=== PATIENT | female | born 1990 | race Caucasian/White ===

== ENCOUNTER 2021-03-21 09:54 | Outpatient (REF) | payer BC, OTHER, SELFPAY ==
[2021-03-25 20:47] LABS: HPV mRNA E6/E7 rflx Not Detected (Not Detected)
== END 2021-03-21 09:55 | disposition home or self-care (01) ==
LOC: HO.LAB 09:54
PROVIDERS: Visit Provider Obstetrics & Gynecology
DX: Z01.419 Encounter for gynecological examination (general) (routine) without abnormal findings (principal); Z11.51 Encounter for screening for human papillomavirus (HPV)
CPT/HCPCS: 87624; 88142

== ENCOUNTER → 2021-04-07 08:51 | Outpatient (BNVA) | payer BC, OTHER, SELFPAY | PROVIDERS: Visit Provider Advanced Practice Midwife | DX: Z32.01 Encounter for pregnancy test, result positive (principal); O09.299 Supervision of pregnancy with other poor reproductive or obstetric history, unspecified trimester | CPT/HCPCS: 81025; 99212 ==

== ENCOUNTER 2021-04-09 16:07 | Outpatient (REF) | payer BC, OTHER, SELFPAY ==
[2021-04-09 16:41] LABS: Hematocrit 34.5 % (37-47); Hemoglobin 11.3 g/dl (12.0-16.0); Mean Corpuscular HGB Conc 32.8 g/dl (31.0-35.0); Mean Corpuscular Hemoglobin 25.9 pg (27.0-33.0); Mean Corpuscular Volume 79.1 fL (80-98); Mean Platelet Volume 9.4 fL (9.4-12.3); Platelet Count 384 X10*3/uL (160-400); Red Blood Count 4.36 X10*6/uL (4.20-5.50); Red Cell Distribution Width 15.6 % (11.0-16.0); White Blood Count 9.8 X10*3/uL (4.8-10.8)
[2021-04-09 17:23] LABS: HCG Quantitative 5567 mIU/mL
== END 2021-04-09 16:08 | disposition home or self-care (01) ==
LOC: HO.LAB 16:07
PROVIDERS: Obstetrics & Gynecology; Visit Provider Advanced Practice Midwife
DX: Z32.01 Encounter for pregnancy test, result positive (principal); Z86.2 Personal history of diseases of the blood and blood-forming organs and certain disorders involving the immune mechanism
CPT/HCPCS: 36415; 84702; 85027

== ENCOUNTER 2021-04-11 16:03 | Outpatient (REF) | payer BC, OTHER, SELFPAY ==
[2021-04-11 17:30] LABS: HCG Quantitative 7976 mIU/mL
== END 2021-04-11 16:04 | disposition home or self-care (01) ==
LOC: HO.LAB 16:03
PROVIDERS: Visit Provider Advanced Practice Midwife
DX: Z32.01 Encounter for pregnancy test, result positive (principal)
CPT/HCPCS: 36415; 84702

== ENCOUNTER 2021-04-14 13:42 | Outpatient (REF) | payer BC, OTHER, SELFPAY ==
--- NOTE | ~2021-04-14 | US_ITS ---
EXAMINATION: US OBSTETRICAL ULTRASOUND CLINICAL INFORMATION: Positive test. COMPARISON: None. LMP: 03/01/2021. Gestational age by maternal dates is a 6 weeks 2 days. Estimated date of delivery by maternal dates is 12/06/2021. TECHNIQUE: Transabdominal first trimester OB ultrasound FINDINGS: There is a single intrauterine gestational sac with visible yolk sac, embryo/fetus, and cardiac activity. There is no significant subchorionic hemorrhage or hematoma. HR: 117 beats per minute. CRL (crown rump length): 0.46 cm (6 weeks 2 days +/- 4 days). MYRA (estimated date of delivery): 12/06/2021 +/- 4 days. MATERNAL ADNEXA: The right maternal ovary measures 3.3 x 2.4 x 2.7 cm. simple 3.2 x 2.6 x 3.2 cm cyst. The left maternal ovary measures 3.2 x 2.4 x 3.2 cm. complex 1.3 x 0.9 x 0.9 cm cyst. There is no significant maternal adnexal mass. No maternal pelvic ascites. US/US OB <= 14 weeks fetus IMPRESSION: 1. Single intrauterine gestation with ultrasound gestational age of 6 weeks 2 days +/- 4 days. 2. Estimated date of delivery is 12/06/2021 +/- 4 days. 3. bilateral ovarian cysts, largest on the right measuring 3cm.
== END 2021-04-14 13:43 | disposition home or self-care (01) ==
LOC: HO.US 13:42
PROVIDERS: Visit Provider Advanced Practice Midwife
DX: O09.291 Supervision of pregnancy with other poor reproductive or obstetric history, first trimester (principal); Z3A.01 Less than 8 weeks gestation of pregnancy
CPT/HCPCS: 76801

== ENCOUNTER → 2021-05-05 09:52 | Outpatient (BNVA) | payer BC, OTHER, SELFPAY | PROVIDERS: Visit Provider Advanced Practice Midwife | DX: O34.219 Maternal care for unspecified type scar from previous cesarean delivery (principal); O99.511 Diseases of the respiratory system complicating pregnancy, first trimester; J45.909 Unspecified asthma, uncomplicated; O09.291 Supervision of pregnancy with other poor reproductive or obstetric history, first trimester; Z3A.09 9 weeks gestation of pregnancy | CPT/HCPCS: 99212 ==

== ENCOUNTER 2021-05-07 10:33 | Outpatient (REF) | payer BC, OTHER, SELFPAY ==
[2021-05-07 12:46] LABS: Hematocrit 35.4 % (37-47); Hemoglobin 11.6 g/dl (12.0-16.0); Mean Corpuscular HGB Conc 32.8 g/dl (31.0-35.0); Mean Corpuscular Hemoglobin 25.7 pg (27.0-33.0); Mean Corpuscular Volume 78.5 fL (80-98); Mean Platelet Volume 9.5 fL (9.4-12.3); Platelet Count 352 X10*3/uL (160-400); Red Blood Count 4.51 X10*6/uL (4.20-5.50)
[2021-05-07 13:23] LABS: Glucose 1 Hour PP 50gm Dose 101 mg/dL (60-140)
[2021-05-07 14:06] LABS: Syphilis Screen Reactive (Nonreactive)
[2021-05-07 15:04] LABS: Amphetamine Screen Urine Not Detected (Not Detect); Barbiturates, Urine Not Detected (Not Detect); Benzodiazepines Screen Urine Not Detected (Not Detect); Cannabinoid Screen Urine Not Detected (Not Detect); Cocaine Screen Urine Not Detected (Not Detect); Fentanyl, urine Not Detected (Not Detect); Opiate Screen Urine Not Detected (Not Detect); Phencyclidine Screen Urine Not Detected (Not Detect)
[2021-05-08 04:39] LABS: HIV AB/AG Nonreactive (Nonreactive); HIV Num 1 0.12 S/CO (0.00-0.99)
[2021-05-08 04:42] LABS: HBsAGNum1 0.19 S/CO (0.00-0.99); Hepatitis B Surface Antigen Negative (Negative); ~Hepatitis C Antibody Nonreactive (Nonreactive)
[2021-05-10 17:20] LABS: Rubella IgG Antibody 1.49 Index
[2021-05-17 13:15] LABS: RPR Quantitative Non-Reactive (Nonreactive); T.Pallidum Particle Agg Test Non-Reactive (Nonreactive)
== END 2021-05-07 10:34 | disposition home or self-care (01) ==
LOC: HO.LAB 10:33
PROVIDERS: Visit Provider Advanced Practice Midwife
DX: Z32.01 Encounter for pregnancy test, result positive (principal)
CPT/HCPCS: 80307; 85027; 86592; 86762; 86780; 86787; 86803; 86850; 86900; 86901; 87086; 87340; 87389

== ENCOUNTER 2021-05-16 20:05 | Emergency (ER) | payer BC, OTHER, SELFPAY ==
--- NOTE | 2021-05-16 20:17 | ECG_ITS ---
Test Reason : CHEST PAIN Blood Pressure : / mmHG Vent. Rate : 071 BPM Atrial Rate : 071 BPM P-R Int : 182 ms QRS Dur : 086 ms QT Int : 390 ms P-R-T Axes : 006 072 043 degrees QTc Int : 423 ms Normal sinus rhythm with sinus arrhythmia Normal ECG No previous ECGs available Referred By: Amelia Holcomb Electronically Signed By:CAS BRADLEY
[2021-05-16 21:19] VITALS: BP 120/76; PULSE 70; RESP 16; TEMP 36.8; O2SAT 99; BMI 36.1
[2021-05-16 21:46] LABS: MANUAL DIFF FLAG NO
[2021-05-16 21:48] LABS: Basophils Percent Auto 0.2 % (0-2); Eosinophils Absolute Auto 0.2 X10*3/uL (0.0-0.4); Eosinophils Percent Auto 1.8 % (0-4); Hematocrit 36.6 % (37-47); Hemoglobin 12.3 g/dl (12.0-16.0); Imm Gran Abs Auto 0.07 X10*3/uL (0.00-0.03); Imm Gran Pct Auto 0.5 % (0.0-0.4); Lymphocytes Absolute Auto 2.3 X10*3/uL (1.2-4.9); Lymphocytes Percent Auto 17.6 % (20-40); Mean Corpuscular HGB Conc 33.6 g/dl (31.0-35.0); Mean Corpuscular Hemoglobin 26.6 pg (27.0-33.0); Mean Platelet Volume 9.1 fL (9.4-12.3); Monocytes Absolute Auto 0.8 X10*3/uL (0.1-1.2); Neutrophils Absolute Auto 9.6 X10*3/uL (2.0-8.3); Neutrophils Percent Auto 73.9 % (45-73); Platelet Count 367 X10*3/uL (160-400); Red Blood Count 4.63 X10*6/uL (4.20-5.50); Red Cell Distribution Width 16.1 % (11.0-16.0)
[2021-05-16 22:15] LABS: Alanine Aminotransferase 11 U/L (0-31); Albumin Level 4.2 g/dL (3.5-5.0); Alkaline Phosphatase 55 U/L (39-117); Anion Gap 11 (12-20); Aspartate Amino Transferase 12 U/L (5-31); Bilirubin Total < 0.2 mg/dL (0.0-1.0); Blood Urea Nitrogen 7 mg/dL (9-16); Calcium 10.1 mg/dL (8.4-10.2); Carbon Dioxide 24 mmol/L (22-29); Chloride 105 mmol/L (96-108); Creatinine Clr Calc Pharmacy 189.7; Estimated Glomerular Filt Rate > 60; Glucose Random 92 mg/dL (60-115); Sodium 136 mmol/L (135-145); Total Protein 7.4 g/dL (6.5-8.0)
[2021-05-16 22:15] LABS: Glucose Urine UA NEG (NEG); Leukocyte Esterase Urine 2+ (NEG); Nitrite Urine NEG (NEG); PH 6.5 (5.0-8.0); Specific Gravity - Urine <= 1.005 (1.005-1.025); UACC Culture Trigger YES; Urine Blood NEG (NEG); Urine Ketones NEG (NEG); Urine Protein NEG (NEG-TRACE)
[2021-05-16 22:19] LABS: Appearance Urine HAZY; Color Urine YELLOW
[2021-05-16 22:27] VITALS: BP 122/74; PULSE 75; RESP 15; TEMP 37.1; O2SAT 100
[2021-05-16 22:28] LABS: Troponin-I High Sensitivity < 3.5 ng/L (<3.5-17.0)
[2021-05-16 22:28] LABS: Bacteria Urine 1+ /LPF; RBC Urine 0 /HPF (0); Squamous Epithelial Cell Urine 1+ /LPF; WBC Urine 0-2 /HPF (0-4)
--- NOTE | 2021-05-16 23:29 | ECG_ITS ---
Test Reason : PALPATATIONS Blood Pressure : / mmHG Vent. Rate : 062 BPM Atrial Rate : 062 BPM P-R Int : 170 ms QRS Dur : 086 ms QT Int : 422 ms P-R-T Axes : 010 065 032 degrees QTc Int : 428 ms Normal sinus rhythm with sinus arrhythmia Normal ECG When compared with ECG of 16-MAY-2021 20:14, No significant change was found Referred By: Amelia Holcomb Electronically Signed By:CAS BRADLEY
--- NOTE | 2021-05-16 23:45 | ED_ITS ---
HPI - Chest Pain General Chief Complaint: Chest Pain Stated Complaint: Chest pain Time Seen by Provider: 05/16/21 23:25 Source: patient Mode of arrival: ambulatory Limitations: no limitations History of Present Illness HPI narrative: Patient comes emergency room complaining of tachycardia and chest pressure. Patient is a at 11 weeks of gestational age. Patient denies chest pain or shortness of breath. Patient states the only time that she feels the chest pressure is whenever she feels the heart pounding. At this time, patient is asymptomatic. Patient states that she has discussed her symptoms with her OBGYN and with her PCP, they recommended her to come to emergency room. At this time, patient has no complaints. Denies cough, no fever, denies lower extremity edema or pain Related Data Home Medications Medication Instructions Recorded Confirmed cetirizine 10 mg capsule (Zyrtec) 10 mg PO DAILY PRN 04/07/21 04/07/21 Previous Rx's Medication Instructions Recorded vitamin with calcium 1 tab PO DAILY #90 tab 04/07/21 no.72-iron 27 mg-folic acid 1 mg tablet ( Vitamins Plus Low Iron) ferrous sulfate 325 mg (65 mg 325 mg PO DAILY 30 Days #30 tab 04/10/21 iron) tablet,delayed release doxylamine succinate 25 mg tablet 25 mg PO BEDTIME 30 Days #30 tab 05/05/21 (Unisom (doxylamine)) pyridoxine (vitamin B6) 25 mg 25 mg PO tid PRN 30 Days #90 tab 05/05/21 tablet (Vitamin B-6) nitrofurantoin 100 mg PO BID #14 cap 05/17/21 monohydrate/macrocrystals 100 mg capsule (Macrobid) Allergies Allergy/AdvReac Type Severity Reaction Status Date / Time No Known Allergies Allergy Verified 05/16/21 21:19 Review of Systems Review of Systems: Constitutional : No Weight loss, No Fever, No Chills, No Night Sweats, No Fatigue, No Malaise ENT/Mouth : No Hearing loss, No Ear Pain, No Nasal Congestion, No Sinus Pain, No Hoarseness, No sore throat, No Rhinorrhea, No Swallowing Difficulty Eyes: No Eye Pain, No Swelling, No Redness, No Foreign Body, No Discharge, No Vision Changes Cardiovascular : No Chest Pain, No SOB, No Dyspnea on Exertion, No Orthopnea, No Edema, complaining of palpitations and chest pressure at the same time, in termittent, no symptoms at this time Respiratory : No Cough, No Sputum, No Wheezing, No Smoke Exposure, No Dyspnea Gastrointestinal : No Nausea, No Vomiting, No Diarrhea, No Constipation, No abdominal Pain, No Hematochezia, No Melena Genitourinary : no irregular bleeding, No Dysuria, No Urinary Frequency, No Hematuria, No Urinary Incontinence, No Urgency, No Flank Pain, No Urinary Flow Changes, No Hesitancy Musculoskeletal : No joint pain, No Myalgias, No Joint Swelling Skin : No Skin Lesions, No rash Neuro : No Weakness, No Numbness, No Paresthesias, No Loss of Consciousness, No Dizziness, No Headache Psych : No Anxiety/Panic, No Depression, No SI/HI/AH/VH, No Social Issues, Heme/Lymph: No Bruising, No Bleeding,No Lymphadenopathy Endocrine : No Polyuria, No Polydipsia, No Temperature Intolerance [facility] Past Medical History Medical History Asthma Seasonal allergies Surgical History Hx of section Family History Family History (Updated 05/05/21 @ 10:17 by Justina Rosales) Maternal Aunt Breast CA Father Diabetes mellitus Mother Diabetes mellitus HTN (hypertension) Maternal Grandfather Colon cancer Paternal Grandmother Stomach cancer Social History Social History (Updated 05/05/21 @ 10:20 by Justina Rosales) Household Members: Spouse and Children Housing: House Are you a primary lawn caretaker to a significant other at home: No Do you presently have visiting nurse or other home services: No Alcohol intake: never Patient Tobacco Use Status: Never used Tobacco Advance Directives: No Advance Directives Information Provided: Yes Patient : Yes service: No Current occupational status: unemployed Gender identity: Female Physical Exam Vital Signs: Vital Signs: Last Vital Signs Temp 98.8 F 05/16/21 22:27 Pulse 75 05/16/21 22:27 Resp 15 05/16/21 22:27 BP 122/74 05/16/21 22:27 Pulse Ox 100 05/16/21 22:27 Body Mass Index 36.1 Const: Other: Appearance: Alert. Oriented X3. No acute distress. Eyes: Pupils equal, round and reactive to light. ENT: Pharynx normal. Neck: Normal inspection. Neck supple. No lymph nodes noted. No crepitus CVS: Normal heart rate and rhythm. Pulses normal. Normal S1 and S2 Respiratory: No respiratory distress. Breath sounds normal. No Wheezing. No rales Abdomen: Soft and nontender. No rigidity. No distention. Bedside ultrasound shows a intrauterine , good movement, heart rate approximately 160-170 Skin: Skin warm and dry. Normal skin color. Normal skin turgor. Extremities: No lower extremity edema. No lower extremity edema, no pain to palpation in calves or thighs Neuro: Oriented X 3. No motor deficit. No sensory deficit. Moving all extermities. No slurred speech. Course Course Course Narrative: Patient is asymptomatic, patient will follow-up with her primary care physician and Cardiology as scheduled. Patient does have a mild UTI, 1st dose of Macrobid given in the emergency room. MDM - Chest Pain MDM Narrative Medical decision making narrative: At this time, PE is not suspected. Patient is now asymptomatic. Patient states she has a cardiology consult pending. PE is not suspected at this time. Lab Data Result diagrams: 05/16/21 21:41 05/16/21 21:41 Labs: Lab Results 05/16/21 05/16/21 05/16/21 Range/Units 21:41 21:41 21:41 WBC 13.0 H (4.8-10.8) X10*3/uL RBC 4.63 (4.20-5.50) X10*6/uL Hgb 12.3 (12.0-16.0) g/dl Hct 36.6 L (37-47) % MCV 79.0 L (80-98) fL MCH 26.6 L (27.0-33.0) pg MCHC 33.6 (31.0-35.0) g/dl RDW 16.1 H (11.0-16.0) % Plt Count 367 (160-400) X10*3/uL MPV 9.1 L (9.4-12.3) fL Immature Gran % (Auto) 0.5 H (0.0-0.4) % Neut % (Auto) 73.9 H (45-73) % Lymph % (Auto) 17.6 L (20-40) % [place] % (Auto) 6.0 (2-11) % Eos % (Auto) 1.8 (0-4) % Baso % (Auto) 0.2 (0-2) % Lymph # (Auto) 2.3 (1.2-4.9) X10*3/uL [place] # (Auto) 0.8 (0.1-1.2) X10*3/uL Eos # (Auto) 0.2 (0.0-0.4) X10*3/uL Baso # (Auto) 0.0 (0.0-0.2) X10*3/uL Abs Immat Gran (auto) 0.07 H (0.00-0.03) X10*3/uL Absolute Neuts (auto) 9.6 H (2.0-8.3) X10*3/uL Absolute Nucleated RBC 0.000 (0.0-0.012) X10*3/uL Nucleated RBC % (auto) 0.0 (0.0-0.2) /100WBC Sodium 136 (135-145) mmol/L Potassium 4.0 (3.3-5.1) mmol/L Chloride 105 (96-108) mmol/L Carbon Dioxide 24 (22-29) mmol/L Anion Gap 11 L (12-20) BUN 7 L (9-16) mg/dL Creatinine 0.53 (0.5-1.4) mg/dL Estim Creat Clear Calc 189.7 Estimated GFR > 60 Random Glucose 92 (60-115) mg/dL Calcium 10.1 (8.4-10.2) mg/dL Total Bilirubin < 0.2 (0.0-1.0) mg/dL AST 12 (5-31) U/L ALT 11 (0-31) U/L Alkaline Phosphatase 55 (39-117) U/L Troponin I High Sens < 3.5 (<3.5-17.0) ng/L Total Protein 7.4 (6.5-8.0) g/dL Albumin 4.2 (3.5-5.0) g/dL Urine Color Urine Appearance Urine pH (5.0-8.0) Ur Specific [place] (1.005-1.025) Urine Protein (NEG-TRACE) MG/DL Urine Glucose (UA) (NEG) MG/DL Urine Ketones (NEG) MG/DL Urine Blood (NEG) Urine Nitrite (NEG) Ur Leukocyte Esterase (NEG) Urine RBC (0) /HPF Urine WBC (0-4) /HPF Ur Squamous Epith Cells /LPF Urine Bacteria /LPF 05/16/21 Range/Units 22:02 WBC (4.8-10.8) X10*3/uL RBC (4.20-5.50) X10*6/uL Hgb (12.0-16.0) g/dl Hct (37-47) % MCV (80-98) fL MCH (27.0-33.0) pg MCHC (31.0-35.0) g/dl RDW (11.0-16.0) % Plt Count (160-400) X10*3/uL MPV (9.4-12.3) fL Immature Gran % (Auto) (0.0-0.4) % Neut % (Auto) (45-73) % Lymph % (Auto) (20-40) % [place] % (Auto) (2-11) % Eos % (Auto) (0-4) % Baso % (Auto) (0-2) % Lymph # (Auto) (1.2-4.9) X10*3/uL [place] # (Auto) (0.1-1.2) X10*3/uL Eos # (Auto) (0.0-0.4) X10*3/uL Baso # (Auto) (0.0-0.2) X10*3/uL Abs Immat Gran (auto) (0.00-0.03) X10*3/uL Absolute Neuts (auto) (2.0-8.3) X10*3/uL Absolute Nucleated RBC (0.0-0.012) X10*3/uL Nucleated RBC % (auto) (0.0-0.2) /100WBC Sodium (135-145) mmol/L Potassium (3.3-5.1) mmol/L Chloride (96-108) mmol/L Carbon Dioxide (22-29) mmol/L Anion Gap (12-20) BUN (9-16) mg/dL Creatinine (0.5-1.4) mg/dL Estim Creat Clear Calc Estimated GFR Random Glucose (60-115) mg/dL Calcium (8.4-10.2) mg/dL Total Bilirubin (0.0-1.0) mg/dL AST (5-31) U/L ALT (0-31) U/L Alkaline Phosphatase (39-117) U/L Troponin I High Sens (<3.5-17.0) ng/L Total Protein (6.5-8.0) g/dL Albumin (3.5-5.0) g/dL Urine Color YELLOW Urine Appearance HAZY Urine pH 6.5 (5.0-8.0) Ur Specific [place] <= 1.005 (1.005-1.025) Urine Protein NEG (NEG-TRACE) MG/DL Urine Glucose (UA) NEG (NEG) MG/DL Urine Ketones NEG (NEG) MG/DL Urine Blood NEG (NEG) Urine Nitrite NEG (NEG) Ur Leukocyte Esterase 2+ H (NEG) Urine RBC 0 (0) /HPF Urine WBC 0-2 (0-4) /HPF Ur Squamous Epith Cells 1+ /LPF Urine Bacteria 1+ /LPF ECG Data ECG #1: Attestation: I personally reviewed and interpreted this ECG as follows: (Sinus rhythm, heart rate 62, no ST segment depression or elevation, to inversion, QTC 428) Discharge Plan Discharge Clinical Impression: Palpitations, UTI (urinary tract infection) Patient Disposition: Home, Self-Care Instructions: Heart Palpitations (ED) Additional Instructions: Please follow-up with your primary care physician tomorrow. If you have any worsening or new symptoms, please return to the emergency room or call 911 Prescriptions: New nitrofurantoin monohyd/m-cryst [Macrobid] 100 mg capsule 100 mg PO BID Qty: 14 RF: 0 No Action ferrous sulfate 325 mg (65 mg iron) tablet,delayed release (DR/EC) 325 mg PO DAILY 30 Days Qty: 30 RF: 1 Zyrtec 10 mg capsule 10 mg PO DAILY PRNRF: 0 Vitamin Plus Low Iron 27 mg iron- 1 mg tablet 1 tab PO DAILY Qty: 90 RF: 3 Unisom (doxylamine) 25 mg tablet 25 mg PO BEDTIME 30 Days Qty: 30 RF: 3 pyridoxine (vitamin B6) [Vitamin B-6] 25 mg tablet 25 mg PO tid PRN (Reason: nausea) 30 Days Qty: 90 RF: 3
== END 2021-05-17 00:09 | disposition home or self-care (01) ==
PROVIDERS: Emergency Provider Emergency Medicine
DX: O99.411 Diseases of the circulatory system complicating pregnancy, first trimester (principal); R00.2 Palpitations; O23.41 Unspecified infection of urinary tract in pregnancy, first trimester; Z3A.11 11 weeks gestation of pregnancy
CPT/HCPCS: 36415; 80053; 81001; 84484; 85025; 87086; 93005; 99283

== ENCOUNTER 2021-05-23 11:19 | Outpatient (REF) | payer BC, OTHER, SELFPAY ==
--- NOTE | ~2021-05-23 | US_ITS ---
EXAMINATION: OBSTETRICAL ULTRASOUND, FIRST TRIMESTER HISTORY: 30-year-old at 11.6 weeks of gestation NT screening COMPARISON: 04/14/2021 TECHNIQUE: Real time transabdominal imaging with color and M-mode Doppler. FINDINGS: A single, live IUP CRL of 59.8 mm c/w 12.4wks is noted. Heart Rate: 161 beats per minute. Normal yolk sac seen. NT was 1.3.mm. NB Present The embryo appears sonographically wnl for this GA. Both maternal ovaries are seen and appear normal. GESTATIONAL AGE: 1. Established GA: 11.6 wks 2. GA from [facility]: 12.4 wks ESTIMATED DATE OF DELIVERY: 1. Established MYRA: 12/06/2021 2. MYRA from [facility]: 12/01/2021 US/US OB 1T nuc measure IMPRESSION: 1. A single live IUP 2. Size equals dates 3. NT of 1.3 mm MFM Consultation: I reviewed the ultrasound findings along with significance of NT measurement. The NT of less than 3mm is generally reassuring. However, the sensitivity for T21 detection is only 60%. I reviewed the availability of serum aneuploidy screening which includes cell-free DNA and placental protein based tests. I discussed the sensitivity, false-positive rate, and other limitations associated with each test. I also reviewed the availability of invasive diagnostic tests that are associated small but definite risk of miscarriage. We also reviewed the differences between screening tests and diagnostic tests. After our discussion, she opted for the First trimester screening that is based on cell-free DNA or non-invasive testing (NIPT). A follow up at 18-20 weeks for survey has been scheduled. Thank you very much for this referral. Total time 30 minutes. The time spent was devoted to counseling the patient about the disease and diagnosis, coordinating care including reviewing her records, pertinent lab data and studies, as well as discussing diagnostic evaluation and workup, plan therapeutic interventions and future disposition of care. This includes any additional research needed to obtain further information in formulating the plan of care of this patient. This note was generated with a voice recognition program. Please excuse any errors which may have been overlooked during my review of this note. Sometimes these errors may affect the content or meaning of a given sentence.
== END 2021-05-23 11:20 | disposition home or self-care (01) ==
LOC: HO.US 11:19
PROVIDERS: Visit Provider Advanced Practice Midwife
DX: Z36.82 Encounter for antenatal screening for nuchal translucency (principal)
CPT/HCPCS: 76813

== ENCOUNTER 2021-06-02 13:34 | Outpatient (REF) | payer OTHER, SELFPAY ==
[2021-06-03 04:49] LABS: CT PCR NOT DETECTED (Not Detect.); NG PCR NOT DETECTED (Not Detect.)
[2021-06-03 08:55] LABS: BV Int Neg Control Negative (Negative); BV Int Pos Control Positive (Positive)
== END 2021-06-02 13:35 | disposition home or self-care (01) ==
LOC: HO.LAB 13:34
PROVIDERS: Visit Provider Advanced Practice Midwife
DX: O34.219 Maternal care for unspecified type scar from previous cesarean delivery (principal); O26.891 Other specified pregnancy related conditions, first trimester; O09.299 Supervision of pregnancy with other poor reproductive or obstetric history, unspecified trimester; N63.21 Unspecified lump in the left breast, upper outer quadrant; N89.8 Other specified noninflammatory disorders of vagina; Z3A.13 13 weeks gestation of pregnancy; Z20.2 Contact with and (suspected) exposure to infections with a predominantly sexual mode of transmission
CPT/HCPCS: 81003; 87480; 87491; 87510; 87591; 87660; 99212

== ENCOUNTER 2021-06-25 13:38 | Outpatient (REF) | payer BC, MEDICAID, SELFPAY ==
--- NOTE | ~2021-06-25 | US_ITS ---
EXAMINATION: US DIAGNOSTIC ULTRASOUND BREAST, LEFT CLINICAL INFORMATION: Patient for months . Patient developed left breast lump for one and half months.. COMPARISON: None. TECHNIQUE: Ultrasound of the breast is performed with real-time henderson scale imaging and color Doppler. FINDINGS: Patient demonstrates where the palpable abnormality lies at approximately 2:00 position 7 cm from the nipple. There is no solid mass, architectural abnormality, duct ectasia, or edema in the soft tissue planes. Results are discussed with the patient at time of visit. US/US breast LT limited IMPRESSION: No specific left breast ultrasound finding identified. ASSESSMENT: BI-RADS 1: Negative RECOMMENDATION: Clinical follow-up
== END 2021-06-25 13:39 | disposition home or self-care (01) ==
LOC: HO.MAMMO 13:38
PROVIDERS: Visit Provider Advanced Practice Midwife
DX: O26.891 Other specified pregnancy related conditions, first trimester (principal); N63.21 Unspecified lump in the left breast, upper outer quadrant; O09.291 Supervision of pregnancy with other poor reproductive or obstetric history, first trimester; O34.219 Maternal care for unspecified type scar from previous cesarean delivery; Z3A.13 13 weeks gestation of pregnancy
CPT/HCPCS: 76642

== ENCOUNTER → 2021-06-30 10:17 | Outpatient (BNVA) | payer BC, MEDICAID, SELFPAY | PROVIDERS: Visit Provider Advanced Practice Midwife | DX: O34.219 Maternal care for unspecified type scar from previous cesarean delivery (principal); Z36.3 Encounter for antenatal screening for malformations; Z3A.17 17 weeks gestation of pregnancy | CPT/HCPCS: 99212 ==

== ENCOUNTER 2021-07-18 10:14 | Outpatient (REF) | payer BC, MEDICAID, SELFPAY ==
--- NOTE | ~2021-07-18 | US_ITS ---
EXAMINATION: US OBSTETRICAL CLINICAL INFORMATION: 30-year-old at 19.6 weeks of gestation Suspected anomaly COMPARISON: 06/25/2021 TECHNIQUE: Real-time transabdominal ultrasound was performed using C1-5 megahertz transducer. FINDINGS: A single, active, fetus is seen in vertex presentation. The placenta is posterior without previa, and the amniotic fluid volume is wnl. MEASUREMENTS: 1. Biparietal Diameter: 4.8 cm; 20.4 wks 2. Occipital Frontal Diameter: 6.3 cm 3. Head Circumference: 17.8 cm; 20.2 wks 4. Abdominal Circumference: 15.8 cm; 21.0 wks 5. Femur Length: 3.3 cm; 20.3 wks 6. Humerus Length: 3.3 cm; 21.1 wks 7. Tibia Length: 3.2 cm; 21.6 wks 8. Ulna Length: 3.0 cm; 21.1 wks 9. Lateral ventricle: 0.64 cm 10. Cerebellum: 1.96 cm; 20.1 wks 11. Cisterna Magna: 0.48 cm 12. Nuchal Fold: 4.2 mm 13. Heart Rate: 152 beats per minute Rt ovary: normal Lt ovary: normal Cervical length 4.4 cm on T/A. GESTATIONAL AGE: 1. Established GA: 19.6 wks 2. GA from [facility]: 20.4 wks ESTIMATED DATE OF DELIVERY: 1. Established MYRA: 12/06/2021 2. MYRA from [facility]: 12/01/2021 ANATOMY: The visualized anatomy includes but not limited to: 1. Cranium: Normal 2. Intracranial anatomy: cavum septum pellucidi, lateral ventricles, choroid plexus, cerebellum, posterior fossa, third and fourth ventricles. 3. face: orbits, lip/palate, profile, nasal bone 4. Heart: four-chamber view of the heart, ventricular septum, foramen ovale, pulmonary vein, left and right outflow tracts, three-vessel view, 3 vessel trachea view, aortic and ductal arches, situs.. 5. Diaphragm: Normal 6. Abdominal wall: Normal 7. Cord Insertion: Normal 8. Spine: Cervical, thoracic, lumbar, sacral. 9. Stomach: Normal size and shape 10. Right Kidney: Normal 11. Left Kidney: Normal 12. 3 vessel cord: Normal 13. Upper extremity: Open hands, fifth digit. 14. Lower extremity: Tibia, fibula, bilateral feet. 15. Bladder: Normal 16. Genitalia: Male, patient aware US/US OB /maternal detail IMPRESSION: 1. Single, living, intrauterine with appropriate biometry. 2. Normal survey DISCUSSION: I reviewed today's ultrasound findings. We discussed the limitations of ultrasound in diagnosing aneuploidy and other congenital abnormalities. I reviewed the differences between screening test and diagnostic test. Amniocentesis was discussed and declined. She was informed that the baseline incidence of congenital abnormalities is approximately 3-5%. Not all these conditions are diagnosable in utero. RECOMMENDATIONS: 1. Follow-up when necessary Thank you for allowing me to participate in her care. Total time 20 minutes. The time spent was devoted to counseling the patient about the disease and diagnosis, coordinating care including reviewing her records, pertinent lab data and studies, as well as discussing diagnostic evaluation and workup, plan therapeutic interventions and future disposition of care. This includes any additional research needed to obtain further information in formulating the plan of care of this patient. This note was generated with a voice recognition program. Please excuse any errors which may have been overlooked during my review of this note. Sometimes these errors may affect the content or meaning of a given sentence.
== END 2021-07-18 10:15 | disposition home or self-care (01) ==
LOC: HO.US 10:14
PROVIDERS: Visit Provider Advanced Practice Midwife
DX: Z36.3 Encounter for antenatal screening for malformations (principal); O34.219 Maternal care for unspecified type scar from previous cesarean delivery; Z3A.19 19 weeks gestation of pregnancy
CPT/HCPCS: 76811

== ENCOUNTER → 2021-07-30 09:28 | Outpatient (BNVA) | payer BC, MEDICAID, SELFPAY | PROVIDERS: Visit Provider Advanced Practice Midwife | DX: Z34.82 Encounter for supervision of other normal pregnancy, second trimester (principal); Z3A.21 21 weeks gestation of pregnancy; Z98.891 History of uterine scar from previous surgery | CPT/HCPCS: 81003; 90686; 99212 ==

== ENCOUNTER → 2021-08-27 09:12 | Outpatient (BNVA) | payer BC, MEDICAID, SELFPAY | PROVIDERS: Visit Provider Advanced Practice Midwife | DX: O26.842 Uterine size-date discrepancy, second trimester (principal); O26.892 Other specified pregnancy related conditions, second trimester; R76.8 Other specified abnormal immunological findings in serum; Z98.891 History of uterine scar from previous surgery; Z3A.25 25 weeks gestation of pregnancy | CPT/HCPCS: 99212 ==

== ENCOUNTER → 2021-09-29 10:39 | Outpatient (BNVA) | payer BC, MEDICAID, SELFPAY | PROVIDERS: Visit Provider Advanced Practice Midwife | DX: O26.843 Uterine size-date discrepancy, third trimester (principal); O26.893 Other specified pregnancy related conditions, third trimester; R76.8 Other specified abnormal immunological findings in serum; Z3A.30 30 weeks gestation of pregnancy; Z98.891 History of uterine scar from previous surgery; Z36.3 Encounter for antenatal screening for malformations | CPT/HCPCS: 81003; 99212 ==

== ENCOUNTER 2021-10-01 09:37 | Outpatient (REF) | payer BC, MEDICAID, SELFPAY ==
[2021-10-01 11:35] LABS: Hematocrit 35.3 % (37.0-47.0); Hemoglobin 11.8 g/dl (12.0-16.0); Mean Corpuscular HGB Conc 33.4 g/dl (31.0-35.0); Mean Corpuscular Hemoglobin 27.6 pg (27.0-33.0); Mean Corpuscular Volume 82.7 fL (80.0-98.0); Platelet Count 371 X10*3/uL (160-400); Red Blood Count 4.27 X10*6/uL (4.20-5.50); Red Cell Distribution Width 14.4 % (11.0-16.0); White Blood Count 10.9 X10*3/uL (4.8-10.8)
[2021-10-01 11:53] LABS: Glucose 1 Hour PP 50gm Dose 139 mg/dL (60-140)
[2021-10-01 12:20] LABS: Syphilis Screen Nonreactive (Nonreactive)
== END 2021-10-01 09:38 | disposition home or self-care (01) ==
LOC: HO.LAB 09:37
PROVIDERS: Visit Provider Advanced Practice Midwife
DX: O26.842 Uterine size-date discrepancy, second trimester (principal); O26.892 Other specified pregnancy related conditions, second trimester; R76.8 Other specified abnormal immunological findings in serum; Z98.891 History of uterine scar from previous surgery
CPT/HCPCS: 36415; 85027; 86780

== ENCOUNTER 2021-10-03 09:22 | Outpatient (REF) | payer BC, MEDICAID, SELFPAY ==
[2021-10-03 11:17] LABS: Glucose Fasting 72 mg/dL (60-99)
[2021-10-03 12:10] LABS: Glucose 1 Hour 129 mg/dL
[2021-10-03 12:17] LABS: Glucose 2 Hour 129 mg/dL
[2021-10-03 14:18] LABS: Glucose 3 Hour 65 mg/dL
== END 2021-10-03 09:23 | disposition home or self-care (01) ==
LOC: HO.LAB 09:22
PROVIDERS: Visit Provider Advanced Practice Midwife
DX: R73.09 Other abnormal glucose (principal)
CPT/HCPCS: 36415; 82951

== ENCOUNTER 2021-10-10 09:23 | Outpatient (REF) | payer BC, MEDICAID, SELFPAY ==
--- NOTE | ~2021-10-10 | US_ITS ---
EXAMINATION: OBSTETRICAL ULTRASOUND, Follow up HISTORY: 30-year-old at 31.6 weeks of gestation Size greater than dates COMPARISON: 07/18/2021 TECHNIQUE: Real time transabdominal imaging with color and M-mode Doppler. PRESENTATION: Vertex PLACENTA LOCATION: Fundal, right AMNIOTIC FLUID: POLA 20.3 cm MEASUREMENTS: 1. Biparietal Diameter: 8.2 cm; 32.6 wks 2. Head Circumference: 29.8 cm; 33.1 wks 3. Abdominal Circumference: 28.9 cm; 33.0 wks 4. Femur Length: 6.3 cm; 32.6 wks 5. Heart Rate: 150 beats per minute WEIGHT: EFW: 2070 grams (4 lbs 9 oz) -- 72 %. BIOPHYSICAL PROFILE: Motion: 2 Tone: 2 Breathin Amniotic Fluid: 2 Total score: 8/8 GESTATIONAL AGE: 1. Established GA: 31.6 wks 2. GA from [facility]: 33.0 wks ESTIMATED DATE OF DELIVERY: 1. Established MYRA: 12/06/2021 2. MYRA from [facility]: 11/28/2021 US/US OB follow up IMPRESSION: 1. A single active fetus is in vertex presentation 2. Size equals dates, EFW corresponds to 72nd percentile 3. Reassuring biophysical profile with normal POLA She delivered her first 2 babies by section. The first had weight of approximately 6 pounds. In the second child was approximately 10 pounds. She is interested in a trial of labor. Given today's EFW, I informed her that the onset of her having a successful vaginal delivery is likely to be about 60% at best. In addition I reviewed the risk of uterine scar separation during labor after 2 previous deliveries. I also reviewed the limitations of ultrasound and estimating weights. She reports normal GLT. My recommendation would be to schedule her third repeat delivery at approximately 39 weeks of gestation. A further follow-up has not been scheduled today. Thank you very much for this referral. Total time 30 minutes. The time spent was devoted to counseling the patient about the disease and diagnosis, coordinating care including reviewing her records, pertinent lab data and studies, as well as discussing diagnostic evaluation and workup, plan therapeutic interventions and future disposition of care. This includes any additional research needed to obtain further information in formulating the plan of care of this patient. This note was generated with a voice recognition program. Please excuse any errors which may have been overlooked during my review of this note. Sometimes these errors may affect the content or meaning of a given sentence.
== END 2021-10-10 09:24 | disposition home or self-care (01) ==
LOC: HO.US 09:23
PROVIDERS: Visit Provider Advanced Practice Midwife
DX: O26.842 Uterine size-date discrepancy, second trimester (principal); O34.219 Maternal care for unspecified type scar from previous cesarean delivery; Z3A.31 31 weeks gestation of pregnancy
CPT/HCPCS: 76816

== ENCOUNTER → 2021-10-15 11:29 | Outpatient (BNVA) | payer BC, MEDICAID, SELFPAY | PROVIDERS: Visit Provider Advanced Practice Midwife | DX: Z34.83 Encounter for supervision of other normal pregnancy, third trimester (principal); Z3A.32 32 weeks gestation of pregnancy | CPT/HCPCS: 81003; 99212 ==

== ENCOUNTER 2023-01-06 13:13 | Outpatient (REF) | payer BC, MEDICAID, SELFPAY ==
[2023-01-06 17:28] LABS: Mean Corpuscular HGB Conc 31.3 g/dl (31.0-35.0); Mean Corpuscular Hemoglobin 22.1 pg (27.0-33.0); Mean Corpuscular Volume 70.8 fL (80.0-98.0); Mean Platelet Volume 9.8 fL (9.4-12.3); Platelet Count 556 X10*3/uL (160-400); Red Blood Count 4.52 X10*6/uL (4.20-5.50); Red Cell Distribution Width 15.7 % (11.0-16.0); White Blood Count 10.1 X10*3/uL (4.8-10.8)
[2023-01-07 05:36] LABS: CT PCR NOT DETECTED (Not Detect.); NG PCR NOT DETECTED (Not Detect.)
[2023-01-07 14:35] LABS: BV Int Neg Control Negative (Negative); BV Int Pos Control Positive (Positive)
== END 2023-01-06 13:14 | disposition home or self-care (01) ==
LOC: HO.LAB 13:13
PROVIDERS: Visit Provider Advanced Practice Midwife
DX: N93.9 Abnormal uterine and vaginal bleeding, unspecified (principal); N92.6 Irregular menstruation, unspecified; Z20.2 Contact with and (suspected) exposure to infections with a predominantly sexual mode of transmission; Z86.2 Personal history of diseases of the blood and blood-forming organs and certain disorders involving the immune mechanism
CPT/HCPCS: 0353U; 81025; 84443; 85027; 87480; 87510; 87660

== ENCOUNTER 2023-01-06 15:11 | Outpatient (REF) | payer BC, MEDICAID, SELFPAY | END 2023-01-06 15:12 | disposition home or self-care (01) | LOC: HO.LNP 15:11 | PROVIDERS: Visit Provider Advanced Practice Midwife | DX: Z13.89 Encounter for screening for other disorder (principal) ==

== ENCOUNTER 2023-01-07 12:57 | Outpatient (REF) | payer BC, MEDICAID, SELFPAY ==
--- NOTE | ~2023-01-07 | US_ITS ---
EXAMINATION: US PELVIS CLINICAL INFORMATION: Abnormal uterine bleeding. COMPARISON: Pelvic ultrasound 06/09/2019. First trimester ultrasound 04/14/2021. TECHNIQUE: Ultrasound of the pelvis is performed using both transabdominal and transvaginal transducers along with Doppler. Transvaginal imaging is performed due to inadequate visualization transabdominally. The patient was actively bleeding during the examination. FINDINGS: Uterus: The uterus is anteverted and measures 10.6 x 5.6 x 6.9 cm. The double wall endometrial thickness is 20 mm. The uterus is smooth in contour and has normal myometrial echogenicity. No visible fibroid. Adnexa: Right ovary measures 4.4 x 2.4 x 2.4 cm. Volume 13.6 mL. Left ovary measures 3.6 x 2.0 x 3.0 cm. Volume 11.4 mL. There is a stable complex cyst with calcification measuring 1.3 x 0.9 x 1.1 cm (previously 1.3 x 0.9 x 0.9 cm on 05/15/2021). US/US pelvic and transvaginal IMPRESSION: The endometrial stripe measures 20 mm. The patient was actively bleeding during the exam. No discrete uterine mass or polyp seen.
== END 2023-01-07 12:58 | disposition home or self-care (01) ==
LOC: HO.HMGCX 12:57
PROVIDERS: Visit Provider Advanced Practice Midwife
DX: N93.9 Abnormal uterine and vaginal bleeding, unspecified (principal); Z86.2 Personal history of diseases of the blood and blood-forming organs and certain disorders involving the immune mechanism
CPT/HCPCS: 76830; 76856

== ENCOUNTER → 2023-02-23 10:56 | Outpatient (BNVA) | payer BC, MEDICAID, SELFPAY | PROVIDERS: Visit Provider Advanced Practice Midwife ==

== ENCOUNTER → 2023-03-31 09:59 | Outpatient (BNVA) | payer BC, MEDICAID, SELFPAY | PROVIDERS: Visit Provider Internal Medicine Cardiovascular Disease ==

== ENCOUNTER 2023-03-31 10:00 | Outpatient (AMB) | payer BC, MEDICAID, SELFPAY ==
--- NOTE | 2023-03-31 10:02 | MHC.OFFVIS ---
Intake Vital Signs 03/31/23 10:03 Height 5 ft 7 in Weight 233 lb 11.04 oz BMI 36.6 BP 126/68 Blood Pressure Location Lt brachial Position Sitting Pulse 75 Intake Visit Reasons: [facility]/ [facility]/ [facility]/ chest pain/elev bp readings Intake Note: New patient with chest pain and high bp c/o sometimes high sometimes low bp Vision Teacher Required: No Allergies No Known Allergies Allergy (Verified 02/23/23 10:58) Medication List - Last Reconciled 03/31/23 by Alberto Henderson MD albuterol sulfate 90 mcg/actuation 0 mcg inhalation ferrous sulfate 324 mg PO BID fluticasone propionate 110 mcg/actuation (Flovent HFA) 2 puffs inhalation BID HPI HPI Comments History of Present Illness Details Thank you for referring Deidre in management of elevated blood pressure. She is a pleasant 32-year-old woman with developed high blood pressure during labor. She had labile blood pressure at that time as well. Since then more recently she started noticing some chest pressure notice that a blood pressure is significantly elevated with systolic blood pressure up to 176 and diastolic blood pressure in the 90s. However other times a blood pressure in the normal ranges systolic blood pressure up to 126 mmHg. She has no clear reason as to why her blood pressure is elevated some day and not on other days. She may think that this might be related to poor sleep the night before. She denies any clear significant snoring noted by her significant other but does have daytime somnolence. She has family history of elevated blood pressure and her mother. Since been diagnosed with this she has reduced to salt intake in his trying to reduce weight. Although she does not think there is made much difference to her blood pressure level. She has not had any workup for secondary causes of hypertension at this point in time. She denies any palpitations, lightheadedness, syncope. No heart failure symptoms. [facility] Medical History Asthma Seasonal allergies Surgical History Hx of section Family History Maternal Aunt Breast CA Father Diabetes mellitus Mother Diabetes mellitus HTN (hypertension) Maternal Grandfather Colon cancer Paternal Grandmother Stomach cancer Social History Household Members: Spouse and Children Both parents involved: Yes Caregiver staying overnight: No Housing: House Are you a primary healthcare management consultant to a significant other at home: No Do you presently have visiting nurse or other home services: No 75 years or older and lives alone: No Alcohol intake: never Patient Tobacco Use Status: Never used Tobacco service: No Current occupational status: unemployed Gender identity: Female Female Reproductive History Menstrual Age of Menarche: 10 Review of Systems Const Denies chills, Denies daytime sleepiness, Denies fatigue, Denies fever(s), Denies frequent falls, Denies poor appetite, Denies snoring, Denies stops breathing during sleep, Denies weakness, Denies weight gain and Denies weight loss Eyes Denies loss of vision ENT Denies dizziness and Denies hearing loss Card Denies chest pain, Denies claudication, Denies leg edema, Denies lightheadedness, Denies palpitations, Denies dyspnea, Denies dyspnea on exertion and Denies orthopnea Resp Denies cough, Denies excessive phlegm production, Denies dyspnea, Denies dyspnea on exertion, Denies snoring and Denies wheezing GI Denies abdominal pain, Denies hematochezia, Denies change in bowel habits, Denies nausea and Denies vomiting Denies urinary frequency and Denies dysuria Musc Denies arthralgias, Denies muscle weakness, Denies numbness and Denies other (frequent falls) Skin/Breast Denies nail changes and Denies rash Neuro Denies Abnormal speech present, Denies dizziness, Denies frequent falls, Denies loss of vision, Denies memory loss, Denies numbness and Denies weakness Psych Denies depression and Denies memory loss Endo Denies fatigue and Denies palpitations Obdulio/Lymph Reports easy bruising and Reports other (anemia) Aller/Immun Denies wheezing Physical Exam Vital Signs: Last Vital Signs Pulse 75 03/31/23 10:03 BP 126/68 03/31/23 10:03 BMI result Body Mass Index 36.6 Const General: cooperative, comfortable, no acute distress, alert, awake, Physically active and well groomed Nutritional Appearance: obese Orientation/consciousness: patient oriented x3 Limitations: no limitations HEENT Head: Yes normocephalic and Yes atraumatic Neck Neck: Yes trachea midline, Yes supple and Yes no JVD Resp Effort & Inspection: normal respiratory effort Auscultation: clear to auscultation bilaterally Cardio Jugular venous distension: no JVD Palpation: normal PMI Rate: regular rate Rhythm: regular rhythm Heart sounds: S1 normal heart sound present, S2 normal heart sound present, no click, no gallops, no murmurs and no rubs GI Auscultation: normal bowel sounds Skin General skin exam: no rashes or lesions noted Neuro General: patient oriented x3 and no focal motor deficits Speech: No Abnormal speech present Extrem General: Yes no clubbing, cyanosis or edema Assessment & Plan Assessment & Plan (1) Labile blood pressure: Code(s): R09.89 - Other specified symptoms and signs involving the circulatory and respiratory systems Plan: Labile blood pressure in young person with associated symptoms when the blood pressure is elevated. Reason for chest discomfort is most likely due to subendocardial strain from her elevated blood pressure. Need to evaluate for secondary hypertension. Will obtain an echocardiogram to evaluate for LV structure and function to evaluate for coarctation although I do not appreciate any murmur. Also suggest renal duplex to rule out fibromuscular dysplasia renal arteries in a young person. Home sleep study to evaluate for sleep apnea. Will also suggest endocrine workup with metanephrines, cortisol, aldosterone and TSH levels. Further treatment based on the findings. She may have a tendency to develop early essential hypertension given her weight and family history for premature hypertension as well. Advised to participate in low-salt diet and weight loss program. She has already started to do that. Advised to maintain a log and monitor blood pressure at home at different times of the day and try to find a possible trigger factor which can be adequately treated. If he develops significant chest pressure she is advised to come to emergency room. She is advised to call me if her blood pressure remains persistently elevated. Will follow up in the clinic in 6 weeks time, sooner p.r.n.. Thank you for allowing me to partake in her care Orders: Orders CA echo transthoracic complete Today R09.89 - Other specified symptoms and signs involving the circulatory and respiratory systems US renal doppler Today R09.89 - Other specified symptoms and signs involving the circulatory and respiratory systems RT home sleep study Today R09.89 - Other specified symptoms and signs involving the circulatory and respiratory systems, R40.0 - Somnolence Aldosterone Today R09.89 - Other specified symptoms and signs involving the circulatory and respiratory systems Aldost/Renin Today R09.89 - Other specified symptoms and signs involving the circulatory and respiratory systems Basic Metabolic Panel Today R09.89 - Other specified symptoms and signs involving the circulatory and respiratory systems Cortisol Random Today R09.89 - Other specified symptoms and signs involving the circulatory and respiratory systems Metanephrines, Plasma Today R09.89 - Other specified symptoms and signs involving the circulatory and respiratory systems TSH reflex Free T4 Today R09.89 - Other specified symptoms and signs involving the circulatory and respiratory systems Coding Level of Care Code New Pt Level 4 (71073) Diagnoses Labile blood pressure R09.89
[2023-03-31 10:03] VITALS: BP 126/68; PULSE 75; BMI 36.6
== END 2023-03-31 10:25 | disposition home or self-care (01) ==
PROVIDERS: Visit Provider Internal Medicine Cardiovascular Disease
DX: R09.89 Other specified symptoms and signs involving the circulatory and respiratory systems (principal)
CPT/HCPCS: 99204

== ENCOUNTER 2023-04-01 08:34 | Outpatient (REF) | payer BC, MEDICAID, SELFPAY ==
[2023-04-01 11:21] LABS: Anion Gap 11 (12-20); Blood Urea Nitrogen 11 mg/dL (9-16); Calcium 9.2 mg/dL (8.4-10.2); Carbon Dioxide 24 mmol/L (22-29); Chloride 106 mmol/L (96-108); Cortisol Random 5.9 ug/dL; Estimated Glomerular Filt Rate > 60; Glucose Random 96 mg/dL (60-115); Potassium 3.9 mmol/L (3.3-5.1); Sodium 137 mmol/L (135-145); TSH reflex Free T4 2.47 uIU/mL (0.32-4.0)
[2023-04-05 06:09] LABS: CA-125 84 U/mL (<35)
[2023-04-09 11:54] LABS: Metanephrine, Free <25 pg/mL (<=57); Normetanephrines, Free 70 pg/mL (<=148); Total Metanephrine, Free 70 pg/mL (<=205)
[2023-04-09 14:17] LABS: Aldosterone/Renin Ratio 2.9 Ratio (0.9-28.9)
== END 2023-04-01 08:35 | disposition home or self-care (01) ==
LOC: HO.LAB 08:34
PROVIDERS: Absent Provider Internal Medicine Cardiovascular Disease; PCP Student in an Organized Health Care Education/Training Program; Visit Provider Obstetrics & Gynecology
DX: N93.9 Abnormal uterine and vaginal bleeding, unspecified (principal); N83.299 Other ovarian cyst, unspecified side
CPT/HCPCS: 36415; 58300; 80048; 81025; 82088; 82533; 83835; 84443; 86304; J7298

== ENCOUNTER 2023-04-01 08:34 | Outpatient (AMB) | payer BC, MEDICAID, SELFPAY ==
[2023-04-01 08:45] VITALS: BP 108/62; BMI 36.6
--- NOTE | 2023-04-01 08:45 | A.OFFVIS_ITS ---
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 The following workup was done.: H&H= 07/12 to TSH, hCG, GC and chlamydia were negative. Co testing was done was negative in 04/02. Pelvic ultrasound showed the following: Uterus: The uterus is anteverted and measures 10.6 x 5.6 x 6.9 cm. The double wall endometrial thickness is 20 mm. The uterus is smooth in contour and has normal myometrial echogenicity. No visible fibroid. Adnexa: Right ovary measures 4.4 x 2.4 x 2.4 cm. Volume 13.6 mL. Left ovary measures 3.6 x 2.0 x 3.0 cm. Volume 11.4 mL. There is a stable complex cyst with calcification measuring 1.3 x 0.9 x 1.1 cm (previously 1.3 x 0.9 x 0.9 cm on 05/15/2021). [facility] Medical History Asthma Seasonal allergies Surgical History Hx of section Family History Maternal Aunt Breast CA Father Diabetes mellitus Mother Diabetes mellitus HTN (hypertension) Maternal Grandfather Colon cancer Paternal Grandmother Stomach cancer Social History Household Members: Spouse and Children Both parents involved: Yes Caregiver staying overnight: No Housing: House Are you a primary career services coordinator to a significant other at home: No Do you presently have visiting nurse or other home services: No 75 years or older and lives alone: No Alcohol intake: never Patient Tobacco Use Status: Never used Tobacco service: No Current occupational status: unemployed Gender identity: Female Female Reproductive History Menstrual Age of Menarche: 10 Date of last menstrual period: 03/30/23 Total pregnancies: 2 Number of Living Children: 2 Review of Systems Const All systems reviewed & are unremarkable except as noted in HPI and below Reports as per HPI and Reports no additional complaints GI Reports no additional complaints Reports no additional complaints Physical Exam Vital Signs: Last Vital Signs BP 108/62 04/01/23 08:45 BMI result Body Mass Index 36.6 Office Procedures IUD Insert/Removal Details Details: The patient is presenting for Mirena IUD insertion Urine test was done in the office and was negative; All the contraindi cations were excluded. The following possible complications were discussed with the patient: Intrauterine , Ectopic , Sepsis, Pelvic Infection, Irregular Bleeding and Amenorrhea, Perforation, Expulsion, Ovarian Cysts, Breast Cancer, The following adverse effects were discussed with the patient: alteration of menstrual bleeding pattern, including: unscheduled uterine bleeding decreased uterine bleeding increased scheduled uterine bleeding female genital tract bleeding ,amenorrhea , genital discharge , vulvovaginitis , breast pain , benign ovarian cyst and associated complications , dysmenorrhea , Gastrointestinal disorders abdominal/pelvic pain, headache/migraine , back pain , acne , depression Alternative options were discussed with the patient including but not limited: control pills, patch, NuvaRing, Depo-medroxyprogesterone acetate, Nexplanon, copper IUD, sterilization, vasectomy, others The procedure was explained in detail to patient , at the end patient signed the informed consent obtained. A no touch technique was used throughout the procedure. A speculum was placed into vagina and cervix was cleaned with betadine). A tenaculum was placed. A plastic sound was advanced through the external and internal os until it reached the fundus of the uterus, the depth was 8 cm. The sound was then withdrawn. The IUD was loaded in a sterile manner and advanced into position. The string was visualized and cut to 3 cm. Tenaculum site hemostatic. All instruments removed from vagina. Patient tolerated the procedure well. NO complications were noted. Patient was instructed to call for fever over 100.4, significant pain unrelieved by Motrin, IUD expulsion, heavy bleeding, or abnormal discharge. In addition, the following clinical considerations were discussed with the patient to call for removal: A stroke or heart attack ,Very severe or migraine headaches ,Unexplained fever ,Yellowing of the skin or whites of the eyes, as these may be signs of serious liver problems , or suspected , Pelvic pain or pain during sex ,HIV positive seroconversion in herself or her partner , Possible exposure to sexually transmitted infections Unusual vaginal discharge or genital sores , severe vaginal bleeding or bleeding that lasts a long time, or if she misses a menstrual period, Inability to feel Mirena's threads Counseled the patient that the IUD does not protect against STI's, recommended use of condoms for the first 7 days post insertion and explained to the patient that condoms are recommended for patients at risk for sexually transmitted infections. In for the patient that Mirena IUD is FDA approved for 8 years for contraception for 5 years for the treatment of heavy menses Instructed the patient to schedule a Follow up appointment in 4 to 6 weeks following insertion. This note was generated with a voice recognition program. Some errors may have been overlooked during the review of this note. Sometimes these errors may affect the content or meaning of a given sentence. 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 All pros, cons, risks and benefits if each option was discussed with the patient and the patient decided to go ahead with Mirena IUD so a more detailed discussion about it was conducted including mechanism of action, risks (uterine perforation, infection, injury to bladder, bowel, displacement, and others) benefits (hypo menorrhea, amenorrhea, ...). GC/CT were taken and the patient is interested in having IUD insertion today. Since her last menstrual period was 3 days. Mirena IUD inserted, see procedure note (2) Ovarian cyst, complex: Code(s): N83.299 - Other ovarian cyst, unspecified side Plan: Discussed with the patient the complex ovarian cyst by ultrasound persistent since 2020. Discussed with the patient the Ultrasound findings, the main limitation of transvaginal ultrasonography alone as a diagnostic tool to distinguish benign from malignant masses relates to its lack of specificity and low positive predictive value for cancer. The differential diagnosis discussed with the patient includes the following but not limited to: benign and malignant gynecological and non-gynecological causes. Laboratory evaluation serum tumor marker CA 125 . Discussed with the patient that CA 125 is a protein associated with epithelial ovarian malignancies, but also frequently expressed at lower levels by nonmalignant tissue. Elevation of CA 125 levels may occur in nonmalignant gynecologic conditions, and in non-gynecologic cancers, It is most useful in postmenopausal women and in identifying non mucinous epithelial cancer. The CA 125 level is elevated in 80% of patients with epithelial ovarian cancer but in only 50% of patients with stage I disease. The overall sensitivity of CA 125 testing in distinguishing benign from malignant adnexal masses reportedly ranges from 61% to 90%; discussed with the patient the specificity, positive predictive value and negative predictive value. Will order pelvic MRI. Instructions given the patient to schedule MRI follow-up appointment. Orders: Orders CA-125 Today N83.299 - Other ovarian cyst, unspecified side MR pelvis wo/w con Today N83.299 - Other ovarian cyst, unspecified side AMB IUD Insertion/Removal - Practice Supplied Today N93.9 - Abnormal uterine and vaginal bleeding, unspecified AMB HCG Urine Test Today Z30.433 - Encounter for removal and reinsertion of intrauterine contraceptive device Medications: New Mirena (levonorgestrel) 1 device intrauterine ONCE 1 ea 0RF NS N93.9 - Abnormal uterine and vaginal bleeding, unspecified Coding Level of Care Code Est Pt Level 3 (26053) Procedure Only Diagnoses Abnormal uterine bleeding (AUB) N93.9 Ovarian cyst, complex N83.299 CPT Codes Details - CPT: 72114-VGN Insertion ([id number])
== END 2023-04-01 09:13 | disposition home or self-care (01) ==
LOC: HO.HWS 08:34
PROVIDERS: Visit Provider Obstetrics & Gynecology
DX: Z30.430 Encounter for insertion of intrauterine contraceptive device (principal); N83.299 Other ovarian cyst, unspecified side; Z30.433 Encounter for removal and reinsertion of intrauterine contraceptive device
CPT/HCPCS: 58300

== ENCOUNTER 2023-04-19 10:12 | Outpatient (REF) | payer BC, MEDICAID, SELFPAY ==
--- NOTE | ~2023-04-19 | US_ITS ---
EXAMINATION: ULTRASOUND RENAL ULTRASOUND RENAL DOPPLER CLINICAL INFORMATION: Other specified symptoms and signs involving the circulatory system. COMPARISON: None. TECHNIQUE: Real-time grayscale, color Doppler, and duplex Doppler evaluation of the kidneys and renal vasculature was performed. FINDINGS: RENAL MEASUREMENTS: Right: 11.7 x 4.7 x 6.8 cm (Sag x AP x TV) Left: 12.9 x 5.2 x 6.2 cm (Sag x AP x TV) The renal parenchyma appears normal. No hydronephrosis or nephrolithiasis. DOPPLER INTERROGATION: Aorta: 98 cm/sec Right Main Renal Artery: Proximal: 143 cm/sec Mid: 198 cm/sec Distal: 174 cm/sec Left Main Renal Artery: Proximal: 170 cm/sec Mid: 103 cm/sec Distal: 88 cm/sec Renal-Aortic Ratio (RAR): Right: 2.0 Left: 1.7 Bilateral upper pole, interpolar and lower pole interlobar arteriolar resistive indices are within normal limits. Bilateral upper pole, interpolar and lower pole interlobar arteriolar pulse doppler waveforms are unremarkable, with uniformly rapid upstrokes and no parvus et tardus configuration. US/US renal doppler IMPRESSION: 1. Findings consistent with hemodynamically significant right renal artery stenosis. 2. No hemodynamically significant left renal artery stenosis is seen.
--- NOTE | ~2023-04-19 | US_ITS ---
EXAMINATION: ULTRASOUND RENAL ULTRASOUND RENAL DOPPLER CLINICAL INFORMATION: Other specified symptoms and signs involving the circulatory system. COMPARISON: None. TECHNIQUE: Real-time grayscale, color Doppler, and duplex Doppler evaluation of the kidneys and renal vasculature was performed. FINDINGS: RENAL MEASUREMENTS: Right: 11.7 x 4.7 x 6.8 cm (Sag x AP x TV) Left: 12.9 x 5.2 x 6.2 cm (Sag x AP x TV) The renal parenchyma appears normal. No hydronephrosis or nephrolithiasis. DOPPLER INTERROGATION: Aorta: 98 cm/sec Right Main Renal Artery: Proximal: 143 cm/sec Mid: 198 cm/sec Distal: 174 cm/sec Left Main Renal Artery: Proximal: 170 cm/sec Mid: 103 cm/sec Distal: 88 cm/sec Renal-Aortic Ratio (RAR): Right: 2.0 Left: 1.7 Bilateral upper pole, interpolar and lower pole interlobar arteriolar resistive indices are within normal limits. Bilateral upper pole, interpolar and lower pole interlobar arteriolar pulse doppler waveforms are unremarkable, with uniformly rapid upstrokes and no parvus et tardus configuration. US/US renal BI IMPRESSION: 1. Findings consistent with hemodynamically significant right renal artery stenosis. 2. No hemodynamically significant left renal artery stenosis is seen.
== END 2023-04-19 10:13 | disposition home or self-care (01) ==
LOC: HO.US 10:12
PROVIDERS: PCP Student in an Organized Health Care Education/Training Program; Visit Provider Internal Medicine Cardiovascular Disease
DX: R09.89 Other specified symptoms and signs involving the circulatory and respiratory systems (principal)
CPT/HCPCS: 76775; 93975

== ENCOUNTER → 2023-04-26 11:05 | Outpatient (REF) | payer BC, MEDICAID, SELFPAY | LOC: HO.SL 11:05 | PROVIDERS: Visit Provider Internal Medicine Cardiovascular Disease | DX: R06.83 Snoring (principal); R40.0 Somnolence; R09.89 Other specified symptoms and signs involving the circulatory and respiratory systems | CPT/HCPCS: 95806 ==

== ENCOUNTER → 2023-04-26 11:21 | Outpatient (BNV) | payer BC, MEDICAID, SELFPAY | PROVIDERS: Visit Provider Internal Medicine | DX: R06.83 Snoring (principal) | CPT/HCPCS: 95806 ==

== ENCOUNTER 2023-04-27 10:31 | Outpatient (REF) | payer BC, MEDICAID, SELFPAY ==
--- NOTE | ~2023-04-27 | MR_ITS ---
EXAMINATION: MR PELVIS WITHOUT AND WITH CONTRAST CLINICAL INFORMATION: Ovarian cyst. COMPARISON: Previous pelvic ultrasound, most recent December 2022. TECHNIQUE: Sagittal axial and coronal sequences through the pelvis with and without contrast. Patient received 10 mL IV Gadavist contrast. FINDINGS: The uterus is anteverted and measures 9 x 5 x 5.7 cm in dimension. No focal uterine lesion is seen. Endometrial thickness measures 1 cm. This is decreased from 2 cm on previous ultrasound There is low signal seen in the endometrial cavity questionable for air. This may be related to recent instrumentation or possibly IUD. Clinical correlation recommended. The junctional zone does not appear thickened. There are nabothian cysts in the cervix. The ovaries are normal in size. There are bilateral small simple right ovarian cysts or follicles, all measuring less than 1 cm. There are multiple left ovarian simple cysts or follicles, largest measuring 1.2 x 8 cm. There is a 1.2 x 1.8 cm minimally complex bilobed left ovarian cyst. This demonstrates slightly thickened wall and single septation that is low signal on T2 with questionable mild enhancement. No solid component/mural nodule. This likely corresponds to the complex left ovarian cyst with calcified wall seen on December 2022 ultrasound. This measures 1.2 x 1 x 1.1 cm compared to 1.3 x 0.9 x 1.1 cm on previous ultrasound and is not appreciably changed. This can be seen on old OB ultrasound April 2021. This is not identified on older pelvic ultrasound from 2018. There are nabothian cysts in the cervix. The bladder is normal. There is no fluid in the pelvis. No enlarged lymph nodes. Visualized bowel is normal. No hernia is seen. Bony structures are unremarkable. MR/MR pelvis wo/w con IMPRESSION: 1.2 x 1.1 x 1.1 cm complex left ovarian cyst. This likely corresponds to cyst with wall calcification seen on most recent ultrasound exams 2020 and 2022 and is stable in size.
[2023-04-27] MEDS: gadobutroL 10 ML VIAL IVPUSH (12:07)
[2023-04-27 12:21] LABS: Hematocrit 30.7 % (37.0-47.0); Hemoglobin 8.9 g/dl (12.0-16.0); Mean Corpuscular Hemoglobin 20.3 pg (27.0-33.0); Mean Corpuscular Volume 70.1 fL (80.0-98.0); Platelet Count 575 X10*3/uL (160-400); Red Blood Count 4.38 X10*6/uL (4.20-5.50); Red Cell Distribution Width 16.6 % (11.0-16.0); White Blood Count 7.2 X10*3/uL (4.8-10.8)
[2023-04-27 12:54] LABS: HCG Quantitative < 2 mIU/mL
== END 2023-04-27 10:32 | disposition home or self-care (01) ==
LOC: HO.MRI 10:31
PROVIDERS: PCP Student in an Organized Health Care Education/Training Program; Visit Provider Obstetrics & Gynecology
DX: N93.9 Abnormal uterine and vaginal bleeding, unspecified (principal); N83.299 Other ovarian cyst, unspecified side
CPT/HCPCS: 36415; 72197; 84702; 85027; A9585

== ENCOUNTER → 2023-04-28 11:11 | Outpatient (BNV) | payer BC, MEDICAID, SELFPAY | PROVIDERS: PCP Student in an Organized Health Care Education/Training Program; Visit Provider Internal Medicine Cardiovascular Disease | DX: R09.89 Other specified symptoms and signs involving the circulatory and respiratory systems (principal) | CPT/HCPCS: 93306 ==

== ENCOUNTER → 2023-04-28 11:12 | Outpatient (REF) | payer BC, MEDICAID, SELFPAY ==
--- NOTE | 2023-04-28 11:11 | CA_ITS ---
Transthoracic Echocardiogram Patient (Last, First, Middle): Deidre Luna, Gender: Female Date of : 1990 Age: 32 Procedure Date: 04/28/2023 Procedure Type: Transthoracic Echocardiogram Location: OP Height: 170.18 cm Weight: 108.41 kg BSA: 2.18 m2 Heart Rate: 70 bpm BP: 140 / 70 mmHg Warehouse Puller: MAIRA Referring MD: Alberto Henderson MD Trailer Truck Driver: Alberto Henderson MD Symptoms: R09.89 - Other specified symptoms and signs involving the circulatory an... Study Quality: Adequate ECG Rhythm: Sinus Conclusions: - Normal study Findings Left Ventricle Normal left ventricular size, thickness, and systolic function. The visually estimated ejection fraction is >70%. Diastolic function is normal for age. Peak GLS is -24.1%, within normal limits. Right Ventricle Normal right ventricular cavity size and systolic function. Atria Both atria are normal in size. There is no evidence of interatrial shunt. Aortic Valve Normal aortic valve structure and function. There is no aortic valve stenosis. There is no aortic valve regurgitation. Mitral Valve Normal mitral valve structure and function. There is trace mitral valve regurgitation. There is no mitral valve stenosis. Pulmonic Valve The pulmonic valve is likely normal. Tricuspid Valve Normal tricuspid valve structure. There is trace tricuspid valve regurgitation. The right ventricular systolic pressure is normal. The right ventricular systolic pressure is 27 mmHg. Normal right atrial pressure. There is no evidence of pulmonary hypertension. Great Vessels All visible segments of the aorta are normal in size. The visualized portions of the pulmonary artery and branches are normal. Venous The inferior vena cava is normal in size and collapses greater than 50% with inspiration. Pericardium/Pleural There is no evidence of pericardial effusion. Prior Study Comparison No prior study available for comparison. Measurements 2D Linear Measurements IVSd: 1.00 0.6-0.9/0.6-1.0 cm LVIDd: 4.80 3.9-5.3/4.2-5.9 cm LVIDd Index: 2.20 2.4-3.2/2.2-3.1 cm/m2 LVIDs: 2.70 2.0-3.6 cm LVPWd: 1.00 0.7-1.1 cm LA Diam: 3.80 2.7-3.8/3.0-4.0 cm LAIDs Index: 1.74 1.5-2.3 cm/m2 LV Mass: 211.99 67-162/88-224 g LV Mass Index: 97.24 43-95/49-115 g/m2 LVOT Diam: 2.10 3.0+(-)1.3 cm 2D Systolic Function EF 4C: 76.70 >55% EF 2C: 69.30 >55% EF BiP: 73.50 >55% Mitral Valve MV Pk E: 1.48 MV PK A: 0.70 MV Decel Time: 198.00 E/A: 2.10 E'Lateral: 14.00 E'Medial: 12.40 E/E' Med: 11.90 E/E' Lat: 10.60 PHT: 58.00 MVA PHT: 3.79 Decel [place]: 7.48 Aortic Valve AoV Pk Brian: 1.61 AoV Mn Brian: 1.06 AoV VTI: 0.33 AoV Pk Grad: 10.00 Aov Mn Grad: 5.00 SONU Cont.VTI: 2.95 LVOT LVOT Pk Brian: 1.28 LVOT Mn Brian: 0.87 LVOT VTI: 0.28 LVOT Pk Grad: 7.00 LVOT Mn Grad: 4.00 LVOT Diam: 2.10 LVOT Area: 3.46 Diastolic Function MV Pk E: 1.48 MV Pk A: 0.70 E/A: 2.10 E'Medial: 12.40 E/E' Med: 11.90 E' Laterial: 14.00 E/E' Lat: 10.60 Right Ventricle TAPSE (mm): 35.50 TVS' Brian: 16.00 Tricuspid Valve TR Pk Brian: 2.16 TR Pk Grad: 19.00 RA Press: 8.00 RVSP: 27.00 Great Vessels Aorta Sinus of Valsalva: 3.10 2.0-3.5 cm Ao Asc: 2.70 2.1-3.4 cm Pulmonary Valve PV Pk Brian: 1.05 Peak PV Grad: 4.00 Updated in Other Vendor System with Status of Final Alberto Henderson MD electronically signed on 04/28/2023 2:44:16 PM with status of Final
== END ==
LOC: HO.CARD 11:12
PROVIDERS: PCP Student in an Organized Health Care Education/Training Program; Visit Provider Internal Medicine Cardiovascular Disease
DX: R09.89 Other specified symptoms and signs involving the circulatory and respiratory systems (principal)
CPT/HCPCS: 93306; 93356

== ENCOUNTER 2023-05-03 19:36 | Outpatient (REF) | payer BC, MEDICAID, SELFPAY | END 2023-05-03 19:37 | disposition home or self-care (01) | LOC: HO.HHCLNP 19:36 | PROVIDERS: Visit Provider Student in an Organized Health Care Education/Training Program | DX: Z13.89 Encounter for screening for other disorder (principal) ==

== ENCOUNTER 2023-05-04 11:40 | Outpatient (REF) | payer BC, MEDICAID, SELFPAY ==
[2023-05-04 14:21] LABS: Lactate Dehydrogenase 159 U/L (122-220)
[2023-05-04 14:28] LABS: Carcinoembryonic Antigen < 1.73 ng/mL
[2023-05-05 10:04] LABS: Carbohydrate Antigen 19-9 23 U/mL (<34)
[2023-05-05 12:53] LABS: Alpha Fetoprotein 3.1 ng/mL
[2023-05-10 16:59] LABS: Inhibin B 73 pg/mL
== END 2023-05-04 11:41 | disposition home or self-care (01) ==
LOC: HO.LAB 11:40
PROVIDERS: PCP Student in an Organized Health Care Education/Training Program; Visit Provider Obstetrics & Gynecology
DX: N83.299 Other ovarian cyst, unspecified side (principal)
CPT/HCPCS: 36415; 82105; 82378; 82397; 83615; 86301

== ENCOUNTER 2023-05-04 11:40 | Outpatient (AMB) | payer BC, MEDICAID, SELFPAY ==
--- NOTE | 2023-05-04 11:40 | MHC.OFFVIS ---
Intake Vital Signs 05/04/23 11:46 Height 5 ft 7 in Weight 233 lb 11.04 oz BMI 36.6 BP 118/70 Intake Visit Reasons: MRI Follow up Qa Specialist Required: No Information Interpreted: non-clinical & clinical Accompanied by: Self / Same As Patient Allergies No Known Allergies Allergy (Verified 05/04/23 11:47) HPI HPI Comments History of Present Illness Details Presenting for follow-up. CA 125 done on 04/01/2020 was 85. Pelvic ultrasound done on 01/12/2023 showed the following: Uterus: The uterus is anteverted and measures 10.6 x 5.6 x 6.9 cm. The double wall endometrial thickness is 20 mm.? The uterus is smooth in contour and has normal myometrial echogenicity. ? No visible fibroid. Adnexa: Right ovary measures 4.4 x 2.4 x 2.4 cm. Volume 13.6 mL. Left ovary measures 3.6 x 2.0 x 3.0 cm. Volume 11.4 mL. There is a stable complex cyst with calcification measuring 1.3 x 0.9 x 1.1 cm (previously 1.3 x 0.9 x 0.9 cm on 05/15/2021). Pelvic MRI showed the followin.2 x 1.1 x 1.1 cm complex left ovarian cyst. This likely corresponds to cyst with wall calcification seen on most recent ultrasound exams 2020 and 2022 and is stable in size. [facility] Medical History Asthma Seasonal allergies Surgical History Hx of section Family History Maternal Aunt Breast CA Father Diabetes mellitus Mother Diabetes mellitus HTN (hypertension) Maternal Grandfather Colon cancer Paternal Grandmother Stomach cancer Social History Household Members: Spouse and Children Both parents involved: Yes Caregiver staying overnight: No Housing: House Are you a primary memory care program director to a significant other at home: No Do you presently have visiting nurse or other home services: No 75 years or older and lives alone: No Alcohol intake: never Patient Tobacco Use Status: Never used Tobacco service: No Current occupational status: unemployed Gender identity: Female Female Reproductive History Menstrual Age of Menarche: 10 Physical Exam Vital Signs: Last Vital Signs BP 118/70 05/04/23 11:46 BMI result Body Mass Index 36.6 Assessment & Plan Assessment & Plan (1) Ovarian cyst, complex: Comment: With elevated CA 125 Code(s): N83.299 - Other ovarian cyst, unspecified side Plan: Will order CEA, CA 19 9, LDH, inhibin B and AFP. Discussed with the patient the persistent complex ovarian cyst by Ultrasound and pelvic MRI with elevated CA 120. The differential diagnosis discussed with the patient includes the following but not limited to: benign and malignant gynecological and non-gynecological. Will refer to gynecologic oncologist at [facility] for further management. Appointment scheduled with Dr Willett on 05/13 @ 11 am, the patient is aware. The patient verbalized understanding and agreed with the plan. Orders: Orders Alpha Fetoprotein Today N83.299 - Other ovarian cyst, unspecified side Carbohydrate Antigen 19-9 Today N83.299 - Other ovarian cyst, unspecified side Carcinoembryonic Antigen Today N83.299 - Other ovarian cyst, unspecified side Inhibin B Today N83.299 - Other ovarian cyst, unspecified side Lactate Dehydrogenase Today N83.299 - Other ovarian cyst, unspecified side Referrals Gynecologic Oncology Referral N83.299 - Other ovarian cyst, unspecified side Coding Level of Care Code Est Pt Level 3 (41785) Diagnoses Ovarian cyst, complex N83.299
[2023-05-04 11:46] VITALS: BP 118/70; BMI 36.6
== END 2023-05-04 13:42 | disposition home or self-care (01) ==
LOC: HO.HWS 11:40
PROVIDERS: PCP Student in an Organized Health Care Education/Training Program; Visit Provider Obstetrics & Gynecology
DX: N83.299 Other ovarian cyst, unspecified side (principal)
CPT/HCPCS: 99213

== ENCOUNTER 2023-05-05 11:00 | Outpatient (REF) | payer BC, MEDICAID, SELFPAY ==
[2023-05-05 14:13] LABS: Appearance Urine Clear; Color Urine Yellow; Glucose Urine UA Negative (Negative); Leukocyte Esterase Urine Trace (Negative); Nitrite Urine Negative (Negative); PH 6.5 (5.0-9.0); Specific Gravity - Urine 1.015 (1.005-1.025); UMIC TRIGGER UA YES; Urine Blood Trace (Negative); Urine Ketones Negative (Negative); Urine Protein Negative (Neg-Trace)
[2023-05-05 14:17] LABS: Bacteria Urine None Seen (None Seen); Hyaline Casts Urine 0-2 /LPF (0-2); Squamous Epithelial Cell Urine 0-2 /HPF (0-2); WBC Urine 0-5 /HPF (0-5)
== END 2023-05-05 11:01 | disposition home or self-care (01) ==
LOC: HO.HHCL 11:00
PROVIDERS: Visit Provider Student in an Organized Health Care Education/Training Program
DX: R82.90 Unspecified abnormal findings in urine (principal)
CPT/HCPCS: 81001

== ENCOUNTER 2023-05-06 13:59 | Outpatient (AMB) | payer BC, MEDICAID, SELFPAY ==
[2023-05-06 14:05] VITALS: BP 124/80; PULSE 70; O2SAT 99; BMI 36.5
--- NOTE | 2023-05-06 14:05 | A.OFFVIS_ITS ---
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 Pt states she has right back pain near her kidneys. Pt states she urinates about every 20 minutes for the past 3 days. She denies seeing any blood in her urine. She states normally she has no issues with urination. 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 She was originally worked up for some blood pressure issues by the Cardiology team. She had some episodes of labile hypertension with pressures as high as 176. At the current time she is not on any hypertensive meds. She reports no acute issues over the last past week or 2. Also of note she is a nonsmoker nondiabetic. . [facility] Medical History Asthma Seasonal allergies Surgical History Hx of section Family History Maternal Aunt Breast CA Father Diabetes mellitus Mother Diabetes mellitus HTN (hypertension) Maternal Grandfather Colon cancer Paternal Grandmother Stomach cancer Social History Household Members: Spouse and Children Both parents involved: Yes Caregiver staying overnight: No Housing: House Are you a primary healthcare recruiter to a significant other at home: No Do you presently have visiting nurse or other home services: No 75 years or older and lives alone: No Alcohol intake: never Patient Tobacco Use Status: Never used Tobacco service: No Current occupational status: unemployed Gender identity: Female Female Reproductive History Menstrual Age of Menarche: 10 Review of Systems Const All systems reviewed & are unremarkable except as noted in HPI and below Reports no additional complaints ENT Reports Normal hearing present Card Denies chest pain, Denies chest pain at rest, Denies chest pain with activity and Denies pedal edema Resp Denies cough GI Denies abdominal pain Musc Denies abnormal gait, Denies muscle cramps and Denies radiating pain into limb Skin/Breast Denies skin ulcer and Denies wounds Neuro Reports Normal hearing present and Denies abnormal gait Psych Reports no additional complaints Physical Exam Vital Signs: Last Vital Signs Pulse 70 05/06/23 14:05 BP 124/80 05/06/23 14:05 Pulse Ox 99 05/06/23 14:05 Oxygen Delivery Method Room Air 05/06/23 14:05 BMI result Body Mass Index 36.5 Const General: cooperative, healthy appearing and comfortable Orientation/consciousness: oriented to person, oriented to place and oriented to time HEENT Head: Yes normal to inspection Neck Neck: Yes normal visual inspection Carotids: no bruits Chest Chest palpation & inspection: normal inspection of the chest Resp Effort & Inspection: normal respiratory effort and able to speak in complete sentences Auscultation: clear to auscultation bilaterally, no crackles, no rales, no rhonchi and no wheezes Cardio Rate: regular rate Rhythm: regular rhythm Heart sounds: S1 normal heart sound present and S2 normal heart sound present Bruits: no carotid bruits Peripheral pulses: Peripheral pulses 2+ throughout GI Inspection: Yes normal to inspection Skin Wounds: no wounds Hair: normal Neuro General: oriented to person, oriented to place and oriented to time Cranial nerves: Yes CN's II-XII intact bilaterally and Yes Normal hearing present Cognition (Neuro): normal cognition Motor exam (neuro): 5/5 motor strength present throughout Extrem Other: venous exam: No significant superficial varicosities or spider telangiectasias, minimal edema General: No clubbing, No cyanosis and No edema Psych Appearance: grossly normal Mental Status: mental status grossly normal Speech and movement: Normal speech and movement present Results Reviewed Results Reviewed: Noninvasive arterial testing dated 04/19/2023 demonstrates concern of right renal artery stenosis with renal to aortic ratio of 2.0. Written report and images were reviewed. Assessment & Plan Assessment & Plan (1) Renal artery stenosis: Code(s): I70.1 - Atherosclerosis of renal artery Plan: In short there is concern of renal artery stenosis on noninvasive testing. At the current time she is not on any hypertensive meds and appears to be doing relatively well. I have taken the liberty of ordering CT angiogram to rule that out. She will follow up with us after testing. Thank you for allowing us to assist in her care. If there are any questions or concerns please do not hesitate to contact us. The patient had an opportunity to ask questions regarding the treatment plan. All questions were answered. Imaging studies, laboratory studies and physical exam results were discussed and reviewed in detail. No major barriers to understanding were identified. The patient expressed understanding and agreement with the above treatment plan. The patient is aware they should contact our office by phone for worsening of the current condition or the appearance of new symptoms. Thank you for allowing me to participate in the vascular care of this patient. If you have any questions or concerns regarding the treatment for the above condition please do not hesitate to contact me. The office telephone contact is [phone]. This note is constructed using voice recognition software. While every effort has been made to ensure accuracy, costume technician errors may have been included. Thank you for allowing me to participate in the care of your patient. Yours sincerely, Justice Quinn MD, FACS, R.P.V.I. Orders: Orders Blood Urea Nitrogen Today I70.1 - Atherosclerosis of renal artery Creatinine Today I70.1 - Atherosclerosis of renal artery CT angio abdomen Today I70.1 - Atherosclerosis of renal artery Coding Level of Care Code New Pt Level 4 (37528) Diagnoses Renal artery stenosis I70.1
== END 2023-05-06 14:31 | disposition home or self-care (01) ==
PROVIDERS: PCP Student in an Organized Health Care Education/Training Program; Visit Provider Surgery Vascular Surgery
DX: I70.1 Atherosclerosis of renal artery (principal)
CPT/HCPCS: 99204

== ENCOUNTER 2023-05-06 13:59 | Outpatient (REF) | payer BC, MEDICAID, SELFPAY ==
[2023-05-06 16:18] LABS: Blood Urea Nitrogen 13 mg/dL (9-16); Estimated Glomerular Filt Rate > 60
== END 2023-05-06 14:00 | disposition home or self-care (01) ==
LOC: HO.LAB 13:59
PROVIDERS: PCP Student in an Organized Health Care Education/Training Program; Visit Provider Surgery Vascular Surgery
DX: I70.1 Atherosclerosis of renal artery (principal)
CPT/HCPCS: 36415; 82565; 84520

== ENCOUNTER → 2023-05-14 11:22 | Outpatient (BNV) | payer BC, MEDICAID, SELFPAY | PROVIDERS: PCP Student in an Organized Health Care Education/Training Program; Referring Provider Student in an Organized Health Care Education/Training Program; Visit Provider Internal Medicine Medical Oncology | DX: D64.9 Anemia, unspecified (principal) | CPT/HCPCS: 99204; 99213 ==

== ENCOUNTER 2023-05-19 13:20 | Outpatient (AMB) | payer BC, MEDICAID, SELFPAY ==
[2023-05-19 13:56] VITALS: BP 130/62; BMI 36.6
--- NOTE | 2023-05-19 13:56 | A.OFFVIS_ITS ---
Intake Vital Signs 05/19/23 13:56 Height 5 ft 7 in Weight 234 lb BMI 36.6 BP 130/62 Intake Visit Reasons: IUD Check Financial Internship Required: No Information Interpreted: non-clinical & clinical Directory Assistance Operator: Directory Assistance Operator Present (Shayla) Allergies No Known Allergies Allergy (Verified 05/19/23 13:56) Post menopausal: No Patient : No HPI HPI Comments History of Present Illness Details The patient is presenting for IUD check after 1 st period following IUD insertion. The patient has no complaints periods are normal, not painful, and flow is normal. The patient is checking the IUD thread periodically. [facility] Medical History Asthma Seasonal allergies Surgical History Hx of section Family History Maternal Aunt Breast CA Father Diabetes mellitus Mother Diabetes mellitus HTN (hypertension) Maternal Grandfather Colon cancer Paternal Grandmother Stomach cancer Social History Household Members: Spouse and Children Both parents involved: Yes Caregiver staying overnight: No Housing: House Are you a primary lawn care professional to a significant other at home: No Do you presently have visiting nurse or other home services: No 75 years or older and lives alone: No Alcohol intake: never Patient Tobacco Use Status: Never used Tobacco Patient : No service: No Current occupational status: unemployed Gender identity: Female Female Reproductive History Menstrual Age of Menarche: 10 control method: progestin IUCD Date of last pap smear: 03/24/21 (negative) Review of Systems Const All systems reviewed & are unremarkable except as noted in HPI and below Physical Exam Vital Signs: Last Vital Signs BP 130/62 05/19/23 13:56 BMI result Body Mass Index 36.6 General: Yes no CVA tenderness External Female Exam: normal external appearance and normal appearance of the urethra Speculum Exam - Vagina: normal appearance of the vagina, normal palpation, no lesions and no masses Speculum Exam - Cervix: normal appearance of the cervix, normal palpation, no lesions, no masses, nontender and Other cervical findings present (IUD thread seen) Bimanual exam- vagina & uterus: normal bimanual exam, normal palpation, uterine size normal, normal palpation, uterine shape normal, No Cervical tenderness present and non-tender Bimanual Exam- Adnexa, other: normal adnexae Back/Spine/Pelvis Back: no CVA tenderness Results AMB Test Urine AMB Test Urine Negative Last Edit by JOE Dobbs on 05/19/23 14:00 Results Reviewed Results Reviewed: Laboratory Last Values Tst Clinic Negative 05/19/23 14:00 Assessment & Plan Assessment & Plan (1) IUD check up: Code(s): Z30.431 - Encounter for routine checking of intrauterine contraceptive device Plan: UPT done in the office was negative. Discussed with the patient the finding on physical exam, IUD string in place, the patient was reassured. Instructions giv en to patient to call in case of temperature above 100.4, severe cramping/pelvic pain, abnormal discharge or abnormal uterine bleeding or if she misses her. Otherwise follow-up at her annual exam appointment. All questions answered, the patient verbalized understanding. Orders: Orders AMB HCG Urine Test Today Z32.02 - Encounter for test, result negative Coding Level of Care Code Est Pt Level 3 (96265) Diagnoses IUD check up Z30.431
== END 2023-05-19 14:04 | disposition home or self-care (01) ==
PROVIDERS: PCP Student in an Organized Health Care Education/Training Program; Visit Provider Obstetrics & Gynecology
DX: Z32.02 Encounter for pregnancy test, result negative (principal); Z30.431 Encounter for routine checking of intrauterine contraceptive device
CPT/HCPCS: 99213

== ENCOUNTER → 2023-05-19 13:20 | Outpatient (BNVA) | payer BC, MEDICAID, SELFPAY | PROVIDERS: PCP Student in an Organized Health Care Education/Training Program; Visit Provider Obstetrics & Gynecology | DX: Z30.431 Encounter for routine checking of intrauterine contraceptive device (principal) | CPT/HCPCS: 81025 ==

== ENCOUNTER 2023-06-08 14:11 | Outpatient (AMB) | payer BC, MEDICAID, SELFPAY ==
--- NOTE | 2023-06-08 14:15 | A.OFFVIS_ITS ---
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 She underwent extensive workup for secondary hypertension. She has no evidence of sleep apnea, no evidence of renal artery stenosis by CT abdomen as well as no endocrine abnormality. She has been overall doing well. No new symptoms. Her blood pressure occasionally in the afternoon time when she is relaxing are elevated in 170 range. Most of the other time the blood pressures are well controlled. [facility] Medical History Asthma Seasonal allergies Surgical History Hx of section Family History Maternal Aunt Breast CA Father Diabetes mellitus Mother Diabetes mellitus HTN (hypertension) Maternal Grandfather Colon cancer Paternal Grandmother Stomach cancer Social History Household Members: Spouse and Children Both parents involved: Yes Caregiver staying overnight: No Housing: House Are you a primary housekeeper child care to a significant other at home: No Do you presently have visiting nurse or other home services: No 75 years or older and lives alone: No Alcohol intake: never Patient Tobacco Use Status: Never used Tobacco service: No Current occupational status: unemployed Gender identity: Female Female Reproductive History Menstrual Age of Menarche: 10 Review of Systems Const Denies chills, Denies fatigue, Denies fever(s), Denies frequent falls, Denies weakness, Denies weight gain and Denies weight loss ENT Denies dizziness Card Denies chest pain, Denies leg edema, Denies lightheadedness, Denies palpitations, Denies dyspnea, Denies dyspnea on exertion, Denies orthopnea and Denies other (loss of consciousness) Resp Denies cough, Denies dyspnea and Denies dyspnea on exertion GI Denies hematochezia and Denies change in stool character Musc Denies abnormal gait, Denies muscle weakness, Denies numbness, Denies radiating pain into limb and Denies tingling Neuro Denies Abnormal speech present, Denies abnormal gait, Denies dizziness, Denies frequent falls, Denies numbness, Denies tingling and Denies weakness Endo Denies fatigue and Denies palpitations Physical Exam Vital Signs: Last Vital Signs Pulse 66 06/08/23 14:17 BP 116/64 06/08/23 14:17 BMI result Body Mass Index 36.3 Const General: cooperative, comfortable, no acute distress, alert, awake, Physically active and well groomed Nutritional Appearance: obese Orientation/consciousness: patient oriented x3 Limitations: no limitations Neck Neck: Yes trachea midline, Yes supple and Yes no JVD Resp Effort & Inspection: normal respiratory effort Auscultation: clear to auscultation bilaterally Cardio Jugular venous distension: no JVD Palpation: normal PMI Rate: regular rate Rhythm: regular rhythm Heart sounds: S1 normal heart sound present, S2 normal heart sound present, no click, no gallops, no murmurs and no rubs GI Auscultation: normal bowel sounds Neuro General: patient oriented x3 and no focal motor deficits Speech: No Abnormal speech present Extrem General: Yes no clubbing, cyanosis or edema Assessment & Plan Assessment & Plan (1) Labile blood pressure: Code(s): R09.89 - Other specified symptoms and signs involving the circulatory and respiratory systems Plan: Patient with labile blood pressure with mostly normal blood pressure at home with occasional elevated blood pressure. No symptoms related to it. No secondary causes of hypertension have been found. LV systolic function is normal without any end-organ damage. Advise to start more intense lifestyle modification with continued participate in physical activity and weight loss program as well as watching salt in her diet and increasing her fluid intake. If she develops persistently elevated blood pressure with systolic blood pressure greater than 130, would be a target for treatment. This was discussed with her. She shows understanding agreement. Will follow up in the clinic in 1 year's time, sooner p.r.n.. Thank you for allowing me to partake in her care Coding Level of Care Code Est Pt Level 3 (19661) Diagnoses Labile blood pressure R09.89
[2023-06-08 14:17] VITALS: BP 116/64; PULSE 66; BMI 36.3
== END 2023-06-08 14:40 | disposition home or self-care (01) ==
PROVIDERS: Visit Provider Internal Medicine Cardiovascular Disease
DX: R09.89 Other specified symptoms and signs involving the circulatory and respiratory systems (principal)
CPT/HCPCS: 99213

== ENCOUNTER → 2023-06-08 14:11 | Outpatient (BNVA) | payer BC, MEDICAID, SELFPAY | PROVIDERS: Visit Provider Internal Medicine Cardiovascular Disease ==

== ENCOUNTER 2023-06-10 14:56 | Outpatient (REF) | payer BC, MEDICAID, SELFPAY ==
--- NOTE | ~2023-06-10 | US_ITS ---
EXAMINATION: US PELVIS CLINICAL INFORMATION: Ovarian cyst. COMPARISON: Pelvic ultrasound dated 01/12/2023; MRI pelvis dated 04/27/2023. TECHNIQUE: Ultrasound of the pelvis is performed using both transabdominal and transvaginal transducers along with Doppler. Transvaginal imaging is performed due to inadequate visualization transabdominally. FINDINGS: Uterus: The uterus is anteverted and anteflexed. The uterus measures 9.1 x 4.9 x 5.6 cm. Nabothian cysts are seen within the cervix. The double wall endometrial thickness is 0.8 mm. An intrauterine device is seen, properly situated within the endometrial canal. The uterus is smooth in contour and has normal myometrial echogenicity. No visible fibroid. Adnexa: Both ovaries are visualized. There is normal color flow to the adnexa. There is no ovarian torsion. There is a small amount of nonspecific free fluid within the cul-de-sac. Right ovary measures 5.0 x 2.8 x 2.9 cm, volume 21.3 mL. The right ovary contains a 2.3 x 1.8 x 2.2 cm corpus luteum cyst. Left ovary measures 4.0 x 2.7 x 3.0 cm, volume 17.0 mL. The left ovary contains a 1.8 x 1.3 x 1.6 cm complex cyst with shadowing calcification. On the pelvic ultrasound of 01/07/2023, this measured 1.3 x 0.9 x 1.1 cm. US/US pelvic and transvaginal IMPRESSION: 1. There is a persistent, mildly increased complex left ovarian cyst with shadowing calcification. The shadowing calcification raises the possibility of a dermoid tumor. Continued Gynecology evaluation and management is recommended.
== END 2023-06-10 14:57 | disposition home or self-care (01) ==
LOC: HO.US 14:56
PROVIDERS: PCP Student in an Organized Health Care Education/Training Program; Visit Provider Obstetrics & Gynecology Gynecologic Oncology
DX: N83.209 Unspecified ovarian cyst, unspecified side (principal)
CPT/HCPCS: 76830; 76856

== ENCOUNTER 2023-09-29 10:21 | Outpatient (AMB) | payer BC, MEDICAID, SELFPAY ==
--- NOTE | 2023-09-29 10:27 | A.OFFVIS_ITS ---
Intake Vital Signs 09/29/23 10:49 Height 5 ft 7 in Weight 231 lb 7.766 oz BMI 36.3 Intake Visit Reasons: pelvic pain Allergies No Known Allergies Allergy (Verified 05/19/23 13:56) HPI HPI Comments History of Present Illness Details Pelvic ultrasound done on 06/05 showed the following: There is a persistent, mildly increased complex left ovarian cyst with shadowing calcification. The shadowing calcification raises the possibility of a dermoid tumor. Continued Gynecology evaluation and management is recommended. The patient was referred to [facility] crystal grower Oncology, Dr. Willett and has a follow-up appointment scheduled in few weeks [facility] Medical History Asthma Seasonal allergies Surgical History Hx of section Family History Maternal Aunt Breast CA Father Diabetes mellitus Mother Diabetes mellitus HTN (hypertension) Maternal Grandfather Colon cancer Paternal Grandmother Stomach cancer Social History Household Members: Spouse and Children Both parents involved: Yes Caregiver staying overnight: No Housing: House Are you a primary long term care social worker to a significant other at home: No Do you presently have visiting nurse or other home services: No 75 years or older and lives alone: No Alcohol intake: never Patient Tobacco Use Status: Never used Tobacco service: No Current occupational status: unemployed Gender identity: Female Female Reproductive History Menstrual Age of Menarche: 10 Review of Systems Const All systems reviewed & are unremarkable except as noted in HPI and below Physical Exam General: Yes no CVA tenderness External Female Exam: normal external appearance and normal appearance of the urethra Speculum Exam - Vagina: normal appearance of the vagina, normal palpation, no lesions and no masses Speculum Exam - Cervix: normal appearance of the cervix, normal palpation, no lesions, no masses and nontender Bimanual exam- vagina & uterus: normal bimanual exam, normal palpation, uterine size normal, normal palpation, uterine shape normal, No Cervical tenderness present and non-tender Bimanual Exam- Adnexa, other: normal adnexae Back/Spine/Pelvis Back: no CVA tenderness Assessment & Plan Assessment & Plan (1) Pelvic pain: Code(s): R10.2 - Pelvic and perineal pain Plan: Urine dip was positive for microscopic blood and leukocytes, urine test done in the office was negative . GC and chlamydia taken and pelvic ultrasound ordered. Discussed with the patient the differential diagnosis of pelvic pain including but not limited to adnexal, uterine masses, pelvic infections (PID), GI the (Irritable bowel syndrome, diverticulitis, others), musculoskeletal, myofascial pain abdominal wall , adhesions, endometriosis, psychological and others causes. Will check results and treat accordingly. All questions answered, the patient verbalized understanding. Instructed the patient to schedule follow-up appointment in 2 weeks (2) Microscopic hematuria: Code(s): R31.29 - Other microscopic hematuria Plan: Urine dip showed microscopic hematuria and leukocytes, will send urine for culture, repeat urine dip in 2 weeks if persistent microscopic hematuria with negative urine culture with, will treat accordingly. instructions given the patient to schedule a 2 week repeat urine appointment. Orders: Orders US pelvic and transvaginal Today R10.2 - Pelvic and perineal pain Coding Level of Care Code Est Pt Level 3 (47102) Diagnoses Pelvic pain R10.2 Microscopic hematuria R31.29
[2023-09-29 10:49] VITALS: BMI 36.3
== END 2023-09-29 10:54 | disposition home or self-care (01) ==
LOC: HO.HWS 10:21
PROVIDERS: Referring Provider Student in an Organized Health Care Education/Training Program; Visit Provider Obstetrics & Gynecology
DX: R10.2 Pelvic and perineal pain (principal); R31.29 Other microscopic hematuria; Z32.02 Encounter for pregnancy test, result negative
CPT/HCPCS: 99213

== ENCOUNTER 2023-09-29 10:21 | Outpatient (REF) | payer BC, MEDICAID, SELFPAY ==
[2023-09-29 16:30] LABS: CT PCR NOT DETECTED (Not Detect.); NG PCR NOT DETECTED (Not Detect.)
== END 2023-09-29 10:22 | disposition home or self-care (01) ==
LOC: HO.LNP 10:21
PROVIDERS: Visit Provider Obstetrics & Gynecology
DX: R10.2 Pelvic and perineal pain (principal); R31.29 Other microscopic hematuria
CPT/HCPCS: 0353U; 81002; 81025; 87086

== ENCOUNTER 2023-10-15 09:21 | Outpatient (REF) | payer BC, MEDICAID, SELFPAY | END 2023-10-15 09:22 | disposition home or self-care (01) | LOC: HO.HHCL 09:21 | PROVIDERS: Referring Provider Student in an Organized Health Care Education/Training Program; Visit Provider Internal Medicine Medical Oncology | DX: Z13.89 Encounter for screening for other disorder (principal) ==

== ENCOUNTER 2023-12-08 11:00 | Outpatient (AMB) | payer BC, MEDICAID, SELFPAY ==
--- NOTE | 2023-12-08 11:03 | MHC.OFFVIS ---
Intake Vital Signs 12/08/23 11:06 Height 5 ft 7 in Weight 227 lb 1.218 oz BMI 35.6 BP 115/73 Blood Pressure Location Lt brachial Position Sitting Pulse 69 Intake Visit Reasons: Colonic Thickening Intake Note: Patient in office today as a new patient for colonic thickening. CC: Left flank pain, constipation some times, and nausea. Patient report she was referred by oncologist after CT of the abdomen showed colonic thickening. Physician Primary Care Sports Medicine Required: No Accompanied by: Self / Same As Patient Allergies No Known Allergies Allergy (Verified 12/08/23 11:21) HPI Colonic Thickening HPI Details 33-year-old female here for initial evaluation of ?thickened colon. ? she is referred by Gwen Bustillos of [facility]. PMX Asthma Obesity BMI 35-39 Hypertension Anemia Left ovarian cyst Pre diabetes Cervical lymphadenopathy Renal artery stenosis * SURGICAL HISTORY section * ALLERGIES:NKDA * TISSUELAB LABS: none since may TODAY'S VISIT APPARENTLY THE MURAL THICKENING WAS FOUND ON A CT SCAN taken in early September at an unknown location. She had been having pain in the left flank for 3 mos. The pain is worse with eating and when it is bad she has trouble walking. She has been having CIC since the pain started, moving her bowels q2 days, but then she started having twice a day soft BM's. She has been eating smaller portions since and the pain is worse with eating bread, rice and chocolate and sodas. No N/V. She also feels bloated when the pain is very bad and she is gassy. No medication changes, diet changes or illness preceding this. No known FHX of similar problems, there is a hx of CRC in her grandfather maternal at age 62 and paternal grandmother at age 76. She had a prior colonoscopy in 2019 at [place] that was negative. But the pain sounds to be more stomach mediated. So EGD/colonoscopy will be ordered. There are no prior problems with anesthesia or sedation.. Her asthma is well controlled as it seasonal only and she denies any cardiac problems. No ID problems.. There is no family history of stomach or esophageal cancer known,there is a hx of CRC in her grandfather maternal at age 62 and paternal grandmother at age 76. Will get HP breath test as well. Return office visit in 8 weeks to go over what ever we have at that time. [facility] Medical History False positive syphilis serology Size of fetus inconsistent with dates in second trimester Encounter for screening for malformation using ultrasound Supervision of normal in second trimester Hx of spontaneous , currently test positive Well woman exam Asthma Seasonal allergies Surgical History History of esophagogastroduodenoscopy (EGD) H/O colonoscopy Previous section complicating Hx of section Family History Maternal Aunt Breast CA Father Diabetes mellitus Mother Diabetes mellitus HTN (hypertension) Maternal Grandfather Colon cancer Paternal Grandmother Stomach cancer Social History Household Members: Spouse and Children Housing: House Are you a primary long term care pharmacist to a significant other at home: No Do you presently have visiting nurse or other home services: No Alcohol intake: never Patient Tobacco Use Status: Never used Tobacco service: No Current occupational status: unemployed Gender identity: Female Female Reproductive History Menstrual Age of Menarche: 10 Review of Systems Const Denies fatigue, Denies fever(s), Denies night sweats, Denies poor appetite and Reports weight loss (10 lbs) ENT Reports Normal hearing present, Denies dental pain, Denies dysphagia, Denies hearing loss, Denies mouth pain, Denies odynophagia, Denies throat swelling, Denies tongue swelling and Reports other (Dentition adequate) Card Reports no additional complaints Resp Reports no additional complaints GI Details: Reports abdominal pain, Denies melena, Reports bloating, Denies hematochezia, Denies constipation, Denies GI cramping, Denies dysphagia, Reports excessive flatus, Denies early satiety, Denies heartburn, Denies diarrhea, Denies nausea, Denies odynophagia, Denies vomiting and Denies hematemesis Reports flank pain Skin/Breast Denies pruritus, Denies lesions, Denies rash and Denies jaundice Neuro Reports Normal hearing present and Denies Abnormal speech present Endo Denies fatigue Aller/Immun Denies throat swelling and Denies tongue swelling Physical Exam Vital Signs: Last Vital Signs Pulse 69 12/08/23 11:06 BP 115/73 12/08/23 11:06 BMI result Body Mass Index 35.6 Const General: cooperative, no acute distress, well developed and well groomed Nutritional Appearance: well nourished and obese Orientation/consciousness: oriented to person, oriented to place and oriented to time Limitations: No language barrier HEENT Head: Yes normocephalic and Yes atraumatic Eyes General: appearance normal, both eyes and all related structures Pupils: Equal, round and reactive pupils present Neck Neck: Yes normal visual inspection and Yes no lymphadenopathy Thyroid: Thyroid normal Resp Effort & Inspection: normal respiratory effort and able to speak in complete sentences Auscultation: clear to auscultation bilaterally Cardio Rate: regular rate Rhythm: regular rhythm Heart sounds: Normal, physiologic split S2 sound present Peripheral pulses: radial pulses present and posterior tibial pulses present GI Inspection: No distended, Yes Abdominal panniculus present and Yes obesity Palpation (GI): Soft to palpation, Tenderness to palpation present (GI) in the LUQ and in the RUQ, no guarding, not rigid and No hepatosplenomegaly present Percussion: Yes normal to percussion Auscultation: normal bowel sounds Rectal Exam - Female: deferred Abdomen image: 1. surgical scar General: Yes no CVA tenderness Back/Spine/Pelvis Back: no CVA tenderness Thoracic/Lumbar Spine: No paraspinal muscle tenderness, thoraco-lumbar spasm and No thoracic spinal tenderness Skin General skin exam: no rashes or lesions noted, turgor normal, skin not dry, no jaundice, No spider nevi and no striae Rashes: no rashes Nails: normal Neuro General: oriented to person, oriented to place and oriented to time Cranial nerves: Yes Equal, round and reactive pupils present and Yes Normal hearing present Speech: No Abnormal speech present Extrem General: Yes normal to inspection, No clubbing, No cyanosis and No edema Psych Appearance: grossly normal and well kempt Mental Status: mental status grossly normal Speech and movement: Normal speech and movement present Affect: normal affect Attitude: cooperative Thought process: Normal thought process present and not confabulating Thought content: Normal thought content present Insight: Limited insight present (Psych) Judgement: Limited judgement present (Psych) Assessment & Plan Assessment & Plan (1) Abnormal CT of the abdomen: Comment: ? colonic thickening Code(s): R93.5 - Abnormal findings on diagnostic imaging of other abdominal regions, including retroperitoneum (2) Left flank pain: Code(s): R10.9 - Unspecified abdominal pain Plan APPARENTLY THE MURAL THICKENING WAS FOUND ON A CT SCAN taken in early September at an unknown location. She had been having pain in the left flank for 3 mos. The pain is worse with eating and when it is bad she has trouble walking. She has been having CIC since the pain started, moving her bowels q2 days, but then she started having twice a day soft BM's. She has been eating smaller portions since and the pain is worse with eating bread, rice and chocolate and sodas. No N/V. She also feels bloated when the pain is very bad and she is gassy. No medication changes, diet changes or illness preceding this. No known FHX of similar problems, there is a hx of CRC in her grandfather maternal at age 62 and paternal grandmother at age 76. She had a prior colonoscopy in 2019 at [place] that was negative. But the pain sounds to be more stomach mediated. So EGD/colonoscopy will be ordered. There are no prior problems with anesthesia or sedation.. Her asthma is well controlled as it seasonal only and she denies any cardiac problems. No ID problems.. There is no family history of stomach or esophageal cancer known,there is a hx of CRC in her grandfather maternal at age 62 and paternal grandmother at age 76. Will get HP breath test as well. Return office visit in 8 weeks to go over what ever we have at that time. Orders: Orders Comprehensive Met. Panel Today R93.5 - Abnormal findings on diagnostic imaging of other abdominal regions, including retroperitoneum, Z01.818 - Encounter for other preprocedural examination Complete Blood Count Auto Diff Today R93.5 - Abnormal findings on diagnostic imaging of other abdominal regions, including retroperitoneum, Z01.818 - Encounter for other preprocedural examination Colonoscopy - GI Use Only Today R93.5 - Abnormal findings on diagnostic imaging of other abdominal regions, including retroperitoneum, Z01.818 - Encounter for other preprocedural examination EGD/Wilmar Combo - GI Use Only Today R10.9 - Unspecified abdominal pain, R93.5 - Abnormal findings on diagnostic imaging of other abdominal regions, including retroperitoneum US abdomen complete Today R10.9 - Unspecified abdominal pain, R93.5 - Abnormal findings on diagnostic imaging of other abdominal regions, including retroperitoneum H Pylori Breath Test Today R10.9 - Unspecified abdominal pain, R93.5 - Abnormal findings on diagnostic imaging of other abdominal regions, including retroperitoneum Medications: New peg 3350-electrolytes 236-22.74-6.74 -5.86 gram (Golytely) until fecal effluent is clear; do not exceed a total volume of 2,000 mL 240 mL PO Q10M 1 day 4,000 mL 0RF Z12.11 - Encounter for screening for malignant neoplasm of colon bisacodyl (Dulcolax (bisacodyl)) 10 mg (2 x 5 mg) PO BEDTIME 2 days 4 tabs 0RF bisacodyl (Dulcolax (bisacodyl)) 10 mg (2 x 5 mg) PO BEDTIME 2 days 4 tabs 0RF peg 3350-electrolytes 236-22.74-6.74 -5.86 gram (Golytely) until fecal effluent is clear; do not exceed a total volume of 2,000 mL 240 mL PO Q10M 1 day 4,000 mL 0RF Z12.11 - Encounter for screening for malignant neoplasm of colon dicyclomine 20 mg PO QID 30 days 120 tabs 6RF Coding Level of Care Code New Pt Level 3 (39448) Diagnoses Abnormal CT of the abdomen R93.5 Left flank pain R10.9
[2023-12-08 11:06] VITALS: BP 115/73; PULSE 69; BMI 35.6
== END 2023-12-08 12:12 | disposition home or self-care (01) ==
PROVIDERS: PCP Student in an Organized Health Care Education/Training Program; Referring Provider Student in an Organized Health Care Education/Training Program; Visit Provider Nurse Practitioner
DX: R93.5 Abnormal findings on diagnostic imaging of other abdominal regions, including retroperitoneum (principal); R10.9 Unspecified abdominal pain
CPT/HCPCS: 99203

== ENCOUNTER 2023-12-08 11:00 | Outpatient (REF) | payer BC, MEDICAID, SELFPAY ==
[2023-12-09 09:33] LABS: H Pylori Breath Test Negative (Negative)
== END 2023-12-08 11:01 | disposition home or self-care (01) ==
LOC: HO.LNP 11:00
PROVIDERS: PCP Student in an Organized Health Care Education/Training Program; Referring Provider Student in an Organized Health Care Education/Training Program; Visit Provider Nurse Practitioner
DX: R10.9 Unspecified abdominal pain (principal); R93.5 Abnormal findings on diagnostic imaging of other abdominal regions, including retroperitoneum
CPT/HCPCS: 83013

== ENCOUNTER 2023-12-14 09:10 | Outpatient (REF) | payer BC, MEDICAID, SELFPAY ==
[2023-12-14 09:29] LABS: MANUAL DIFF FLAG NO
[2023-12-14 10:08] LABS: Basophils Percent Auto 0.2 % (0-2); Eosinophils Absolute Auto 0.3 X10*3/uL (0.0-0.4); Eosinophils Percent Auto 3.7 % (0-4); Hematocrit 37.5 % (37.0-47.0); Hemoglobin 11.8 g/dl (12.0-16.0); Imm Gran Abs Auto 0.02 X10*3/uL (0.00-0.03); Imm Gran Pct Auto 0.2 % (0.0-0.4); Lymphocytes Absolute Auto 1.8 X10*3/uL (1.2-4.9); Lymphocytes Percent Auto 20.7 % (20-40); Mean Corpuscular HGB Conc 31.5 g/dl (31.0-35.0); Mean Corpuscular Hemoglobin 23.3 pg (27.0-33.0); Mean Corpuscular Volume 74.1 fL (80.0-98.0); Mean Platelet Volume 9.7 fL (9.4-12.3); Monocytes Absolute Auto 0.5 X10*3/uL (0.1-1.2); Monocytes Percent Auto 5.3 % (2-11); Neutrophils Percent Auto 69.9 % (45-73); Platelet Count 409 X10*3/uL (160-400); Red Blood Count 5.06 X10*6/uL (4.20-5.50); Red Cell Distribution Width 18.6 % (11.0-16.0); White Blood Count 8.6 X10*3/uL (4.8-10.8)
[2023-12-14 10:55] LABS: Alanine Aminotransferase 20 U/L (0-31); Albumin Level 4.3 g/dL (3.5-5.0); Alkaline Phosphatase 52 U/L (39-117); Anion Gap 10 (12-20); Aspartate Amino Transferase 14 U/L (5-31); Bilirubin Total 0.3 mg/dL (0.0-1.0); Blood Urea Nitrogen 8 mg/dL (9-16); Calcium 9.6 mg/dL (8.4-10.2); Carbon Dioxide 25 mmol/L (22-29); Chloride 106 mmol/L (96-108); Estimated Glomerular Filt Rate > 60; Glucose Random 94 mg/dL (60-115); Potassium 3.9 mmol/L (3.3-5.1); Sodium 137 mmol/L (135-145); Total Protein 7.7 g/dL (6.5-8.0)
== END 2023-12-14 09:11 | disposition home or self-care (01) ==
LOC: HO.LAB 09:10
PROVIDERS: PCP Student in an Organized Health Care Education/Training Program; Visit Provider Nurse Practitioner
DX: Z01.818 Encounter for other preprocedural examination (principal); R93.5 Abnormal findings on diagnostic imaging of other abdominal regions, including retroperitoneum
CPT/HCPCS: 36415; 80053; 85025

== ENCOUNTER 2023-12-17 10:00 | Outpatient (REF) | payer BC, MEDICAID, SELFPAY ==
--- NOTE | ~2023-12-17 | US_ITS ---
EXAMINATION: US ABDOMEN COMPLETE CLINICAL INFORMATION: Abnormal findings on diagnostic imaging. COMPARISON: Renal ultrasound 04/19/2023 TECHNIQUE: Real-time imaging of the abdominal viscera. FINDINGS: PANCREAS: Normal. ABDOMINAL AORTA: The proximal, mid, and distal segments are normal in caliber. INFERIOR VENA CAVA: Visualized portions are normal. LIVER: The liver is normal in size. The liver contour is normal. There is diffuse increased liver parenchymal echogenicity, consistent with hepatic steatosis. No focal hepatic lesion. There is no intrahepatic biliary duct dilatation seen. GALLBLADDER: Normal. The gallbladder is physiologically distended without evidence of stones, sludge, polyps, wall thickening or pericholecystic fluid. COMMON BILE DUCT: Normal in caliber measuring 0.3 cm in diameter. RIGHT KIDNEY: Normal. No hydronephrosis. No renal calculi or focal parenchymal lesions. The kidney measures 12.5 cm in maximum dimension. LEFT KIDNEY: Normal. No hydronephrosis. No renal calculi or focal parenchymal lesions. The kidney measures 12.8 cm in maximum dimension. SPLEEN: Normal. The spleen measures 9.0 cm in maximum dimension. FREE FLUID: None. US/US abdomen complete IMPRESSION: Hepatic steatosis.
== END 2023-12-17 10:01 | disposition home or self-care (01) ==
LOC: HO.US 10:00
PROVIDERS: PCP Student in an Organized Health Care Education/Training Program; Visit Provider Nurse Practitioner
DX: R10.9 Unspecified abdominal pain (principal); R93.5 Abnormal findings on diagnostic imaging of other abdominal regions, including retroperitoneum
CPT/HCPCS: 76700

== ENCOUNTER 2024-01-20 06:39 | Day surgery (SDC) | payer BC, MEDICAID, SELFPAY ==
--- NOTE | 2024-01-19 10:47 | P.CONAN_ITS ---
Documented by User: Nely Ferrara NP 01/19/24 10:47 HPI - Anesthesia Eval Consult details Narrative: 33yo F for Upper Endoscopy and Colonoscopy PMF Active Problems Active Problems: All Active Problems Left flank pain (Acute) Abnormal CT of the abdomen (Acute) Pre-op examination (Acute) Pre-diabetes (Acute) Hypertension (Acute) Obesity (BMI 35.0-39.9 without comorbidity) (Acute) Microscopic hematuria (Acute) Pelvic pain (Acute) IUD check up (Acute) Microcytic hypochromic anemia (Acute) Renal artery stenosis (Acute) Labile blood pressure (Acute) Ovarian cyst, complex (Acute) Abnormal uterine bleeding (AUB) (Acute) Elevated glucose level (Acute) Left breast mass (Acute) History of anemia (Acute) Past Medical History Medical History False positive syphilis serology Size of fetus inconsistent with dates in second trimester Encounter for screening for malformation using ultrasound Supervision of normal in second trimester Hx of spontaneous , currently test positive Well woman exam Asthma Seasonal allergies Family History Family History Maternal Aunt Breast CA Father Diabetes mellitus Mother Diabetes mellitus HTN (hypertension) Maternal Grandfather Colon cancer Paternal Grandmother Stomach cancer Surgical History Surgical History History of esophagogastroduodenoscopy (EGD) H/O colonoscopy Previous section complicating Hx of section Social History Social History Household Members: Spouse and Children Housing: House Are you a primary resident care manager rn to a significant other at home: No Do you presently have visiting nurse or other home services: No Alcohol intake: never Patient Tobacco Use Status: Never used Tobacco Use of substances other than those prescribed or required for medical reasons: No Are you DNR?: No Advance Directives: No Advance Directives Information Provided: Yes service: No Current occupational status: unemployed Gender identity: Female Meds Allergies Allergy/AdvReac Type Severity Reaction Status Date / Time No Known Allergies Allergy Verified 12/20/23 10:59 Home Medications ?Medication ?Instructions ?Recorded ?Confirmed ?Last Taken ?Type albuterol sulfate 90 mcg/actuation 90 inh inhalation DAILY 03/31/23 12/20/23 Unknown History aerosol inhaler fluticasone propionate 110 2 puff inhalation BID 03/31/23 12/20/23 Unknown History mcg/actuation HFA aerosol inhaler (Flovent HFA) levonorgestrel 21 mcg/24 hours (8 21 mcg intrauterine DAILY 05/19/23 12/20/23 Unknown History yrs) 52 mg intrauterine device (Mirena) cetirizine 10 mg tablet 10 mg PO QAM 12/03/23 12/20/23 Unknown History montelukast 10 mg tablet 10 mg PO DAILY 12/03/23 12/20/23 Unknown History Assessment and Plan Assessment Anesthesia Assessment: Chart Reviewed Documented by User: Andriy Sagastume MD 01/20/24 08:50 PMFSH Past Medical History Medical History False positive syphilis serology Size of fetus inconsistent with dates in second trimester Encounter for screening for malformation using ultrasound Supervision of normal in second trimester Hx of spontaneous , currently test positive Well woman exam Asthma Seasonal allergies Patient : No Family History Family History Maternal Aunt Breast CA Father Diabetes mellitus Mother Diabetes mellitus HTN (hypertension) Maternal Grandfather Colon cancer Paternal Grandmother Stomach cancer Family history of problems with anesthesia: No Surgical History Surgical History History of esophagogastroduodenoscopy (EGD) H/O colonoscopy Previous section complicating Hx of section History of Problems with Anesthesia: No Social History Social History Household Members: Spouse and Children Housing: House Are you a primary resident care manager rn to a significant other at home: No Do you presently have visiting nurse or other home services: No Alcohol intake: never Patient Tobacco Use Status: Never used Tobacco Use of substances other than those prescribed or required for medical reasons: No Are you DNR?: No Advance Directives: No Advance Directives Information Provided: Yes service: No Current occupational status: unemployed Gender identity: Female Meds Allergies Allergy/AdvReac Type Severity Reaction Status Date / Time No Known Allergies Allergy Verified 12/20/23 10:59 Home Medications ?Medication ?Instructions ?Recorded ?Confirmed ?Last Taken ?Type albuterol sulfate 90 mcg/actuation 90 inh inhalation DAILY 03/31/23 12/20/23 Unknown History aerosol inhaler fluticasone propionate 110 2 puff inhalation BID 03/31/23 12/20/23 Unknown History mcg/actuation HFA aerosol inhaler (Flovent HFA) levonorgestrel 21 mcg/24 hours (8 21 mcg intrauterine DAILY 05/19/23 12/20/23 Unknown History yrs) 52 mg intrauterine device (Mirena) cetirizine 10 mg tablet 10 mg PO QAM 12/03/23 12/20/23 Unknown History montelukast 10 mg tablet 10 mg PO DAILY 12/03/23 12/20/23 Unknown History Exam Airway Mallampati Class: II TM Dist: >3cm Neck ROM: Full Loose/Missing/Broken Teeth: Yes and Lower Heart: ok Lungs: ok Assessment and Plan Assessment Anesthesia Assessment: Anesthesia Plan Discussed Final Anesthetic Review Family History of Problems with Anesthesia: No History of Problems with Anesthesia: No NPO: Yes ASA Class: II Final Preanesthetic Review: No Changes in Pt Med Stat, Meds/Allgs Chart Reviewed, Consent Obtained/Reviewed and Anes Risks/Benef Reviewed Patient Risk: Low Procedure Risk: Intermediate Anesthetic Plan Anesthetic Plan: Agree w/ Assess. and Plan and TIVA Disposition: Standard PACU
[2024-01-20 07:25] VITALS: BMI 35.8
[2024-01-20 07:32] LABS: UPreg QC Valid YES; Urine Pregnancy NEGATIVE (NEGATIVE)
[2024-01-20 07:34] VITALS: BP 112/55; PULSE 65; RESP 16; TEMP 37.1; O2SAT 98
[2024-01-20] MEDS: Lactated Ringers 1,000 ML 100 ML IVCONT (08:09)
--- NOTE | 2024-01-20 08:10 | MHC.SHP ---
Pre-Procedural Eval Section A - 24 Hr Update-Section A only Date of Service: 01/20/24 Section B - Complete if H&P > 30 days Chief Complaint: L sided abd pain, abnormal CT scan Details of Present Illness: PMX Asthma Obesity BMI 35-39 Hypertension Anemia Left ovarian cyst Pre diabetes Cervical lymphadenopathy Renal artery stenosis * SURGICAL HISTORY section Allergies: Allergies Allergy/AdvReac Type Severity Reaction Status Date / Time No Known Allergies Allergy Verified 12/20/23 10:59 Review of Systems Review of Systems Comment: Ten point ROS negative Exam Exam Comment: Gen appear: No acute distress HEENT: no icterus Chest: No overt resp distress Abd: soft, nontender, nondistended Psych: Stable affect, answering questions appropriately Neuro: A/Ox3 noted to move all extremities spontaneously Ext: no peripheral edema Plan Diagnosis/Plan: Unchanged I have reviewed the history and physical and performed a pertinent physical examination on my patient. No changes have occurred unless specified. Time Spent With Patient Time: Total time managing care of this patient today ____ minutes.
[2024-01-20 09:30] VITALS: BP 109/70; PULSE 90; RESP 18; TEMP 36.2; O2SAT 97
--- NOTE | 2024-01-20 09:40 | P.OPN-COLO_ITS ---
Colonoscopy Operative Note Operative Note Date of Service: 01/20/24 Narrative: Procedure: Upper endoscopy and colonoscopy Indication: L sided abd pain, abnormal CT scan Endoscopist: Nuzhat Helm MD Anesthesia Provider: Dr Andriy Sagastume Anesthesia type: MAC Instrument: GIF-H190 and PCF-[id number] EGD Procedure:?? The procedure, indications, preparation and potential complications were reviewed with the patient, who indicated understanding and gave written informed consent to proceed. Physical exam was performed. The endoscope was introduced through the mouth, and advanced to the 2nd part of the duodenum. The mucosa was carefully examined on slow withdrawal of the endoscope. The patient tolerated the procedure well. There were no immediate complications.? EGD Findings:? * Esophagus:? A small patch of heterotopic gastric mucosa was noted in the upper esophagus. Normal remaining esophageal mucosa. The Z-line was at 40 cm. There was a small hiatal hernia with diaphragmatic pinch at 43 cm. Cold forceps biopsies were taken from the lower esophagus. * Stomach:? Normal gastric mucosa was noted. There were a few small polyps in the cardia and fundus of the stomach. A sales representative graphic art polyp was excised with cold forceps. Retroflexion was performed in the cardia that showed Hill grade II hiatal hernia. Cold forceps biopsies were taken to r/o H Pylori. * Duodenum:? Duodenal mucosa was normal to the extent of visualisation. Cold forceps biopsies were taken from the duodenal bulb and 2nd portion of the duodenum to rule out sprue. Colonoscopy Procedure:? The patient was then turned for the colonoscopy. A digital rectal exam was performed which was normal.? A distal attachment cap was affixed to the tip of the scope and the colonoscope was then inserted through the anus and advanced through the colon and advanced to the cecum at 80 cm and terminal ileum.? Appendiceal orifice and ileocecal valve were identified. Mucosa was carefully examined under high definition white light as the instrument was slowly withdrawn in a retrograde panoramic fashion. Retroflexion was performed in ascending colon and rectum. The procedure was not difficult. The quality of the prep was BBPS: 2+3+3 = adequate Withdrawal time 7 minutes Limitations: No limitations Findings: Mucosa: Normal colon and terminal ileum mucosa. Cold forceps biopsies were taken from right and left side of the colon. Protruding lesions: * Medium internal hemorrhoids without stigmata of recent bleeding. Impression: 1. Inlet patch 2. Normal esophagus (biopsy) 3. Hiatal hernia 4. Gastric polyp (biopsy) 5. Normal duodenum (biopsy) 6. Normal colon and terminal ileum mucosa (biopsy) 7. Internal hemorrhoids Recommendations:?? * Follow-up path results * No mucosal or anatomical abnormality noted in the upper or lower scope to explain her left that it abdominal pain. * Resume colorectal cancer screening at 43 years of age.
[2024-01-20 09:45] VITALS: BP 144/75; PULSE 85; RESP 18; TEMP 36.2; O2SAT 99
== END 2024-01-20 09:58 | disposition home or self-care (01) ==
PROVIDERS: Nurse Practitioner; PCP Student in an Organized Health Care Education/Training Program; Visit Provider Internal Medicine
PROC: (CPT 45380; principal; 2024-01-20 08:40)
DX: R10.9 Unspecified abdominal pain (principal); R93.5 Abnormal findings on diagnostic imaging of other abdominal regions, including retroperitoneum; K44.9 Diaphragmatic hernia without obstruction or gangrene; K31.7 Polyp of stomach and duodenum; K20.90 Esophagitis, unspecified without bleeding; K64.8 Other hemorrhoids; Q39.8 Other congenital malformations of esophagus; I10 Essential (primary) hypertension; J45.909 Unspecified asthma, uncomplicated
CPT/HCPCS: 45380; 43239; 81025; 88305; 88313; 88342; J2704

== ENCOUNTER → 2024-01-20 06:39 | Outpatient (BNV) | payer BC, MEDICAID, SELFPAY | PROVIDERS: PCP Student in an Organized Health Care Education/Training Program; Visit Provider Internal Medicine | DX: R10.9 Unspecified abdominal pain (principal); R93.3 Abnormal findings on diagnostic imaging of other parts of digestive tract; K31.7 Polyp of stomach and duodenum; K22.89 Other specified disease of esophagus; K64.8 Other hemorrhoids | CPT/HCPCS: 43239; 45380 ==

== ENCOUNTER 2024-03-09 14:41 | Outpatient (AMB) | payer BC, MEDICAID, SELFPAY ==
--- NOTE | 2024-03-09 14:46 | A.OFFVIS_ITS ---
Vital Signs 03/09/24 14:47 Height 5 ft 7 in Weight 223 lb 1.725 oz BMI 34.9 BP 125/68 Blood Pressure Location Lt brachial Position Sitting Pulse 62 Intake Visit Reasons: follow up colonoscopy Intake Note: Patient in office today in follow up of colonoscopy. CC: Denies having any GI concerns today and reports doing well. Warehouse Coordinator Required: Yes Warehouse Coordinator Name: Erasmo Accompanied by: Self / Same As Patient Allergies No Known Allergies Allergy (Verified 03/21/24 11:17) HPI HPI follow up colonoscopy: Details: Assessment & Plan (1) Abnormal CT of the abdomen: Comment: ? colonic thickening Code(s): R93.5 - Abnormal findings on diagnostic imaging of other abdominal regions, including retroperitoneum (2) Left flank pain: Code(s): R10.9 - Unspecified abdominal pain Plan APPARENTLY THE MURAL THICKENING WAS FOUND ON A CT SCAN taken in early September at an unknown location. She had been having pain in the left flank for 3 mos. The pain is worse with eating and when it is bad she has trouble walking. She has been having CIC since the pain started, moving her bowels q2 days, but then she started having twice a day soft BM's. She has been eating smaller portions since and the pain is worse with eating bread, rice and chocolate and sodas. No N/V. She also feels bloated when the pain is very bad and she is gassy. No medication changes, diet changes or illness preceding this. No known FHX of similar problems, there is a hx of CRC in her grandfather maternal at age 62 and paternal grandmother at age 76. She had a prior colonoscopy in 2019 at [facility] that was negative. But the pain sounds to be more stomach mediated. So EGD/colonoscopy will be ordered. There are no prior problems with anesthesia or sedation.. Her asthma is well controlled as it seasonal only and she denies any cardiac problems. No ID problems.. There is no family history of stomach or esophageal cancer known,there is a hx of CRC in her grandfather maternal at age 62 and paternal grandmother at age 76. Will get HP breath test as well. Return office visit in 8 weeks to go over what ever we have at that time. Orders: Orders Comprehensive Met. Panel Today R93.5 - Abnormal findings on diagnostic imaging of other abdominal regions, including retroperitoneum, Z01.818 - Encounter for other preprocedural examination Complete Blood Count Auto Diff Today R93.5 - Abnormal findings on diagnostic imaging of other abdominal regions, including retroperitoneum, Z01.818 - Encounter for other preprocedural examination Colonoscopy - GI Use Only Today R93.5 - Abnormal findings on diagnostic imaging of other abdominal regions, including retroperitoneum, Z01.818 - Encounter for other preprocedural examination EGD/[place] - GI Use Only Today R10.9 - Unspecified abdominal pain, R93.5 - Abnormal findings on diagnostic imaging of other abdominal regions, including retroperitoneum US abdomen complete Today R10.9 - Unspecified abdominal pain, R93.5 - Abnormal findings on diagnostic imaging of other abdominal regions, including retroperitoneum H Pylori Breath Test Today R10.9 - Unspecified abdominal pain, R93.5 - Abnormal findings on diagnostic imaging of other abdominal regions, including retroperitoneum Medications: New peg 3350-electrolytes 236-22.74-6.74 -5.86 gram (Golytely) until fecal effluent is clear; do not exceed a total volume of 2,000 mL 240 mL PO Q10M 1 day 4,000 mL 0RF Z12.11 - Encounter for screening for malignant neoplasm of colon bisacodyl (Dulcolax (bisacodyl)) 10 mg (2 x 5 mg) PO BEDTIME 2 days 4 tabs 0RF bisacodyl (Dulcolax (bisacodyl)) 10 mg (2 x 5 mg) PO BEDTIME 2 days 4 tabs 0RF peg 3350-electrolytes 236-22.74-6.74 -5.86 gram (Golytely) until fecal effluent is clear; do not exceed a total volume of 2,000 mL 240 mL PO Q10M 1 day 4,000 mL 0RF Z12.11 - Encounter for screening for malignant neoplasm of colon dicyclomine 20 mg PO QID 30 days 120 tabs 6RF LABS: Laboratory Tests 12/20/23 10:47 WBC 9.3 RBC 5.17 Hgb 12.2 Hct 38.1 MCV 73.7 L MCH 23.6 L Plt Count 412 H Estimated GFR > 60 Total Bilirubin 0.2 AST 25 ALT 26 Alkaline Phosphatase 53 ULTRASOUND OF THE ABDOMEN 12/21/23 FINDINGS: PANCREAS: Normal. ABDOMINAL AORTA: The proximal, mid, and distal segments are normal in caliber. INFERIOR VENA CAVA: Visualized portions are normal. LIVER: The liver is normal in size. The liver contour is normal. There is diffuse increased liver parenchymal echogenicity, consistent with hepatic steatosis. No focal hepatic lesion. There is no intrahepatic biliary duct dilatation seen. GALLBLADDER: Normal. The gallbladder is physiologically distended without evidence of stones, sludge, polyps, wall thickening or pericholecystic fluid. COMMON BILE DUCT: Normal in caliber measuring 0.3 cm in diameter. RIGHT KIDNEY: Normal. No hydronephrosis. No renal calculi or focal parenchymal lesions. The kidney measures 12.5 cm in maximum dimension. LEFT KIDNEY: Normal. No hydronephrosis. No renal calculi or focal parenchymal lesions. The kidney measures 12.8 cm in maximum dimension. SPLEEN: Normal. The spleen measures 9.0 cm in maximum dimension. FREE FLUID: None. US/US abdomen complete IMPRESSION: Hepatic steatosis. EGD/COLONOSCOPY 01/20/24 EGD Findings:? * Esophagus:? A small patch of heterotopic gastric mucosa was noted in the upper esophagus. Normal remaining esophageal mucosa. The Z-line was at 40 cm. There was a small hiatal hernia with diaphragmatic pinch at 43 cm. Cold forceps biopsies were taken from the lower esophagus. * Stomach:? Normal gastric mucosa was noted. There were a few small polyps in the cardia and fundus of the stomach. A outside dealer sales representative polyp was excised with cold forceps. Retroflexion was performed in the cardia that showed Hill grade II hiatal hernia. Cold forceps biopsies were taken to r/o H Pylori. * Duodenum:? Duodenal mucosa was normal to the extent of visualisation. Cold forceps biopsies were taken from the duodenal bulb and 2nd portion of the duodenum to rule out sprue. * Findings: Mucosa: Normal colon and terminal ileum mucosa. Cold forceps biopsies were taken from right and left side of the colon. Protruding lesions: * Medium internal hemorrhoids without stigmata of recent bleeding. Impression: 1. Inlet patch 2. Normal esophagus (biopsy) 3. Hiatal hernia 4. Gastric polyp (biopsy) 5. Normal duodenum (biopsy) 6. Normal colon and terminal ileum mucosa (biopsy) 7. Internal hemorrhoids Recommendations:?? * Follow-up path results * No mucosal or anatomical abnormality noted in the upper or lower scope to explain her left that it abdominal pain. * Resume colorectal cancer screening at 43 years of age. BIOPSY Received: 01/20/24 Diagnosis A. Duodenum, biopsy: Duodenal mucosa within normal limits. B. Stomach, random, biopsy: Antral-type and oxyntic mucosa with mild chronic inactive inflammation; no Helicobacter organisms seen. C. Stomach, polyp, biopsy: Clinically polypoid oxyntic mucosa with mild chronic inactive inflammation; no Helicobacter organisms seen. D. Esophagus, lower, biopsy: Active esophagitis (maximum eosinophil count 20 per high powered field). E. Colon, right, biopsy: Colonic mucosa within normal limits. F. Colon, left, biopsy: Colonic mucosa within normal limits TODAY'S VISIT Jaiden Marmolejo she is agreeable to a recall at age 43. Her pain has not returned. At this point she is welcome to return as needed if it returns but at this time we are offering no treatment so I will leave this up to her. [facility] Medical History False positive syphilis serology Size of fetus inconsistent with dates in second trimester Encounter for screening for malformation using ultrasound Supervision of normal in second trimester Hx of spontaneous , currently test positive Well woman exam Asthma Seasonal allergies Surgical History History of esophagogastroduodenoscopy (EGD) H/O colonoscopy Previous section complicating Hx of section Family History Maternal Aunt Breast CA Father Diabetes mellitus Mother Diabetes mellitus HTN (hypertension) Maternal Grandfather Colon cancer Paternal Grandmother Stomach cancer Social History Household Members: Spouse and Children Housing: House Are you a primary health care legal assistant to a significant other at home: No Do you presently have visiting nurse or other home services: No Alcohol intake: never Patient Tobacco Use Status: Never used Tobacco service: No Current occupational status: unemployed Gender identity: Female Female Reproductive History Menstrual Age of Menarche: 10 Review of Systems Const Denies fatigue, Denies fever(s), Denies night sweats, Denies poor appetite and Denies weight loss Eyes Details: glasses Reports requires corrective lenses ENT Reports Normal hearing present, Denies dental pain, Denies dysphagia, Denies hearing loss, Denies mouth pain, Denies odynophagia, Denies throat swelling, Denies tongue swelling and Reports other (Dentition adequate) Card Reports no additional complaints Resp Reports no additional complaints GI Details: Denies abdominal pain, Denies melena, Denies bloating, Denies hematochezia, Denies constipation, Denies GI cramping, Denies dysphagia, Denies excessive flatus, Denies early satiety, Denies heartburn, Denies diarrhea, Denies nausea, Denies odynophagia, Denies vomiting and Denies hematemesis Skin/Breast Denies pruritus, Denies lesions, Denies rash and Denies jaundice Neuro Reports Normal hearing present and Denies Abnormal speech present Endo Denies fatigue Aller/Immun Denies throat swelling and Denies tongue swelling Physical Exam Vital Signs: Last Vital Signs Pulse 62 03/09/24 14:47 BP 125/68 03/09/24 14:47 BMI result Body Mass Index 34.9 Const General: cooperative, no acute distress, well developed and well groomed Nutritional Appearance: well nourished and obese Orientation/consciousness: oriented to person, oriented to place and oriented to time Limitations: No language barrier HEENT Head: Yes normocephalic and Yes atraumatic Eyes General: appearance normal, both eyes and all related structures Pupils: Equal, round and reactive pupils present Neck Neck: Yes normal visual inspection and Yes no lymphadenopathy Thyroid: Thyroid normal Resp Effort & Inspection: normal respiratory effort and able to speak in complete sen tences Auscultation: clear to auscultation bilaterally Cardio Rate: regular rate Rhythm: regular rhythm Heart sounds: Normal, physiologic split S2 sound present Peripheral pulses: radial pulses present and posterior tibial pulses present GI Inspection: No distended, Yes Abdominal panniculus present and Yes obesity Palpation (GI): Soft to palpation, nontender, no guarding, not rigid and No hepatosplenomegaly present Percussion: Yes normal to percussion Auscultation: normal bowel sounds Rectal Exam - Female: deferred Skin General skin exam: no rashes or lesions noted, turgor normal, skin not dry, no jaundice, No spider nevi and no striae Rashes: no rashes Nails: normal Neuro General: oriented to person, oriented to place and oriented to time Cranial nerves: Yes Equal, round and reactive pupils present and Yes Normal hearing present Speech: No Abnormal speech present Extrem General: Yes normal to inspection, No clubbing, No cyanosis and No edema Psych Appearance: grossly normal and well kempt Mental Status: mental status grossly normal Speech and movement: Normal speech and movement present Affect: normal affect Attitude: cooperative Thought process: Normal thought process present and not confabulating Thought content: Normal thought content present Insight: Fair insight present (Psych) Judgement: Fair judgement present (Psych) Results Reviewed Results Reviewed: Laboratory Tests 12/20/23 10:47 WBC 9.3 RBC 5.17 Hgb 12.2 Hct 38.1 MCV 73.7 L MCH 23.6 L Plt Count 412 H Estimated GFR > 60 Total Bilirubin 0.2 AST 25 ALT 26 Alkaline Phosphatase 53 ULTRASOUND OF THE ABDOMEN 12/21/23 FINDINGS: PANCREAS: Normal. ABDOMINAL AORTA: The proximal, mid, and distal segments are normal in caliber. INFERIOR VENA CAVA: Visualized portions are normal. LIVER: The liver is normal in size. The liver contour is normal. There is diffuse increased liver parenchymal echogenicity, consistent with hepatic steatosis. No focal hepatic lesion. There is no intrahepatic biliary duct dilatation seen. GALLBLADDER: Normal. The gallbladder is physiologically distended without evidence of stones, sludge, polyps, wall thickening or pericholecystic fluid. COMMON BILE DUCT: Normal in caliber measuring 0.3 cm in diameter. RIGHT KIDNEY: Normal. No hydronephrosis. No renal calculi or focal parenchymal lesions. The kidney measures 12.5 cm in maximum dimension. LEFT KIDNEY: Normal. No hydronephrosis. No renal calculi or focal parenchymal lesions. The kidney measures 12.8 cm in maximum dimension. SPLEEN: Normal. The spleen measures 9.0 cm in maximum dimension. FREE FLUID: None. US/US abdomen complete IMPRESSION: Hepatic steatosis. EGD/COLONOSCOPY 01/20/24 EGD Findings:? * Esophagus:? A small patch of heterotopic gastric mucosa was noted in the upper esophagus. Normal remaining esophageal mucosa. The Z-line was at 40 cm. There was a small hiatal hernia with diaphragmatic pinch at 43 cm. Cold forceps biopsies were taken from the lower esophagus. * Stomach:? Normal gastric mucosa was noted. There were a few small polyps in the cardia and fundus of the stomach. A outside dealer sales representative polyp was excised with cold forceps. Retroflexion was performed in the cardia that showed Hill grade II hiatal hernia. Cold forceps biopsies were taken to r/o H Pylori. * Duodenum:? Duodenal mucosa was normal to the extent of visualisation. Cold forceps biopsies were taken from the duodenal bulb and 2nd portion of the duodenum to rule out sprue. * Findings: Mucosa: Normal colon and terminal ileum mucosa. Cold forceps biopsies were taken from right and left side of the colon. Protruding lesions: * Medium internal hemorrhoids without stigmata of recent bleeding. Impression: 1. Inlet patch 2. Normal esophagus (biopsy) 3. Hiatal hernia 4. Gastric polyp (biopsy) 5. Normal duodenum (biopsy) 6. Normal colon and terminal ileum mucosa (biopsy) 7. Internal hemorrhoids Recommendations:?? * Follow-up path results * No mucosal or anatomical abnormality noted in the upper or lower scope to explain her left that it abdominal pain. * Resume colorectal cancer screening at 43 years of age. BIOPSY Received: 01/20/24 Diagnosis A. Duodenum, biopsy: Duodenal mucosa within normal limits. B. Stomach, random, biopsy: Antral-type and oxyntic mucosa with mild chronic inactive inflammation; no Helicobacter organisms seen. C. Stomach, polyp, biopsy: Clinically polypoid oxyntic mucosa with mild chronic inactive inflammation; no Helicobacter organisms seen. D. Esophagus, lower, biopsy: Active esophagitis (maximum eosinophil count 20 per high powered field). E. Colon, right, biopsy: Colonic mucosa within normal limits. F. Colon, left, biopsy: Colonic mucosa within normal limits Assessment & Plan Assessment & Plan (1) Left flank pain: Code(s): R10.9 - Unspecified abdominal pain Category: Medical (2) Abnormal CT of the abdomen: Comment: ? colonic thickening; not borne out by subsequent colonoscopy Code(s): R93.5 - Abnormal findings on diagnostic imaging of other abdominal regions, including retroperitoneum Category: Medical Plan Portuguese #Erasmo Live she is agreeable to a recall at age 43. Her pain has not returned. At this point she is welcome to return as needed if it returns but at this time we are offering no treatment so I will leave this up to her. Coding Level of Care Code Est Pt Level 3 (66580) Diagnoses Left flank pain R10.[address] of the abdomen R93.5
[2024-03-09 14:47] VITALS: BP 125/68; PULSE 62; BMI 34.9
== END 2024-03-09 14:58 | disposition home or self-care (01) ==
PROVIDERS: PCP Student in an Organized Health Care Education/Training Program; Visit Provider Nurse Practitioner
DX: R10.9 Unspecified abdominal pain (principal); R93.5 Abnormal findings on diagnostic imaging of other abdominal regions, including retroperitoneum
CPT/HCPCS: 99213

== ENCOUNTER → 2024-03-09 14:41 | Outpatient (BNVA) | payer BC, MEDICAID, SELFPAY | PROVIDERS: PCP Student in an Organized Health Care Education/Training Program; Visit Provider Nurse Practitioner ==

== ENCOUNTER 2024-03-15 12:34 | Outpatient (REF) | payer BC, MEDICAID, SELFPAY ==
[2024-03-15 13:39] LABS: Hematocrit 38.2 % (37.0-47.0); Hemoglobin 12.5 g/dl (12.0-16.0); Mean Corpuscular HGB Conc 32.7 g/dl (31.0-35.0); Mean Corpuscular Hemoglobin 25.6 pg (27.0-33.0); Mean Corpuscular Volume 78.1 fL (80.0-98.0); Mean Platelet Volume 10.1 fL (9.4-12.3); Platelet Count 383 X10*3/uL (160-400); Red Blood Count 4.89 X10*6/uL (4.20-5.50); White Blood Count 7.6 X10*3/uL (4.8-10.8)
[2024-03-15 13:51] LABS: Estimated Average Glucose 114 mg/dL; Hemoglobin A1c % 5.6 % (<6.0)
[2024-03-15 14:11] LABS: Alanine Aminotransferase 13 U/L (0-31); Albumin Level 4.6 g/dL (3.5-5.0); Alkaline Phosphatase 56 U/L (39-117); Anion Gap 11 (12-20); Aspartate Amino Transferase 14 U/L (5-31); Bilirubin Total 0.6 mg/dL (0.0-1.0); Blood Urea Nitrogen 8 mg/dL (9-16); Calcium 9.7 mg/dL (8.4-10.2); Carbon Dioxide 26 mmol/L (22-29); Chloride 107 mmol/L (96-108); Cholesterol 174 mg/dL (<200); Estimated Glomerular Filt Rate > 60; Glucose Random 77 mg/dL (60-115); HDL Cholesterol 50 mg/dL (>40); Iron 74 mcg/dL (30-160); LDL Cholesterol Calculated 102 mg/dL (<100); Percent Iron Saturation 22 % (15-50); Potassium 3.8 mmol/L (3.3-5.1); Sodium 140 mmol/L (135-145); Total Iron Binding Capacity 341 mcg/dL (228-428); Triglycerides 110 mg/dL (<150); Unsaturated Iron Binding 267 ug/dL
[2024-03-15 14:24] LABS: HBS Num1 24.71 mIU/mL (0-7.99); HBc Num1 0.51 S/CO (0.00-0.79); HBsAGNum1 0.33 S/CO (0.00-0.99); HIV AB/AG Nonreactive (Nonreactive); HIV Num 1 0.05 S/CO (0.00-0.99); Hepatitis B Core Antibody Nonreactive (Nonreactive); Hepatitis B Surface Antigen Negative (Negative); ~HepC Num1 0.23 S/CO (0.00-0.79); ~Hepatitis B Surface Antibody REACTIVE (Nonreactive); ~Hepatitis C Antibody Nonreactive (Nonreactive)
[2024-03-15 14:26] LABS: Ferritin 14 ng/mL (10-122); Syphilis Screen Reactive (Nonreactive); TSH reflex Free T4 1.57 uIU/mL (0.32-4.0)
[2024-03-15 15:49] LABS: CT PCR NOT DETECTED (Not Detect.); NG PCR NOT DETECTED (Not Detect.)
[2024-03-22 11:25] LABS: RPR Quantitative Non-Reactive (Nonreactive); T.Pallidum Particle Agg Test Non-Reactive (Nonreactive)
== END 2024-03-15 12:35 | disposition home or self-care (01) ==
LOC: HO.HHCL 12:34
PROVIDERS: Visit Provider Student in an Organized Health Care Education/Training Program
DX: Z00.00 Encounter for general adult medical examination without abnormal findings (principal); Z20.2 Contact with and (suspected) exposure to infections with a predominantly sexual mode of transmission
CPT/HCPCS: 36415; 80053; 80061; 82728; 83036; 83540; 84443; 85027; 86592; 86704; 86706; 86780; 86803; 87340; 87389; 87491; 87591

== ENCOUNTER 2024-03-21 10:42 | Outpatient (AMB) | payer BC, MEDICAID, SELFPAY ==
--- NOTE | 2024-03-21 11:07 | A.OFFVIS_ITS ---
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 The patient was seen in 04/04 for AUB, the following workup was done.: H&H= 07/12 to TSH, hCG, GC and chlamydia were negative. Co testing was done was negative in 04/02. Pelvic ultrasound showed the following: Uterus: The uterus is anteverted and measures 10.6 x 5.6 x 6.9 cm. The double wall endometrial thickness is 20 mm. The uterus is smooth in contour and has normal myometrial echogenicity. No visible fibroid. Adnexa: Right ovary measures 4.4 x 2.4 x 2.4 cm. Volume 13.6 mL. Left ovary measures 3.6 x 2.0 x 3.0 cm. Volume 11.4 mL. There is a stable complex cyst with calcification measuring 1.3 x 0.9 x 1.1 cm (previously 1.3 x 0.9 x 0.9 cm on 05/15/2021). CA 125 was elevated, the patient was refer to Gyne Onc in 10/06, repeat ultrasound few weeks ago showed stable left complex ovarian cyst according to the patient, records are not available . Counseling, different options of treatment for abnormal uterine bleeding with done with the patient, we decided to proceed with Mirena IUD which was inserted in 04/04, the patient was doing well with very light bleeding on it till this weekend when she had IUD expulsion. Last H&H was 12.5/38.2 in 04/05. [facility] Medical History False positive syphilis serology Size of fetus inconsistent with dates in second trimester Encounter for screening for malformation using ultrasound Supervision of normal in second trimester Hx of spontaneous , currently test positive Well woman exam Asthma Seasonal allergies Surgical History History of esophagogastroduodenoscopy (EGD) H/O colonoscopy Previous section complicating Hx of section Family History Maternal Aunt Breast CA Father Diabetes mellitus Mother Diabetes mellitus HTN (hypertension) Maternal Grandfather Colon cancer Paternal Grandmother Stomach cancer Social History Household Members: Spouse and Children Both parents involved: Yes Caregiver staying overnight: No Housing: House Are you a primary clinical care coordinator to a significant other at home: No Do you presently have visiting nurse or other home services: No 75 years or older and lives alone: No Alcohol intake: never Patient Tobacco Use Status: Never used Tobacco service: No Current occupational status: unemployed Gender identity: Female Female Reproductive History Menstrual Age of Menarche: 10 Date of last menstrual period: 03/16/24 Review of Systems Const All systems reviewed & are unremarkable except as noted in HPI and below Reports as per HPI and Reports no additional complaints GI Reports no additional complaints Reports no additional complaints Physical Exam Vital Signs: Last Vital Signs BP 110/70 03/21/24 11:13 BMI result Body Mass Index 34.9 General: Yes no CVA tenderness External Female Exam: normal external appearance and normal appearance of the urethra Speculum Exam - Vagina: normal appearance of the vagina, normal palpation, no lesions and no masses Speculum Exam - Cervix: normal appearance of the cervix, normal palpation, no lesions, no masses and nontender Bimanual exam- vagina & uterus: normal bimanual exam, normal palpation, uterine size normal, normal palpation, uterine shape normal, No Cervical tenderness present and non-tender Bimanual Exam- Adnexa, other: normal adnexae Back/Spine/Pelvis Back: no CVA tenderness Office Procedures IUD Insert/Removal Details Details: The patient is presenting for Mirena IUD insertion Urine test was done in the office and was negative; All the contraindications were excluded. The following possible complications were discussed with the patient: Intrauterine , Ectopic , Sepsis, Pelvic Infection, Irregular Bleeding and Amenorrhea, Perforation, Expulsion, Ovarian Cysts, Breast Cancer, The following adverse effects were discussed with the patient: alteration of menstrual bleeding pattern, including: unscheduled uterine bleeding decreased u terine bleeding increased scheduled uterine bleeding female genital tract bleeding ,amenorrhea , genital discharge , vulvovaginitis , breast pain , benign ovarian cyst and associated complications , dysmenorrhea , Gastrointestinal disorders abdominal/pelvic pain, headache/migraine , back pain , acne , depression Alternative options were discussed with the patient including but not limited: control pills, patch, NuvaRing, Depo-medroxyprogesterone acetate, Nexplanon, copper IUD, sterilization, vasectomy, others The procedure was explained in detail to patient , at the end patient signed the informed consent obtained. A no touch technique was used throughout the procedure. A speculum was placed into vagina and cervix was cleaned with betadine). A tenaculum was placed. A plastic sound was advanced through the external and internal os until it reached the fundus of the uterus, the depth was 8 cm. The sound was then withdrawn. The IUD was loaded in a sterile manner and advanced into position. The string was visualized and cut to 3 cm. Tenaculum site hemostatic. All instruments removed from vagina. Patient tolerated the procedure well. NO complications were noted. Patient was instructed to call for fever over 100.4, significant pain unrelieved by Motrin, IUD expulsion, heavy bleeding, or abnormal discharge. In addition, the following clinical considerations were discussed with the patient to call for removal: A stroke or heart attack ,Very severe or migraine headaches ,Unexplained fever ,Yellowing of the skin or whites of the eyes, as these may be signs of serious liver problems , or suspected , Pelvic pain or pain during sex ,HIV positive seroconversion in herself or her partner , Possible exposure to sexually transmitted infections Unusual vaginal discharge or genital sores , severe vaginal bleeding or bleeding that lasts a long time, or if she misses a menstrual period, Inability to feel Mirena's threads Counseled the patient that the IUD does not protect against STI's, recommended use of condoms for the first 7 days post insertion and explained to the patient that condoms are recommended for patients at risk for sexually transmitted infections. Informed the patient that Mirena IUD is FDA approved for 8 years for contraception for 5 years for the treatment of heavy menses Instructed the patient to schedule a Follow up appointment in 4 to 6 weeks following insertion. This note was generated with a voice recognition program. Some errors may have been overlooked during the review of this note. Sometimes these errors may affe ct the content or meaning of a given sentence. [id number] Insertion Procedure code (CPT) selection complete Office Meds Mirena 21 mcg/24 hr (up to 8 years) 52 mg intrauterine device Performing Provider: Jakob Clarke MD [place] [facility] [place] [facility] Documented (not given) by: Jakob Clarke MD on 03/21/24 11:43 Dose Route Admin Location Dispensed Lot Number Expiration Date [facility] [place]NOTE 2] Production Potter 1 device intrauterine ea Results AMB Test Urine AMB Test Urine Negative Last Edit by Shayla Kay CMA on 11:20 Results Reviewed Results Reviewed: Laboratory Last Values [facility] Negative 03/21/24 11:17 Assessment & Plan Assessment & Plan (1) Abnormal uterine bleeding (AUB): Code(s): N93.9 - Abnormal uterine and vaginal bleeding, unspecified Category: Medical Plan: Discussed with the patient the options of treatment including Lysteda, control pills, Mirena IUD, endometrial ablation and hysterectomy. All pros, cons, risks and benefits if each option was discussed with the patient and the patient decided to go ahead with Mirena IUD so a more detailed discussion about it was conducted including mechanism of action, risks (uterine perforation, infection, injury to bladder, bowel, displacement, and others) benefits (hypo menorrhea, amenorrhea, ...). GC/CT were taken and Mirena IUD was inserted, see procedure note . All questions answered, the patient verbalized understanding (2) Ovarian cyst, complex: Comment: With elevated CA 125 Code(s): N83.299 - Other ovarian cyst, unspecified side Category: Medical Plan: Will get the records from Dr. Cornell's office regarding complex ovarian cyst management plan. Orders: Orders AMB HCG Urine Test Today Z32.02 - Encounter for test, result negative AMB IUD Insertion/Removal - Practice Supplied Today N93.9 - Abnormal uterine and vaginal bleeding, unspecified Medications: New Mirena (levonorgestrel) 1 device intrauterine ONCE 1 ea 0RF IUD insertion NS N93.9 - Abnormal uterine and vaginal bleeding, unspecified Coding Level of Care Code Est Pt Level 3 (90902) Procedure Only Diagnoses Abnormal uterine bleeding (AUB) N93.9 Ovarian cyst, complex N83.299 CPT Codes Details - CPT: 19589-UKO Insertion ([id number])
[2024-03-21 11:13] VITALS: BP 110/70; BMI 34.9
== END 2024-03-21 11:40 | disposition home or self-care (01) ==
PROVIDERS: PCP Student in an Organized Health Care Education/Training Program; Visit Provider Obstetrics & Gynecology
DX: N93.9 Abnormal uterine and vaginal bleeding, unspecified (principal); N83.299 Other ovarian cyst, unspecified side; Z32.02 Encounter for pregnancy test, result negative; Z30.430 Encounter for insertion of intrauterine contraceptive device
CPT/HCPCS: 58300; 99213

== ENCOUNTER → 2024-03-21 10:42 | Outpatient (BNVA) | payer BC, MEDICAID, SELFPAY | PROVIDERS: PCP Student in an Organized Health Care Education/Training Program; Visit Provider Obstetrics & Gynecology | DX: N93.9 Abnormal uterine and vaginal bleeding, unspecified (principal); N83.299 Other ovarian cyst, unspecified side | CPT/HCPCS: 58300; 81025; J7298 ==

== ENCOUNTER 2024-05-03 12:37 | Outpatient (REF) | payer BC, MEDICAID, SELFPAY ==
--- NOTE | ~2024-05-03 | MM_ITS ---
EXAMINATION: MM DIAGNOSTIC DIGITAL BREAST TOMOSYNTHESIS, BILATERAL US BREAST LIMITED, LEFT CLINICAL INFORMATION: 33-year-old female, baseline examination, palpable focus of concern upper outer quadrant left breast times a few weeks. No significant family history. No prior biopsies or surgeries. COMPARISON: Mammography: No prior. Baseline examination. TECHNIQUE: Digital breast tomosynthesis is performed in both the craniocaudal and mediolateral oblique views along with computer-aided detection (CAD). Synthesized 2D images are generated from the tomosynthesis. In addition, a full field left 3-D mediolateral view was obtained. FINDINGS: The breasts are heterogeneously dense, which may obscure small masses (ACR BI-RADS breast composition Category c). There are no suspicious masses, suspicious grouped calcifications, or areas of architectural distortion in either breast. The parenchymal pattern is stable from prior exams. There are no skin abnormalities. There is a right axillary finding. In the left axilla, there is a minimally prominent lymph node which will be evaluated with ultrasound at the time of evaluating the upper outer quadrant for palpable concern. No mammographic finding to correlate with the palpable focus upper outer left breast is identified. This will be evaluated with ultrasound. ULTRASOUND: CLINICAL INFORMATION: As above. COMPARISON: No prior. TECHNIQUE: Targeted sonographic evaluation left breast was performed using a high frequency linear transducer. Attention was focused on the upper outer quadrant in the region of palpable concern as directed by the patient. In addition the left axilla was interrogated to evaluate the slightly prominent lymph node. Selected archived documentation. FINDINGS: LEFT BREAST: There is heterogeneously dense fibroglandular tissue. No suspicious mass is seen. There is no pathologic acoustic shadowing. There is a cystic abnormality. There is no correlate to the palpable focus of concern aside from a region of dense normal parenchyma. This appears to be what the patient is feeling. Interrogation of the left axilla demonstrates a normal-appearing lymph node measuring 1.2 x 0.7 x 1.0 cm, with normal morphology, normal hilum, and normal cortex. This is benign. MM/MM tomosynthesis diagnostic BI IMPRESSION: There are no findings in either breast suspicious for malignancy. -There is no mammographic or sonographic correlate to the palpable focus of concern upper outer quadrant left breast. Patient appears to be feeling a prominent ridge of fibroglandular tissue. -There is a sonographically normal-appearing lymph node in the left low axilla. -Recommend clinical management of the palpable focus, and otherwise recommend returning to routine annual screening mammography at age 38. OVERALL ASSESSMENT: Mammography: BI-RADS 2 - Benign Findings Ultrasound: BI-RADS 2 - Benign Findings RECOMMENDATION: 1. Patient should be managed based on the clinical impression. 2. Otherwise, routine annual screening mammography at age 38. This patient's information was entered into a reminder system with a target due date for their next mammogram. Electronically signed by: Marek Srinivasan MD 05/03/2024 04:30 PM EDT
== END 2024-05-03 12:38 | disposition home or self-care (01) ==
LOC: HO.MAMMO 12:37
PROVIDERS: PCP Student in an Organized Health Care Education/Training Program; Visit Provider Student in an Organized Health Care Education/Training Program
DX: N63.12 Unspecified lump in the right breast, upper inner quadrant (principal)
CPT/HCPCS: 76642; 77062; 77066

== ENCOUNTER → 2024-05-03 13:00 | Outpatient (BNV) | payer BC, MEDICAID, SELFPAY | PROVIDERS: PCP Student in an Organized Health Care Education/Training Program; Visit Provider Radiology Diagnostic Radiology | DX: R92.8 Other abnormal and inconclusive findings on diagnostic imaging of breast (principal) | CPT/HCPCS: 76642; 77062; 77066 ==

== ENCOUNTER 2024-06-05 10:05 | Outpatient (AMB) | payer BC, MEDICAID, SELFPAY ==
--- NOTE | 2024-06-05 10:11 | MHC.OFFVIS ---
Vital Signs 06/05/24 10:12 Height 5 ft 7 in Weight 222 lb 10.67 oz BMI 34.9 Intake Visit Reasons: IUD problems Electromechanical Technician Required: No Information Interpreted: non-clinical & clinical Clinical Documentation Improvement Specialist: Clinical Documentation Improvement Specialist Present (Shayla DIAZ) Accompanied by: Self / Same As Patient Allergies No Known Allergies Allergy (Verified 06/05/24 10:13) Is last menstrual period known: No (mirena) HPI Comments Details: Presenting complaining of pelvic cramping since IUD insertion no vaginal bleeding or any other concerns. [facility] Medical History False positive syphilis serology Size of fetus inconsistent with dates in second trimester Encounter for screening for malformation using ultrasound Supervision of normal in second trimester Hx of spontaneous , currently test positive Well woman exam Asthma Seasonal allergies Surgical History History of esophagogastroduodenoscopy (EGD) H/O colonoscopy Previous section complicating Hx of section Family History Maternal Aunt Breast CA Father Diabetes mellitus Mother Diabetes mellitus HTN (hypertension) Maternal Grandfather Colon cancer Paternal Grandmother Stomach cancer Social History Household Members: Spouse and Children Both parents involved: Yes Caregiver staying overnight: No Housing: House Are you a primary insurance healthcare consultant to a significant other at home: No Do you presently have visiting nurse or other home services: No 75 years or older and lives alone: No Alcohol intake: never Patient Tobacco Use Status: Never used Tobacco service: No Current occupational status: unemployed Gender identity: Female Female Reproductive History Menstrual Age of Menarche: 10 Review of Systems Const All systems reviewed & are unremarkable except as noted in HPI and below Physical Exam Vital Signs: BMI result Body Mass Index 34.9 General: Yes no CVA tenderness External Female Exam: normal external appearance and normal appearance of the urethra Speculum Exam - Vagina: normal appearance of the vagina, normal palpation, no lesions and no masses Speculum Exam - Cervix: normal appearance of the cervix, normal palpation, no lesions, no masses, nontender and Other cervical findings present (IUD thread in place) Bimanual exam- vagina & uterus: normal bimanual exam, normal palpation, uterine size normal, normal palpation, uterine shape normal, No Cervical tenderness present and non-tender Bimanual Exam- Adnexa, other: normal adnexae Back/Spine/Pelvis Back: no CVA tenderness Assessment & Plan Assessment & Plan (1) Pelvic cramping: Comment: With IUD Code(s): R10.2 - Pelvic and perineal pain Category: Medical Plan: Urine test done in the office was negative. Will order pelvic ultrasound. Instructions given the patient to schedule an ultrasound follow-up appointment within 2 weeks. All questions answered, the patient verbalized understanding. Orders: Orders US pelvic and transvaginal Today R10.2 - Pelvic and perineal pain Coding Level of Care Code Est Pt Level 3 (22112) Diagnoses Pelvic cramping R10.2
[2024-06-05 10:12] VITALS: BMI 34.9
== END 2024-06-05 10:25 | disposition home or self-care (01) ==
LOC: HO.HWS 10:05
PROVIDERS: PCP Student in an Organized Health Care Education/Training Program; Visit Provider Obstetrics & Gynecology
DX: R10.2 Pelvic and perineal pain (principal); Z32.02 Encounter for pregnancy test, result negative
CPT/HCPCS: 99213

== ENCOUNTER → 2024-06-05 10:05 | Outpatient (BNVA) | payer BC, MEDICAID, SELFPAY | PROVIDERS: PCP Student in an Organized Health Care Education/Training Program; Visit Provider Obstetrics & Gynecology | DX: R10.2 Pelvic and perineal pain (principal); Z97.5 Presence of (intrauterine) contraceptive device | CPT/HCPCS: 81025 ==

== ENCOUNTER 2024-06-08 11:22 | Outpatient (REF) | payer BC, MEDICAID, SELFPAY ==
--- NOTE | ~2024-06-08 | US_ITS ---
EXAMINATION: US PELVIS CLINICAL INFORMATION: Pelvic pain, IUD in place, unknown last menstrual. Patient actively bleeding, denies pain. COMPARISON: 06/10/2023. TECHNIQUE: Ultrasound of the pelvis is performed using both transabdominal and transvaginal transducers along with Doppler. Transvaginal imaging is performed due to inadequate visualization transabdominally. Limited visualization due to bowel gas. FINDINGS: The uterus is anteverted and measures 8.9 x 5.0 x 5.8 cm. IUD within the endometrial cavity. Visualization of the endometrium is limited due to shadowing from the IUD. Right ovary measures 4.6 x 3.2 x 4.0 cm, volume 30.7 mL. 3.4 x 1.5 x 3.6 cm right ovarian cyst with septation with vascularity. Right ovarian 0.6 x 0.6 x 0.6 cm cyst with echogenic, calcified rim. Previous exam demonstrated a 2.3 x 1.8 x 2.2 cm corpus luteum cyst. Left ovary measures 3.1 x 1.6 x 2.6 cm, volume 6.8 mL. Small amount of free fluid adjacent to the left ovary. A 1.1 x 0.6 x 0.9 cm echogenic lesion, possibly calcified, is identified within the left ovary. Previous exam of 06/10/2023 demonstrated a 1.8 x 1.3 x 1.6 cm complex cyst with shadowing calcification felt to possibly represent a dermoid. US/US pelvic and transvaginal IMPRESSION: 1. Right ovarian 3.6 cm cyst with septation containing internal vascularity. Right ovarian 0.6 cm cyst with echogenic, calcified shadowing. Previous exam demonstrated a 2.3 cm right corpus luteum cyst. 2. Left ovarian 1.1 cm echogenic, shadowing lesion. Previous exam demonstrated a 1.8 cm left ovarian complex cyst with shadowing calcification felt to possibly represent a dermoid. 3. IUD within the endometrial cavity limits visualization of the endometrium. Gynecologic consultation and correlation with clinical exam recommended for further management. Electronically signed by: Yolette Kc MD 06/21/2024 12:55 PM EDT RP
== END 2024-06-08 11:23 | disposition home or self-care (01) ==
LOC: HO.US 11:22
PROVIDERS: PCP Student in an Organized Health Care Education/Training Program; Visit Provider Obstetrics & Gynecology
DX: R10.2 Pelvic and perineal pain (principal); R09.89 Other specified symptoms and signs involving the circulatory and respiratory systems
CPT/HCPCS: 76830; 76856; 93005

== ENCOUNTER 2024-06-08 11:52 | Outpatient (AMB) | payer BC, MEDICAID, SELFPAY ==
--- NOTE | 2024-06-08 12:38 | MHC.OFFVIS ---
Vital Signs 06/08/24 12:39 Height 5 ft 7 in Weight 220 lb 7.396 oz BMI 34.5 BP 118/72 Blood Pressure Location Lt brachial Position Sitting Pulse 60 Intake Visit Reasons: 1 yr f/up Intake Note: 1 year follow-up with ekg c/o sometimes her heart feeling like jelly Engineering Scientist Required: No Allergies No Known Allergies Allergy (Verified 06/05/24 10:13) Medication List - Last Reconciled 06/08/24 by Alberto Henderson MD albuterol sulfate 90 mcg/actuation 90 inhalations inhalation DAILY PRN cetirizine 10 mg PO QAM fluticasone propionate 110 mcg/actuation (Flovent HFA) 2 puffs inhalation BID PRN HPI Comments Details: Deidre comes for follow-up. A blood pressure is generally remained within normal range. She says when she has stress a blood pressure is usually elevated. She occasionally feel like palpitations or need feeling in his chest but these are rare. No exertional chest pain or shortness of breath. No lightheadedness, syncope. [facility] Medical History False positive syphilis serology Size of fetus inconsistent with dates in second trimester Encounter for screening for malformation using ultrasound Supervision of normal in second trimester Hx of spontaneous , currently test positive Well woman exam Asthma Seasonal allergies Surgical History History of esophagogastroduodenoscopy (EGD) H/O colonoscopy Previous section complicating Hx of section Family History Maternal Aunt Breast CA Father Diabetes mellitus Mother Diabetes mellitus HTN (hypertension) Maternal Grandfather Colon cancer Paternal Grandmother Stomach cancer Social History Household Members: Spouse and Children Both parents involved: Yes Caregiver staying overnight: No Housing: House Are you a primary residential child care counselor to a significant other at home: No Do you presently have visiting nurse or other home services: No 75 years or older and lives alone: No Alcohol intake: never Patient Tobacco Use Status: Never used Tobacco service: No Current occupational status: unemployed Gender identity: Female Female Reproductive History Menstrual Age of Menarche: 10 Review of Systems Const Denies chills, Denies fatigue, Denies fever(s), Denies frequent falls, Denies weakness, Denies weight gain and Denies weight loss ENT Denies dizziness Card Denies chest pain, Denies leg edema, Denies lightheadedness, Denies palpitations, Denies dyspnea, Denies dyspnea on exertion, Denies orthopnea and Denies other (loss of consciousness) Resp Denies cough, Denies dyspnea and Denies dyspnea on exertion GI Denies hematochezia and Denies change in stool character Musc Denies abnormal gait, Denies muscle weakness, Denies numbness, Denies radiating pain into limb and Denies tingling Neuro Denies Abnormal speech present, Denies abnormal gait, Denies dizziness, Denies frequent falls, Denies numbness, Denies tingling and Denies weakness Endo Denies fatigue and Denies palpitations Physical Exam Vital Signs: Last Vital Signs Pulse 60 06/08/24 12:39 BP 118/72 06/08/24 12:39 BMI result Body Mass Index 34.5 Const General: cooperative, comfortable, no acute distress, alert, awake, Physically active and well groomed Nutritional Appearance: obese Orientation/consciousness: patient oriented x3 Limitations: no limitations Neck Neck: Yes trachea midline, Yes supple and Yes no JVD Resp Effort & Inspection: normal respiratory effort Auscultation: clear to auscultation bilaterally Cardio Jugular venous distension: no JVD Palpation: normal PMI Rate: regular rate Rhythm: regular rhythm Heart sounds: S1 normal heart sound present, S2 normal heart sound present, no click, no gallops, no murmurs and no rubs GI Auscultation: normal bowel sounds Neuro General: patient oriented x3 and no focal motor deficits Speech: No Abnormal speech present Extrem General: Yes no clubbing, cyanosis or edema Office Procedures EKG Details: EKG shows normal sinus rhythm with normal EKG [id number], Complete Assessment & Plan Assessment & Plan (1) Labile blood pressure: Code(s): R09.89 - Other specified symptoms and signs involving the circulatory and respiratory systems Category: Medical Plan: Mostly normal blood pressure at this point time. She was elevated blood pressure under stress. Discussed about stress mitigation strategies. Continue low-salt diet. Continue aggressive lifestyle modification with goal blood pressure less than 130/84 closer to 120/80. Continue participate in aggressive weight loss program regular physical activity. Will follow up in the clinic if need be. Thank you for allowing me to partake in Coding Level of Care Code Est Pt Level 3 (09853) Diagnoses Labile blood pressure R09.89 CPT Codes EKG - CPT: 16246-[id number], Complete ([id number])
[2024-06-08 12:39] VITALS: BP 118/72; PULSE 60; BMI 34.5
== END 2024-06-08 13:09 | disposition home or self-care (01) ==
PROVIDERS: Visit Provider Internal Medicine Cardiovascular Disease
DX: R09.89 Other specified symptoms and signs involving the circulatory and respiratory systems (principal)
CPT/HCPCS: 93010; 99213

== ENCOUNTER 2024-06-27 08:06 | Outpatient (AMB) | payer BC, MEDICAID, SELFPAY ==
--- NOTE | 2024-06-27 08:07 | MHC.OFFVIS ---
Intake Visit Reasons: U/S follow up/DO NOT RS Allergies No Known Allergies Allergy (Verified 06/05/24 10:13) HPI Comments Details: The patient is scheduled tele health visit for follow-up regarding pelvic ultrasound which showed the following: The uterus is anteverted and measures 8.9 x 5.0 x 5.8 cm. IUD within the endometrial cavity. Visualization of the endometrium is limited due to shadowing from the IUD. Right ovary measures 4.6 x 3.2 x 4.0 cm, volume 30.7 mL. 3.4 x 1.5 x 3.6 cm right ovarian cyst with septation with vascularity. Right ovarian 0.6 x 0.6 x 0.6 cm cyst with echogenic, calcified rim. Previous exam demonstrated a 2.3 x 1.8 x 2.2 cm corpus luteum cyst. Left ovary measures 3.1 x 1.6 x 2.6 cm, volume 6.8 mL. Small amount of free fluid adjacent to the left ovary. A 1.1 x 0.6 x 0.9 cm echogenic lesion, possibly calcified, is identified within the left ovary. Previous exam of 06/10/2023 demonstrated a 1.8 x 1.3 x 1.6 cm complex cyst with shadowing calcification felt to possibly represent a dermoid. [facility] Medical History False positive syphilis serology Size of fetus inconsistent with dates in second trimester Encounter for screening for malformation using ultrasound Supervision of normal in second trimester Hx of spontaneous , currently test positive Well woman exam Asthma Seasonal allergies Surgical History History of esophagogastroduodenoscopy (EGD) H/O colonoscopy Previous section complicating Hx of section Family History Maternal Aunt Breast CA Father Diabetes mellitus Mother Diabetes mellitus HTN (hypertension) Maternal Grandfather Colon cancer Paternal Grandmother Stomach cancer Social History Household Members: Spouse and Children Both parents involved: Yes Caregiver staying overnight: No Housing: House Are you a primary director of health care marketing to a significant other at home: No Do you presently have visiting nurse or other home services: No 75 years or older and lives alone: No Alcohol intake: never Patient Tobacco Use Status: Never used Tobacco service: No Current occupational status: unemployed Gender identity: Female Female Reproductive History Menstrual Age of Menarche: 10 Review of Systems Const All systems reviewed & are unremarkable except as noted in HPI and below Reports as per HPI and Reports no additional complaints GI Reports no additional complaints Reports no additional complaints Telehealth Telehealth Telehealth Platform: Telephone Location of provider rendering services: practice address Location of patient: address on file Patient Identification confirmed using: Name, : Yes Telehealth method: video Patient verbally consented to treatment: Yes Patient verbally consented to billing insurance company: Yes Patient informed of any privacy concerns related to visit: Yes Assessment & Plan Assessment & Plan (1) Complex cyst of both ovaries: Code(s): N83.291 - Other ovarian cyst, right side; N83.292 - Other ovarian cyst, left side Category: Medical Plan: Discussed with the patient the complex ovarian cyst by ultrasound. Discussed with the patient the Ultrasound findings, the main limitation of transvaginal ultrasonography alone as a diagnostic tool to distinguish benign from malignant masses relates to its lack of specificity and low positive predictive value for cancer. The differential diagnosis discussed with the patient includes the following but not limited to: benign and malignant gynecological and non-gynecological causes. Laboratory evaluation include UPT and GC/CT , serum tumor marker CA 125 . Discussed with the patient options of treatment including laparoscopy ovarian cystectomy/oophorectomy vs. expectant management with repeat US in repeating pelvic US in 6-12 weeks from previous US. If the ovarian complex cyst is persistent larger and / or more complex looking will refer to gynecologic Oncology. All pros, cons, risks and benefits of each approach were discussed with the patient including but not limited to a delay in the diagnosis and treatment of ovarian cancer affecting the prognosis; The patient decided to go ahead with expectant management. Instructions given the patient to schedule a 3 months follow-up ultrasound appointment. All questions were answered & the patient verbalized understanding and agreed with the plan. I spent a total of 20 minutes reviewing the chart, talking to the patient via video and documenting in the medical record. Orders: Orders US pelvic and transvaginal 09/08/24 N83.291 - Other ovarian cyst, right side, N83.292 - Other ovarian cyst, left side Coding Level of Care Code Tele Est Pt Level 1 (94420) Diagnoses Complex cyst of both ovaries N83.291; N83.292
== END 2024-06-27 09:01 | disposition home or self-care (01) ==
LOC: HO.HWS 08:06
PROVIDERS: PCP Student in an Organized Health Care Education/Training Program; Visit Provider Obstetrics & Gynecology
DX: N83.291 Other ovarian cyst, right side (principal); N83.292 Other ovarian cyst, left side
CPT/HCPCS: 99211

== ENCOUNTER → 2024-06-27 08:06 | Outpatient (BNVA) | payer BC, MEDICAID, SELFPAY | PROVIDERS: PCP Student in an Organized Health Care Education/Training Program; Visit Provider Obstetrics & Gynecology ==

== ENCOUNTER 2024-09-04 11:11 | Outpatient (REF) | payer BC, MEDICAID, SELFPAY | END 2024-09-04 11:12 | disposition home or self-care (01) | LOC: HO.US 11:11 | PROVIDERS: PCP Student in an Organized Health Care Education/Training Program; Visit Provider Obstetrics & Gynecology | DX: N83.292 Other ovarian cyst, left side (principal); N83.291 Other ovarian cyst, right side | CPT/HCPCS: 76830; 76856 ==

== ENCOUNTER 2024-10-16 11:19 | Outpatient (AMB) | payer BC, MEDICAID, SELFPAY ==
--- NOTE | 2024-10-16 11:21 | A.OFFVIS_ITS ---
Intake Visit Reasons: Ultrasound follow up/DO NOT RS Cardroom Supervisor: Cardroom Supervisor Present (Mai) Accompanied by: Self / Same As Patient Allergies No Known Allergies Allergy (Verified 10/16/24 11:23) HPI Comments Details: Presenting for pelvic ultrasound follow-up showed the following: IMPRESSION: 1. Small 0.5 cm RIGHT ovarian echogenic focus characteristic of a calcification redemonstrated. Previously identified complex RIGHT ovarian cysts are no longer appreciated. 2. LEFT ovarian 1.1 x 0.7 x 1 cm cyst with mural calcification, previously 1.1 x 0.6 x 0.9 cm on 06/08/2024. Previous study of 06/10/2023 demonstrated a 1.8 x 1.3 x 1.6 cm complex cyst with shadowing calcification felt to possibly represent a dermoid. 3. IUD in place within the endometrial cavity. Visualization of the endometrium is limited due to shadowing artifact from the IUD, but image segment of endometrium demonstrates thickness of 7 mm with possible trace amount of fluid within the endometrial cavity. REPLACED BY [facility] Medical History False positive syphilis serology Size of fetus inconsistent with dates in second trimester Encounter for screening for malformation using ultrasound Supervision of normal in second trimester Hx of spontaneous , currently test positive Well woman exam Asthma Seasonal allergies Surgical History History of esophagogastroduodenoscopy (EGD) H/O colonoscopy Previous section complicating Hx of section Family History Maternal Aunt Breast CA Father Diabetes mellitus Mother Diabetes mellitus HTN (hypertension) Maternal Grandfather Colon cancer Paternal Grandmother Stomach cancer Social History Household Members: Spouse and Children Both parents involved: Yes Caregiver staying overnight: No Housing: House Are you a primary morning caregiver to a significant other at home: No Do you presently have visiting nurse or other home services: No 75 years or older and lives alone: No Alcohol intake: never Patient Tobacco Use Status: Never used Tobacco service: No Current occupational status: unemployed Gender identity: Female Female Reproductive History Menstrual Age of Menarche: 10 Review of Systems Const All systems reviewed & are unremarkable except as noted in HPI and below Reports as per HPI and Reports no additional complaints GI Reports no additional complaints Reports no additional complaints Assessment & Plan Assessment & Plan (1) Ovarian cyst, complex: Code(s): N83.299 - Other ovarian cyst, unspecified side Category: Medical Plan: Discussed with the patient the complex ovarian cyst by ultrasound. Discussed with the patient the Ultrasound findings, the main limitation of transvaginal ultrasonography alone as a diagnostic tool to distinguish benign from malignant masses relates to its lack of specificity and low positive predictive value for cancer. The differential diagnosis discussed with the patient includes the following but not limited to: benign and malignant gynecological and non-gynecological causes. Recommended pelvic MRI as the next step in the management. Instructions given the patient to schedule pelvic MRI and a follow-up appointment lorrie. All questions answered, the patient verbalized understanding. Orders: Orders MR angio pelvis wo/w con Today N83.299 - Other ovarian cyst, unspecified side Coding Level of Care Code Est Pt Level 3 (49437) Diagnoses Ovarian cyst, complex N83.299
--- OUTSIDE RECORDS SUMMARY | 2024-10-16 12:35 | XMS_ITS | Encounter Summary ---
Author Organization [employer] Address [address] [facility] 7t [place] [address] Care Team Providers Care Supervisor Aircraft Cleaning Name Role Phone Gwen Reyna MD Primary Care Pro vider Encounter Details Date Type Department Care Team (Late st Contact Info) Description 01/07/2023 Orders Only [facility] [address] [place], [place] [phone] Alan Austin MD [address] [place] [address] Abnormal uterine bleeding (Primary Dx) Social History Tobacco Use Types Packs/Day Years Used Date Smoking Tobacco: Never Smokeless Tobacco: Never Alcohol Use Standard Drinks/Week Comments Never 0 (1 standard drink = 0.6 oz pur e alcohol) Comments Unknown Sex and Gender Information Value Date Recorded Sex Assigned at Female 07/13/2022 10:30 AM EDT Legal Sex Female 10:30 AM EDT Gender Identity Female 11/27/2022 3:33 PM EDT Sexual Orientation Straight 07/13/2022 10 :30 AM EDT COVID-19 Exposure Response Date Recorded In the last 10 days, have yo u been in contact with someone who was confirmed or suspected to have Coronavirus/COVID-19? No / Unsure 01/05/2023 10:49 AM EDT documented as of this encounter Plan of Treatment Scheduled Orders Name Type Priority Associated Diagnoses Orde r Schedule Folate, Serum Lab Routine Abnormal uterine bleeding Expected: 01/07/2023 (Approximate), Expires: 01/08/2024 Iron, TIBC And Ferritin Panel Lab Routine Abnormal uterine bleeding Expected: 01/07/2023 (Approximate), Expires: 01/08/2024 documented as of this encounter Visit Diagnoses Diagnosis Abnormal uterine bleeding- Primary Unspecified disorder of menstruation and other abnormal bleeding from female genital tract documented in this encounter Care Teams Supervisor Aircraft Cleaning Relationship Specialty Start Date End Date Gwen Reyna MD [address] [place] [id number] PCP - General Internal Medicine 03/15/23 documented as of this encounter
--- OUTSIDE RECORDS SUMMARY | 2024-10-16 12:35 | XMS_ITS | Encounter Summary ---
Author Organization [employer] Address [address] [place] [id number] Care Team Providers Care Camera Repairer Name Role Phone Gwen Reyna MD Primary Care Pro vider Reason for Visit * Reason Onset Date Comments Chart Prep 10/05/2024 Encounter Details Date Type Department Care Team ([facility] Contact Info) Description 10/05/2024 Telephone [facility] [address] [place], [place] [phone] Gwen Reyna MD [address] [place] [address] Chart Prep Social History Tobacco Use Types Packs/Day Years Used Date Smoking Tobacco: Never Passive Smoke Exposure: Never Smokeless Tobacco: Never Alcohol Use Standard Drinks/Week Comments Never 0 (1 standard drink = 0.6 oz pur e alcohol) Depression Answer Date Recorded Patient Health Questionnaire-9 Score 0 02/04/2024 Patient Health Questionnaire-9 Score 0 02/04/2024 Last PHQ-9: Questionnaire Data Not on file 0 02/04/2024 Housing Stability Answer Date Recorded What is your housing situation today? I have dickson godfrey 07/19/[address] you li ve. Do you have problems with any of the following? None of the above 07/19/2023 Food Insecurity Answer Date Recorded Within the past 12 months, y ou worried that your food would run out before you got money to buy more: Sometimes True 2023 Within the past 12 months,th e food you bought just didn't last and you didn't have enough money to get more: Sometimes True 01/26/2024 Transportation Answer Date Recorded In the past 12 months, has l ack of transportation kept you from medical appts, meetings, work or from getting things needed for daily living? No 07/19/2023 Utilities Answer Date Recorded In the past 12 months, has t he electric, gas, oil or water company threatened to shut off services in your home? No 07/19/2023 Depression Answer Date Recorded Patient Health Questionnaire-2 Score 0 02/04/2024 Comments Unknown Sex and Gender Information Value Date Recorded Sex Assigned at Female 07/13/2022 10:30 AM EDT Legal Sex Female 10:30 AM EDT Gender Identity Female 11/27/2022 3:33 PM EDT Sexual Orientation Straight 07/13/2022 10 :30 AM EDT documented as of this encounter Miscellaneous Notes * Telephone Encounter - Erik Meyer MA - 10/05/2024 9:49 AM EST Chart Prep Labs: not applicable Images: not applicable Vaccines due: yes Hep B HPV Flu Covid Referrals: pending appt Screenings: pap smear Family Planning Alcohol/ Substance Use Overdue care gaps: [employer] documented in this encounter Plan of Treatment Not on file documented as of this encounter Visit Diagnoses Not on filedocumented in this encounter Additional Health Concerns Assessment Noted Time PHQ-9 Depression Total Score: 0 02/04/20 24 11:52 AM EDT documented as of this encounter Care Teams Camera Repairer Relationship Specialty Start Date End Date Gwen Reyna MD [address] [place] [id number] PCP - General Internal Medicine 03/15/23 documented as of this encounter
--- OUTSIDE RECORDS SUMMARY | 2024-10-16 12:35 | XMS_ITS | Encounter Summary ---
Author Organization [employer] Address [address] [place] [address] 7 [place] [address] Care Team Providers Care Field Technical Specialist Name Role Phone Gwen Reyna MD Primary Care Pro vider Reason for Visit * Reason Comments Med Refill Encounter Details Date Type Department Care Team ([facility] st Contact Info) Description 02/23/2024 Refill [facility] [address] [place] [address] [phone] Gwen Reyna MD [address] [place] [address] Social History Tobacco Use Types Packs/Day Years [...] encounter Miscellaneous Notes * Telephone Encounter - Gwen cMclain MD - 02/24/2024 2:06 PM EDT Pt dont need medication * Telephone Encounter - Veronica Resendiz RN - 02/24/2024 1:15 PM EDT Telephone call placed to pt regarding below message. She states is not taking it chronically. She does not need a refill, the request was an automatic request from [employer]. Please can you check with pt if taking naproxen chronically, not recommend to pt to take this med chronically w risk of kidney damage , HTN, GI bleed documented in this encounter Plan of Treatment Not on file documented as of this encounter Visit Diagnoses Not on filedocumented in this encounter Additional Health Concerns Assessment Noted Time PHQ-9 Depression Total Score: 0 02/04/20 24 11:52 AM EDT documented as of this encounter Care Teams Field Technical Specialist Relationship Specialty Start Date End Date Gwen Reyna MD [address] [place] [id number] PCP - General Internal Medicine 03/15/23 documented as of this encounter
--- OUTSIDE RECORDS SUMMARY | 2024-10-16 12:35 | XMS_ITS | Encounter Summary ---
Author Organization [employer] Address [address] [place] [address] Care Team Providers Care Plate Cleaner Name Role Phone Gwen Reyna MD Primary Care Pro vider Reason for Visit * Reason Onset Date Comments Nurse Triage 12/21/2023 Encounter Details Date Type Department Care Team ([facility] st Contact Info) Description 12/21/2023 Telephone [facility] [address] [place] [address] Gwen Reyna MD [address] [place] [address] Nurse Triage Social History Tobacco Use Types Packs/Day Years Used Date Smoking Tobacco: Never Passive Smoke Exposure: Never Smokeless Tobacco: Never Alcohol Use Standard Drinks/Week Comments Never 0 (1 standard drink = 0.6 oz pur e alcohol) Depression Answer Date Recorded Patient Health Questionnaire-9 Score 1 05/03/2023 Housing Stability Answer Date Recorded What is your housing situation today? I have dickson godfrey 07/19/[address] you li ve. Do you have problems with any of the following? None of the above 07/19/2023 Food Insecurity Answer Date Recorded Within the past 12 months, y ou worried that your food would run out before you got money to buy more: Never True 07/19/2023 Within the past 12 months,th e food you bought just didn't last and you didn't have enough money to get more: Never True 02/2023 Transportation Answer Date Recorded In the past [...] Date Recorded Patient Health Questionnaire-2 Score 0 05/03/2023 Comments Unknown Sex and Gender Information Value Date Recorded Sex Assigned at Female 07/13/2022 10:30 AM EDT Legal Sex Female 10:30 AM EDT Gender Identity Female 11/27/2022 3:33 PM EDT Sexual Orientation Straight 07/13/2022 10 :30 AM EDT documented as of this encounter Miscellaneous Notes * Telephone Encounter - Aury Akers RN - 12/21/2023 4:17 PM EDT Triage call Pt reports left upper side abdominal pain which has become more constant. Not changed or exacerbated by movement, lifting , turning. Pt reports some nausea at times. Pt just had UTI and finished last antibiotic yesterday. Neg for vomiting, fever, ALBARO sx, no yellowish skin. Pt reports had diarrhea only one day x2 episodes. Pt reports adequate liquid intake. Pt had recent ultrasound of abdomen, 12/17/23 and asked what results were. Advised Pt impression result was hepatic steatosis ie. fatty liver no other abnormals seen. Pt is advised to come to [facility] today for provider to see and Pt agreed. Hours open till 800pm and tomorrow 830am-800pm. Pt agreed with disposition and home care reviewed. Insurance is verified as active. Protocol Used: Abdominal Pain - Upper (Adult) Protocol-Based Disposition: See in Office or Video Visit Today Video visit not offered Positive Triage Question: * Patient wants to be seen * All higher-acuity triage questions were negative Care Advice Discussed: * Reassurance and Education - Stomach Pain * Drink Clear Fluids * Reasons To Call Back - Severe pain present over 1 hour - Constant pain present over 2 hours - Moderate pains come and go for more than 24 hours - Mild pains come and go for more than 72 hours - You become worse * Telephone Encounter - Radha Del Rosario - 12/21/2023 3:35 PM EDT Symptom: Abdominal Pain - Female - Not Outcome: Talk to a nurse or provider within 15 minutes Reason: Severe pain now The caller accepted this outcome Paraguayan speaker documented in this encounter Plan of Treatment Not on file documented as of this encounter Visit Diagnoses Not on filedocumented in this encounter Additional Health Concerns Assessment Noted Time PHQ-9 Depression Total Score: 1 05/03/20 3:59 PM EDT documented as of this encounter Care Teams Plate Cleaner Relationship Specialty Start Date End Date Gwen Reyna MD [address] [place] [id number] PCP - General Internal Medicine 03/15/23 documented as of this encounter
--- OUTSIDE RECORDS SUMMARY | 2024-10-16 12:35 | XMS_ITS | Encounter Summary ---
Author Organization [employer] Address [address] [facility] [address]t [place] [address] Care Team Providers Care Assembly And Packing Supervisor Name Role Phone Gwen Reyna MD Primary Care Pro vider Encounter Details Date Type Department Care Team (Latest Contact Info) Description 10/05/2024 Travel Social History Tobacco Use Types Packs/Day Years [...] as of this encounter Plan of Treatment Not on file documented as of this encounter Visit Diagnoses Not on filedocumented in this encounter Additional Health Concerns Assessment Noted Time PHQ-9 Depression Total Score: 0 02/04/20 24 11:52 AM EDT documented as of this encounter Care Teams Assembly And Packing Supervisor Relationship Specialty Start Date End Date Gwen Reyna MD [address] [place] [id number] PCP - General Internal Medicine 03/15/23 documented as of this encounter
--- OUTSIDE RECORDS SUMMARY | 2024-10-16 12:35 | XMS_ITS | Encounter Summary ---
Author Organization [employer] Address [address] [place] [address] Care Team Providers Care Valet Runner Name Role Phone Gwen Reyna MD Primary Care Pro vider Encounter Details Date Type Department Care Team ([facility] st Contact Info) Description 09/18/2022 Abstract [facility] [address] [place] [address] Stephenie Newby DDS [address] [place] [address] Social History Tobacco Use Types Packs/Day Years [...] suspected to have Coronavirus/COVID-19? No / Unsure 09/10/2022 2:19 PM EST documented as of this encounter Plan of Treatment Not on file documented as of this encounter Visit Diagnoses Not on filedocumented in this encounter Care Teams Valet Runner Relationship Specialty Start Date End Date Gwen Reyna MD [address] [place] [address] PCP - General Internal Medicine 03/15/23 documented as of this encounter
--- OUTSIDE RECORDS SUMMARY | 2024-10-16 12:35 | XMS_ITS | Encounter Summary ---
Author Organization [employer] Address [address] [place] [address] Care Team Providers Care Foreign Agent Name Role Phone Gwen Reyna MD Primary Care Pro vider Reason for Visit * Reason Onset Date Comments Nurse Triage 10/04/2024 Encounter Details Date Type Department Care Team ([facility] st Contact Info) Description 10/04/2024 Telephone [facility] [address] [place], [place] [phone] Gwen Reyna MD [address] [place] [address] Nurse Triage Social History Tobacco Use Types [...] is your housing situation today? I have dicksontaurus godfrey 07/19/[address] you [...] encounter Miscellaneous Notes * Telephone Encounter - Vicenta Saldana LPN - 10/04/2024 3:47 PM EST Triage call returned with BLS [id number] Jaya. Unable to reach 787 area code. Additional agent required. BLS # [id number] John to interpret. Patient does not require nursing associate and status updated with consent. Patient reports two areas one on scalp under her hair that it approx. 8mm and non tender and new one that is about the size of a arturo that is raised and tender to touch. No drainage from either no fever. Smaller one is low more on the neck area per patient. Disposition reviewed and patient in agreement with plan. ASK/Toney AUGUSTE on 10/06/24 at 915am Protocol Used: Skin Lump or Localized Swelling (Adult) Protocol-Based Disposition: See in Office or Video Visit within 3 Days Positive Triage Question: * Patient wants to be seen * All higher-acuity triage questions were negative Care Advice Discussed: * Reasons To Call Back - Fever occurs - Spreading redness occurs - Swelling lasts over 1 week - You become worse * Telephone Encounter - José Chou - 10/04/2024 3:34 PM EST Symptom: Skin Lump Outcome: Schedule an appointment to be seen within 3 days Reason: Caller denied all higher acuity questions Please contact pt at [phone]. documented in this encounter Plan of Treatment Not on file documented as of this encounter Visit Diagnoses Not on filedocumented in this encounter Additional Health Concerns Assessment Noted Time PHQ-9 Depression Total Score: 0 02/04/20 24 11:52 AM EDT documented as of this encounter Care Teams Foreign Agent Relationship Specialty Start Date End Date Gwen Reyna MD [address] [place] [id number] PCP - General Internal Medicine 03/15/23 documented as of this encounter
--- OUTSIDE RECORDS SUMMARY | 2024-10-16 12:35 | XMS_ITS | Encounter Summary ---
Author Organization [employer] Address [address] [facility] [place] [address] [place] [address] Care Team Providers Care Seamer Panty Hose Name Role Phone Gwen Reyna MD Primary Care Pro vider Encounter Details Date Type Department Care Team (Late st Contact Info) Description 09/04/2024 Orders Only [facility] External Provider, [facility] Social History Tobacco Use Types Packs/Day Years [...] on file documented as of this encounter Procedures Procedure Name Priority Date/Time Associated Diagnosis Comments US PELVIS TRANSVAGINAL Routine 09/04/2024 11:30 AM EST documented in this encounter Results * US Pelvis Transvaginal (09/04/2024 11:30 AM EST) Anatomical Region Laterality Modality Pelvis Ultrasound 09/04/2024 11:3 0 AM EST Narrative 10/03/2024 8:53 AM EST ? [facility] ?[address] ?[place] [address] ? Ultrasound Report ? Signed ? Patient: Deidre Luna ?MR#: [id number] ? : 1990 ?Acct:[id number] ? Age/Sex: 33 / F ?ADM Date: 09/04/24 ? Loc: HO.US ? Attending Dr: Jakob Clarke MD ? Ordering Physician: Jakob Clarke MD ?? Date of Service: 09/04/24 ?? Procedure(s): US pelvic and transvaginal ?? Accession Number(s): [id number] ? cc: Gwen Reyna MD; Jakob Clarke MD ? EXAMINATION: ? US PELVIS ? CLINICAL INFORMATION: ? Follow-up ovarian cyst, IUD, unknown last menstrual period, denies pain. ? COMPARISON: ?? 06/08/2024, 06/10/2023. ? TECHNIQUE: ?? Ultrasound of the pelvis is performed using both transabdominal and ?? transvaginal transducers along with Doppler. Transvaginal imaging is ?? performed due to inadequate visualization transabdominally. ? FINDINGS: ?? The uterus is anteverted and measures 10.5 x 5.1 x 6.5 ? IUD in place within the endometrial cavity. Visualization of the ?? endometrium is limited due to shadowing artifact from the IUD, but ?? image segment of endometrium demonstrates thickness of 7 mm with ?? possible trace amount of fluid within the endometrial cavity. ? Right ovary measures 3.1 x 2.0 x 2.3 cm, volume 7.5 mL. Previously ?? identified RIGHT ovarian cysts are not identified on the current exam. ?? Small 0.5 cm RIGHT ovarian echogenic focus characteristic of a ?? calcification redemonstrated. ? Left ovary measures 3.9 x 2.3 x 2.3 cm, volume 10.8 mL. ? LEFT ovarian 1.1 x 0.7 x 1 cm cyst with mural calcification, previously ?? 1.1 x 0.6 x 0.9 cm on 06/08/2024. ? Previous study of 06/10/2023 demonstrated a 1.8 x 1.3 x 1.6 cm complex ?? cyst with shadowing calcification felt to possibly represent a dermoid. ? US/US pelvic and transvaginal ?? IMPRESSION: ? 1. Small 0.5 cm RIGHT ovarian echogenic focus characteristic of a ?? calcification redemonstrated. Previously identified complex RIGHT ?? ovarian cysts are no longer appreciated. ? 2. LEFT ovarian 1.1 x 0.7 x 1 cm cyst with mural calcification, ?? previously 1.1 x 0.6 x 0.9 cm on 06/08/2024. Previous study of ?? 06/10/2023 demonstrated a 1.8 x 1.3 x 1.6 cm complex cyst with ?? shadowing calcification felt to possibly represent a dermoid. ? 3. IUD in place within the endometrial cavity. Visualization of the ?? endometrium is limited due to shadowing artifact from the IUD, but ?? image segment of endometrium demonstrates thickness of 7 mm with ?? possible trace amount of fluid within the endometrial cavity. ? Electronically signed by: ??Yolette Kc MD ??10/03/2024 08:50 AM EST ?? RP ? Dictated By: ?Yolette Kc MD ? Signed By: ?<Electronically signed by Yolette Kc MD in OV> ? 10/03/24 0850 ? DD/ 1130 ? TD/TT: 09/04/24 1200 ? Equipment Superintendent: ? Procedure Note Donotuseinterpreter, Image - 10/03/2024 [place] [id number] Ultrasound Report Signed Patient: Ericka Luna#: [id number] : 1990Acct:[id number] Age/Sex: 33 / FADM Date: 09/04/24 Loc: HO.US Attending Dr: Jakob Clarke MD Ordering Physician: Jakob Clarke MD Date of Service: 09/04/24 Procedure(s): US pelvic and transvaginal Accession Number(s): [id number] cc: Gwen Reyna MD; Jakob Clarke MD EXAMINATION: US PELVIS CLINICAL INFORMATION: Follow-up ovarian cyst, IUD, unknown last menstrual period, denies pain. COMPARISON: 06/08/2024, 06/10/2023. TECHNIQUE: Ultrasound of the pelvis is performed using both transabdominal and transvaginal transducers along with Doppler. Transvaginal imaging is performed due to inadequate visualization transabdominally. FINDINGS: The uterus is anteverted and measures 10.5 x 5.1 x 6.[address] within the endometrial cavity. Visualization of the endometrium is limited due to shadowing artifact from the IUD, but image segment of endometrium demonstrates thickness of 7 mm with possible trace amount of fluid within the endometrial cavity. Right ovary measures 3.1 x 2.0 x 2.3 cm, volume 7.5 mL. Previously identified RIGHT ovarian cysts are not identified on the current exam. Small 0.5 cm RIGHT ovarian echogenic focus characteristic of a calcification redemonstrated. Left ovary measures 3.9 x 2.3 x 2.3 cm, volume 10.8 mL. LEFT ovarian 1.1 x 0.7 x 1 cm cyst with mural calcification, previously 1.1 x 0.6 x 0.9 cm on 06/08/2024. Previous study of 06/10/2023 demonstrated a 1.8 x 1.3 x 1.6 cm complex cyst with shadowing calcification felt to possibly represent a dermoid. US/US pelvic and transvaginal IMPRESSION: 1. Small 0.5 cm RIGHT ovarian echogenic focus characteristic of a calcification redemonstrated. Previously identified complex RIGHT ovarian cysts are no longer appreciated. 2. LEFT ovarian 1.1 x 0.7 x 1 cm cyst with mural calcification, previously 1.1 x 0.6 x 0.9 cm on 06/08/2024. Previous study of 06/10/2023 demonstrated a 1.8 x 1.3 x 1.6 cm complex cyst with shadowing calcification felt to possibly represent a dermoid. 3. IUD in place within the endometrial cavity. Visualization of the endometrium is limited due to shadowing artifact from the IUD, but image segment of endometrium demonstrates thickness of 7 mm with possible trace amount of fluid within the endometrial cavity. Electronically signed by: Yolette Kc MD 10/03/2024 08:50 AM [facility] [place] Dictated By: Yolette Kc MD Signed By: <Electronically signed by Yolette Kc MD in OV> 10/03/24 0850 DD/ 1130 TD/TT: 09/04/24 1200 Equipment Superintendent: [facility] External Provider IMG US PROCEDURES Edited Result - Final documented in this encounter Visit Diagnoses Not on filedocumented in this encounter Additional Health Concerns Assessment Noted Time PHQ-9 Depression Total Score: 0 02/04/20 24 11:52 AM EDT documented as of this encounter Care Teams Seamer Panty Hose Relationship Specialty Start Date End Date Gwen Reyna MD [address] [place] [id number] PCP - General Internal Medicine 03/15/23 documented as of this encounter
--- OUTSIDE RECORDS SUMMARY | 2024-10-16 12:35 | XMS_ITS | Clinical Summary ---
Author Organization [facility] Address [address] [facility] [address] [place] [address] Care Team Providers Care Hod Carrier Name Role Phone Gwen Reyna MD Primary Care Pro vider Allergies No known active allergies Medications albuterol 108 (90 Base) MCG/ACT inhaler Inhale 2 puffs every 4 (four) hours if needed for wheezing or shortness of breath. 18 g 2 05/03/20 23 Active cetirizine (ZyrTEC) 10 MG tablet TAKE 1 TABLET BY MOUTH EVERY DAY IN THE MORNING 90 tablet 09/07/20 23 Active Levonorgestrel (Mirena, 52 MG,) 20 MCG/DAY intrauterine device by Intrauterine route. Active hydrocortisone 0.5 % cream Apply topically 2 times daily. 15 g 02/04/20 24 Active fluticasone (Flovent) 110 MCG/ACT inhalerIndications :Mild persistent asthma without complication Inhale 1 puff in the morning and at bedtime. Rinse mouth with water after use to reduce aftertaste and incidence of candidiasis. Do not swallow. 12 g 2 03/17/20 24 025 Active montelukast (Singulair) 10 MG tablet TAKE 1 TABLET BY MOUTH EVERY DAY 90 tablet 1 07/10/20 24 Active triamcinolone (Kenalog) 0.1 % creamIndications:A topic dermatitis, unspecified type Apply topically Once per day. With cerave 80 g 11 07/14/20 24 Active tacrolimus (Protopic) 0.1 % ointmentIndication s:Atopic dermatitis, unspecified type Apply topically 2 times daily. As needed for flare up eczema 30 g 1 07/14/20 24 025 Active ferrous sulfate 325 (65 Fe) MG tablet Refills 0, Maintenance, 05/13/23 11:41:00 EDT, Partial fill upon patient request if the prescription is for a schedule II opioid drug. 05/13/20 Active acetaminophen (Tylenol Extra Strength) 500 MG tabletIndications: Acute nonintractable headache, unspecified headache type Take 1 tablet (500 mg) by mouth every 6 (six) hours if needed for mild pain for up to 10 days. 30 tablet 10/06/19 025 Active Active Problems Problem Noted Date Diagnosed Date Pilar cyst of scalp 10/06/2024 Assessment & Plan (10/06/2024 12:11 PM EST): 3 cysts present on scalp and hair line, they are tender and firm, they are increasing in size over past 3 weeks. Pt not having any systemic symptoms and proximal lymph nodes are not enlarged or tender. Suspicion for pilar vs sebaceous cyst Sent referral for general surgery for extraction and biopsy Acute nonintractable headache 10/06/2024 Assessment & Plan (10/06/2024 12:12 PM EST): No STEVENSON red flags Presumably related to presence of tender cysts on scalp Sent tylenol to pharmacy for pain control Left breast lump 03/17/2024 Skin lesion 03/17/2024 Dermatitis 02/05/2024 Sore throat 02/05/2024 Lymphadenopathy, cervical 10/19/2023 Left ovarian cyst 05/04/2023 Assessment & Plan (05/04/2023 9:59 AM EDT): -pelvic US 01/07/2023-referred by DOG BOARDER: there is a stable complex left ovarian cyst with calcification of 1.3x0.9x1.1cm ,endometrial strip is 20 mm -with active bleeding during the exam ,no masses no polyps seen. -continue to monitor ovarian cyst with her DOG BOARDER Health care maintenance 02/02/2023 Assessment & Plan (05/04/2023 9:57 AM EDT): - from records -pap smear 03/2021 Neg/HPV neg -per pt had pap smear 12/2022 w DOG BOARDER ( [facility])-normal per pt -not able to get that record -contraception :IUD for menorrhagia and , states has vasectomy -vaccines: s/p covid 19 vaccine x 4-per pt got bivalent dose-pt will bring record.s/p tdap in 2021 , s/P p20 x asthma . HPV x1 in 2011---per pt was told by her DOG BOARDER that had already 3 doses of HPV-requested to [place] to get record-not able to obtain ,hepB immune Assessment & Plan (03/12/2023 9:55 PM EDT): -pap smear 12/2022 w DOG BOARDER ( [facility])-normal per pt -contraception :none, states has vasectomy -vaccines: s/p covid 19 vaccine x 4-per pt got bivalent dose-pt will bring record.s/p tdap in 2021 , s/P p20 x asthma . HPV x1 in 2011---per pt was told by her DOG BOARDER that had already 3 doses of HPV-requested to [place] to get record,hepB immune Assessment & Plan (02/02/2023 1:17 PM EDT): -pap smear 12/2022 w DOG BOARDER ( [facility])-normal per pt -contraception : states has vasectomy -pt had in 12/2022 HB1AC,TSh,cbc,chem checked --will do rest of annual labs in 4 weeks -ordered today--pt agreed x HIV test and rest of STIs -vaccines: s/p covid 19 vaccine x 4-per pt got bivalent dose-pt will bring record.s/p tdap in 2021 , p20 today here x asthma . HPV x1 in 2011---pt will check w her DOG BOARDER if received any more HPV vaccine w them or if plan to vaccinate if not and if pt interested will start vaccination Obesity (BMI 35.0-39.9 without comorbidity) 01/12 Assessment & Plan (05/04/2023 9:52 AM EDT): BMI 36.4 -Advised pt to improve diet and exercise,discussed healthy life style -referred to watershed manager -will monitor weight in next 6 months -if no improvement w diet and exercise will discuss w pt about possible medical options vs bariatric surgery referral Assessment & Plan (03/12/2023 9:49 PM EDT): BMI 36.4 -Advised pt to improve diet and exercise,discussed healthy life style -discussed watershed manager referral -Apt x 03/2023 Assessment & Plan (02/02/2023 1:07 PM EDT): BMI 36.4 -Advised pt to improve diet and exercise,discussed healthy life style -discussed watershed manager referral -referred today Elevated blood pressure reading 02/02/2023 Assessment & Plan (05/04/2023 12:58 PM EDT): Pt here w normal BP ,at home has some elevated BP readings some days normal and has seen as high 170s ? EKG here 11/2022 Normal Echo 04/28/2023 : normal ,EF > 70% Doppler Renal US 04/19/2023: hemodynamically significant right renal artery stenosis -pt f w last pattern grader -per pt was told to have episodic elevated BP and on eval found to have right renal artery stenosis For which has apt on 05/06/2023 with vascular specialist referred by cards. -referred to watershed manager -already -low salt diet -continue care with last pattern grader and now vascular Assessment & Plan (03/12/2023 9:48 PM EDT): Pt here w normal manual BP ,at home has some elevated BP readings some days normal and has seen as high 170s ? EKG here 11/2022 Normal -advised pt to continue checking x now BP readings at home at least twice a week and bring at next apt and advised to bring her machine to compare with manual BP here to verify if machine or cuff are ok -referred to watershed manager -has apt x 03/2023 -low salt diet -monitor here in 3 mo Assessment & Plan (02/02/2023 1:17 PM EDT): Pt here w normal manual BP ,at home has some elevated BP readings EKG here 11/2022 Normal -advised pt to continue checking x now BP readings and bring at next apt - possible 2/2 exacerbated asthma and lately PO steroids ? if continue to see elevated readings will start BP med as low dose HDCTZ -referred to watershed manager today -low salt diet -monitor here in 5 weeks Pre-diabetes 01/13/2023 Assessment & Plan (05/04/2023 9:51 AM EDT): 12/2022 Hb1AC 5.7 -Advised pt to improve diet and exercise,discussed healthy life style -discussed watershed manager referral -already referred -will repeat hb1AC in 12 months at annual exam Assessment & Plan (03/12/2023 9:49 PM EDT): 12/2022 Hb1AC 5.7 -Advised pt to improve diet and exercise,discussed healthy life style -discussed watershed manager referral -apt x 03/2023 -will repeat hb1AC in 12 months at annual exam Assessment & Plan (02/02/2023 1:07 PM EDT): 12/2022 Hb1AC 5.7 -Advised pt to improve diet and exercise,discussed healthy life style -discussed watershed manager referral -referred today -will repeat hb1AC in 12 months at annual exam Microcytic anemia 01/13/2023 Assessment & Plan (05/04/2023 10:02 AM EDT): 04/2023 Hb 8.8<---10.2, htco 32--,12/2022 platelets elevated at 556, MCV low at 70 Reports hx of menorrhagia -last 4-5 days -using 7 pads a day Already f w DOG BOARDER S/p IUD placed with no improvement on heavy bleeding. -pelvic US 01/07/2023: there is a stable complex left ovarian cyst with calcification of 1.3x0.9x1.1cm ,endometrial strip is 20 mm -with active bleeding during the exam ,no masses no polyps seen. -continue care w DOG BOARDER -has apt tomorrow -continue iron TID and vit C -has apt to start care with motorcyles final inspector in 1 week ( 05/14/2023) -will need to start IV iron -continue anemia care w specialist , her symptoms of fatigue, mild STEVENSON,etc are all most likely associated w her worsening anemia -expected to improve when starts IV iron Assessment & Plan (03/12/2023 9:57 PM EDT): 02/2023 Hb 9.6<---10.2, htco 32,platelets elevated at 569<--556, MCV low at 71<---70 Reports hx of menorrhagia -last 4-5 days -using 7 pads a day Already f w DOG BOARDER,denies melenas, hematuria Reports had aprox 5 y ago EGD and colonoscopy per pt told to be normal -continue care w DOG BOARDER -referred x pelvic US -states done recently -Told to have an ovarian cyst-requested today to MELINDA to get report -per pt not rec x oral contraceptives x bleeding to avoid risk to increase BP but offered IUD but refused-pt will f up w DOG BOARDER next month -continue iron TID and vit C increased dose few days ago-reports some constipation w it-px metamucil -referred to hematology may need IV iron -explained to pt that if by next 6 to 8 weeks is not following yet w hematology to call here to request labs -will order then CBC and iron panel Assessment & Plan (02/02/2023 1:09 PM EDT): 12/2022 Hb 10.2, htco 32,platelets elevated at 556, MCV low at 70 Reports hx of menorrhagia -last 4-5 days -using 7 pads a day Already f w DOG BOARDER -continue care w DOG BOARDER -referred x pelvic US -states done recently -will bring record at her next apt here -needs to f results 1st w DOG BOARDER -continue iron BID and vit C started 4 weeks ago -ordered today CBC,iron panel to have them done in 4 weeks -1 week prior next apt w me Mild intermittent asthma 01/05/2023 Assessment & Plan (05/04/2023 9:46 AM EDT): Reports hx of asthma -now well controlled lately Since started on flovent -continue flovent BID -and advise to rinse mouth after use ,MELINA prn Assessment & Plan (03/12/2023 9:46 PM EDT): Reports hx of asthma -uncontrolled w albuterol only Recently started on flovent but using prn ,ovreall better but still freq use of MELINA -advised to start using flovent BID -and advise to rinse mouth after use ,MELINA prn -will monitor here in 3 mo if still needing freq flovent will switch to LABA/inh steroids Assessment & Plan (02/02/2023 1:06 PM EDT): Reports hx of asthma -uncontrolled w albuterol only Recently started on flovent -advised to start using flovent BID -and advise to rinse mouth after use ,MELINA prn -will monitor here in 5 weeks Dental calculus 10/08/2022 Gingivitis due to dental plaque 10/08/2022 Resolved Problems Problem Noted Date Diagnosed Date Resolved Date Dark urine 05/04/2023 06/15/2023 Assessment & Plan (05/04/2023 10:01 AM EDT): Reports urine dark and strong smell w no other concerning symptoms ( nor vaginal) -seems most likely symptoms can be associated w iron that is known can change urine color and give metallic smell in urine -will do UA today and will call pt if relevant findings -pt having menstrual periods now Gingival bleeding 10/08/2022 05/04/2023 Encounters Date Type Department Care Team Description 10/13/[address] [address] Jud, Elizabeth, PRIMARY COUNSELOR No Show 10/12/2024 Telephone [facility] [address] [place] [address] Gwen Reyna MD Nurse Triage 10/06/2024 11:15 AM EST Office Visit [address] [address] Jerald Morrison CNP Acute nonintractable headache, unspecified headache type (Primary Dx); Pilar cyst of scalp 10/06/2024 Travel 10/05/[address] [address] Gwen Reyna MD Chart Prep 10/05/2024 Travel 10/04/2024 Telephone [facility] [address] [place] [address] Gwen Reyna MD Nurse Triage 09/04/2024 Orders Only [facility] External Provider, [facility] from Last 3 Months Immunizations Name Administration Dates Next Due HPV, Quadrivalent 07/28/2012 Influenza injectable quadriv alent preservative free 06/15/2023,05/29/2022,07/30/2021 Influenza, IIV3, injectable 06/17/2016, 3 Pfizer Covid-19 Vaccine 12+ 06/17/2016 Pneumococcal Conjugate PCV 20 02/02/2023 Tdap 10/27/2021 Family History Medical History Relation Name Comments DM2 Father colon ca at 65 Maternal Grandfather colon cancer-64 y of age Maternal Grandfather HTN.DM2,heart arrythmia Mother Ovarian cancer Mother's Sister Relation Name Status Comments Father Maternal Grandfather Mother Mother's Sister Social History Tobacco Use Types Packs/Day Years Used Date Smoking Tobacco: Never Passive Smoke Exposure: Never Smokeless Tobacco: Never Tobacco Cessation:Counseling Given: Not Answered Alcohol Use Standard Drinks/Week Comments Never 0 [...] Orientation Straight 07/13/2022 10 :30 AM EDT Last Filed Vital Signs Vital Sign Reading Time Taken Comments Blood Pressure 132/78 10/06/2024 11:36 AM EST Pulse 62 10/06/2024 11:36 AM EST Temperature 36.7 ??C (98.1 ??F) 10/06/2024 11:[address] Respiratory Rate 18 10/06/2024 11:36 AM EST Oxygen Saturation 99% 10/06/2024 11:36 AM EST Inhaled Oxygen Concentration - - Weight 106 kg (234 lb 6.4 oz) 10/06/2024 11:36 A M EST Height 169 cm (5' 6.54 ) 07/14/2024 10:52 AM EDT Body Mass Index 37.22 07/14/2024 10:52 AM EDT Plan of Treatment Health Maintenance Due Date Last Done Comments Alcohol/Substance Use Screening 2000 Family Planning (PISQ) 11/13/2003 Hepatitis B Vaccines (1 of 3 - 19+ 3-dose series) 11/13/2007 Pap Smear 2009 HPV Vaccines (2 - 3-dose series) 08/25/2012 07/28/2012 Cervical Cancer Screening 2018 HPV/Cotest 2018 Dental Oral Exam 03/12/2023 09/10/2022 Dental Prophylaxis 04/08/2023 10/08/2022 Dental X-Ray: Bitewings 10/15/2023 10/14/2022, 09/10 COVID-19 Vaccine ( season) 2024 11/28/2021, 01/14/2021, 12/23/2020, Additional history exists Influenza Vaccine (#1) 2024 , 05/29/2022, 07/30/2021, Additional history exists SDOH Screening 01/25/2025 01/26/2024 Depression Screening 02/03/2025 02/04/2024, 02/04/20 Tobacco Screening 03/17/2025 03/17/2024 Dental X-Ray: Full Mouth 09/11/2025 09/10/2022 Lipid Panel 03/15/2029 03/15/2024, 03/04/2023 DTaP/Tdap/Td Vaccines (2 - Td or Tdap) 10/27/2031 10/27/2021 Zoster Vaccines (1 of 2) 2038 RSV Patients and Patients Aged 60 years or older (1 - 1-dose 75+ series) 11/13/2063 Pneumococcal Vaccine: Pediatrics (0 to 5 Years) and At-Risk Patients (6 to 49) Years) Completed 02/02/2023 HIV Screening Completed 03/15/2024, 03/04/2023 Hepatitis C Screening Completed 03/15/2024, 023 HIB Vaccines Aged Out No longer eligi ble based on patient's age to complete this topic Hepatitis A Vaccines Aged Out No long er eligible based on patient's age to complete this topic IPV Vaccines Aged Out No longer eligi ble based on patient's age to complete this topic Meningococcal Vaccine Aged Out No les donna eligible based on patient's age to complete this topic RSV under 20 months Aged Out No longe r eligible based on patient's age to complete this topic Rotavirus Vaccines Aged Out No longer eligible based on patient's age to complete this topic Procedures Procedure Name Priority Date/Time Associated Diagnosis Comments US PELVIS TRANSVAGINAL Routine 09/04/2024 11:30 AM EST HEPATITIS C AB W/REFL TO HCV RNA, QN, PCR Routine 03/15/2024 12:36 PM EDT Annual physical exam HIV 1/2 ANTIGEN/ANTIBODY, FOURTH GENERATION W/RFL Routine 03/15/2024 12:36 PM EDT Annual physical exam LIPID PANEL, STANDARD Routine 03/15/2024 12:36 PM EDT Annual physical exam BITEWING - SINGLE RADIOGRAPHIC IMAGE Routine 10/14/2022 11:30 AM EST Recurrent dental caries extending into dentin Symptomatic periapical periodontitis Full PROPHYLAXIS - ADULT Routine 10/08/2022 8:00 AM EST DIAGNOSTIC - DIAGNOSTIC IMAGING - INTRAORAL - COMPREHENSIVE SERIES OF RADIOGRAPHIC IMAGES Routine 09/10/2022 3:00 PM EST COMPREHENSIVE ORAL EVALUATION - NEW OR ESTABLISHED PATIENT Routine 09/10/2022 3:00 PM EST from Last 3 Months or Most Recently Relevant to Health Maintenance Results * US Pelvis Transvaginal (09/04/2024 11:30 AM EST) Anatomical Region Laterality Modality Pelvis Ultrasound 09/04/2024 11:3 0 AM EST Narrative 10/03/2024 8:53 AM EST ? [facility] ?[address] ?[place] [address] ? Ultrasound Report ? Signed ? Patient: Jeremy,Noe ?MR#: [id number] ? : 1990 ?Acct:[id number] ? Age/Sex: 33 / F ?ADM Date: 09/04/24 ? Loc: HO.US ? Attending Dr: Jakob Clarke MD ? Ordering Physician: Jakob Clarke MD ?? Date of Service: 09/04/24 ?? Procedure(s): US pelvic and transvaginal ?? Accession Number(s): [id number] ? cc: Gwen Reyna MD; Jakob Clarke [...] DD/ 1130 ? TD/TT: 09/04/24 1200 ? Pharmacy Benefits Coordinator: ? Procedure Note [place], Image - 01/21/[address] [address] Ultrasound Report Signed Patient: Ericka Luna#: [id number] : 1990Acct:[id number] Age/Sex: 33 / FADM Date: 09/04/24 Loc: HO.US Attending Dr: Jakob Clarke MD Ordering Physician: Jakob Clarke MD Date of Service: 09/04/24 Procedure(s): US pelvic and transvaginal Accession Number(s): [id number] cc: Gwen Reyna MD; Jakob Clarke MD [...] by: Yolette Kc MD 10/03/2024 08:50 AM EST Dictated By: Yolette Kc MD Signed By: <Electronically signed by Yolette Kc MD in OV> 10/03/24 0850 DD/ 1130 TD/TT: 09/04/24 1200 Pharmacy Benefits Coordinator: Result [facility] External Provider IMG US PROCEDURES Edited Result - Final * Hepatitis C Antibody with Reflex to HCV, RNA, Quantitative, Real-Time PCR (03/15/2024 12:36 PM EDT) Hepatitis C Antibody Nonreactive Nonreactive [facility] Comment:Antibodies to HCV no t detected; does not exclude early acuteHCV infection. Blood Venous blood specimen / Unknown 03/15/2024 12:36 PM EDT 03/15/2024 1:07 PM EDT Gwen Mcclain MD LAB BLOOD ORDERAB LES Final Result [facility] [address] [place] [address] [phone] * HIV-1/2 Antigen and Antibodies, Fourth Generation, with Reflexes (03/15/2024 12:36 PM EDT) HIV AB/AG Nonreactive Nonreactive [facility] Comment:HIV-1 p24 Ag and/or HIV-1/HIV-2 Ab not detected.A test result that is nonreactive does not exclude thepossibility of exposure to or infection with HIV-1 and/orHIV-2. Nonreactive results in this assay for individualswith prior exposure to HIV-1 and/or HIV-2 may be due toantigen and antibody levels that are below the limit ofdetection of this assay.The [employer] HIV Ag/Ab Combo assay result andsupplemental assay results should be interpreted inconjunction with the patient's clinical presentation,history and other laboratory results. If the results areinconsistent with clinical evidence, additional testing issuggested to confirm the result. Blood Venous blood specimen / Unknown 03/15/2024 12:36 PM EDT 03/15/2024 1:07 PM EDT us Gwen Mcclain MD LAB BLOOD ORDERAB LES Final Result [facility] [address] [place], [place] [phone] * (ABNORMAL) Lipid Panel, Standard (03/15/2024 12:36 PM EDT) Triglycerides 110 <150 mg/dL [facility] Comment:Desirable Triglyceri de: less than 150 mg/dLBorderline High Triglyceride 150-199 mg/dLHigh Triglyceride: 200-499 mg/dLVery High Triglyceride: greater than or equal to 5OO mg/dL Cholesterol 174 <200 mg/dL [facility] Comment:Desirable Cholestero l: less than 200 mg/dLBorderline High Cholesterol: 200-239 mg/dLHigh Cholesterol: greater than 239 mg/dL LDL Cholesterol Calculated 102(H) <100 mg/dL [facility] Comment:Desirable LDL: less than 100 mg/dLNear Optimal/Above Optimal LDL: 110- 129 mg/dLBorderline High LDL: 130-159 mg/dLHigh LDL: 160-189 mg/dLVery High LDL: greater than or equal to 190 mg/dL HDL Cholesterol 50 >40 mg/dL [facility] Comment:Desirable HDL: great er than 40 mg/dL Note: This HDL assay may give artificially low results in patients with liver disease. Blood Venous blood specimen / Unknown 03/15/2024 12:36 PM EDT 03/15/2024 1:07 PM EDT Gwen Mcclain MD LAB BLOOD ORDERAB LES Final Result [facility] [address] [place] [address] [phone] from Last 3 Months or Most Recently Relevant to Health Maintenance [place] [address] [place] [id number] HMO [facility] STANDARD DENTAL-[facility] MEDICAID STAND ADULT DENTAL - [facility] Care Teams Hod Carrier Relationship Specialty Start Date End Date Gwen Reyna MD [address] [place] [id number] PCP - General Internal Medicine 03/15/23
--- OUTSIDE RECORDS SUMMARY | 2024-10-16 12:35 | XMS_ITS | Encounter Summary ---
Author Organization [employer] Address [address] [facility] [address] [place] [address] Care Team Providers Care City Carrier Assistant Name Role Phone Gwen Reyna MD Primary Care Pro vider Encounter Details Date Type Department Care Team (Late st Contact Info) Description 10/28/2023 Orders Only [facility] [address] [place] [address] ProviderDaquan MD Social History Tobacco Use Types Packs/Day Years [...] Procedure Name Priority Date/Time Associated Diagnosis Comments CT ABD/PELVIS W/ IV + ORAL CONTRAST Routine 10/12/2023 1:[address] ABD/PELVIS W/ IV CONTRAST ONLY Routine 08/29/2023 1:06 PM EST documented in this encounter Results * CT ABD/PELVIS W/ IV + ORAL CONTRAST (10/12/2023 1:03 PM EST) Anatomical Region Laterality Modality Body, Pelvis, Abdomen Computed T omography us Historical Provider MD [facility] CT PROCEDURES Final R esult * CT ABD/PELVIS W/ IV CONTRAST ONLY (08/29/2023 1:06 PM EST) Anatomical Region Laterality Modality Body, Pelvis, Abdomen Computed T omography us Historical Provider MD SHARP CT PROCEDURES Final R esult documented in this encounter Visit Diagnoses Not on filedocumented in this encounter Additional Health Concerns Assessment Noted Time PHQ-9 Depression Total Score: 1 05/03/20 23 3:59 PM EDT documented as of this encounter Care Teams City Carrier Assistant Relationship Specialty Start Date End Date Gwen Reyna MD [address] [place] [id number] PCP - General Internal Medicine 03/15/23 documented as of this encounter
--- OUTSIDE RECORDS SUMMARY | 2024-10-16 12:35 | XMS_ITS | Encounter Summary ---
Author Organization [employer] Address [address] [place] [address] Care Team Providers Care Cloth Neutralizer Name Role Phone Gwen Reyna MD Primary Care Pro vider Reason for Visit * Reason Onset Date Comments Nurse Triage 10/12/2024 Encounter Details Date Type Department Care Team ([facility] st Contact Info) Description 10/12/2024 Telephone [facility] MEDICINE [address] [place], [place] [phone] Gwen Reyna MD [address] [place] [address] Nurse Triage Social History Tobacco Use Types [...] encounter Miscellaneous Notes * Telephone Encounter - Debra Shahid RN - 10/12/2024 2:49 PM EST called pt to triage, spoke to pt. pt states seen almost a week ago for some nodules and now has more. pt states now has one in her throat and another on her neck for a total of 5. pt seen and is going to be referred to a surgeon for possible removal if needed. pt states now has one in her throat and wants to be seen again. advised the plan will be to be evaluated by a surgeon for possible treatment but if concerned can give her another appt. the exam from 6 days ago was benign and pt denies anyfevers, discharge, inability to swallow or other associated symptoms. pt upset that i am telling her she could wait for the surgeon again advised that this is the plan and does not have to do with her having to wait. given appt tomorrow with red team provider at 10:15 for recheck. pt understands and agrees with plan. Protocol Used: Skin Lump or Localized Swelling (Adult) Care Advice Discussed: * Reasons To Call Back - You become worse * Telephone Encounter - Jr Adams - 10/12/2024 1:52 PM EST Tc from pt stating that she has Nodules In her throat. Pt stating that she has had them for about aMonth and also states that Some new ones are appearing. Contact pt at [phone] documented in this encounter Plan of Treatment Not on file documented as of this encounter Visit Diagnoses Not on filedocumented in this encounter Additional Health Concerns Assessment Noted Time PHQ-9 Depression Total Score: 0 02/04/20 11:52 AM EDT documented as of this encounter Care Teams Cloth Neutralizer Relationship Specialty Start Date End Date Gwen Reyna MD [address] [place] [id number] PCP - General Internal Medicine 03/15/23 documented as of this encounter
--- OUTSIDE RECORDS SUMMARY | 2024-10-16 12:35 | XMS_ITS | Encounter Summary ---
Author Organization [employer] Address [address] [place] [address] [place] [address] Care Team Providers Care Shake Backboard Notcher Name Role Phone Gwen Reyna MD Primary Care Pro vider Reason for Referral * Consultation (Routine) - Authorized Specialty Diagnoses / Procedures Referred By Tushar dunn Referred To Contact General Surgery Diagnoses Pilar cyst of scalp Jerald Morrison CNP [address] [place] [address] Phone: tel: fax: Vaibhav Hanley MD [address] [place] [address] [place] [address] Phone: tel: fax: Referral ID Status Reason Start Date Expiration Date Visits Requested Visits Authorized [id number] Authorized Specialty Services Required 10/06/2024 10/06/2025 1 1 Reason for Visit * Reason Comments Mass Encounter Details Date Type Department Care Team (Latest Contact Info) Description 10/06/2024 11:15 AM EST Office Visit [facility] MEDICINE [address] [place] [address] Jerald Morrison CNP [address] [place] [address] Acute nonintractable headache, unspecified headache type (Primary Dx); Pilar cyst of scalp Social History Tobacco Use Types Packs/Day Years [...] AM EDT documented as of this encounter Last Filed Vital Signs Vital Sign Reading [...] oz) 10/06/2024 11:36 A M EST Height - - Body Mass Index 37.22 07/14/2024 10:52 AM EDT documented in this encounter Progress Notes * Jerald Morrison, FINANCIAL SERVICES REPRESENTATIVE - 10/06/2024 11:15 AM EST Images from the original note were not included. Deidre Luna is a 33 y.o. female who presents for skin lumps two are present under her hair and oneon the hairline/neck. She says they appeared about 3 weeks ago. She reports that they are painful and have been causing her STEVENSON. She says they are mildly itchy. She says she has noticed they have grown in size over the past 3 weeks. She denies drainage. She denies fever, chills, myalgias, denies unexpected weight loss of weight gain. For the STEVENSON she says it started when the cysts erupted, she denies photophobia, diplopia, thunderclap STEVENSON, and STEVENSON waking her up out of sleep. She is established with a Derm provider for other ongoing derm issues. Non smoker Non drinker Patient Active Problem List Diagnosis Dental calculus Gingivitis due to dental plaque Mild intermittent asthma Pre-diabetes Microcytic anemia Health care maintenance Obesity (BMI 35.0-39.9 without comorbidity) Elevated blood pressure reading Left ovarian cyst Lymphadenopathy, cervical Dermatitis Sore throat Left breast lump Skin lesion Pilar cyst of scalp Acute nonintractable headache No Known Allergies Review of Systems Constitutional: Negative for activity change, appetite change, chills, diaphoresis, fatigue, fever and unexpected weight change. HENT: Negative. Eyes: Negative for photophobia and visual disturbance. Respiratory: Negative for cough, choking, chest tightness and shortness of breath. Cardiovascular: Negative for chest pain and palpitations. Musculoskeletal: Negative. Skin: Negative. Neurological: Positive for headaches. Psychiatric/Behavioral: Negative. Vitals: 10/06/24 1136 BP: 132/78 Pulse: 62 Resp: 18 Temp: 98.1 ??F (36.7 ??C) TempSrc: Oral SpO2: 99% Weight: 234 lb 6.4 oz (106 kg) Physical Exam Constitutional: General: She is not in acute distress. Appearance: Normal appearance. She is not ill-appearing or toxic-appearing. HENT: Head: Normocephalic and atraumatic. Cardiovascular: Rate and Rhythm: Normal rate and regular rhythm. Pulses: Normal pulses. Heart sounds: Normal heart sounds. No murmur heard. No friction rub. No gallop. Pulmonary: Effort: Pulmonary effort is normal. No respiratory distress. Breath sounds: Normal breath sounds. No stridor. No wheezing, rhonchi or rales. Chest: Chest wall: No tenderness. Musculoskeletal: Cervical back: Normal range of motion and neck supple. No tenderness. Lymphadenopathy: Cervical: No cervical adenopathy. Skin: General: Skin is warm and dry. Coloration: Skin is not jaundiced. Findings: No bruising or lesion. Neurological: General: No focal deficit present. Mental Status: She is alert and oriented to person, place, and time. Psychiatric: Mood and Affect: Mood normal. Behavior: Behavior normal. Thought Content: Thought content normal. Judgment: Judgment normal. Problem List Items Addressed This Visit Pilar cyst of scalp Current Assessment & Plan 3 cysts present on scalp and hair line, they are tender and firm, they are increasing in size over past 3 weeks. Pt not having any systemic symptoms and proximal lymph nodes are not enlarged or tender. Suspicion for pilar vs sebaceous cyst Sent referral for general surgery for extraction and biopsy Acute nonintractable headache - Primary Current Assessment & Plan No STEVENSON red flags Presumably related to presence of tender cysts on scalp Sent tylenol to pharmacy for pain control Relevant Medications acetaminophen (Tylenol Extra Strength) 500 MG tablet [facility] INTERVENTIONAL RADIOLOGIST Attestation INTERVENTIONAL RADIOLOGIST Resident Attestation: Patient was seen and evaluated by Jerald Morrison INTERVENTIONAL RADIOLOGIST, in collaboration with Nivia Lomas NP who hasreviewed my assessment and plan. I, Nivia Lomas INTERVENTIONAL RADIOLOGIST , have reviewed the resident's note and agree with the assessment & plan of care as documented above. documented in this encounter Miscellaneous Notes * Assessment & Plan Note - Jerald Morrison CNP - 10/06/2024 12:12 PM EST Associated Problem(s): Acute nonintractable headache No STEVENSON red flags Presumably related to presence of tender cysts on scalp Sent tylenol to pharmacy for pain control * Assessment & Plan Note - Jerald Morrison CNP - 10/06/2024 12:11 PM EST Associated Problem(s): Pilar cyst of scalp 3 cysts present on scalp and hair line, they are tender and firm, they are increasing in size over past 3 weeks. Pt not having any systemic symptoms and proximal lymph nodes are not enlarged or tender. Suspicion for pilar vs sebaceous cyst Sent referral for general surgery for extraction and biopsy documented in this encounter Plan of Treatment Scheduled Referrals Name Type Priority Associated Diagnoses Orde r Schedule Referral to General Surgery Outpatient Referral Routine Pilar cyst of scalp Expected: 10/06/2024 (Approximate), Expires: 10/06/2025 documented as of this encounter Visit Diagnoses Diagnosis Acute nonintractable headache, unspecified headache type- Primary Pilar cyst of scalp documented in this encounter Additional Health Concerns Assessment Noted Time PHQ-9 Depression Total Score: 0 02/04/20 24 11:52 AM EDT documented as of this encounter Care Teams Shake Backboard Notcher Relationship Specialty Start Date End Date Gwen Reyna MD [address] [place] [id number] PCP - General Internal Medicine 03/15/23 documented as of this encounter
--- OUTSIDE RECORDS SUMMARY | 2024-10-16 12:35 | XMS_ITS | Encounter Summary ---
Author Organization [employer] Address [address] [facility] 7t [place] [address] Care Team Providers Care Platen Press Operator Apprentice Name Role Phone Gwen Reyna MD Primary Care Pro vider Encounter Details Date Type Department Care Team (Latest Contact Info) Description 10/06/2024 Travel Social History Tobacco Use Types Packs/Day [...] documented as of this encounter Care Teams Platen Press Operator Apprentice Relationship Specialty Start Date End Date Gwen Reyna MD [address] [place] [phone] PCP - General Internal Medicine 03/15/23 documented as of this encounter
--- OUTSIDE RECORDS SUMMARY | 2024-10-16 12:35 | XMS_ITS | Encounter Summary ---
Author Organization [email or web address] Address [address] [facility] 7 [place] [address] Care Team Providers Care National Account Representative Name Role Phone Gwen Reyna MD Primary Care Pro vider Reason for Visit * Reason Onset Date Comments No Show 10/13/2024 Encounter Details Date Type Department Care Team ([facility] Contact Info) Description 10/13/2024 Telephone [facility] MEDICINE [address] [place], [place] [phone] [facility] [address] [place] [address] No Show Social History Tobacco Use Types Packs/Day Years [...] encounter Miscellaneous Notes * Telephone Encounter - Myriam Mireles - 10/13/2024 10:30 AM EST Pt no show to sick on site appt 10/13/2024 persistent nodules on neck and back of throat, getting bigger and spreading documented in this encounter Plan of Treatment Not on file documented as of this encounter Visit Diagnoses Not on filedocumented in this encounter Additional Health Concerns Assessment Noted Time PHQ-9 Depression Total Score: 0 02/04/20 24 11:52 AM EDT documented as of this encounter Care Teams National Account Representative Relationship Specialty Start Date End Date Gwen Reyna MD [address] [place] [id number] PCP - General Internal Medicine 03/15/23 documented as of this encounter
== END 2024-10-16 14:33 | disposition home or self-care (01) ==
PROVIDERS: PCP Student in an Organized Health Care Education/Training Program; Visit Provider Obstetrics & Gynecology
DX: N83.299 Other ovarian cyst, unspecified side (principal)
CPT/HCPCS: 99213

== ENCOUNTER → 2024-10-16 11:19 | Outpatient (BNVA) | payer BC, MEDICAID, SELFPAY | PROVIDERS: PCP Student in an Organized Health Care Education/Training Program; Visit Provider Obstetrics & Gynecology ==

== ENCOUNTER 2024-11-01 09:52 | Outpatient (AMB) | payer BC, MEDICAID, SELFPAY ==
--- NOTE | 2024-11-01 10:08 | MHC.OFFVIS ---
Vital Signs 11/01/24 10:09 Height 5 ft 7 in Weight 233 lb 4 oz BMI 36.5 Intake Visit Reasons: Pilar cyst of scalp Intake Note: This patient presents for Pilar cyst of scalp. Pt c/o; multiple cyst posterior neck and head, discomfort. Associate Research Scientist Required: Yes Associate Research Scientist Language: Glue Wheel Operator Services: Associate Research Scientist Present (Bakari) Information Interpreted: non-clinical & clinical Accompanied by: Self / Same As Patient Allergies No Known Allergies Allergy (Verified 11/01/24 10:14) Medication List - Last Reconciled 11/01/24 by Vaibhav Hanley MD albuterol sulfate 90 mcg/actuation 90 inhalations inhalation DAILY PRN cetirizine 10 mg PO QAM fluticasone propionate 110 mcg/actuation (Flovent HFA) 2 puffs inhalation BID PRN HPI HPI Pilar cyst of scalp: Details: [age] year female old referred for possible scalp cysts. She describes feeling a small lump on the posterior neck near her hairline for about 3 months now. She says that this seemed to have decreased in size She on her occipital area at the scalp she says she also has an area that seemed to have been swollen before but has also decreased in size. Currently says that she does not describe any pain or tenderness. She denies any drainage. [facility] Medical History (Updated 11/01/24 @ 10:25 by Vaibhav Hanley MD) Scalp mass False positive syphilis serology Size of fetus inconsistent with dates in second trimester Encounter for screening for malformation using ultrasound Supervision of normal in second trimester Hx of spontaneous , currently test positive Well woman exam Asthma Seasonal allergies Surgical History History of esophagogastroduodenoscopy (EGD) H/O colonoscopy Previous section complicating Hx of section Family History Maternal Aunt Breast CA Father Diabetes mellitus Mother Diabetes mellitus HTN (hypertension) Maternal Grandfather Colon cancer Paternal Grandmother Stomach cancer Social History Household Members: Spouse and Children Both parents involved: Yes Caregiver staying overnight: No Housing: House Are you a primary care services manager to a significant other at home: No Do you presently have visiting nurse or other home services: No 75 years or older and lives alone: No Alcohol intake: never Patient Tobacco Use Status: Never used Tobacco service: No Current occupational status: unemployed Gender identity: Female Female Reproductive History Menstrual Age of Menarche: 10 Review of Systems Const Denies chills and Denies fever(s) Card Denies chest pain, Denies dyspnea and Denies dyspnea on exertion Resp Denies cough, Denies dyspnea and Denies dyspnea on exertion GI Denies hematochezia and Denies change in bowel habits Denies hematuria Musc Denies back pain and Denies limited range of motion Neuro Denies focal weakness and Denies convulsions Psych Denies depression and Denies mood swings Physical Exam Vital Signs: BMI result Body Mass Index 36.5 Const General: comfortable and no acute distress Orientation/consciousness: patient oriented x3 HEENT Other: On the posterior neck near the hairline is note of a small probably 5 mm mobile nodule that seems to be more of a lymph node On the scalp on the occipital area is note of a vague induration maybe about 5 mm in size as well, no redness, no tenderness Neck Neck: Yes no lymphadenopathy Resp Auscultation: clear to auscultation bilaterally Cardio Rhythm: regular rhythm GI Palpation (GI): Soft to palpation, nontender and no guarding Neuro General: patient oriented x3 Assessment & Plan Assessment & Plan (1) Scalp mass: Code(s): R22.0 - Localized swelling, mass and lump, head Category: Medical Plan: She has 2 small scalp masses as described above. The 1 on the posterior neck seemed to be more of a small lymph node. I told her that since this is much smaller than before, we do not have to excise this as this is not bothering her. The other area with a scalp mass seems to be more of keratotic changes versus a scalp cyst. She also says this is much better. She says that these are not bothering her. I did tell her that if he has start bothering her she noticed increased in size, she can come back to the office to be re-evaluated. She is comfortable with the plan. Coding Level of Care Code New Pt Level 3 (18099) Diagnoses Scalp mass R22.0
[2024-11-01 10:09] VITALS: BMI 36.5
--- OUTSIDE RECORDS SUMMARY | 2024-11-01 10:15 | XMS_ITS | Encounter Summary ---
Author Organization [email or web address] Address [address] [facility] 7t [place] [address] Care Team Providers Care Dietetics Teacher Name Role Phone Gwen Reyna MD Primary [...] documented as of this encounter Care Teams Dietetics Teacher Relationship Specialty Start Date End Date Gwen Reyna MD [address] [place] [phone] PCP - General Internal Medicine 03/15/23 documented as of this encounter
--- OUTSIDE RECORDS SUMMARY | 2024-11-01 10:15 | XMS_ITS | Encounter Summary ---
Author Organization [employer] Address [address] [place] [address] [place] [address] Care Team Providers Care Senior Software Developer Name Role Phone Gwen Reyna MD Primary Care Pro vider Reason for Referral * Consultation (Routine) - Authorized Specialty Diagnoses / Procedures Referred By Tushar dunn Referred To Contact General Surgery Diagnoses Pilar cyst of scalp Jerald Morrison CNP [address] [place] [address] Phone: tel: fax: Vaibhav Hanley MD [address] [place] [address] [place] [address] Phone: tel: fax: Referral ID Status Reason Start Date Expiration Date Visits Requested Visits Authorized [id number] Authorized Specialty Services Required 10/06/2024 10/06/2025 1 1 Reason for Visit * Reason Comments Mass Encounter Details Date Type Department Care Team (Latest Contact Info) Description 10/06/2024 11:15 AM EST Office Visit [facility] MEDICINE [address] [place] [address] Jerald Morrison CNP [address] [place] [address] Acute nonintractable headache, unspecified headache type (Primary [...] this encounter Progress Notes * Jerald Morrison, PHYS THERAPIST - 10/06/2024 11:15 AM EST Images from [...] acetaminophen (Tylenol Extra Strength) 500 MG tablet [facility] HEALTH CARE ADMINISTRATOR Attestation HEALTH CARE ADMINISTRATOR Resident Attestation: Patient was seen and evaluated by Jerald Morrison HEALTH CARE ADMINISTRATOR, in collaboration with Nivia Lomas NP who hasreviewed my assessment and plan. I, Nivia Lomas HEALTH CARE ADMINISTRATOR , have reviewed the resident's note and [...] documented as of this encounter Care Teams Senior Software Developer Relationship Specialty Start Date End Date Gwen Reyna MD [address] [place] [phone] PCP - General Internal Medicine 03/15/23 documented as of this encounter
--- OUTSIDE RECORDS SUMMARY | 2024-11-01 10:15 | XMS_ITS | Encounter Summary ---
Author Organization [employer] Address [address] [place] [address] Care Team Providers Care Nurse Leader Name Role Phone Gwen Reyna MD Primary Care Pro vider Reason for Visit * Reason Onset Date Comments Nurse Triage 12/21/2023 Encounter Details Date Type Department Care Team ([facility] st Contact Info) Description 12/21/2023 Telephone [facility] MEDICINE [address] [place] [address] Gwen Reyna MD [address] [place] [address] Nurse Triage Social History Tobacco Use Types [...] seen. Pt is advised to come to [facility] today for provider to see and Pt [...] pain now The caller accepted this outcome Guinean speaker documented in this encounter Plan of Treatment Not on file documented as of this encounter Visit Diagnoses Not on filedocumented in this encounter Additional Health Concerns Assessment Noted Time PHQ-9 Depression Total Score: 1 05/03/20 3:59 PM EDT documented as of this encounter Care Teams Nurse Leader Relationship Specialty Start Date End Date Gwen Reyna MD [address] [place] [phone] PCP - General Internal Medicine 03/15/23 documented as of this encounter
--- OUTSIDE RECORDS SUMMARY | 2024-11-01 10:15 | XMS_ITS | Encounter Summary ---
Author Organization [employer] Address [address] [place] [address] Care Team Providers Care Maintenance Planning Clerk Name Role Phone Gwen Reyna MD Primary Care Pro vider Encounter Details Date Type Department Care Team ([facility] st Contact Info) Description 09/18/2022 Abstract [facility] [address] [place] [address] Stephenie Newby DDS [address] [place] [address] Social History Tobacco Use Types Packs/Day Years [...] on filedocumented in this encounter Care Teams Maintenance Planning Clerk Relationship Specialty Start Date End Date Gwen Reyna MD [address] [place] [address] PCP - General Internal Medicine 03/15/23 documented as of this encounter
--- OUTSIDE RECORDS SUMMARY | 2024-11-01 10:15 | XMS_ITS | Encounter Summary ---
Author Organization [employer] Address [address] [place] [address] 7 [place] [address] Care Team Providers Care Medicare Biller Name Role Phone Gwen Reyna MD Primary Care Pro vider Reason for Visit * Reason Comments Med Refill Encounter Details Date Type Department Care Team ([facility] st Contact Info) Description 02/23/2024 Refill [facility] [address] [place] [phone] Gwen Reyna MD [address] [place] [address] Social History Tobacco Use Types Packs/Day Years [...] Miscellaneous Notes * Telephone Encounter - Gwen Mcclain MD - 02/24/2024 2:06 PM EDT Pt dont need medication * Telephone Encounter - Veronica Resendiz RN - 02/24/2024 1:15 PM EDT Telephone call placed to pt regarding below message. She states is not taking it chronically. She does not need a refill, the request was an automatic request from [employer]. Please can you check with pt if [...] documented as of this encounter Care Teams Medicare Biller Relationship Specialty Start Date End Date Gwen Reyna MD [address] [place] [phone] PCP - General Internal Medicine 03/15/23 documented as of this encounter
--- OUTSIDE RECORDS SUMMARY | 2024-11-01 10:15 | XMS_ITS | Encounter Summary ---
Author Organization [employer] Address [address] [facility] 7t [place] [address] Care Team Providers Care Plastic Manager Name Role Phone Gwen Reyna MD Primary Care Pro vider Encounter Details Date Type Department Care Team (Late st Contact Info) Description 09/04/2024 Orders Only [facility] External Provider, [facility] Social History Tobacco Use Types Packs/Day [...] as of this encounter Miscellaneous Notes * Result Encounter Note - RODRÍGUEZ Hull - 09/04/2024 11:59 PM EST Ordered by outside provider documented in this encounter Plan of Treatment Not on file documented as of this encounter Procedures Procedure Name Priority Date/Time Associated Diagnosis Comments US PELVIS TRANSVAGINAL Routine 09/04/2024 11:30 AM EST documented in this encounter Results * US Pelvis Transvaginal (09/04/2024 11:30 AM EST) Anatomical Region Laterality Modality Pelvis Ultrasound 09/04/2024 11:3 0 AM EST Narrative 10/03/2024 8:53 AM EST ? [facility] ?[address] ?[place] [address] ? Ultrasound Report ? Signed ? Patient: Jeremy,Deidre ?MR#: [id number] ? : 1990 ?Acct:[id number] ? Age/Sex: 33 / F ?ADM Date: 09/04/24 ? Loc: HO.US ? Attending Dr: Jakob Clarke MD ? Ordering Physician: Jakob Clarke MD ?? Date of Service: 09/04/24 ?? Procedure(s): US pelvic and transvaginal ?? Accession Number(s): [id number] ? cc: Gwen Reyna MD; Jakob Clarke [...] DD/ 1130 ? TD/TT: 09/04/24 1200 ? Arc Air Operator: ? Procedure Note Donotuseinterpreter, Image - 10/03/[address] [address] Ultrasound Report Signed Patient: Ericka Luna#: [id number] : 1990Acct:[id number] Age/Sex: 33 / FADM Date: 09/04/24 Loc: .US Attending Dr: Jakob Clarke MD Ordering Physician: Jakob Clarke MD Date of Service: 09/04/24 Procedure(s): US pelvic and transvaginal Accession Number(s): [id number] cc: Gwen Reyna MD; Jakob Clarke MD [...] by: Yolette Kc MD 10/03/2024 08:50 AM [facility] Dictated By: Yolette Kc MD Signed By: <Electronically signed by Yolette Kc MD in OV> 10/03/24 0850 DD/ 1130 TD/TT: 09/04/24 1200 Arc Air Operator: [facility] External Provider IMG US PROCEDURES Edited Result - Final documented in this encounter Visit Diagnoses Not on filedocumented in this encounter Additional Health Concerns Assessment Noted Time PHQ-9 Depression Total Score: 0 02/04/20 24 11:52 AM EDT documented as of this encounter Care Teams Plastic Manager Relationship Specialty Start Date End Date Gwen Reyna MD [address] [place] [address] PCP - General Internal Medicine 03/15/23 documented as of this encounter
--- OUTSIDE RECORDS SUMMARY | 2024-11-01 10:15 | XMS_ITS | Encounter Summary ---
Author Organization [email or web address] Address [address] [facility] 7t [place] [address] Care Team Providers Care Product Management Intern Name Role Phone Gwen Reyna MD Primary [...] documented as of this encounter Care Teams Product Management Intern Relationship Specialty Start Date End Date Gwen Reyna MD [address] [place] [address] PCP - General Internal Medicine 03/15/23 documented as of this encounter
--- OUTSIDE RECORDS SUMMARY | 2024-11-01 10:15 | XMS_ITS | Encounter Summary ---
Author Organization [employer] Address [address] [place] [address] Care Team Providers Care Map Plotter Name Role Phone Gwen Reyna MD Primary Care Pro vider Reason for Visit * Reason Onset Date Comments Nurse Triage 10/12/2024 Encounter Details Date Type Department Care Team ([facility] st Contact Info) Description 10/12/2024 Telephone [facility] MEDICINE 230 [place], [place] [phone] Gwen Reyna MD 230 [place] [address] Nurse Triage Social History Tobacco Use Types [...] new ones are appearing. Contact pt at [phone] documented in this encounter Plan of Treatment Not on file documented as of this encounter Visit Diagnoses Not on filedocumented in this encounter Additional Health Concerns Assessment Noted Time PHQ-9 Depression Total Score: 0 02/04/20 11:52 AM EDT documented as of this encounter Care Teams Map Plotter Relationship Specialty Start Date End Date Gwen Reyna MD [address] [place] [phone] PCP - General Internal Medicine 03/15/23 documented as of this encounter
--- OUTSIDE RECORDS SUMMARY | 2024-11-01 10:15 | XMS_ITS | Encounter Summary ---
Author Organization [employer] Address [address] [facility] 7t [place] [address] Care Team Providers Care Fly Winder Name Role Phone Gwen Reyna MD Primary Care Pro vider Encounter Details Date Type Department Care Team (Late st Contact Info) Description 01/07/2023 Orders Only [facility] 230 [place], [place] [phone] Alan Austin MD 230 [place] [address] Abnormal uterine bleeding (Primary Dx) Social History [...] tract documented in this encounter Care Teams Fly Winder Relationship Specialty Start Date End Date Gwen Reyna MD [address] [place] [address] PCP - General Internal Medicine 03/15/23 documented as of this encounter
--- OUTSIDE RECORDS SUMMARY | 2024-11-01 10:15 | XMS_ITS | Encounter Summary ---
Author Organization [employer] Address [address] [place] [address] Care Team Providers Care Edger Tailer Name Role Phone Gwen Reyna MD Primary Care Pro vider Reason for Visit * Reason Onset Date Comments Chart Prep 10/05/2024 Encounter Details Date Type Department Care Team ([facility] Contact Info) Description 10/05/2024 Telephone [facility] MEDICINE 230 [place], [place] [phone] Gwen Reyna MD 230 [place] [address] Chart Prep Social History Tobacco Use Types [...] documented as of this encounter Care Teams Edger Tailer Relationship Specialty Start Date End Date Gwen Reyna MD [address] [place] [phone] PCP - General Internal Medicine 03/15/23 documented as of this encounter
--- OUTSIDE RECORDS SUMMARY | 2024-11-01 10:15 | XMS_ITS | Encounter Summary ---
Author Organization [employer] Address [address] [place] [address] Care Team Providers Care Perinatal Social Worker Name Role Phone Gwen Reyna MD Primary Care Pro vider Reason for Visit * Reason Onset Date Comments Nurse Triage 10/04/2024 Encounter Details Date Type Department Care Team ([facility] st Contact Info) Description 10/04/2024 Telephone [facility] MEDICINE 230 [place], [place] [phone] Gwen Reyna MD 230 [place] [address] Nurse Triage Social History Tobacco Use Types [...] PM EST Triage call returned with BLS [phone] Jaya. Unable to reach 787 area code. Additional agent required. BLS # [id number] John to interpret. Patient does not require stump shooter and status updated with consent. Patient reports [...] higher acuity questions Please contact pt at [phone]. documented in this encounter Plan of Treatment Not on file documented as of this encounter Visit Diagnoses Not on filedocumented in this encounter Additional Health Concerns Assessment Noted Time PHQ-9 Depression Total Score: 0 02/04/20 24 11:52 AM EDT documented as of this encounter Care Teams Perinatal Social Worker Relationship Specialty Start Date End Date Gwen Reyna MD [address] [place] [address] PCP - General Internal Medicine 03/15/23 documented as of this encounter
--- OUTSIDE RECORDS SUMMARY | 2024-11-01 10:15 | XMS_ITS | Encounter Summary ---
Author Organization [employer] Address [address] [facility] 7t [place] [address] Care Team Providers Care Biodiesel Engine Specialist Name Role Phone Gwen Reyna MD Primary Care Pro vider Encounter Details Date Type Department Care Team (Late st Contact Info) Description 10/28/2023 Orders Only [facility] MEDICINE [address] [place] [address] ProviderDaquan MD Social History Tobacco Use Types [...] documented as of this encounter Care Teams Biodiesel Engine Specialist Relationship Specialty Start Date End Date Gwen Reyna MD [address] [place] [address] PCP - General Internal Medicine 03/15/23 documented as of this encounter
--- OUTSIDE RECORDS SUMMARY | 2024-11-01 10:15 | XMS_ITS | Encounter Summary ---
Author Organization [employer] Address [address] [facility] 7 [place] [address] Care Team Providers Care Supervisor Game Farm Name Role Phone Gwen Reyna MD Primary Care Pro vider Reason for Visit * Reason Onset Date Comments No Show 10/13/2024 Encounter Details Date Type Department Care Team ([facility] Contact Info) Description 10/13/2024 Telephone [facility] MEDICINE 230 [place], [place] [phone] [facility] 230 [place] [address] No Show Social History Tobacco Use Types [...] documented as of this encounter Care Teams Supervisor Game Farm Relationship Specialty Start Date End Date Gwen Reyna MD [address] [place] [address] PCP - General Internal Medicine 03/15/23 documented as of this encounter
--- OUTSIDE RECORDS SUMMARY | 2024-11-01 10:15 | XMS_ITS | Clinical Summary ---
Author Organization [employer] Address [address] [facility] 7t [place] [address] Care Team Providers Care Dispensary Attendant Name Role Phone Gwen Reyna MD Primary [...] 10 days. 30 tablet 10/06/19 025 Active Problems Problem Noted Date Diagnosed Date [...] 9:59 AM EDT): -pelvic US 01/07/2023-referred by BAILING MACHINE OPERATOR: there is a stable complex left ovarian cyst with calcification of 1.3x0.9x1.1cm ,endometrial strip is 20 mm -with active bleeding during the exam ,no masses no polyps seen. -continue to monitor ovarian cyst with her BAILING MACHINE OPERATOR Health care maintenance 02/02/2023 Assessment & Plan (05/04/2023 9:57 AM EDT): - from records -pap smear 03/2021 Neg/HPV neg -per pt had pap smear 12/2022 w BAILING MACHINE OPERATOR ( [facility])-normal per pt -not able to get that record -contraception :IUD for menorrhagia and , states has vasectomy -vaccines: s/p covid 19 vaccine x 4-per pt got bivalent dose-pt will bring record.s/p tdap in 2021 , s/P p20 x asthma . HPV x1 in 2011---per pt was told by her BAILING MACHINE OPERATOR that had already 3 doses of HPV-requested to [place] to get record-not able to obtain ,hepB immune Assessment & Plan (03/12/2023 9:55 PM EDT): -pap smear 12/2022 w BAILING MACHINE OPERATOR ( [facility])-normal per pt -contraception :none, states has vasectomy -vaccines: s/p covid 19 vaccine x 4-per pt got bivalent dose-pt will bring record.s/p tdap in 2021 , s/P p20 x asthma . HPV x1 in 2011---per pt was told by her BAILING MACHINE OPERATOR that had already 3 doses of HPV-requested to [place] to get record,hepB immune Assessment & Plan (02/02/2023 1:17 PM EDT): -pap smear 12/2022 w BAILING MACHINE OPERATOR ( [facility])-normal per pt -contraception : states has vasectomy [...] x1 in 2011---pt will check w her BAILING MACHINE OPERATOR if received any more HPV vaccine w them or if plan to vaccinate if not and if pt interested will start vaccination Obesity (BMI 35.0-39.9 without comorbidity) 01/12 Assessment & Plan (05/04/2023 9:52 AM EDT): BMI 36.4 -Advised pt to improve diet and exercise,discussed healthy life style -referred to multimedia specialist -will monitor weight in next 6 months -if no improvement w diet and exercise will discuss w pt about possible medical options vs bariatric surgery referral Assessment & Plan (03/12/2023 9:49 PM EDT): BMI 36.4 -Advised pt to improve diet and exercise,discussed healthy life style -discussed multimedia specialist referral -Apt x 03/2023 Assessment & Plan (02/02/2023 1:07 PM EDT): BMI 36.4 -Advised pt to improve diet and exercise,discussed healthy life style -discussed multimedia specialist referral -referred today Elevated blood pressure reading 02/02/2023 Assessment & Plan (05/04/2023 12:58 PM EDT): Pt here w normal BP ,at home has some elevated BP readings some days normal and has seen as high 170s ? EKG here 11/2022 Normal Echo 04/28/2023 : normal ,EF > 70% Doppler Renal US 04/19/2023: hemodynamically significant right renal artery stenosis -pt f w distribution transformer assembler -per pt was told to have episodic elevated BP and on eval found to have right renal artery stenosis For which has apt on 05/06/2023 with vascular specialist referred by cards. -referred to multimedia specialist -already -low salt diet -continue care with distribution transformer assembler and now vascular Assessment & Plan (03/12/2023 [...] machine or cuff are ok -referred to multimedia specialist -has apt x 03/2023 -low salt diet [...] med as low dose HDCTZ -referred to multimedia specialist today -low salt diet -monitor here in 5 weeks Pre-diabetes 01/13/2023 Assessment & Plan (05/04/2023 9:51 AM EDT): 12/2022 Hb1AC 5.7 -Advised pt to improve diet and exercise,discussed healthy life style -discussed multimedia specialist referral -already referred -will repeat hb1AC in 12 months at annual exam Assessment & Plan (03/12/2023 9:49 PM EDT): 12/2022 Hb1AC 5.7 -Advised pt to improve diet and exercise,discussed healthy life style -discussed multimedia specialist referral -apt x 03/2023 -will repeat hb1AC in 12 months at annual exam Assessment & Plan (02/02/2023 1:07 PM EDT): 12/2022 Hb1AC 5.7 -Advised pt to improve diet and exercise,discussed healthy life style -discussed multimedia specialist referral -referred today -will repeat hb1AC in 12 months at annual exam Microcytic anemia 01/13/2023 Assessment & Plan (05/04/2023 10:02 AM EDT): 04/2023 Hb 8.8<---10.2, htco 32--,12/2022 platelets elevated at 556, MCV low at 70 Reports hx of menorrhagia -last 4-5 days -using 7 pads a day Already f w BAILING MACHINE OPERATOR S/p IUD placed with no improvement on heavy bleeding. -pelvic US 01/07/2023: there is a stable complex left ovarian cyst with calcification of 1.3x0.9x1.1cm ,endometrial strip is 20 mm -with active bleeding during the exam ,no masses no polyps seen. -continue care w BAILING MACHINE OPERATOR -has apt tomorrow -continue iron TID and vit C -has apt to start care with hoop flaring machine operator helper in 1 week ( 05/14/2023) -will need [...] 7 pads a day Already f w BAILING MACHINE OPERATOR,denies melenas, hematuria Reports had aprox 5 y ago EGD and colonoscopy per pt told to be normal -continue care w BAILING MACHINE OPERATOR -referred x pelvic US -states done recently -Told to have an ovarian cyst-requested today to [facility] to get report -per pt not rec x oral contraceptives x bleeding to avoid risk to increase BP but offered IUD but refused-pt will f up w BAILING MACHINE OPERATOR next month -continue iron TID and vit [...] 7 pads a day Already f w BAILING MACHINE OPERATOR -continue care w BAILING MACHINE OPERATOR -referred x pelvic US -states done recently -will bring record at her next apt here -needs to f results 1st w BAILING MACHINE OPERATOR -continue iron BID and vit C started [...] Type Department Care Team Description 10/13/[address] [address] [place], [place]ATA No Show 10/12/2024 Telephone [facility] [address] [place] [address] Gwen Reyna MD Nurse Triage 10/06/2024 11:15 AM EST Office Visit [address] [address] Jerald Morrison CNP Acute nonintractable headache, unspecified headache type (Primary Dx); Pilar cyst of scalp 10/06/2024 Travel 10/05/[address] [address] Gwen Reyna MD Chart Prep 10/05/2024 Travel 10/04/2024 Telephone [facility] MEDICINE 230 [place] [address] Gwen Reyna MD Nurse Triage 09/04/2024 Orders Only [facility] External Provider, [facility] from Last 3 Months Immunizations Name Administration [...] - ADULT Routine 10/08/2022 8:00 AM EST INTRAORAL - COMPLETE SERIES OF RADIOGRAPHIC IMAGES Routine 09/10/2022 3:00 PM EST COMPREHENSIVE ORAL EVALUATION - NEW OR ESTABLISHED PATIENT Routine 09/10/2022 3:00 PM EST from Last 3 Months or Most Recently Relevant to Health Maintenance Results * US Pelvis Transvaginal (09/04/2024 11:30 AM EST) Anatomical Region Laterality Modality Pelvis Ultrasound 09/04/2024 11:3 0 AM EST Narrative 10/03/2024 8:53 AM EST ? [facility] ?[address] ?[place] [address] ? Ultrasound Report ? Signed ? Patient: Jeremy,Noe ?MR#: [id number] ? : 1990 ?Acct:[id number] ? Age/Sex: 33 / F ?ADM Date: 09/04/24 ? Loc: HO.US ? Attending Dr: Jakob Clarke MD ? Ordering Physician: Jakob Clarke MD ?? Date of Service: 09/04/24 ?? Procedure(s): US pelvic and transvaginal ?? Accession Number(s): [id number] ? cc: Gwen Reyna MD; Jakob Clarke [...] DD/ 1130 ? TD/TT: 09/04/24 1200 ? Backend Python Developer: ? Procedure Note [place], Image - 10/03/[address] [address] Ultrasound Report Signed Patient: Ericka Luna#: [id number] : 1990Acct:[id number] Age/Sex: 33 / FADM Date: 09/04/24 Loc: HO.US Attending Dr: Jakob Clarke MD Ordering Physician: Jakob Clarke MD Date of Service: 09/04/24 Procedure(s): US pelvic and transvaginal Accession Number(s): [id number] cc: Gwen Reyna MD; Jakob Clarke MD [...] 10/03/2024 08:50 AM EST Dictated By: Yolette cK MD Signed By: <Electronically signed by Yolette Kc MD in OV> 10/03/24 0850 DD/ 1130 TD/TT: 09/04/24 1200 Backend Python Developer: [facility] External Provider IMG US PROCEDURES Edited Result - Final * Hepatitis C Antibody with Reflex to HCV, RNA, Quantitative, Real-Time PCR (03/15/2024 12:36 PM EDT) Hepatitis C Antibody Nonreactive Nonreactive [facility] Comment:Antibodies to HCV no t detected; does not exclude early acuteHCV infection. Blood Venous blood specimen / Unknown 03/15/2024 12:36 PM EDT 03/15/2024 1:07 PM EDT Gwen Mcclain MD LAB BLOOD ORDERAB LES Final Result [facility] [address] [place] [address] [phone] * HIV-1/2 Antigen and Antibodies, Fourth Generation, with Reflexes (03/15/2024 12:36 PM EDT) HIV AB/AG Nonreactive Nonreactive [facility] Comment:HIV-1 p24 Ag and/or HIV-1/HIV-2 Ab not detected.A test result that is nonreactive does not exclude thepossibility of exposure to or infection with HIV-1 and/orHIV-2. Nonreactive results in this assay for individualswith prior exposure to HIV-1 and/or HIV-2 may be due toantigen and antibody levels that are below the limit ofdetection of this assay.The [facility] HIV Ag/Ab Combo assay result andsupplemental assay results should be interpreted inconjunction with the patient's clinical presentation,history and other laboratory results. If the results areinconsistent with clinical evidence, additional testing issuggested to confirm the result. Blood Venous blood specimen / Unknown 03/15/2024 12:36 PM EDT 03/15/2024 1:07 PM EDT us Gwen Mcclain MD LAB BLOOD ORDERAB LES Final Result [facility] [address] [place] [phone] * (ABNORMAL) Lipid Panel, Standard (03/15/2024 12:36 PM EDT) Triglycerides 110 <150 mg/dL [facility] Comment:Desirable Triglyceri de: less than 150 mg/dLBorderline High Triglyceride 150-199 mg/dLHigh Triglyceride: 200-499 mg/dLVery High Triglyceride: greater than or equal to 5OO mg/dL Cholesterol 174 <200 mg/dL [facility] Comment:Desirable Cholestero l: less than 200 mg/dLBorderline High Cholesterol: 200-239 mg/dLHigh Cholesterol: greater than 239 mg/dL LDL Cholesterol Calculated 102(H) <100 mg/dL [facility] Comment:Desirable LDL: less than 100 mg/dLNear Optimal/Above Optimal LDL: 110- 129 mg/dLBorderline High LDL: 130-159 mg/dLHigh LDL: 160-189 mg/dLVery High LDL: greater than or equal to 190 mg/dL HDL Cholesterol 50 >40 mg/dL [facility] Comment:Desirable HDL: great er than 40 mg/dL Note: This HDL assay may give artificially low results in patients with liver disease. Blood Venous blood specimen / Unknown 03/15/2024 12:36 PM EDT 03/15/2024 1:07 PM EDT Gwen Mcclain MD LAB BLOOD ORDERAB LES Final Result [facility] [address] [place] [address] [phone] from Last 3 Months or Most Recently Relevant to Health Maintenance [place] [address] [place] [address] HMO [facility] STANDARD DENTAL-[facility] MEDICAID STAND ADULT DENTAL [facility] Care Teams Dispensary Attendant Relationship Specialty Start Date End Date Gwen Reyna MD [address] [place] [id number] PCP - General Internal Medicine 03/15/23
== END 2024-11-01 10:24 | disposition home or self-care (01) ==
PROVIDERS: PCP Student in an Organized Health Care Education/Training Program; Visit Provider Surgery
DX: R22.0 Localized swelling, mass and lump, head (principal)
CPT/HCPCS: 99203

== ENCOUNTER → 2024-11-01 10:56 | Outpatient (BNV) | payer BC, MEDICAID, SELFPAY | PROVIDERS: PCP Student in an Organized Health Care Education/Training Program; Visit Provider Radiology Diagnostic Radiology | DX: N83.201 Unspecified ovarian cyst, right side (principal); N83.202 Unspecified ovarian cyst, left side | CPT/HCPCS: 72197 ==

== ENCOUNTER 2024-11-01 11:14 | Outpatient (REF) | payer BC, MEDICAID, SELFPAY ==
--- NOTE | ~2024-11-01 | MR_ITS ---
CLINICAL HISTORY: N83.299 - Other ovarian cyst, unspecified side MR of the pelviswith and without gadolinium Comparison: US/UT/SR - US PELVIC AND TRANSVAGINAL - 09/04/24 11:32 EST US/SR - US PELVIC AND TRANSVAGINAL - 06/08/24 11:25 EDT Findings: There is a focal defect within the myometrium of the lower uterine segment anteriorly, suggestive of a section scar. Intrauterine device is present. Uterus otherwise is within normal limits. Junctional zone is normal in appearance. The bilateral ovaries are within normal limits. There are multiple bilateral ovarian cysts, largest of which measure 20 mm on the right ovary and 11 mm on the left ovary. Both ovaries are located within the posterior pelvis. Urinary bladder is within normal limits. Visualized bowel loops and vasculature are normal in caliber. No adenopathy. No free fluid. Visualized osseous structures are within normal limits. IMPRESSION: 1. Possible section defect within the lower uterine segment anteriorly. 2. Intrauterine device. 3. Normal sized ovarian cysts bilaterally. No evidence of malignancy. This document has been electronically signed by: Dago Aguilar MD on 11/02/2024 14:48:30
--- OUTSIDE RECORDS SUMMARY | 2024-11-01 11:57 | XMS_ITS | Encounter Summary ---
Author Organization [employer] Address [address] [facility] 7t [place] [address] Care Team Providers Care Physician Pediatrician Name Role Phone Gwen Reyna MD Primary [...] documented as of this encounter Care Teams Physician Pediatrician Relationship Specialty Start Date End Date Gwen Reyna MD [address] [place] [phone] PCP - General Internal Medicine 03/15/23 documented as of this encounter
--- OUTSIDE RECORDS SUMMARY | 2024-11-01 11:57 | XMS_ITS | Encounter Summary ---
Author Organization [employer] Address [address] [place] [address] 7 [place] [address] Care Team Providers Care Laborer Wrecking And Salvaging Name Role Phone Gwen Reyna MD Primary Care Pro vider Reason for Visit * Reason Comments Med Refill Encounter Details Date Type Department Care Team ([facility] st Contact Info) Description 02/23/2024 Refill [facility] [address] [place] [address] [phone] Gwen Reyna MD [address] [place] [address] Social History Tobacco Use Types Packs/Day Years [...] the request was an automatic request from [employer]. Please can you check with pt if [...] documented as of this encounter Care Teams Laborer Wrecking And Salvaging Relationship Specialty Start Date End Date Gwen Reyna MD [address] [place] [address] PCP - General Internal Medicine 03/15/23 documented as of this encounter
--- OUTSIDE RECORDS SUMMARY | 2024-11-01 11:57 | XMS_ITS | Encounter Summary ---
Author Organization [employer] Address [address] [place] [address] Care Team Providers Care Supervisor Underwriting Clerks Name Role Phone Gwen Reyna MD Primary Care Pro vider Reason for Visit * Reason Onset Date Comments Nurse Triage 12/21/2023 Encounter Details Date Type Department Care Team ([facility] st Contact Info) Description 12/21/2023 Telephone [facility] MEDICINE [address] [place] [address] Gwen Reyna MD [address] [place] [address] Nurse Triage Social History Tobacco Use Types [...] seen. Pt is advised to come to [facility] today for provider to see [...] pain now The caller accepted this outcome Citizen Of [place] speaker documented in this encounter Plan of Treatment Not on file documented as of this encounter Visit Diagnoses Not on filedocumented in this encounter Additional Health Concerns Assessment Noted Time PHQ-9 Depression Total Score: 1 05/03/20 3:59 PM EDT documented as of this encounter Care Teams Supervisor Underwriting Clerks Relationship Specialty Start Date End Date Gwen Reyna MD [address] [place] [address] PCP - General Internal Medicine 03/15/23 documented as of this encounter
--- OUTSIDE RECORDS SUMMARY | 2024-11-01 11:57 | XMS_ITS | Encounter Summary ---
Author Organization [employer] Address [address] [place] [address] Care Team Providers Care Food Runner Name Role Phone Gwen Reyna MD Primary Care Pro vider Reason for Visit * Reason Onset Date Comments Nurse Triage 10/04/2024 Encounter Details Date Type Department Care Team ([facility] st Contact Info) Description 10/04/[address] [facility] MEDICINE [address] [place], [place] [phone] Gwen Reyna MD 230 [place] [address] Nurse Triage Social History Tobacco Use Types [...] PM EST Triage call returned with BLS [id number] Jaya. Unable to reach 787 area code. Additional agent required. BLS # [id number] John to interpret. Patient does not require tool grinding technician and status updated with consent. Patient reports [...] higher acuity questions Please contact pt at [phone]. documented in this encounter Plan of Treatment Not on file documented as of this encounter Visit Diagnoses Not on filedocumented in this encounter Additional Health Concerns Assessment Noted Time PHQ-9 Depression Total Score: 0 02/04/20 24 11:52 AM EDT documented as of this encounter Care Teams Food Runner Relationship Specialty Start Date End Date Gwen Reyna MD [address] [place] [address] PCP - General Internal Medicine 03/15/23 documented as of this encounter
--- OUTSIDE RECORDS SUMMARY | 2024-11-01 11:57 | XMS_ITS | Encounter Summary ---
Author Organization [employer] Address [address] [place] [address] [place] [address] Care Team Providers Care Optical Instrument Inspector Name Role Phone Gwen Reyna MD Primary Care Pro vider Reason for Referral * Consultation (Routine) - Authorized Specialty Diagnoses / Procedures Referred By Tushar dunn Referred To Contact General Surgery Diagnoses Pilar cyst of scalp Jerald Morrison CNP [address] [place] [address] Phone: tel: fax: Vaibhav Hanley MD [address] [place] [address] [place] [address] Phone: tel: fax: Referral ID Status Reason Start Date Expiration Date Visits Requested Visits Authorized [id number] Authorized Specialty Services Required 10/06/2024 10/06/2025 1 1 Reason for Visit * Reason Comments Mass Encounter Details Date Type Department Care Team (Latest Contact Info) Description 10/06/2024 11:15 AM EST Office Visit [facility] MEDICINE [address] [place] [address] Jerald Morrison CNP 230 [place] [address] Acute nonintractable headache, unspecified headache type (Primary [...] your housing situation today? I have dickson godrfey 07/19/[address] you li [...] this encounter Progress Notes * Jerald Morrison, DEBONER - 10/06/2024 11:15 AM EST Images from [...] acetaminophen (Tylenol Extra Strength) 500 MG tablet [facility] MOTION PICTURE COMMENTATOR Attestation MOTION PICTURE COMMENTATOR Resident Attestation: Patient was seen and evaluated by Jerald Morrison MOTION PICTURE COMMENTATOR, in collaboration with Nivia Lomas NP who hasreviewed my assessment and plan. I, Nivia Lomas MOTION PICTURE COMMENTATOR , have reviewed the resident's note and [...] documented as of this encounter Care Teams Optical Instrument Inspector Relationship Specialty Start Date End Date Gwen Reyna MD [address] [place] [address] PCP - General Internal Medicine 03/15/23 documented as of this encounter
--- OUTSIDE RECORDS SUMMARY | 2024-11-01 11:57 | XMS_ITS | Encounter Summary ---
Author Organization [employer] Address [address] [place] [address] Care Team Providers Care Cushion Stuffer Name Role Phone Gwen Reyna MD Primary Care Pro vider Reason for Visit * Reason Onset Date Comments Chart Prep 10/05/2024 Encounter Details Date Type Department Care Team ([facility] Contact Info) Description 10/05/2024 Telephone [facility] MEDICINE [address] [place], [place] [phone] Gwen Reyna MD 230 [place] [address] Chart Prep Social History Tobacco Use Types [...] documented as of this encounter Care Teams Cushion Stuffer Relationship Specialty Start Date End Date Gwen Reyna MD [address] [place] [address] PCP - General Internal Medicine 03/15/23 documented as of this encounter
--- OUTSIDE RECORDS SUMMARY | 2024-11-01 11:58 | XMS_ITS | Encounter Summary ---
Author Organization [employer] Address [address] [place] [address] Care Team Providers Care Sheet Metal Helper Name Role Phone Gwen Reyna MD Primary Care Pro vider Reason for Visit * Reason Onset Date Comments Nurse Triage 10/12/2024 Encounter Details Date Type Department Care Team ([facility] st Contact Info) Description 10/12/2024 Telephone [facility] MEDICINE [address] [place], [place] [phone] Gwen Reyna MD 230 [place] [address] Nurse Triage Social History Tobacco Use Types [...] new ones are appearing. Contact pt at [phone] documented in this encounter Plan of Treatment Not on file documented as of this encounter Visit Diagnoses Not on filedocumented in this encounter Additional Health Concerns Assessment Noted Time PHQ-9 Depression Total Score: 0 02/04/20 11:52 AM EDT documented as of this encounter Care Teams Sheet Metal Helper Relationship Specialty Start Date End Date Gwen Reyna MD [address] [place] [phone] PCP - General Internal Medicine 03/15/23 documented as of this encounter
--- OUTSIDE RECORDS SUMMARY | 2024-11-01 11:58 | XMS_ITS | Clinical Summary ---
Author Organization [employer] Address [address] [place] [address] Care Team Providers Care Activities Aide Name Role Phone Gwen Reyna MD Primary [...] 9:59 AM EDT): -pelvic US 01/07/2023-referred by MAINTENANCE MECHANIC SUPERVISOR: there is a stable complex left ovarian cyst with calcification of 1.3x0.9x1.1cm ,endometrial strip is 20 mm -with active bleeding during the exam ,no masses no polyps seen. -continue to monitor ovarian cyst with her MAINTENANCE MECHANIC SUPERVISOR Health care maintenance 02/02/2023 Assessment & Plan (05/04/2023 9:57 AM EDT): - from records -pap smear 03/2021 Neg/HPV neg -per pt had pap smear 12/2022 w MAINTENANCE MECHANIC SUPERVISOR ( [facility])-normal per pt -not able to get that record -contraception :IUD for menorrhagia and , states has vasectomy -vaccines: s/p covid 19 vaccine x 4-per pt got bivalent dose-pt will bring record.s/p tdap in 2021 , s/P p20 x asthma . HPV x1 in 2011---per pt was told by her MAINTENANCE MECHANIC SUPERVISOR that had already 3 doses of HPV-requested to [place] to get record-not able to obtain ,hepB immune Assessment & Plan (03/12/2023 9:55 PM EDT): -pap smear 12/2022 w MAINTENANCE MECHANIC SUPERVISOR ( [facility])-normal per pt -contraception :none, states has vasectomy -vaccines: s/p covid 19 vaccine x 4-per pt got bivalent dose-pt will bring record.s/p tdap in 2021 , s/P p20 x asthma . HPV x1 in 2011---per pt was told by her MAINTENANCE MECHANIC SUPERVISOR that had already 3 doses of HPV-requested to [place] to get record,hepB immune Assessment & Plan (02/02/2023 1:17 PM EDT): -pap smear 12/2022 w MAINTENANCE MECHANIC SUPERVISOR ( [facility])-normal per pt -contraception : states has [...] x1 in 2011---pt will check w her MAINTENANCE MECHANIC SUPERVISOR if received any more HPV vaccine w them or if plan to vaccinate if not and if pt interested will start vaccination Obesity (BMI 35.0-39.9 without comorbidity) 01/12 Assessment & Plan (05/04/2023 9:52 AM EDT): BMI 36.4 -Advised pt to improve diet and exercise,discussed healthy life style -referred to operations logistics analyst -will monitor weight in next 6 months -if no improvement w diet and exercise will discuss w pt about possible medical options vs bariatric surgery referral Assessment & Plan (03/12/2023 9:49 PM EDT): BMI 36.4 -Advised pt to improve diet and exercise,discussed healthy life style -discussed operations logistics analyst referral -Apt x 03/2023 Assessment & Plan (02/02/2023 1:07 PM EDT): BMI 36.4 -Advised pt to improve diet and exercise,discussed healthy life style -discussed operations logistics analyst referral -referred today Elevated blood pressure reading 02/02/2023 Assessment & Plan (05/04/2023 12:58 PM EDT): Pt here w normal BP ,at home has some elevated BP readings some days normal and has seen as high 170s ? EKG here 11/2022 Normal Echo 04/28/2023 : normal ,EF > 70% Doppler Renal US 04/19/2023: hemodynamically significant right renal artery stenosis -pt f w line up examiner -per pt was told to have episodic elevated BP and on eval found to have right renal artery stenosis For which has apt on 05/06/2023 with vascular specialist referred by cards. -referred to operations logistics analyst -already -low salt diet -continue care with line up examiner and now vascular Assessment & Plan (03/12/2023 [...] machine or cuff are ok -referred to operations logistics analyst -has apt x 03/2023 -low salt diet [...] med as low dose HDCTZ -referred to operations logistics analyst today -low salt diet -monitor here in 5 weeks Pre-diabetes 01/13/2023 Assessment & Plan (05/04/2023 9:51 AM EDT): 12/2022 Hb1AC 5.7 -Advised pt to improve diet and exercise,discussed healthy life style -discussed operations logistics analyst referral -already referred -will repeat hb1AC in 12 months at annual exam Assessment & Plan (03/12/2023 9:49 PM EDT): 12/2022 Hb1AC 5.7 -Advised pt to improve diet and exercise,discussed healthy life style -discussed operations logistics analyst referral -apt x 03/2023 -will repeat hb1AC in 12 months at annual exam Assessment & Plan (02/02/2023 1:07 PM EDT): 12/2022 Hb1AC 5.7 -Advised pt to improve diet and exercise,discussed healthy life style -discussed operations logistics analyst referral -referred today -will repeat hb1AC in 12 months at annual exam Microcytic anemia 01/13/2023 Assessment & Plan (05/04/2023 10:02 AM EDT): 04/2023 Hb 8.8<---10.2, htco 32--,12/2022 platelets elevated at 556, MCV low at 70 Reports hx of menorrhagia -last 4-5 days -using 7 pads a day Already f w MAINTENANCE MECHANIC SUPERVISOR S/p IUD placed with no improvement on heavy bleeding. -pelvic US 01/07/2023: there is a stable complex left ovarian cyst with calcification of 1.3x0.9x1.1cm ,endometrial strip is 20 mm -with active bleeding during the exam ,no masses no polyps seen. -continue care w MAINTENANCE MECHANIC SUPERVISOR -has apt tomorrow -continue iron TID and vit C -has apt to start care with raisin washer in 1 week ( 05/14/2023) -will need [...] 7 pads a day Already f w MAINTENANCE MECHANIC SUPERVISOR,denies melenas, hematuria Reports had aprox 5 y ago EGD and colonoscopy per pt told to be normal -continue care w MAINTENANCE MECHANIC SUPERVISOR -referred x pelvic US -states done recently -Told to have an ovarian cyst-requested today to MELINDA to get report -per pt not rec x oral contraceptives x bleeding to avoid risk to increase BP but offered IUD but refused-pt will f up w MAINTENANCE MECHANIC SUPERVISOR next month -continue iron TID and vit [...] 7 pads a day Already f w MAINTENANCE MECHANIC SUPERVISOR -continue care w MAINTENANCE MECHANIC SUPERVISOR -referred x pelvic US -states done recently -will bring record at her next apt here -needs to f results 1st w MAINTENANCE MECHANIC SUPERVISOR -continue iron BID and vit C started [...] Type Department Care Team Description 10/13/[address] [address] [place], [place] No Show 10/12/2024 Telephone [facility] [address] [place] [address] Gwen Reyna MD Nurse Triage 10/06/2024 11:15 AM EST Office Visit [address] [address] Jerald Morrison CNP Acute nonintractable headache, unspecified headache type (Primary Dx); Pilar cyst of scalp 10/06/2024 Travel 10/05/[address] [address] Gwen Reyna MD Chart Prep 10/05/2024 Travel 10/04/2024 Telephone [facility] MEDICINE [address] [place] [address] Gwen Reyna MD Nurse Triage 09/04/2024 Orders Only [facility] External Provider, [facility] from Last 3 Months Immunizations Name [...] EST Narrative 10/03/2024 8:53 AM EST ? [facility] ?[address] ?[place] [address] ? Ultrasound Report ? Signed ? Patient: Jeremy,Noe ?MR#: [id number] ? : 1990 ?Acct:[id number] ? Age/Sex: 33 / F ?ADM Date: 09/04/24 ? Loc: HO.US ? Attending Dr: Jakob Clarke MD ? Ordering Physician: Jakob Clarke MD ?? Date of Service: 09/04/24 ?? Procedure(s): US pelvic and transvaginal ?? Accession Number(s): [id number] ? cc: Gwen Reyna MD; Jakob Clarke [...] DD/ 1130 ? TD/TT: 09/04/24 1200 ? Internet Security Specialist: ? Procedure Note Lennox, Image - 10/03/[address] [address] Ultrasound Report Signed Patient: Ericka Luna#: [id number] : 1990Acct:[id number] Age/Sex: 33 / FADM Date: 09/04/24 Loc: HO.US Attending Dr: Jakob Clarke MD Ordering Physician: Jakob Clarke MD Date of Service: 09/04/24 Procedure(s): US pelvic and transvaginal Accession Number(s): [id number] cc: Gwen Reyna MD; Jakob Clarke MD [...] 10/03/24 0850 DD/ 1130 TD/TT: 09/04/24 1200 Internet Security Specialist: [facility] External Provider IMG US PROCEDURES Edited Result - Final * Hepatitis C Antibody with Reflex to HCV, RNA, Quantitative, Real-Time PCR (03/15/2024 12:36 PM EDT) Hepatitis C Antibody Nonreactive Nonreactive [facility] Comment:Antibodies to HCV no t detected; does not exclude early acuteHCV infection. Blood Venous blood specimen / Unknown 03/15/2024 12:36 PM EDT 03/15/2024 1:07 PM EDT Gwen Mcclain MD LAB BLOOD ORDERAB LES Final Result [facility] [address] [place] [address] [phone] * HIV-1/2 Antigen and Antibodies, Fourth Generation, with Reflexes (03/15/2024 12:36 PM EDT) HIV AB/AG Nonreactive Nonreactive [facility] Comment:HIV-1 p24 Ag and/or HIV-1/HIV-2 Ab not detected.A test result that is nonreactive does not exclude thepossibility of exposure to or infection with HIV-1 and/orHIV-2. Nonreactive results in this assay for individualswith prior exposure to HIV-1 and/or HIV-2 may be due toantigen and antibody levels that are below the limit ofdetection of this assay.[employer] HIV Ag/Ab Combo assay result andsupplemental assay results should be interpreted inconjunction with the patient's clinical presentation,history and other laboratory results. If the results areinconsistent with clinical evidence, additional testing issuggested to confirm the result. Blood Venous blood specimen / Unknown 03/15/2024 12:36 PM EDT 03/15/2024 1:07 PM EDT us Gwen Mcclain MD LAB BLOOD ORDERAB LES Final Result [facility] [address] [place] [phone] * (ABNORMAL) Lipid Panel, Standard (03/15/2024 12:36 PM EDT) Triglycerides 110 <150 mg/dL [facility] Comment:Desirable Triglyceri de: less than 150 mg/dLBorderline High Triglyceride 150-199 mg/dLHigh Triglyceride: 200-499 mg/dLVery High Triglyceride: greater than or equal to 5OO mg/dL Cholesterol 174 <200 mg/dL [facility] Comment:Desirable Cholestero l: less than 200 mg/dLBorderline High Cholesterol: 200-239 mg/dLHigh Cholesterol: greater than 239 mg/dL LDL Cholesterol Calculated 102(H) <100 mg/dL [facility] Comment:Desirable LDL: less than 100 mg/dLNear Optimal/Above Optimal LDL: 110- 129 mg/dLBorderline High LDL: 130-159 mg/dLHigh LDL: 160-189 mg/dLVery High LDL: greater than or equal to 190 mg/dL HDL Cholesterol 50 >40 mg/dL [facility] Comment:Desirable HDL: great er than 40 mg/dL Note: This HDL assay may give artificially low results in patients with liver disease. Blood Venous blood specimen / Unknown 03/15/2024 12:36 PM EDT 03/15/2024 1:07 PM EDT Gwen Mcclain MD LAB BLOOD ORDERAB LES Final Result [facility] [address] [place] [address] [phone] from Last 3 Months or Most Recently Relevant to Health Maintenance [place] [address] [place] [address] HMO [facility] STANDARD DENTAL-[facility] MEDICAID STAND [facility]ULT [facility]AL [facility] Care Teams Activities Aide Relationship Specialty Start Date End Date Gwen Reyna MD [address] [place] [address] PCP - General Internal Medicine 03/15/23
--- OUTSIDE RECORDS SUMMARY | 2024-11-01 11:58 | XMS_ITS | Encounter Summary ---
Author Organization [employer] Address [address] [place] [address] Care Team Providers Care Turf Grower Name Role Phone Gwen Reyna MD Primary Care Pro vider Encounter Details Date Type Department Care Team ([facility] st Contact Info) Description 09/18/[address] [facility] ADULT DENTAL [address] [place] [address] Stephenie Newby DDS [address] [place] [address] Social History Tobacco Use Types Packs/Day Years [...] on filedocumented in this encounter Care Teams Turf Grower Relationship Specialty Start Date End Date Gwen Reyna MD [address] [place] [address] PCP - General Internal Medicine 03/15/23 documented as of this encounter
--- OUTSIDE RECORDS SUMMARY | 2024-11-01 11:58 | XMS_ITS | Encounter Summary ---
Author Organization [employer] Address [address] [facility] 7 [place] [address] Care Team Providers Care Pmo Project Manager Name Role Phone Gwen Reyna MD Primary Care Pro vider Reason for Visit * Reason Onset Date Comments No Show 10/13/2024 Encounter Details Date Type Department Care Team ([facility] Contact Info) Description 10/13/2024 Telephone [facility] MEDICINE [address] [place], [place] [phone] [facility] [address] [place] [address] No Show Social History Tobacco Use Types [...] documented as of this encounter Care Teams Pmo Project Manager Relationship Specialty Start Date End Date Gwen Reyna MD [address] [place] [address] PCP - General Internal Medicine 03/15/23 documented as of this encounter
--- OUTSIDE RECORDS SUMMARY | 2024-11-01 11:58 | XMS_ITS | Encounter Summary ---
Author Organization [employer] Address [address] [facility] 7t [place] [address] Care Team Providers Care Decaler Name Role Phone Gwen Reyna MD Primary [...] documented as of this encounter Care Teams Decaler Relationship Specialty Start Date End Date Gwen Reyna MD [address] [place] [address] PCP - General Internal Medicine 03/15/23 documented as of this encounter
--- OUTSIDE RECORDS SUMMARY | 2024-11-01 11:58 | XMS_ITS | Encounter Summary ---
Author Organization [employer] Address [address] [facility] 7t [place] [address] Care Team Providers Care Physician Gynecologist Name Role Phone Gwen Reyna MD Primary Care Pro vider Encounter Details Date Type Department Care Team (Late st Contact Info) Description 10/28/2023 Orders Only [facility] MEDICINE [address] [place] [address] ProviderDaquan MD Social History Tobacco Use Types [...] as of this encounter Care Teams Physician Gynecologist Relationship Specialty Start Date End Date Gwen Reyna MD [address] [place] [phone] PCP - General Internal Medicine 03/15/23 documented as of this encounter
--- OUTSIDE RECORDS SUMMARY | 2024-11-01 11:58 | XMS_ITS | Encounter Summary ---
Author Organization [employer] Address [address] [facility] 7t [place] [address] Care Team Providers Care Pot Runner Name Role Phone Gwen Reyna MD Primary Care Pro vider Encounter Details Date Type Department Care Team (Late st Contact Info) Description 09/04/2024 Orders Only [facility] External Provider, [facility] Social History Tobacco Use Types Packs/Day Years [...] EST Narrative 10/03/2024 8:53 AM EST ? [facility] ?[address] ?[place] [address] ? Ultrasound Report ? Signed ? Patient: Jeremy,Deidre ?MR#: [id number] ? : 1990 ?Acct:[id number] ? Age/Sex: 33 / F ?ADM Date: 09/04/24 ? Loc: HO.US ? Attending Dr: Jakob Clarke MD ? Ordering Physician: Jakob Clarke MD ?? Date of Service: 09/04/24 ?? Procedure(s): US pelvic and transvaginal ?? Accession Number(s): [id number] ? cc: Gwen Reyna MD; Jakob Clarke [...] DD/ 1130 ? TD/TT: 09/04/24 1200 ? Solar Energy Advisor: ? Procedure Note Donotuseinterpreter, Image - 10/03/[address] [address] Ultrasound Report Signed Patient: Ericka Luna#: [id number] : 1990Acct:[id number] Age/Sex: 33 / FADM Date: 09/04/24 Loc: .US Attending Dr: Jakob Clrake MD Ordering Physician: Jakob Clarke MD Date of Service: 09/04/24 Procedure(s): US pelvic and transvaginal Accession Number(s): [id number] cc: Gwen Reyna MD; Jakob Clarke MD [...] by: Yolette Kc MD 10/03/2024 08:50 AM [facility] Dictated By: Yolette Kc MD Signed By: <Electronically signed by Yolette Kc MD in OV> 10/03/24 0850 DD/ 1130 TD/TT: 09/04/24 1200 Solar Energy Advisor: [facility] External Provider IMG US PROCEDURES Edited Result - Final documented in this encounter Visit Diagnoses Not on filedocumented in this encounter Additional Health Concerns Assessment Noted Time PHQ-9 Depression Total Score: 0 02/04/20 24 11:52 AM EDT documented as of this encounter Care Teams Pot Runner Relationship Specialty Start Date End Date Gwen Reyna MD [address] [place] [address] PCP - General Internal Medicine 03/15/23 documented as of this encounter
--- OUTSIDE RECORDS SUMMARY | 2024-11-01 11:58 | XMS_ITS | Encounter Summary ---
Author Organization [employer] Address [address] [facility] 7t [place] [address] Care Team Providers Care Health Unit Coordinator Name Role Phone Gwen Reyna MD Primary Care Pro vider Encounter Details Date Type Department Care Team (Late st Contact Info) Description 01/07/2023 Orders Only [facility] 230 [place], [place] [phone] Alan Austin MD 230 [place] [address] Abnormal uterine bleeding (Primary Dx) Social History [...] tract documented in this encounter Care Teams Health Unit Coordinator Relationship Specialty Start Date End Date Gwen Reyna MD [address] [place] [address] PCP - General Internal Medicine 03/15/23 documented as of this encounter
[2024-11-01] MEDS: gadobutroL 10 ML VIAL IVPUSH (12:46)
== END 2024-11-01 11:15 | disposition home or self-care (01) ==
LOC: HO.MRI 11:14
PROVIDERS: PCP Student in an Organized Health Care Education/Training Program; Visit Provider Obstetrics & Gynecology
DX: N83.299 Other ovarian cyst, unspecified side (principal)
CPT/HCPCS: 72197; A9585

== ENCOUNTER 2024-11-13 15:04 | Outpatient (AMB) | payer BC, MEDICAID, SELFPAY ==
--- NOTE | 2024-11-13 15:04 | MHC.OFFVIS ---
Intake Visit Reasons: MRI results Allergies No Known Allergies Allergy (Verified 11/01/24 10:14) HPI Comments Details: The patient is scheduled telehealth visits for pelvic MRI follow-up regarding complex ovarian cyst identified on pelvic ultrasound. Pelvic MRI showed the following: IMPRESSION: 1. Possible section defect within the lower uterine segment anteriorly. 2. Intrauterine device. 3. Normal sized ovarian cysts bilaterally. No evidence of malignancy. [facility] Medical History Scalp mass False positive syphilis serology Size of fetus inconsistent with dates in second trimester Encounter for screening for malformation using ultrasound Supervision of normal in second trimester Hx of spontaneous , currently test positive Well woman exam Asthma Seasonal allergies Surgical History History of esophagogastroduodenoscopy (EGD) H/O colonoscopy Previous section complicating Hx of section Family History Maternal Aunt Breast CA Father Diabetes mellitus Mother Diabetes mellitus HTN (hypertension) Maternal Grandfather Colon cancer Paternal Grandmother Stomach cancer Social History Household Members: Spouse and Children Both parents involved: Yes Caregiver staying overnight: No Housing: House Are you a primary intensive care nurse to a significant other at home: No Do you presently have visiting nurse or other home services: No 75 years or older and lives alone: No Alcohol intake: never Patient Tobacco Use Status: Never used Tobacco service: No Current occupational status: unemployed Gender identity: Female Female Reproductive History Menstrual Age of Menarche: 10 Review of Systems Const All systems reviewed & are unremarkable except as noted in HPI and below Reports as per HPI and Reports no additional complaints GI Reports no additional complaints Reports no additional complaints Telehealth Telehealth Telehealth Platform: Telephone Location of provider rendering services: practice address Location of patient: address on file Patient Identification confirmed using: Name, : Yes Telehealth method: video Patient verbally consented to treatment: Yes Patient verbally consented to billing insurance company: Yes Patient informed of any privacy concerns related to visit: Yes Minutes spent on Phone/Video with Pt.: 2 Assessment & Plan Assessment & Plan (1) Ovarian cyst, complex: Code(s): N83.299 - Other ovarian cyst, unspecified side Category: Medical Plan: Discussed with the patient the finding on pelvic MRI no evidence of suspicious ovarian cyst, possible anterior uterine scar defect. Discussed with the patient the clinical implications and possible consequences especially in the setting of any future pregnancies was high-risk of uterine rupture. Instructions given the patient to call in case of pelvic pain or any other concerns. All questions answered, the patient verbalized understanding I spent a total of 20 minutes reviewing the chart, talking to the patient via video and documenting in the medical record. Coding Level of Care Code Tele Est Pt Level 3 (27412) Diagnoses Ovarian cyst, complex N83.299
--- OUTSIDE RECORDS SUMMARY | 2024-11-13 17:55 | XMS_ITS | Encounter Summary ---
Author Organization [employer] Address [address] [facility] 7t [place] [address] Care Team Providers Care Dye Automation Operator Name Role Phone Gwen Reyna MD Primary Care Pro vider Encounter Details Date Type Department Care Team (Late st Contact Info) Description 01/07/2023 Orders Only [facility] [address], [place] [phone] Alan Austin MD [address] [place] [address] Abnormal uterine bleeding (Primary Dx) Social History [...] tract documented in this encounter Care Teams Dye Automation Operator Relationship Specialty Start Date End Date Gwen Reyna MD [address] [place] [phone] PCP - General Internal Medicine 03/15/23 documented as of this encounter
--- OUTSIDE RECORDS SUMMARY | 2024-11-13 17:55 | XMS_ITS | Clinical Summary ---
Author Organization [facility] Address [address] [facility] 7t [place] [address] Care Team Providers Care Centrifugal Chiller Technician Name Role Phone Gwen Reyna MD Primary [...] 9:59 AM EDT): -pelvic US 01/07/2023-referred by SLD TEACHER: there is a stable complex left ovarian cyst with calcification of 1.3x0.9x1.1cm ,endometrial strip is 20 mm -with active bleeding during the exam ,no masses no polyps seen. -continue to monitor ovarian cyst with her SLD TEACHER Health care maintenance 02/02/2023 Assessment & Plan (05/04/2023 9:57 AM EDT): - from records -pap smear 03/2021 Neg/HPV neg -per pt had pap smear 12/2022 w SLD TEACHER ( [facility])-normal per pt -not able to get that record -contraception :IUD for menorrhagia and , states has vasectomy -vaccines: s/p covid 19 vaccine x 4-per pt got bivalent dose-pt will bring record.s/p tdap in 2021 , s/P p20 x asthma . HPV x1 in 2011---per pt was told by her SLD TEACHER that had already 3 doses of HPV-requested to [place] to get record-not able to obtain ,hepB immune Assessment & Plan (03/12/2023 9:55 PM EDT): -pap smear 12/2022 w SLD TEACHER ( [facility])-normal per pt -contraception :none, states has vasectomy -vaccines: s/p covid 19 vaccine x 4-per pt got bivalent dose-pt will bring record.s/p tdap in 2021 , s/P p20 x asthma . HPV x1 in 2011---per pt was told by her SLD TEACHER that had already 3 doses of HPV-requested to [place] to get record,hepB immune Assessment & Plan (02/02/2023 1:17 PM EDT): -pap smear 12/2022 w SLD TEACHER ( [facility])-normal per pt -contraception : states has vasectomy [...] x1 in 2011---pt will check w her SLD TEACHER if received any more HPV vaccine w them or if plan to vaccinate if not and if pt interested will start vaccination Obesity (BMI 35.0-39.9 without comorbidity) 01/12 Assessment & Plan (05/04/2023 9:52 AM EDT): BMI 36.4 -Advised pt to improve diet and exercise,discussed healthy life style -referred to special needs tutor -will monitor weight in next 6 months -if no improvement w diet and exercise will discuss w pt about possible medical options vs bariatric surgery referral Assessment & Plan (03/12/2023 9:49 PM EDT): BMI 36.4 -Advised pt to improve diet and exercise,discussed healthy life style -discussed special needs tutor referral -Apt x 03/2023 Assessment & Plan (02/02/2023 1:07 PM EDT): BMI 36.4 -Advised pt to improve diet and exercise,discussed healthy life style -discussed special needs tutor referral -referred today Elevated blood pressure reading 02/02/2023 Assessment & Plan (05/04/2023 12:58 PM EDT): Pt here w normal BP ,at home has some elevated BP readings some days normal and has seen as high 170s ? EKG here 11/2022 Normal Echo 04/28/2023 : normal ,EF > 70% Doppler Renal US 04/19/2023: hemodynamically significant right renal artery stenosis -pt f w rotary soil stabilizer -per pt was told to have episodic elevated BP and on eval found to have right renal artery stenosis For which has apt on 05/06/2023 with vascular specialist referred by cards. -referred to special needs tutor -already -low salt diet -continue care with rotary soil stabilizer and now vascular Assessment & Plan (03/12/2023 [...] machine or cuff are ok -referred to special needs tutor -has apt x 03/2023 -low salt diet [...] med as low dose HDCTZ -referred to special needs tutor today -low salt diet -monitor here in 5 weeks Pre-diabetes 01/13/2023 Assessment & Plan (05/04/2023 9:51 AM EDT): 12/2022 Hb1AC 5.7 -Advised pt to improve diet and exercise,discussed healthy life style -discussed special needs tutor referral -already referred -will repeat hb1AC in 12 months at annual exam Assessment & Plan (03/12/2023 9:49 PM EDT): 12/2022 Hb1AC 5.7 -Advised pt to improve diet and exercise,discussed healthy life style -discussed special needs tutor referral -apt x 03/2023 -will repeat hb1AC in 12 months at annual exam Assessment & Plan (02/02/2023 1:07 PM EDT): 12/2022 Hb1AC 5.7 -Advised pt to improve diet and exercise,discussed healthy life style -discussed special needs tutor referral -referred today -will repeat hb1AC in 12 months at annual exam Microcytic anemia 01/13/2023 Assessment & Plan (05/04/2023 10:02 AM EDT): 04/2023 Hb 8.8<---10.2, htco 32--,12/2022 platelets elevated at 556, MCV low at 70 Reports hx of menorrhagia -last 4-5 days -using 7 pads a day Already f w SLD TEACHER S/p IUD placed with no improvement on heavy bleeding. -pelvic US 01/07/2023: there is a stable complex left ovarian cyst with calcification of 1.3x0.9x1.1cm ,endometrial strip is 20 mm -with active bleeding during the exam ,no masses no polyps seen. -continue care w SLD TEACHER -has apt tomorrow -continue iron TID and vit C -has apt to start care with suction plate carrier cleaner in 1 week ( 05/14/2023) -will need [...] 7 pads a day Already f w SLD TEACHER,denies melenas, hematuria Reports had aprox 5 y ago EGD and colonoscopy per pt told to be normal -continue care w SLD TEACHER -referred x pelvic US -states done recently -Told to have an ovarian cyst-requested today to [facility] to get report -per pt not rec x oral contraceptives x bleeding to avoid risk to increase BP but offered IUD but refused-pt will f up w SLD TEACHER next month -continue iron TID and vit [...] 7 pads a day Already f w SLD TEACHER -continue care w SLD TEACHER -referred x pelvic US -states done recently -will bring record at her next apt here -needs to f results 1st w SLD TEACHER -continue iron BID and vit C started [...] Encounters Date Type Department Care Team Description 11/01/2024 Orders Only [facility] External Provider, 10/13/[address] [address] [facility] No Show 10/12/[address] [address] Gwen Reyna MD Nurse Triage 10/06/2024 11:15 AM EST Office Visit [address] [address] Jerald Morrison, KALYANI Acute nonintractable headache, unspecified headache type (Primary Dx); Pilar cyst of scalp 10/06/2024 Travel 10/05/[address] [place] [address] Gwen Reyna MD Chart Prep 10/05/2024 Travel 10/04/2024 Telephone [facility] [address] [place] [address] Gwen Reyna MD Nurse Triage 09/04/2024 Orders Only [facility] External Provider, from Last 3 Months Immunizations Name Administration [...] Procedure Name Priority Date/Time Associated Diagnosis Comments MR PELVIS W AND WO CONTRAST Routine 11/02/2024 2:48 PM EST US PELVIS TRANSVAGINAL Routine 09/04/2024 11:30 AM [...] Recently Relevant to Health Maintenance Results * MR Pelvis w/ and w/o Contrast (11/02/2024 2:48 PM EST) Anatomical Region Laterality Modality Body, Pelvis Magnetic Resonan ce 11/02/2024 2:48 PM EST Narrative 11/02/2024 2:49 PM EST ?[address] ?[place] [address] ? Magnetic Resonance Report ? Signed ? Patient: Jeremy,Noe ?MR#: [id number] ? : 1990 ?Acct:[id number] ? Age/Sex: 33 / F ?ADM Date: 11/01/24 ? Loc: HO.MRI ? Attending Dr: Jakob Clarke MD ? Ordering Physician: Jakob Clarke MD ?? Date of Service: 11/01/24 ?? Procedure(s): MR pelvis wo/w con ?? Accession Number(s): [id number] ? cc: Gwen Reyna MD; Jakob Clarke MD ? CLINICAL HISTORY: N83.299 - Other ovarian cyst, unspecified side ? MR of the pelviswith and without gadolinium ? Comparison: US/SD/SR - US PELVIC AND TRANSVAGINAL - 09/04/24 11:32 EST ?? US/SR - US PELVIC AND TRANSVAGINAL - 06/08/24 11:25 EDT ? Findings: ? There is a focal defect within the myometrium of the lower uterine segment ?? anteriorly, suggestive of a section scar. Intrauterine device is ?? present. Uterus otherwise is within normal limits. Junctional zone is ?? normal in appearance. ? The bilateral ovaries are within normal limits. There are multiple ?? bilateral ovarian cysts, largest of which measure 20 mm on the right ovary ?? and 11 mm on the left ovary. Both ovaries are located within the posterior ?? pelvis. Urinary bladder is within normal limits. ? Visualized bowel loops and vasculature are normal in caliber. No ?? adenopathy. No free fluid. ? Visualized osseous structures are within normal limits. ? IMPRESSION: ?? 1. Possible section defect within the lower uterine segment ?? anteriorly. ?? 2. Intrauterine device. ?? 3. Normal sized ovarian cysts bilaterally. No evidence of malignancy. ? This document has been electronically signed by: Dago Aguilar MD on ?? 11/02/2024 14:48:30 ? Dictated By: ?Dago Aguilar MD ? Signed By: ?<Electronically signed by Dago Aguilar MD in OV> ? 11/02/24 1449 ? DD/ 1448 ? TD/TT: 11/02/24 1448 ? Human Resources Hr Representative: ? Procedure Note [place], [place] - 11/02/2024 [place] [id number] Magnetic Resonance Report Signed Patient: Ericka Luna#: [id number] : 1990Acct:[id number] Age/Sex: 33 / FADM Date: 11/01/24 Loc: HO.MRI Attending Dr: Jakob Clarke MD Ordering Physician: Jakob Clarke MD Date of Service: 11/01/24 Procedure(s): MR pelvis wo/w con Accession Number(s): [id number] cc: Gwen Reyna MD; Jakob Clarke MD CLINICAL HISTORY: N83.299 - Other ovarian cyst, unspecified side MR of the pelviswith and without gadolinium Comparison: US/SD/SR - US PELVIC AND TRANSVAGINAL - 09/04/24 11:32 EST US/SR - US PELVIC AND TRANSVAGINAL - 06/08/24 11:25 EDT Findings: There is a focal defect within the myometrium of the lower uterine segment anteriorly, suggestive of a section scar. Intrauterine device is present. Uterus otherwise is within normal limits. Junctional zone is normal in appearance. The bilateral ovaries are within normal limits. There are multiple bilateral ovarian cysts, largest of which measure 20 mm on the right ovary and 11 mm on the left ovary. Both ovaries are located within the posterior pelvis. Urinary bladder is within normal limits. Visualized bowel loops and vasculature are normal in caliber. No adenopathy. No free fluid. Visualized osseous structures are within normal limits. IMPRESSION: 1. Possible section defect within the lower uterine segment anteriorly. 2. Intrauterine device. 3. Normal sized ovarian cysts bilaterally. No evidence of malignancy. This document has been electronically signed by: Dago Aguilar MD on 11/02/2024 14:48:30 Dictated By: Dago Aguilar MD Signed By: <Electronically signed by Dago Aguilar MD in OV> 11/02/24 1449 DD/ 1448 TD/TT: 11/02/24 1448 Human Resources Hr Representative: [facility] External Provider IMG MRI PROCEDURES Final Result * US Pelvis Transvaginal (09/04/2024 11:30 AM EST) Anatomical Region Laterality Modality Pelvis Ultrasound 09/04/2024 11:3 0 AM EST Narrative 10/03/2024 8:53 AM EST ?[address] ?[place] [address] ? Ultrasound Report ? Signed ? Patient: Jeremy,Noe ?MR#: [id number] ? : 1990 ?Acct:[id number] ? Age/Sex: 33 / F ?ADM Date: 09/04/24 ? Loc: HO.US ? Attending Dr: Jakob Clarke MD ? Ordering Physician: Jakob Clarke MD ?? Date of Service: 09/04/24 ?? Procedure(s): US pelvic and transvaginal ?? Accession Number(s): [id number] ? cc: Gwen Reyna MD; Jakob Clarke [...] DD/ 1130 ? TD/TT: 09/04/24 1200 ? Human Resources Hr Representative: ? Procedure Note Donramonitasylwiajefferyter, Image - 10/03/[address] [address] Ultrasound Report Signed Patient: Ericka Luna#: [id number] : 1990Acct:[id number] Age/Sex: 33 / FADM Date: 09/04/24 Loc: HO.US Attending Dr: Jakob Clarke MD Ordering Physician: Jakob Clarke MD Date of Service: 09/04/24 Procedure(s): US pelvic and transvaginal Accession Number(s): [id number] cc: Gwen Reyna MD; Jakob Clarke MD [...] 10/03/24 0850 DD/ 1130 TD/TT: 09/04/24 1200 Human Resources Hr Representative: [facility] External Provider IMG US PROCEDURES Edited Result - Final * Hepatitis C Antibody with Reflex to HCV, RNA, Quantitative, Real-Time PCR (03/15/2024 12:36 PM EDT) Hepatitis C Antibody Nonreactive Nonreactive [facility] Comment:Antibodies to HCV no t detected; does not exclude early acuteHCV infection. Blood Venous blood specimen / Unknown 03/15/2024 12:36 PM EDT 03/15/2024 1:07 PM EDT Gwen Mcclain MD LAB BLOOD ORDERAB LES Final Result [facility] [address] [place] [address] [phone] * HIV-1/2 Antigen and Antibodies, Fourth Generation, with Reflexes (03/15/2024 12:36 PM EDT) HIV AB/AG Nonreactive Nonreactive [facility] Comment:HIV-1 p24 Ag and/or HIV-1/HIV-2 Ab not detected.A test result that is nonreactive does not exclude thepossibility of exposure to or infection with HIV-1 and/orHIV-2. Nonreactive results in this assay for individualswith prior exposure to HIV-1 and/or HIV-2 may be due toantigen and antibody levels that are below the limit ofdetection of this assay.The [employer] HIV Ag/Ab Combo assay result andsupplemental assay results should be interpreted inconjunction with the patient's clinical presentation,history and other laboratory results. If the results areinconsistent with clinical evidence, additional testing issuggested to confirm the result. Blood Venous blood specimen / Unknown 03/15/2024 12:36 PM EDT 03/15/2024 1:07 PM EDT us Gwen Mcclain MD LAB BLOOD ORDERAB LES Final Result Performing Organization Address [facility] Co de Phone Number [facility] [address] [place] [address] [phone] * (ABNORMAL) Lipid Panel, Standard (03/15/2024 12:36 PM EDT) Triglycerides 110 <150 mg/dL [facility] Comment:Desirable Triglyceri de: less than 150 mg/dLBorderline High Triglyceride 150-199 mg/dLHigh Triglyceride: 200-499 mg/dLVery High Triglyceride: greater than or equal to 5OO mg/dL Cholesterol 174 <200 mg/dL [facility] Comment:Desirable Cholestero l: less than 200 mg/dLBorderline High Cholesterol: 200-239 mg/dLHigh Cholesterol: greater than 239 mg/dL LDL Cholesterol Calculated 102(H) <100 mg/dL [facility] Comment:Desirable LDL: less than 100 mg/dLNear Optimal/Above Optimal LDL: 110- 129 mg/dLBorderline High LDL: 130-159 mg/dLHigh LDL: 160-189 mg/dLVery High LDL: greater than or equal to 190 mg/dL HDL Cholesterol 50 >40 mg/dL [facility] Comment:Desirable HDL: great er than 40 mg/dL Note: This HDL assay may give artificially low results in patients with liver disease. Blood Venous blood specimen / Unknown 03/15/2024 12:36 PM EDT 03/15/2024 1:07 PM EDT Gwen Mcclain MD LAB BLOOD ORDERAB LES Final Result [facility] [address] [place] [address] [phone] from Last 3 Months or Most Recently Relevant to Health Maintenance Insurance [address] [place] [address] HMO [facility] STAND ADULT DENTAL - [facility] Care Teams Centrifugal Chiller Technician Relationship Specialty Start Date End Date Gwen Reyna MD [address] [place] [phone] PCP - General Internal Medicine 03/15/23
--- OUTSIDE RECORDS SUMMARY | 2024-11-13 17:55 | XMS_ITS | Encounter Summary ---
Author Organization [employer] Address [address] [place] [address] 7 [place] [address] Care Team Providers Care Ocularist Name Role Phone Gwen Reyna MD Primary Care Pro vider Reason for Visit * Reason Comments Med Refill Encounter Details Date Type Department Care Team ([facility] st Contact Info) Description 02/23/2024 Refill [facility] [address] [place] [phone] Gwen Reyna MD [address] [place] [address] Social History Tobacco Use Types Packs/Day Years [...] the request was an automatic request from [facility]. Please can you check with pt if [...] documented as of this encounter Care Teams Ocularist Relationship Specialty Start Date End Date Gwen Reyna MD [address] [place] [phone] PCP - General Internal Medicine 03/15/23 documented as of this encounter
--- OUTSIDE RECORDS SUMMARY | 2024-11-13 17:55 | XMS_ITS | Encounter Summary ---
Author Organization [employer] Address [address] [facility] 7t [place] [address] Care Team Providers Care Marketing Automation Specialist Name Role Phone Gwen Reyna MD Primary Care Pro vider Encounter Details Date Type Department Care Team (Late st Contact Info) Description 11/01/2024 Orders Only [facility] External Provider, [facility] Social History Tobacco Use Types Packs/Day Years [...] WO CONTRAST Routine 11/02/2024 2:48 PM EST documented in this encounter Results * MR Pelvis w/ and w/o Contrast (11/02/2024 2:48 PM EST) Anatomical Region Laterality Modality Body, Pelvis Magnetic Resonan ce 11/02/2024 2:48 PM EST Narrative 11/02/2024 2:49 PM EST ? [facility] ?[address] ?[place] [address] ? Magnetic Resonance Report ? Signed ? Patient: Deidre Luna ?MR#: [id number] ? : 1990 ?Acct:[id number] ? Age/Sex: 33 / F ?ADM Date: 11/01/24 ? Loc: HO.MRI ? Attending Dr: Jakob Clarke MD ? Ordering Physician: Jakob Clarke MD ?? Date of Service: 11/01/24 ?? Procedure(s): MR pelvis wo/w con ?? Accession Number(s): [id number] ? cc: Gwen Reyna MD; Jakob Clarke MD ? CLINICAL HISTORY: N83.299 - Other ovarian cyst, unspecified side ? MR of the pelviswith and without gadolinium ? Comparison: US/[place]/SR - US PELVIC AND TRANSVAGINAL - 09/04/24 [...] DD/ 1448 ? TD/TT: 11/02/24 1448 ? Dry Chain Puller: ? Procedure Note Donkari, Image - 11/02/2024 [place] [address] Magnetic Resonance Report Signed Patient: Ericka Luna#: [id number] : 1990Acct:[id number] Age/Sex: 33 / FADM Date: 11/01/24 Loc: HO.MRI Attending Dr: Jakob Clarke MD Ordering Physician: Jakob Clarke MD Date of Service: 11/01/24 Procedure(s): MR pelvis wo/w con Accession Number(s): [id number] cc: Gwen Reyna MD; Jakob Clarke MD CLINICAL HISTORY: N83.299 - Other ovarian cyst, unspecified side MR of the pelviswith and without gadolinium Comparison: US/[place]/SR - US PELVIC AND TRANSVAGINAL - 09/04/24 [...] 11/02/24 1449 DD/ 1448 TD/TT: 11/02/24 1448 Dry Chain Puller: [facility] External Provider IMG MRI PROCEDURES Final Result documented in this encounter Visit Diagnoses Not on filedocumented in this encounter Additional Health Concerns Assessment Noted Time PHQ-9 Depression Total Score: 0 02/04/20 24 11:52 AM EDT documented as of this encounter Care Teams Marketing Automation Specialist Relationship Specialty Start Date End Date Gwen Reyna MD [address] [place] [phone] PCP - General Internal Medicine 03/15/23 documented as of this encounter
--- OUTSIDE RECORDS SUMMARY | 2024-11-13 17:55 | XMS_ITS | Encounter Summary ---
Author Organization [employer] Address [address] [place] [address] Care Team Providers Care Factory Manager Name Role Phone Gwen Reyna MD Primary Care Pro vider Reason for Visit * Reason Onset Date Comments Nurse Triage 12/21/2023 Encounter Details Date Type Department Care Team ([facility] st Contact Info) Description 12/21/2023 Telephone [facility] [address] [place] [address] Gwen Reyna MD [address] [place] [address] Nurse Triage Social History Tobacco Use Types [...] seen. Pt is advised to come to [facility] today for provider to see and Pt [...] pain now The caller accepted this outcome Montserratian speaker documented in this encounter Plan of Treatment Not on file documented as of this encounter Visit Diagnoses Not on filedocumented in this encounter Additional Health Concerns Assessment Noted Time PHQ-9 Depression Total Score: 1 05/03/20 3:59 PM EDT documented as of this encounter Care Teams Factory Manager Relationship Specialty Start Date End Date Gwen Reyna MD [address] [place] [phone] PCP - General Internal Medicine 03/15/23 documented as of this encounter
--- OUTSIDE RECORDS SUMMARY | 2024-11-13 17:55 | XMS_ITS | Encounter Summary ---
Author Organization [employer] Address [address] [facility] 7t [place] [address] Care Team Providers Care It Application Support Analyst Name Role Phone Gwen Reyna MD Primary Care Pro vider Encounter Details Date Type Department Care Team (Late st Contact Info) Description 10/28/2023 Orders Only [facility] MED[facility]INE [address] [place] [address] ProviderDaquan MD Social History Tobacco Use Types [...] documented as of this encounter Care Teams It Application Support Analyst Relationship Specialty Start Date End Date Gwen Reyna MD [address] [place] [phone] PCP - General Internal Medicine 03/15/23 documented as of this encounter
--- OUTSIDE RECORDS SUMMARY | 2024-11-13 17:55 | XMS_ITS | Encounter Summary ---
Author Organization [employer] Address [address] [place] [address] Care Team Providers Care Ceo Na Name Role Phone Gwen Reyna MD Primary Care Pro vider Encounter Details Date Type Department Care Team ([facility] st Contact Info) Description 09/18/2022 Abstract [facility] ADULT D[facility]AL [address] [place] [address] Stephenie Newby DDS [address] [place] [address] Social History Tobacco Use Types Packs/Day Years [...] on filedocumented in this encounter Care Teams Ceo Na Relationship Specialty Start Date End Date Gwen Reyna MD [address] [place] [address] PCP - General Internal Medicine 03/15/23 documented as of this encounter
== END 2024-11-13 15:23 | disposition home or self-care (01) ==
LOC: HO.HWS 15:04
PROVIDERS: PCP Student in an Organized Health Care Education/Training Program; Visit Provider Obstetrics & Gynecology
DX: N83.299 Other ovarian cyst, unspecified side (principal)
CPT/HCPCS: 99213

== ENCOUNTER → 2024-11-13 15:04 | Outpatient (BNVA) | payer BC, MEDICAID, SELFPAY | PROVIDERS: PCP Student in an Organized Health Care Education/Training Program; Visit Provider Obstetrics & Gynecology ==

== ENCOUNTER 2024-11-17 14:08 | Outpatient (REF) | payer BC, MEDICAID, SELFPAY ==
--- OUTSIDE RECORDS SUMMARY | 2024-11-17 15:48 | XMS_ITS | Encounter Summary ---
Author Organization [employer] Address 75 [facility] 7 [place] [address] Care Team Providers Care Tire Assembler Name Role Phone Gwen Reyna MD Primary Care Pro vider Reason for Visit * Reason Onset Date Comments Lab Orders 11/16/2024 Encounter Details Date Type Department Care Team ([facility] st Contact Info) Description 11/16/2024 Telephone [facility] MEDICINE 230 [place], [place] [phone] Veronica Resendiz, RN [address] [place] [address] Lab Orders Social History Tobacco Use Types Packs/Day Years [...] encounter Miscellaneous Notes * Telephone Encounter - Veronica Resendiz RN - 11/16/2024 2:05 PM EST Received call from Amisha asencio nurse who reports that pt needs form filled out for her to have home daycare. Pt needs proof of MMR vaccine or titer. None on file. Ordered titer. Amisha zhong will advise pt to come to the lab. documented in this encounter Plan of Treatment Scheduled Orders Name Type Priority Associated Diagnoses Orde r Schedule Measles, Mumps, and Rubella (MMR) Antibodies??(IgG) Panel, Immune Status Lab Routine Immunity status testing Expected: 11/16/2024 (Approximate), Expires: 11/16/2025 documented as of this encounter Visit Diagnoses Diagnosis Immunity status testing Antibody response examination documented in this encounter Additional Health Concerns Assessment Noted Time PHQ-9 Depression Total Score: 0 02/04/20 24 11:52 AM EDT documented as of this encounter Care Teams Tire Assembler Relationship Specialty Start Date End Date Gwen Reyna MD [address] [place] [phone] PCP - General Internal Medicine 03/15/23 documented as of this encounter
--- OUTSIDE RECORDS SUMMARY | 2024-11-17 15:49 | XMS_ITS | Clinical Summary ---
Author Organization [employer] Address 75 [facility] 7t [place] [address] Care Team Providers Care Dobby Loom Chain Pegger Name Role Phone Gwen Reyna MD Primary Care Pro vider Allergies No known active allergies Medications albuterol 108 (90 Base) MCG/ACT inhaler Inhale 2 puffs every 4 (four) hours if needed for wheezing or shortness of breath. 18 g 2 3 Active cetirizine (ZyrTEC) 10 MG tablet TAKE 1 TABLET BY MOUTH EVERY DAY IN THE MORNING 90 tablet 3 Active Levonorgestrel (Mirena, 52 MG,) 20 MCG/DAY intrauterine device by Intrauterine route. Active hydrocortisone 0.5 % cream Apply topically 2 times daily. 15 g 4 Active fluticasone (Flovent) 110 MCG/ACT inhalerIndicatio ns:Mild persistent asthma without complication Inhale 1 puff in the morning and at bedtime. Rinse mouth with water after use to reduce aftertaste and incidence of candidiasis. Do not swallow. 12 g 2 4 025 Active montelukast (Singulair) 10 MG tablet TAKE 1 TABLET BY MOUTH EVERY DAY 90 tablet 1 4 Active triamcinolone (Kenalog) 0.1 % creamIndications :Atopic dermatitis, unspecified type Apply topically Once per day. With cerave 80 g 11 4 Active tacrolimus (Protopic) 0.1 % ointmentIndicati ons:Atopic dermatitis, unspecified type Apply topically 2 times daily. As needed for flare up eczema 30 g 1 4 025 Active ferrous sulfate 325 (65 Fe) MG tablet Refills 0, Maintenance, 05/13/23 11:41:00 EDT, Partial fill upon patient request if the prescription is for a schedule II opioid drug. 3 Active Active Problems Problem Noted Date Diagnosed [...] 9:59 AM EDT): -pelvic US 01/07/2023-referred by INBOUND CALL CENTER REPRESENTATIVE: there is a stable complex left ovarian cyst with calcification of 1.3x0.9x1.1cm ,endometrial strip is 20 mm -with active bleeding during the exam ,no masses no polyps seen. -continue to monitor ovarian cyst with her INBOUND CALL CENTER REPRESENTATIVE Health care maintenance 02/02/2023 Assessment & Plan (05/04/2023 9:57 AM EDT): - from records -pap smear 03/2021 Neg/HPV neg -per pt had pap smear 12/2022 w INBOUND CALL CENTER REPRESENTATIVE ( [facility])-normal per pt -not able to get that record -contraception :IUD for menorrhagia and , states has vasectomy -vaccines: s/p covid 19 vaccine x 4-per pt got bivalent dose-pt will bring record.s/p tdap in 2021 , s/P p20 x asthma . HPV x1 in 2011---per pt was told by her INBOUND CALL CENTER REPRESENTATIVE that had already 3 doses of HPV-requested to [place] to get record-not able to obtain ,hepB immune Assessment & Plan (03/12/2023 9:55 PM EDT): -pap smear 12/2022 w INBOUND CALL CENTER REPRESENTATIVE ( [facility])-normal per pt -contraception :none, states has vasectomy -vaccines: s/p covid 19 vaccine x 4-per pt got bivalent dose-pt will bring record.s/p tdap in 2021 , s/P p20 x asthma . HPV x1 in 2011---per pt was told by her INBOUND CALL CENTER REPRESENTATIVE that had already 3 doses of HPV-requested to [place] to get record,hepB immune Assessment & Plan (02/02/2023 1:17 PM EDT): -pap smear 12/2022 w [facility]BOUND CALL CENTER REPRESENTATIVE ( [facility])-normal per pt -contraception : states has vasectomy [...] x1 in 2011---pt will check w her [facility]BOUND CALL CENTER REPRESENTATIVE if received any more HPV vaccine w them or if plan to vaccinate if not and if pt interested will start vaccination Obesity (BMI 35.0-39.9 without comorbidity) 01/12 Assessment & Plan (05/04/2023 9:52 AM EDT): BMI 36.4 -Advised pt to improve diet and exercise,discussed healthy life style -referred to prosthodontist/educator -will monitor weight in next 6 months -if no improvement w diet and exercise will discuss w pt about possible medical options vs bariatric surgery referral Assessment & Plan (03/12/2023 9:49 PM EDT): BMI 36.4 -Advised pt to improve diet and exercise,discussed healthy life style -discussed prosthodontist/educator referral -Apt x 03/2023 Assessment & Plan (02/02/2023 1:07 PM EDT): BMI 36.4 -Advised pt to improve diet and exercise,discussed healthy life style -discussed prosthodontist/educator referral -referred today Elevated blood pressure reading 02/02/2023 Assessment & Plan (05/04/2023 12:58 PM EDT): Pt here w normal BP ,at home has some elevated BP readings some days normal and has seen as high 170s ? EKG here 11/2022 Normal Echo 04/28/2023 : normal ,EF > 70% Doppler Renal US 04/19/2023: hemodynamically significant right renal artery stenosis -pt f w retina subspecialist -per pt was told to have episodic elevated BP and on eval found to have right renal artery stenosis For which has apt on 05/06/2023 with vascular specialist referred by cards. -referred to prosthodontist/educator -already -low salt diet -continue care with retina subspecialist and now vascular Assessment & Plan (03/12/2023 [...] machine or cuff are ok -referred to prosthodontist/educator -has apt x 03/2023 -low salt diet [...] med as low dose HDCTZ -referred to prosthodontist/educator today -low salt diet -monitor here in 5 weeks Pre-diabetes 01/13/2023 Assessment & Plan (05/04/2023 9:51 AM EDT): 12/2022 Hb1AC 5.7 -Advised pt to improve diet and exercise,discussed healthy life style -discussed prosthodontist/educator referral -already referred -will repeat hb1AC in 12 months at annual exam Assessment & Plan (03/12/2023 9:49 PM EDT): 12/2022 Hb1AC 5.7 -Advised pt to improve diet and exercise,discussed healthy life style -discussed prosthodontist/educator referral -apt x 03/2023 -will repeat hb1AC in 12 months at annual exam Assessment & Plan (02/02/2023 1:07 PM EDT): 12/2022 Hb1AC 5.7 -Advised pt to improve diet and exercise,discussed healthy life style -discussed prosthodontist/educator referral -referred today -will repeat hb1AC in 12 months at annual exam Microcytic anemia 01/13/2023 Assessment & Plan (05/04/2023 10:02 AM EDT): 04/2023 Hb 8.8<---10.2, htco 32--,12/2022 platelets elevated at 556, MCV low at 70 Reports hx of menorrhagia -last 4-5 days -using 7 pads a day Already f w INBOUND CALL CENTER REPRESENTATIVE S/p IUD placed with no improvement on heavy bleeding. -pelvic US 01/07/2023: there is a stable complex left ovarian cyst with calcification of 1.3x0.9x1.1cm ,endometrial strip is 20 mm -with active bleeding during the exam ,no masses no polyps seen. -continue care w INBOUND CALL CENTER REPRESENTATIVE -has apt tomorrow -continue iron TID and vit C -has apt to start care with ore bridge operator in 1 week ( 05/14/2023) -will need [...] 7 pads a day Already f w INBOUND CALL CENTER REPRESENTATIVE,denies melenas, hematuria Reports had aprox 5 y ago EGD and colonoscopy per pt told to be normal -continue care w INBOUND CALL CENTER REPRESENTATIVE -referred x pelvic US -states done recently -Told to have an ovarian cyst-requested today to [facility] to get report -per pt not rec x oral contraceptives x bleeding to avoid risk to increase BP but offered IUD but refused-pt will f up w INBOUND CALL CENTER REPRESENTATIVE next month -continue iron TID and vit [...] 7 pads a day Already f w INBOUND CALL CENTER REPRESENTATIVE -continue care w INBOUND CALL CENTER REPRESENTATIVE -referred x pelvic US -states done recently -will bring record at her next apt here -needs to f results 1st w INBOUND CALL CENTER REPRESENTATIVE -continue iron BID and vit C started [...] Encounters Date Type Department Care Team Description 11/16/[address] [address] Veronica Resendiz, sprinkler irrigation equipment mechanic Orders 11/01/2024 Orders Only [facility] External Provider, [facility] 10/13/[address] [address] [place] No Show 10/12/[address] [address] Gwen Reyna MD Nurse Triage 10/06/2024 11:15 AM EST Office Visit [address] [address] Jerald Morrison CNP Acute nonintractable headache, unspecified headache type (Primary Dx); Pilar cyst of scalp 10/06/2024 Travel 10/05/[address] [address] Gwen Reyna MD Chart Prep 10/05/2024 Travel 10/04/2024 Telephone [facility] MEDICINE [address] [place] [address] Gwen Reyna MD Nurse Triage 09/04/2024 Orders Only [facility] External Provider, [facility] from Last 3 Months Immunizations Name [...] EST Narrative 11/02/2024 2:49 PM EST ? [facility] ?[address] ?[place] [address] ? Magnetic Resonance Report ? Signed ? Patient: Noe Luna ?MR#: [id number] ? : 1990 ?Acct:[id number] ? Age/Sex: 33 / F ?ADM Date: 11/01/24 ? Loc: HO.MRI ? Attending Dr: Jakob Clarke MD ? Ordering Physician: Jakob Clarke MD ?? Date of Service: 11/01/24 ?? Procedure(s): MR pelvis wo/w con ?? Accession Number(s): [id number] ? cc: Gwen Reyna MD; Jakob Clarke MD ? CLINICAL HISTORY: N83.299 - Other ovarian cyst, unspecified side ? MR of the pelviswith and without gadolinium ? Comparison: US/HI/SR - US PELVIC AND TRANSVAGINAL - 12/23/24 11:32 EST ?? US/SR - US PELVIC [...] DD/ 1448 ? TD/TT: 11/02/24 1448 ? Youth Services Librarian: ? Procedure Note Donotsilvanater, Image - 11/02/2024 [place] [address] Magnetic Resonance Report Signed Patient: Ericka Luna#: [id number] : 1990Acct:[id number] Age/Sex: 33 / FADM Date: 11/01/24 Loc: HO.MRI Attending Dr: Jakob Clarke MD Ordering Physician: Jakob Clarke MD Date of Service: 11/01/24 Procedure(s): MR pelvis wo/w con Accession Number(s): [id number] cc: Gwen Reyna MD; Jakob Clarke MD CLINICAL HISTORY: N83.299 - Other ovarian cyst, unspecified side MR of the pelviswith and without gadolinium Comparison: US/HI/SR - US PELVIC AND TRANSVAGINAL - 09/04/24 [...] 11/02/24 1449 DD/ 1448 TD/TT: 11/02/24 1448 Youth Services Librarian: [facility] External Provider IMG MRI PROCEDURES Final Result * US Pelvis Transvaginal (09/04/2024 11:30 AM EST) Anatomical Region Laterality Modality Pelvis Ultrasound 09/04/2024 11:3 0 AM EST Narrative 10/03/2024 8:53 AM EST ? [facility] ?[address] ?[place] [address] ? Ultrasound Report ? Signed ? Patient: Noe Luna ?MR#: [id number] ? : 1990 ?Acct:[id number] ? Age/Sex: 33 / F ?ADM Date: 09/04/24 ? Loc: HO.US ? Attending Dr: Jakob Clarke MD ? Ordering Physician: Jakob Clarke MD ?? Date of Service: 09/04/24 ?? Procedure(s): US pelvic and transvaginal ?? Accession Number(s): [id number] ? cc: Gwen Reyna MD; Jakob Clarke [...] DD/ 1130 ? TD/TT: 09/04/24 1200 ? Youth Services Librarian: ? Procedure Note Donotuseinterpreter, Image - 10/03/2024 [place] [address] Ultrasound Report Signed Patient: Ericka Luna#: [id number] : 1990Acct:[id number] Age/Sex: 33 / FADM Date: 09/04/24 Loc: HO.US Attending Dr: Jakob Clarke MD Ordering Physician: Jakob Clarke MD Date of Service: 09/04/24 Procedure(s): US pelvic and transvaginal Accession Number(s): [id number] cc: Gwen Reyna MD; Jakob Clarke MD [...] 10/03/24 0850 DD/ 1130 TD/TT: 09/04/24 1200 Youth Services Librarian: [facility] External Provider IMG US PROCEDURES Edited Result - Final * Hepatitis C Antibody with Reflex to HCV, RNA, Quantitative, Real-Time PCR (03/15/2024 12:36 PM EDT) Hepatitis C Antibody Nonreactive Nonreactive [facility] Comment:Antibodies to HCV no t detected; does not exclude early acuteHCV infection. Blood Venous blood specimen / Unknown 03/15/2024 12:36 PM EDT 03/15/2024 1:07 PM EDT Gwen Mcclain MD LAB BLOOD ORDERAB LES Final Result [facility] [address] [place] [phone] * HIV-1/2 Antigen and Antibodies, Fourth Generation, with Reflexes (03/15/2024 12:36 PM EDT) Pathologist [facility] HIV AB/AG Nonreactive Nonreactive [facility] Comment:HIV-1 p24 Ag and/or HIV-1/HIV-2 Ab not detected.A test result that is nonreactive does not exclude thepossibility of exposure to or infection with HIV-1 and/orHIV-2. Nonreactive results in this assay for individualswith prior exposure to HIV-1 and/or HIV-2 may be due toantigen and antibody levels that are below the limit ofdetection of this assay.The [employer] HIV Ag/Ab Combo assay result andsupplemental assay results should be interpreted inconjunction with the patient's clinical presentation,history and other laboratory results. If the results areinconsistent with clinical evidence, additional testing issuggested to confirm the result. Blood Venous blood specimen / Unknown 03/15/2024 12:36 PM EDT 03/15/2024 1:07 PM EDT us Gwen Mcclain MD LAB BLOOD ORDERAB LES Final Result [facility] [address] [place] [address] [phone] * (ABNORMAL) Lipid Panel, Standard (03/15/2024 12:36 PM EDT) Pathologist [facility] Triglycerides 110 <150 mg/dL [facility] Comment:Desirable Triglyceri de: less than 150 mg/dLBorderline High Triglyceride 150-199 mg/dLHigh Triglyceride: 200-499 mg/dLVery High Triglyceride: greater than or equal to 5OO mg/dL Cholesterol 174 <200 mg/dL [facility] Comment:Desirable Cholestero l: less than 200 mg/dLBorderline High Cholesterol: 200-239 mg/dLHigh Cholesterol: greater than 239 mg/dL LDL Cholesterol Calculated 102(H) <100 mg/dL [facility] Comment:Desirable LDL: less than 100 mg/dLNear Optimal/Above Optimal LDL: 110- 129 mg/dLBorderline High LDL: 130-159 mg/dLHigh LDL: 160-189 mg/dLVery High LDL: greater than or equal to 190 mg/dL HDL Cholesterol 50 >40 mg/dL [facility] Comment:Desirable HDL: great er than 40 mg/dL Note: This HDL assay may give artificially low results in patients with liver disease. Blood Venous blood specimen / Unknown 03/15/2024 12:36 PM EDT 03/15/2024 1:07 PM EDT Gwen Mcclain MD LAB BLOOD ORDERAB LES Final Result [facility] [address] [place] [phone] from Last 3 Months or Most Recently Relevant to Health Maintenance Insurance [facility] HMO [facility] STANDARD DENTAL[place] STAND ADULT DENTAL - [place] OF [place] Care Teams Dobby Loom Chain Pegger Relationship Specialty Start Date End Date Gwen Reyna MD [address] [place] [phone] PCP - General Internal Medicine 03/15/23
--- OUTSIDE RECORDS SUMMARY | 2024-11-17 15:49 | XMS_ITS | Encounter Summary ---
Author Organization [employer] Address [address] [facility] 7t [place] [address] Care Team Providers Care Electromagnet Crane Operator Name Role Phone Gwen Reyna MD Primary Care Pro vider Encounter Details Date Type Department Care Team (Late st Contact Info) Description 11/01/2024 Orders Only [facility] External Provider, [facility] Social History Tobacco Use Types Packs/Day [...] EST Narrative 11/02/2024 2:49 PM EST ? [facility] ?[address] ?[place] [address] ? Magnetic Resonance Report ? Signed ? Patient: Deidre Luna ?MR#: [id number] ? : 1990 ?Acct:[id number] ? Age/Sex: 33 / F ?ADM Date: 11/01/24 ? Loc: HO.MRI ? Attending Dr: Jakob Clarke MD ? Ordering Physician: Jakob Clarke MD ?? Date of Service: 11/01/24 ?? Procedure(s): MR pelvis wo/w con ?? Accession Number(s): [id number] ? cc: Gwen Reyna MD; Jakob Clarke MD ? CLINICAL HISTORY: N83.299 - Other ovarian cyst, unspecified side ? MR of the pelviswith and without gadolinium ? Comparison: US/CO/SR - US PELVIC AND TRANSVAGINAL - 09/04/24 [...] DD/ 1448 ? TD/TT: 11/02/24 1448 ? Courtroom Deputy: ? Procedure Note Donkari, Image - 11/02/2024 [place] [address] Magnetic Resonance Report Signed Patient: Ericka Luna#: [id number] : 1990Acct:[id number] Age/Sex: 33 / FADM Date: 11/01/24 Loc: HO.MRI Attending Dr: Jakob Clarke MD Ordering Physician: Jakob Clarke MD Date of Service: 11/01/24 Procedure(s): MR pelvis wo/w con Accession Number(s): [id number] cc: Gwen Reyna MD; Jakob Clarke MD CLINICAL HISTORY: N83.299 - Other ovarian cyst, unspecified side MR of the pelviswith and without gadolinium Comparison: US/CO/SR - US PELVIC AND TRANSVAGINAL - 09/04/24 [...] 11/02/24 1449 DD/ 1448 TD/TT: 11/02/24 1448 Courtroom Deputy: [facility] External Provider IMG MRI PROCEDURES Final Result documented in this encounter Visit Diagnoses Not on filedocumented in this encounter Additional Health Concerns Assessment Noted Time PHQ-9 Depression Total Score: 0 02/04/20 24 11:52 AM EDT documented as of this encounter Care Teams Electromagnet Crane Operator Relationship Specialty Start Date End Date Gwen Reyna MD [address] [place] [phone] PCP - General Internal Medicine 03/15/23 documented as of this encounter
--- OUTSIDE RECORDS SUMMARY | 2024-11-17 15:49 | XMS_ITS | Encounter Summary ---
Author Organization [employer] Address [address] [place] [address] Care Team Providers Care Wireless Watcher Name Role Phone Gwen Reyna MD Primary Care Pro vider Encounter Details Date Type Department Care Team ([facility] st Contact Info) Description 09/18/2022 Abstract [facility] ADULT DENTAL [address] [place] [address] Stephenie Newby DDS [address] [place] [address] Social History Tobacco Use Types Packs/Day Years [...] on filedocumented in this encounter Care Teams Wireless Watcher Relationship Specialty Start Date End Date Gwen Reyna MD [address] [place] [address] PCP - General Internal Medicine 03/15/23 documented as of this encounter
--- OUTSIDE RECORDS SUMMARY | 2024-11-17 15:49 | XMS_ITS | Encounter Summary ---
Author Organization [employer] Address [address] [place] [address] 7 [place] [address] Care Team Providers Care Commercial Property Manager Name Role Phone Gwen Reyna MD Primary Care Pro vider Reason for Visit * Reason Comments Med Refill Encounter Details Date Type Department Care Team ([facility] st Contact Info) Description 02/23/2024 Refill [facility] [address] [place] [phone] Gwen Reyna MD [address] [place] [address] Social History Tobacco Use Types Packs/Day Years [...] the request was an automatic request from [employer]. Please can you check with pt if [...] documented as of this encounter Care Teams Commercial Property Manager Relationship Specialty Start Date End Date Gwen Reyna MD [address] [place] [phone] PCP - General Internal Medicine 03/15/23 documented as of this encounter
--- OUTSIDE RECORDS SUMMARY | 2024-11-17 15:49 | XMS_ITS | Encounter Summary ---
Author Organization [employer] Address [address] [facility] 7t [place] [address] Care Team Providers Care Fund Accounting Manager Name Role Phone Gwen Reyna MD Primary Care Pro vider Encounter Details Date Type Department Care Team (Late st Contact Info) Description 01/07/2023 Orders Only [facility] [address] [place], [place] [phone] Alan Austin MD [address] [place] [address] Abnormal uterine bleeding (Primary Dx) Social History [...] tract documented in this encounter Care Teams Fund Accounting Manager Relationship Specialty Start Date End Date Gwen Reyna MD [address] [place] [address] PCP - General Internal Medicine 03/15/23 documented as of this encounter
--- OUTSIDE RECORDS SUMMARY | 2024-11-17 15:49 | XMS_ITS | Encounter Summary ---
Author Organization [employer] Address [address] [facility] [address] 7t [place] [address] Care Team Providers Care Head Of Marketing Analytics Name Role Phone Gwen Reyna MD Primary Care Pro vider Encounter Details Date Type Department Care Team (Late st Contact Info) Description 10/28/2023 Orders Only [facility] MEDICINE [address] [place] [address] ProviderDaquan MD Social History Tobacco Use Types [...] documented as of this encounter Care Teams Head Of Marketing Analytics Relationship Specialty Start Date End Date Gwen Reyna MD [address] [place] [phone] PCP - General Internal Medicine 03/15/23 documented as of this encounter
--- OUTSIDE RECORDS SUMMARY | 2024-11-17 15:49 | XMS_ITS | Encounter Summary ---
Author Organization [employer] Address [address] [place] [address] Care Team Providers Care Food Preparation Worker Name Role Phone Gwen Reyna MD Primary Care Pro vider Reason for Visit * Reason Onset Date Comments Nurse Triage 12/21/2023 Encounter Details Date Type Department Care Team ([facility] st Contact Info) Description 12/21/2023 Telephone [facility] [address] [place] [address] Gwen Reyna MD [address] [place] [address] Nurse Triage Social History Tobacco Use Types [...] seen. Pt is advised to come to [facility] today for provider to see and Pt [...] pain now The caller accepted this outcome Bolivian speaker documented in this encounter Plan of Treatment Not on file documented as of this encounter Visit Diagnoses Not on filedocumented in this encounter Additional Health Concerns Assessment Noted Time PHQ-9 Depression Total Score: 1 05/03/20 3:59 PM EDT documented as of this encounter Care Teams Food Preparation Worker Relationship Specialty Start Date End Date Gwen Reyna MD [address] [place] [phone] PCP - General Internal Medicine 03/15/23 documented as of this encounter
[2024-11-17 16:16] LABS: MANUAL DIFF FLAG NO
[2024-11-17 16:49] LABS: Alanine Aminotransferase 17 U/L (0-31); Albumin Level 4.4 g/dL (3.5-5.0); Alkaline Phosphatase 47 U/L (39-117); Anion Gap 11 (12-20); Aspartate Amino Transferase 20 U/L (5-31); Bilirubin Total 0.2 mg/dL (0.0-1.0); Blood Urea Nitrogen 11 mg/dL (9-16); Calcium 9.7 mg/dL (8.4-10.2); Carbon Dioxide 24 mmol/L (22-29); Chloride 108 mmol/L (96-108); Estimated Glomerular Filt Rate > 60; Glucose Random 83 mg/dL (60-115); Potassium 3.7 mmol/L (3.3-5.1); Sodium 139 mmol/L (135-145)
[2024-11-17 17:05] LABS: Ferritin 20 ng/mL (10-122)
[2024-11-17 18:04] LABS: Basophils Percent Auto 0.5 % (0-2); Eosinophils Absolute Auto 0.3 X10*3/uL (0.0-0.4); Hematocrit 39.2 % (37.0-47.0); Hemoglobin 12.9 g/dl (12.0-16.0); Imm Gran Abs Auto 0.01 X10*3/uL (0.00-0.03); Imm Gran Pct Auto 0.1 % (0.0-0.4); Lymphocytes Absolute Auto 1.8 X10*3/uL (1.2-4.9); Lymphocytes Percent Auto 21.6 % (20-40); Mean Corpuscular HGB Conc 32.9 g/dl (31.0-35.0); Mean Corpuscular Hemoglobin 27.1 pg (27.0-33.0); Mean Corpuscular Volume 82.4 fL (80.0-98.0); Mean Platelet Volume 10.5 fL (9.4-12.3); Monocytes Absolute Auto 0.4 X10*3/uL (0.1-1.2); Monocytes Percent Auto 4.9 % (2-11); Neutrophils Absolute Auto 5.6 x10*3/uL (2.0-8.3); Neutrophils Percent Auto 68.9 % (45-73); Platelet Count 376 X10*3/uL (160-400); Red Blood Count 4.76 X10*6/uL (4.20-5.50); Red Cell Distribution Width 14.7 % (11.0-16.0); White Blood Count 8.1 X10*3/uL (4.8-10.8)
[2024-11-20 23:19] LABS: Mumps Virus IgG Antibody >300.00 AU/mL; Rubella IgG Antibody 1.41 Index
== END 2024-11-17 14:09 | disposition home or self-care (01) ==
LOC: HO.HHCL 14:08
PROVIDERS: Internal Medicine Medical Oncology; Visit Provider Student in an Organized Health Care Education/Training Program
DX: Z01.84 Encounter for antibody response examination (principal); R39.9 Unspecified symptoms and signs involving the genitourinary system; D50.9 Iron deficiency anemia, unspecified; Z86.2 Personal history of diseases of the blood and blood-forming organs and certain disorders involving the immune mechanism
CPT/HCPCS: 36415; 80053; 82728; 85025; 86735; 86762; 86765; 87086

== ENCOUNTER 2025-03-05 09:44 | Outpatient (REF) | payer BC, MEDICAID, SELFPAY | END 2025-03-05 09:45 | disposition home or self-care (01) | LOC: HO.LAB 09:44 | PROVIDERS: PCP Student in an Organized Health Care Education/Training Program; Visit Provider Obstetrics & Gynecology | DX: N93.9 Abnormal uterine and vaginal bleeding, unspecified (principal) | CPT/HCPCS: 81002; 81025 ==

== ENCOUNTER 2025-03-05 09:44 | Outpatient (AMB) | payer BC, MEDICAID, SELFPAY ==
--- NOTE | 2025-03-05 09:54 | MHC.OFFVIS ---
Vital Signs 03/05/25 09:57 Height 5 ft 7 in Weight 234 lb BMI 36.6 BP 116/72 Intake Visit Reasons: annual Intake Note: c/o of pelvic pressure Suspender Cutter Required: No Information Interpreted: non-clinical & clinical Painter Touch Up: Painter Touch Up Present (Shayla DIAZ) Accompanied by: Self / Same As Patient Allergies No Known Allergies Allergy (Verified 03/05/25 09:58) Is last menstrual period known: No (mirena) HPI Comments Details: Presenting for annual exam. No complaints. Last Pap/HPV was negative in 04/02 Last Mammogram was BI-RADS 2 in 05/06 [facility] Medical History (Updated 03/05/25 @ 10:04 by Jakob Clarke MD) Well woman exam Scalp mass False positive syphilis serology Size of fetus inconsistent with dates in second trimester Encounter for screening for malformation using ultrasound Supervision of normal in second trimester Hx of spontaneous , currently test positive Asthma Seasonal allergies Surgical History History of esophagogastroduodenoscopy (EGD) H/O colonoscopy Previous section complicating Hx of section Family History Maternal Aunt Breast CA Father Diabetes mellitus Mother Diabetes mellitus HTN (hypertension) Maternal Grandfather Colon cancer Paternal Grandmother Stomach cancer Social History Household Members: Spouse and Children Housing: House Are you a primary long term care administrator to a significant other at home: No Do you presently have visiting nurse or other home services: No Alcohol intake: never Patient Tobacco Use Status: Never used Tobacco service: No Current occupational status: unemployed Gender identity: Female Female Reproductive History Menstrual Age of Menarche: 10 Date of last pap smear: 03/24/21 Review of Systems Const All systems reviewed & are unremarkable except as noted in HPI and below Card Reports as per HPI Resp Reports as per HPI GI Reports as per HPI and Reports no additional complaints Reports as per HPI Physical Exam Vital Signs: Last Vital Signs BP 116/72 03/05/25 09:57 BMI result Body Mass Index 36.6 Const General: cooperative, healthy appearing and comfortable Chest Chest palpation & inspection: normal inspection of the chest and normal palpation of entire chest wall Breast/axilla inspection: normal inspection of the breasts and normal inspection of the axillae Breast/axilla palpation: normal palpation of the breasts, normal palpation of the axillae and no axillary lymphadenopathy Resp Effort & Inspection: normal respiratory effort Auscultation: clear to auscultation bilaterally Percussion: percussion normal Cardio Palpation: normal PMI Rate: regular rate Rhythm: regular rhythm Heart sounds: no murmurs and no rubs Peripheral pulses: Peripheral pulses 2+ throughout GI Inspection: Yes normal to inspection Palpation (GI): Soft to palpation, nontender, no guarding, not rigid and No hepatosplenomegaly present Percussion: Yes normal to percussion Auscultation: normal bowel sounds Rectal Exam - Female: deferred General: Yes bladder normal to palpation External Female Exam: No lesion Speculum Exam - Vagina: normal appearance of the vagina, normal palpation, normal vaginal discharge and not erythematous Speculum Exam - Cervix: normal appearance of the cervix and normal palpation Bimanual exam- vagina & uterus: normal bimanual exam, normal palpation, uterine size normal, bladder normal to palpation, consistency normal and normal palpation Bimanual Exam- Adnexa, other: normal adnexae, no masses and no tenderness Results AMB Test Urine AMB Test Urine Negative Last Edit by Shayla Kay CMA on 03/05/25 10:27 AMB Urinalysis Dipstick UR Leukocytes Negative Last Edit by Shayla Kay CMA on 03/05/25 10:29 UR Nitrite Negative Last Edit by Shayla Kay CMA on 03/05/25 10:29 UR Urobilinogen Normal Last Edit by Shayla Kay CMA on 03/05/25 10:29 UR Protein Negative Last Edit by Shayla Kay CMA on 03/05/25 10:29 UR Ph 6.0 Last Edit by Shayla Kay CMA on 03/05/25 10:29 UR Blood Negative Last Edit by Shayla Kay CMA on 03/05/25 10:29 UR Specific [place] 1.020 Last Edit by Shayla Kay CMA on 03/05/25 10:29 UR Ketone Negative Last Edit by Shayla Kay CMA on 03/05/25 10:29 UR Bilirubin Negative Last Edit by Shayla Kay CMA on 03/05/25 10:29 UR Glucose Negative Last Edit by Shayla Kay CMA on 03/05/25 10:29 Results Reviewed Results Reviewed: Laboratory Last Values Tst Clinic Negative 03/05/25 10:27 Assessment & Plan Assessment & Plan (1) Well woman exam: Code(s): Z01.419 - Encounter for gynecological examination (general) (routine) without abnormal findings Category: Medical Plan: Cotesting not indicated this year. Counseled the patient about the recommended dietary allowance of 1000 mg of Calcium & 600 IU of vitamin D. The patient was instructed to perform monthly self-breast exams and to schedule an annual exam in a year; All questions answered and the patient verbalized understanding. Instructed the patient to schedule annual exam in a year (2) Abnormal uterine bleeding (AUB): Code(s): N93.9 - Abnormal uterine and vaginal bleeding, unspecified Category: Medical Plan: GC and chlamydia taken CBC, TSH, HCG, and pelvic ultrasound ordered. Discussed with the patient the different causes of abnormal bleeding including thyroid disorders, uterine and ovarian pathology, endometrial hyperplasia, carcinoma and other potential causes. Discussed with the patient the work up including CBC (to r/o anemia), TSH, pelvic Ultrasound, endometrial biopsy to r/o endometrial pathology. All questions answered and the patient verbalized understanding. Instructed the patient to schedule an appointment for an endometrial biopsy in 2 weeks. (3) Pelvic pain: Code(s): R10.2 - Pelvic and perineal pain Category: Medical Plan: Urine dip and test done in the office were both negative. GC and chlamydia taken and pelvic ultrasound ordered. Discussed with the patient the differential diagnosis of pelvic pain including but not limited to adnexal, uterine masses, pelvic infections (PID), GI the (Irritable bowel syndrome, diverticulitis, others), musculoskeletal, myofascial pain abdominal wall , adhesions, endometriosis, psychological and others causes. Will check results and treat accordingly. All questions answered, the patient verbalized understanding. Instructed the patient to schedule an ultrasound and a follow-up appointment in 2 weeks. All questions answered, the patient verbalized understanding and agreed with the plan. Orders: Orders TSH reflex Free T4 Today N93.9 - Abnormal uterine and vaginal bleeding, unspecified Complete Blood Count no Diff Today N93.9 - Abnormal uterine and vaginal bleeding, unspecified AMB HCG Urine Test Today Z32.02 - Encounter for test, result negative CT NG by PCR Today R10.2 - Pelvic and perineal pain US pelvic and transvaginal Today N93.9 - Abnormal uterine and vaginal bleeding, unspecified HCG Quantitative Today N93.9 - Abnormal uterine and vaginal bleeding, unspecified AMB Urinalysis Dipstick Today R10.2 - Pelvic and perineal pain Coding Level of Care Code New Pt Prev Care 18-39yr([id number] Diagnoses Well woman exam Z01.419 Abnormal uterine bleeding (AUB) N93.9 Pelvic pain R10.2
[2025-03-05 09:57] VITALS: BP 116/72; BMI 36.6
--- OUTSIDE RECORDS SUMMARY | 2025-03-05 10:35 | XMS_ITS | Encounter Summary ---
Author Organization [employer] Address [address] [facility] 7 [place] [address] Care Team Providers Care Delivery Recruiter Name Role Phone Gwen Reyna MD Primary Care Pro vider Reason for Visit * Reason Comments Med Refill Encounter Details Date Type Department Care Team ([facility] st Contact Info) Description 02/23/2024 Refill [facility] [address] [place] [address] [phone] Gwen Reyna MD [address] [place] [address] Social History Tobacco Use Types Packs/Day Years [...] the request was an automatic request from [facility]. Please can you check with pt if taking naproxen chronically, not recommend to pt to take this med chronically w risk of kidney damage , HTN, GI bleed documented in this encounter Plan of Treatment Upcoming Encounters Date Type Department Care Team (Late st Contact Info) Description 04/13/2025 11:30 AM EDT Office Visit [facility] [address] [place] [phone] Gwen Reyna MD [address] [place] [address] documented as of this encounter Visit Diagnoses Not on filedocumented in this encounter Additional Health Concerns Assessment Noted Time PHQ-9 Depression Total Score: 0 02/04/20 11:52 AM EDT documented as of this encounter Care Teams Delivery Recruiter Relationship Specialty Start Date End Date Gwen Reyna MD [address] [place] [address] PCP - General Internal Medicine 03/15/23 documented as of this encounter
== END 2025-03-05 10:20 | disposition home or self-care (01) ==
LOC: HO.HWS 09:45
PROVIDERS: PCP Student in an Organized Health Care Education/Training Program; Visit Provider Obstetrics & Gynecology
DX: Z01.419 Encounter for gynecological examination (general) (routine) without abnormal findings (principal); N93.9 Abnormal uterine and vaginal bleeding, unspecified; R10.2 Pelvic and perineal pain; Z32.02 Encounter for pregnancy test, result negative
CPT/HCPCS: 99395; 99459

== ENCOUNTER 2025-03-05 10:21 | Outpatient (REF) | payer BC, MEDICAID, SELFPAY ==
[2025-03-05 11:41] LABS: Hematocrit 38.5 % (37.0-47.0); Hemoglobin 13.1 g/dl (12.0-16.0); Mean Corpuscular Hemoglobin 27.8 pg (27.0-33.0); Mean Corpuscular Volume 81.6 fL (80.0-98.0); Platelet Count 351 X10*3/uL (160-400); Red Blood Count 4.72 X10*6/uL (4.20-5.50); Red Cell Distribution Width 13.9 % (11.0-16.0); White Blood Count 7.6 X10*3/uL (4.8-10.8)
[2025-03-05 12:35] LABS: HCG Quantitative < 2 mIU/mL; TSH reflex Free T4 2.93 uIU/mL (0.32-4.0)
[2025-03-05 17:05] LABS: CT PCR NOT DETECTED (Not Detect.); NG PCR NOT DETECTED (Not Detect.)
== END 2025-03-05 10:22 | disposition home or self-care (01) ==
LOC: HO.LNP 10:21
PROVIDERS: Visit Provider Obstetrics & Gynecology
DX: R10.2 Pelvic and perineal pain (principal); N93.9 Abnormal uterine and vaginal bleeding, unspecified; Z32.02 Encounter for pregnancy test, result negative
CPT/HCPCS: 84443; 84702; 85027; 87491; 87591

== ENCOUNTER 2025-04-11 10:16 | Outpatient (REF) | payer BC, MEDICAID, SELFPAY ==
--- OUTSIDE RECORDS SUMMARY | 2025-04-11 11:06 | XMS_ITS | Encounter Summary ---
Author Organization [employer] Address [address] [facility] [address]t [place] [address] Care Team Providers Care Motor Tester Name Role Phone Gwen Reyna MD Primary Care Pro vider Reason for Visit * Reason Comments Med Refill Encounter Details Date Type Department Care Team ([facility] st Contact Info) Description 02/23/2024 Refill [facility] [address] [place] [address] [phone] Gwen Reyna MD [address] [place] [address] Social History Tobacco Use Types Packs/Day Years [...] the request was an automatic request from [facility]. Please can you check with pt if taking naproxen chronically, not recommend to pt to take this med chronically w risk of kidney damage , HTN, GI bleed documented in this encounter Plan of Treatment Upcoming Encounters Date Type Department Care Team (Late st Contact Info) Description 04/13/2025 11:30 AM EDT Office Visit [facility] [address] [place] [address] [phone] Gwen Reyna MD [address] [place] [address] 05/22/2025 9:00 AM EDT Office Visit [facility] [address] [place] [address] [phone] Paulo Gomez DDS [address] [place], [place] [phone] documented as of this encounter Visit Diagnoses Not on filedocumented in this encounter Additional Health Concerns Assessment Noted Time PHQ-9 Depression Total Score: 0 02/04/20 24 11:52 AM EDT documented as of this encounter Care Teams Motor Tester Relationship Specialty Start Date End Date Gwen Reyna MD [address] [place] [address] PCP - General Internal Medicine 03/15/23 documented as of this encounter
[2025-04-11 13:24] LABS: MANUAL DIFF FLAG NO
[2025-04-11 13:42] LABS: Hematocrit 39.2 % (37.0-47.0); Hemoglobin 13.3 g/dl (12.0-16.0); Imm Gran Abs Auto 0.01 X10*3/uL (0.00-0.03); Imm Gran Pct Auto 0.2 % (0.0-0.4); Lymphocytes Absolute Auto 1.3 X10*3/uL (1.2-4.9); Mean Corpuscular HGB Conc 33.9 g/dl (31.0-35.0); Mean Corpuscular Hemoglobin 28.1 pg (27.0-33.0); Mean Corpuscular Volume 82.7 fL (80.0-98.0); NRBC Abs Auto 0.000 X10*3/uL (0.0-0.012); NRBC Pct Auto 0.0 /100WBC (0.0-0.2); Platelet Count 318 X10*3/uL (160-400); Red Blood Count 4.74 X10*6/uL (4.20-5.50); White Blood Count 5.6 X10*3/uL (4.8-10.8)
[2025-04-11 13:50] LABS: Hemoglobin A1C 120.0506 umol/L; Total Hemoglobin (HGBA1C) 3491.3310 umol/L
[2025-04-11 14:44] LABS: Alanine Aminotransferase 19 U/L (0-31); Albumin Level 4.9 g/dL (3.5-5.0); Alkaline Phosphatase 46 U/L (39-117); Anion Gap 12 (12-20); Aspartate Amino Transferase 20 U/L (5-31); Blood Urea Nitrogen 11 mg/dL (9-16); Calcium 9.4 mg/dL (8.4-10.2); Carbon Dioxide 24 mmol/L (22-29); Chloride 108 mmol/L (96-108); Cholesterol 167 mg/dL (<200); Estimated Glomerular Filt Rate > 60; HDL Cholesterol 46 mg/dL (>40); Potassium 4.0 mmol/L (3.3-5.1); Sodium 140 mmol/L (135-145); Total Protein 8.0 g/dL (6.5-8.0); Triglycerides 58 mg/dL (<150)
[2025-04-11 15:44] LABS: CT PCR Urine NOT DETECTED (Not Detect.); NG PCR Urine NOT DETECTED (Not Detect.)
[2025-04-12 08:07] LABS: Syphilis Screen Reactive (Nonreactive)
[2025-04-12 08:18] LABS: HBsAGNum1 0.35 S/CO (0.00-0.99); HIV Num 1 0.05 S/CO (0.00-0.99); Hepatitis B Surface Antigen Negative (Negative); ~HepC Num1 0.11 S/CO (0.00-0.79); ~Hepatitis C Antibody Nonreactive (Nonreactive)
[2025-04-18 14:52] LABS: T.Pallidum Particle Agg Test Non-Reactive (Nonreactive)
== END 2025-04-11 10:17 | disposition home or self-care (01) ==
LOC: HO.HHCL 10:16
PROVIDERS: Internal Medicine Medical Oncology; PCP Student in an Organized Health Care Education/Training Program; Visit Provider Student in an Organized Health Care Education/Training Program
DX: Z11.4 Encounter for screening for human immunodeficiency virus [HIV] (principal); Z11.59 Encounter for screening for other viral diseases; Z00.00 Encounter for general adult medical examination without abnormal findings; Z11.3 Encounter for screening for infections with a predominantly sexual mode of transmission; D50.9 Iron deficiency anemia, unspecified
CPT/HCPCS: 36415; 80053; 80061; 82306; 83036; 84443; 85025; 86592; 86780; 86803; 87340; 87389; 87491; 87591

== ENCOUNTER 2025-04-26 13:56 | Outpatient (REF) | payer BC, MEDICAID, SELFPAY ==
--- NOTE | ~2025-04-26 | US_ITS ---
CLINICAL HISTORY: N93.9 - Abnormal uterine and vaginal bleeding, unspecified US pelvis transabdominal and transvaginal with color Doppler Comparison: MR - MR PELVIS WO/W CON - 11/01/24 11:53 EST US/DE/SR - US PELVIC AND TRANSVAGINAL - 09/04/24 11:32 EST Findings: Transabdominal scanning performed for overall anatomy. Transvaginal scanning performed for additional detail. LMP: 04/12/2025 Anteverted uterus, normal size and echotexture, measuring 8.2 x 4.4 cm. Posterior fundal fibroid at 1.6 x 1.3 x 1.1 cm incidental nabothian cysts Endometrium contains an IUD. The right ovary measures, 3.0 x 2.0 x 2.5 cm. 4 mm probable incidental calcification right ovary and a 6 mm involuting corpus luteum. 5 mm dominant follicle.Normal color Doppler The left ovary measures, 5.4 x 2.7 x 4.3 cm. Probable hemorrhagic cyst measuring 3.2 x 2.5 x 2.7 cmnormal color Doppler No adnexal masses or fluid collections. No free fluid Impression: 1. Uterus contains an IUDwithin the endometrial cavity. Intramural fundal fibroid. 2. Probable hemorrhagic cyst left ovary follow-up ultrasound in 6 or 12 weeks time. 3. Probable incidental calcification right ovary with follicular activity and probable corpus luteum. This document has been electronically signed by: Edi Durham MD on 04/27/2025 08:15:53
--- OUTSIDE RECORDS SUMMARY | 2025-04-26 14:47 | XMS_ITS | Encounter Summary ---
Author Organization [employer] Address [address] [facility] 7t [place] [address] Care Team Providers Care Merchandising Team Lead Name Role Phone Gwen Reyna MD Primary Care Pro vider Reason for Visit * Reason Comments Med Refill Encounter Details Date Type Department Care Team ([facility] st Contact Info) Description 02/23/[address] [facility] [address] [place] [address] [phone] Gwen Reyna MD [address] [place] [address] Social History Tobacco Use Types Packs/Day Years [...] the request was an automatic request from [facility]. Please can you check with pt if taking naproxen chronically, not recommend to pt to take this med chronically w risk of kidney damage , HTN, GI bleed documented in this encounter Plan of Treatment Upcoming Encounters Date Type Department Care Team (Late st Contact Info) Description 05/22/2025 9:00 AM EDT Office Visit [facility] [address] [place], [place] [phone] Paulo Gomez DDS [address] [place], [place] [phone] documented as of this encounter Visit Diagnoses Not on filedocumented in this encounter Additional Health Concerns Assessment Noted Time PHQ-9 Depression Total Score: 0 02/04/20 11:52 AM EDT documented as of this encounter Care Teams Merchandising Team Lead Relationship Specialty Start Date End Date Gwen Reyna MD [address] [place] [phone] PCP - General Internal Medicine 03/15/23 documented as of this encounter
== END 2025-04-26 13:57 | disposition home or self-care (01) ==
LOC: HO.HMGCX 13:56
PROVIDERS: PCP Student in an Organized Health Care Education/Training Program; Visit Provider Obstetrics & Gynecology
DX: N93.9 Abnormal uterine and vaginal bleeding, unspecified (principal)
CPT/HCPCS: 76830; 76856

== ENCOUNTER → 2025-04-26 14:08 | Outpatient (BNV) | payer BC, MEDICAID, SELFPAY | PROVIDERS: PCP Student in an Organized Health Care Education/Training Program; Visit Provider Radiology Diagnostic Radiology | DX: N93.9 Abnormal uterine and vaginal bleeding, unspecified (principal) | CPT/HCPCS: 76830; 76856 ==

== ENCOUNTER 2025-05-01 09:09 | Outpatient (REF) | payer BC, MEDICAID, SELFPAY | END 2025-05-01 09:10 | disposition home or self-care (01) | LOC: HO.LNP 09:09 | PROVIDERS: PCP Student in an Organized Health Care Education/Training Program; Visit Provider Obstetrics & Gynecology | DX: N93.9 Abnormal uterine and vaginal bleeding, unspecified (principal); Z32.02 Encounter for pregnancy test, result negative | CPT/HCPCS: 58100; 81025; 88305 ==

== ENCOUNTER 2025-05-01 09:09 | Outpatient (AMB) | payer BC, MEDICAID, SELFPAY ==
--- NOTE | 2025-05-01 09:10 | A.OFFVIS_ITS ---
Intake Visit Reasons: US results/ EMB Allergies No Known Allergies Allergy (Verified 03/05/25 09:58) HPI Comments Details: Presenting for EMB [facility] Medical History (Updated 03/05/25 @ 10:04 by Jakob Clarke MD) Well woman exam Scalp mass False positive syphilis serology Size of fetus inconsistent with dates in second trimester Encounter for screening for malformation using ultrasound Supervision of normal in second trimester Hx of spontaneous , currently test positive Asthma Seasonal allergies Surgical History History of esophagogastroduodenoscopy (EGD) H/O colonoscopy Previous section complicating Hx of section Family History Maternal Aunt Breast CA Father Diabetes mellitus Mother Diabetes mellitus HTN (hypertension) Maternal Grandfather Colon cancer Paternal Grandmother Stomach cancer Social History Household Members: Spouse and Children Both parents involved: Yes Caregiver staying overnight: No Housing: House Are you a primary residential care officer to a significant other at home: No Do you presently have visiting nurse or other home services: No 75 years or older and lives alone: No Alcohol intake: never Patient Tobacco Use Status: Never used Tobacco service: No Current occupational status: unemployed Gender identity: Female Female Reproductive History Menstrual Age of Menarche: 10 Office Procedures Endometrial Biopsy Details: The patient was counseled regarding the indication and benefits of endometrial sampling to rule out endometrial pathology including not limited to endometrial hyperplasia or endometrial cancer and others; The alternatives (Either do nothing vs. hysteroscopy D&C) & the risks were discussed with the patient including but not limited: pain, uterine perforation, bleeding, infection, possible injury to bladder, bowel, ureter, possible need for blood transfusion with all its possible risks. The patient verbalized understanding all questions answered and signed consent. Urine test done in the office was negative The patient was placed into the dorsal lithotomy position; a speculum was inserted in the vagina. Using aseptic technique for the procedure, the cervix was cleansed with Betadine. The anterior lip of the cervix was grasped with a single tooth tenaculum. The uterus was sounded to 7 cm with a 4 mm Pipelle was used. Tissues samples were obtained and placed in formalin, in a patient labeled container and sent to the pathology department. At the end of the procedure, there was minimal bleeding noted The patient tolerated the procedure well and was discharged in good condition with the following instructions: Nothing in the vagina until the bleeding stops. No sex until the bleeding stops, to call if any of the following occurs: fever (>100.4), flu-like symptoms, abdominal pain, heavy bleeding, four smelling vaginal discharge. The patient was instructed to schedule a Follow up appointment in 2 weeks to discuss pathology results of the biopsy and treatment options. This note was generated with a voice recognition program. Some errors may have been overlooked during the review of this note. Sometimes these errors may affect the content or meaning of a given sentence. [id number] Biopsy Assessment & Plan Assessment & Plan (1) Abnormal uterine bleeding (AUB): Code(s): N93.9 - Abnormal uterine and vaginal bleeding, unspecified Category: Medical Plan: EMB done, see procedure note Orders: Orders AMB Endometrial Biopsy Today N93.9 - Abnormal uterine and vaginal bleeding, unspecified Coding Level of Care Code Procedure Only Diagnoses Abnormal uterine bleeding (AUB) N93.9 CPT Codes Endometrial Biopsy - CPT: 26139-Iokjvootboi Biopsy ([id number])
--- OUTSIDE RECORDS SUMMARY | 2025-05-01 10:04 | XMS_ITS | Encounter Summary ---
Author Organization [employer] Address [address] [facility] 7t [place] [address] Care Team Providers Care Electric Power Machine Operator Name Role Phone Gwen Reyna MD Primary Care Pro vider Reason for Visit * Reason Comments Med Refill Encounter Details Date Type Department Care Team ([facility] st Contact Info) Description 02/23/2024 Refill [facility] [address] [place] [address] [phone] Gwen Reyna MD [address] [place] [address] Social History Tobacco Use Types Packs/Day Years [...] the request was an automatic request from [facility]. Please can you check with pt if taking naproxen chronically, not recommend to pt to take this med chronically w risk of kidney damage , HTN, GI bleed documented in this encounter Plan of Treatment Upcoming Encounters Date Type Department Care Team (Late st Contact Info) Description 05/22/2025 9:00 AM EDT Office Visit [facility] [address] [place], [place] [phone] Paulo Gomez DDS [address] [place], [place] [phone] documented as of this encounter Visit Diagnoses Not on filedocumented in this encounter Additional Health Concerns Assessment Noted Time PHQ-9 Depression Total Score: 0 02/04/20 11:52 AM EDT documented as of this encounter Care Teams Electric Power Machine Operator Relationship Specialty Start Date End Date Gwen Reyna MD [address] [place] [phone] PCP - General Internal Medicine 03/15/23 documented as of this encounter
== END 2025-05-01 09:57 | disposition home or self-care (01) ==
LOC: HO.HWS 09:09
PROVIDERS: PCP Student in an Organized Health Care Education/Training Program; Visit Provider Obstetrics & Gynecology
DX: N93.9 Abnormal uterine and vaginal bleeding, unspecified (principal); Z32.02 Encounter for pregnancy test, result negative
CPT/HCPCS: 58100

== ENCOUNTER 2025-05-04 10:23 | Outpatient (REF) | payer BC, MEDICAID, SELFPAY ==
--- OUTSIDE RECORDS SUMMARY | 2025-05-04 10:26 | XMS_ITS | Encounter Summary ---
Author Organization [employer] Address [address] [facility] [address]t [place] [address] Care Team Providers Care Metal Finish Inspector Name Role Phone Gwen Reyna MD Primary Care Pro vider Reason for Visit * Reason Comments Med Refill Encounter Details Date Type Department Care Team ([facility] st Contact Info) Description 02/23/2024 Refill [facility] [address] [place] [address] [phone] Gwen Reyna MD [address] [place] [address] Social History Tobacco Use Types Packs/Day Years [...] the request was an automatic request from [facility]. Please can you check with pt if taking naproxen chronically, not recommend to pt to take this med chronically w risk of kidney damage , HTN, GI bleed documented in this encounter Plan of Treatment Upcoming Encounters Date Type Department Care Team (Late st Contact Info) Description 05/22/2025 9:00 AM EDT Office Visit [facility] [address] [place], [place] [phone] Paulo Gomez DDS [address] [place], [place] [phone] documented as of this encounter Visit Diagnoses Not on filedocumented in this encounter Additional Health Concerns Assessment Noted Time PHQ-9 Depression Total Score: 0 02/04/20 11:52 AM EDT documented as of this encounter Care Teams Metal Finish Inspector Relationship Specialty Start Date End Date Gwen Reyna MD [address] [place] [phone] PCP - General Internal Medicine 03/15/23 documented as of this encounter
[2025-05-04 10:40] LABS: Hematocrit 39.8 % (37.0-47.0); Hemoglobin 13.7 g/dl (12.0-16.0); Mean Corpuscular HGB Conc 34.4 g/dl (31.0-35.0); Mean Corpuscular Hemoglobin 28.1 pg (27.0-33.0); Mean Corpuscular Volume 81.6 fL (80.0-98.0); NRBC Abs Auto 0.000 X10*3/uL (0.0-0.012); NRBC Pct Auto 0.0 /100WBC (0.0-0.2); Platelet Count 301 X10*3/uL (160-400); Red Blood Count 4.88 X10*6/uL (4.20-5.50); White Blood Count 7.0 X10*3/uL (4.8-10.8)
== END 2025-05-04 10:24 | disposition home or self-care (01) ==
LOC: HO.LAB 10:23
PROVIDERS: PCP Student in an Organized Health Care Education/Training Program; Visit Provider Obstetrics & Gynecology
DX: N93.9 Abnormal uterine and vaginal bleeding, unspecified (principal); N83.202 Unspecified ovarian cyst, left side; Z97.5 Presence of (intrauterine) contraceptive device
CPT/HCPCS: 36415; 85027

== ENCOUNTER 2025-05-04 11:09 | Outpatient (AMB) | payer BC, MEDICAID, SELFPAY ==
--- NOTE | 2025-05-04 11:16 | A.OFFVIS_ITS ---
Vital Signs 05/04/25 11:18 Height 5 ft 7 in Weight 234 lb BMI 36.6 Intake Visit Reasons: Vaginal bleeding Editor Greeting Card Required: No Information Interpreted: non-clinical & clinical Screw Machine Adjuster Automatic: Screw Machine Adjuster Automatic Present (Shayla DIAZ) Accompanied by: Self / Same As Patient Allergies No Known Allergies Allergy (Verified 05/04/25 11:21) HPI Comments Details: The patient is presenting for follow-up to discuss the results of her abnormal uterine bleeding workup and options of treatment. Still complaining of vaginal bleeding last 6 week but her bleeding has improved markedly over last 24 hours The following workup was done.: H&H= 13.7/39.8 today TSH, hCG, GC and chlamydia were negative. Endometrial biopsy pathology showed the following: Endometrium, biopsy: Benign endometrium with chronic endometritis, focal breakdown, atrophic glands and decidual stromal change consistent with progestin effect; no atypia or carcinoma Co testing was done in 04/01 was negative. Pelvic ultrasound showed the following: Transabdominal scanning performed for overall anatomy. Transvaginal scanning performed for additional detail. LMP: 04/12/2025 Anteverted uterus, normal size and echotexture, measuring 8.2 x 4.4 cm. Posterior fundal fibroid at 1.6 x 1.3 x 1.1 cm incidental nabothian cysts Endometrium contains an IUD. The right ovary measures, 3.0 x 2.0 x 2.5 cm. 4 mm probable incidental calcification right ovary and a 6 mm involuting corpus luteum. 5 mm dominant follicle.Normal color Doppler The left ovary measures, 5.4 x 2.7 x 4.3 cm. Probable hemorrhagic cyst measuring 3.2 x 2.5 x 2.7 cmnormal color Doppler No adnexal masses or fluid collections. No free fluid: The patient had Mirena IUD in 2022 [facility] Medical History (Updated 03/05/25 @ 10:04 by Jakob Clarke MD) Well woman exam Scalp mass False positive syphilis serology Size of fetus inconsistent with dates in second trimester Encounter for screening for malformation using ultrasound Supervision of normal in second trimester Hx of spontaneous , currently test positive Asthma Seasonal allergies Surgical History History of esophagogastroduodenoscopy (EGD) H/O colonoscopy Previous section complicating Hx of section Family History Maternal Aunt Breast CA Father Diabetes mellitus Mother Diabetes mellitus HTN (hypertension) Maternal Grandfather Colon cancer Paternal Grandmother Stomach cancer Social History Household Members: Spouse and Children Both parents involved: Yes Caregiver staying overnight: No Housing: House Are you a primary child care centre director to a significant other at home: No Do you presently have visiting nurse or other home services: No 75 years or older and lives alone: No Alcohol intake: never Patient Tobacco Use Status: Never used Tobacco service: No Current occupational status: unemployed Gender identity: Female Female Reproductive History Menstrual Age of Menarche: 10 Review of Systems Const All systems reviewed & are unremarkable except as noted in HPI and below Physical Exam Vital Signs: BMI result Body Mass Index 36.6 General: Yes no CVA tenderness External Female Exam: normal external appearance and normal appearance of the urethra Speculum Exam - Vagina: normal appearance of the vagina, normal palpation, no lesions and no masses Speculum Exam - Cervix: normal appearance of the cervix, normal palpation, no lesions, no masses, nontender and Other cervical findings present (IUD string in place) Bimanual exam- vagina & uterus: normal bimanual exam, normal palpation, uterine size normal, normal palpation, uterine shape normal, No Cervical tenderness present and non-tender Bimanual Exam- Adnexa, other: normal adnexae Back/Spine/Pelvis Back: no CVA tenderness Assessment & Plan Assessment & Plan (1) Abnormal uterine bleeding (AUB): Code(s): N93.9 - Abnormal uterine and vaginal bleeding, unspecified Category: Medical Plan: UPT done in the office was negative. Discussed with the patient the results of the work up done and options of treatment including Lysteda, BCP's, keep Mirena IUD, endometrial ablation and hysterectomy. All pros, cons, risks and benefits if each option was discussed with the patient and the patient decided to think about it and get back to us. All questions answered the patient verbalized understanding. (2) Ovarian cyst, complex: Code(s): N83.299 - Other ovarian cyst, unspecified side Category: Medical Plan: Discussed with the patient the complex ovarian cyst by ultrasound. Discussed with the patient the Ultrasound findings, the main limitation of transvaginal ultrasonography alone as a diagnostic tool to distinguish benign from malignant masses relates to its lack of specificity and low positive predictive value for cancer. The differential diagnosis discussed with the patient includes the following but not limited to: benign and malignant gynecological and non-gynecological causes. Discussed with the patient options of treatment including laparoscopy ovarian cystectomy/oophorectomy vs. expectant management with repeat US in repeating pelvic US in 6-12 weeks from previous US. If the ovarian complex cyst is persistent larger and / or more complex looking, will refer to gynecologic Oncology. All pros, cons, risks and benefits of each approach were discussed with the patient including but not limited to a delay in the diagnosis and calin tment of ovarian cancer affecting the prognosis; The patient decided to go ahead with expectant management. Instructions given the patient to schedule a 3 months follow-up ultrasound appointment, order placed. All questions were answered & the patient verbalized understanding and agreed with the plan. Orders: Orders US pelvic and transvaginal 3 Months N83.299 - Other ovarian cyst, unspecified side Coding Level of Care Code Est Pt Level 3 (34197) Diagnoses Abnormal uterine bleeding (AUB) N93.9 Ovarian cyst, complex N83.299
[2025-05-04 11:18] VITALS: BMI 36.6
== END 2025-05-04 11:42 | disposition home or self-care (01) ==
LOC: HO.HWS 11:09
PROVIDERS: PCP Student in an Organized Health Care Education/Training Program; Visit Provider Obstetrics & Gynecology
DX: N93.9 Abnormal uterine and vaginal bleeding, unspecified (principal); N83.299 Other ovarian cyst, unspecified side
CPT/HCPCS: 99213

== ENCOUNTER 2025-05-15 14:49 | Outpatient (AMB) | payer BC, MEDICAID, SELFPAY ==
--- NOTE | 2025-05-15 14:49 | A.OFFVIS_ITS ---
Intake Visit Reasons: TV EMB Results Intake Note: [phone] Allergies No Known Allergies Allergy (Verified 05/04/25 11:21) HPI Comments Details: The patient is presenting for follow-up to discuss the results of her abnormal uterine bleeding workup and options of treatment. The following workup was done.: H&H= 13.7/39.8 TSH, hCG, GC and chlamydia were negative. Endometrial biopsy pathology showed the following: Benign endometrium with chronic endometritis, focal breakdown, atrophic glands and decidual stromal change consistent with progestin effect; no atypia or carcinoma Co testing was done in 04/02 was negative. Pelvic ultrasound showed the following: Anteverted uterus, normal size and echotexture, measuring 8.2 x 4.4 cm. Posterior fundal fibroid at 1.6 x 1.3 x 1.1 cm incidental nabothian cysts Endometrium contains an IUD. The right ovary measures, 3.0 x 2.0 x 2.5 cm. 4 mm probable incidental calcification right ovary and a 6 mm involuting corpus luteum. 5 mm dominant follicle.Normal color Doppler The left ovary measures, 5.4 x 2.7 x 4.3 cm. Probable hemorrhagic cyst measuring 3.2 x 2.5 x 2.7 cmnormal color Doppler No adnexal masses or fluid collections. No free fluid [facility] Medical History (Updated 05/15/25 @ 14:58 by Jakob Clarke MD) Well woman exam Scalp mass False positive syphilis serology Size of fetus inconsistent with dates in second trimester Encounter for screening for malformation using ultrasound Supervision of normal in second trimester Hx of spontaneous , currently test positive Asthma Seasonal allergies Surgical History History of esophagogastroduodenoscopy (EGD) H/O colonoscopy Previous section complicating Hx of section Family History Maternal Aunt Breast CA Father Diabetes mellitus Mother Diabetes mellitus HTN (hypertension) Maternal Grandfather Colon cancer Paternal Grandmother Stomach cancer Social History Household Members: Spouse and Children Both parents involved: Yes Caregiver staying overnight: No Housing: House Are you a primary tire care manager to a significant other at home: No Do you presently have visiting nurse or other home services: No 75 years or older and lives alone: No Alcohol intake: never Patient Tobacco Use Status: Never used Tobacco service: No Current occupational status: unemployed Gender identity: Female Female Reproductive History Menstrual Age of Menarche: 10 Review of Systems Const All systems reviewed & are unremarkable except as noted in HPI and below Reports as per HPI and Reports no additional complaints GI Reports no additional complaints Reports no additional complaints Telehealth Telehealth Telehealth Platform: [employer] Location of provider rendering services: practice address Location of patient: address on file Patient Identification confirmed using: Name, : Yes Telehealth method: video Patient verbally consented to treatment: Yes Patient verbally consented to billing insurance company: Yes Patient informed of any privacy concerns related to visit: Yes Minutes spent on Phone/Video with Pt.: 2 Assessment & Plan Assessment & Plan (1) Abnormal uterine bleeding (AUB): Code(s): N93.9 - Abnormal uterine and vaginal bleeding, unspecified Category: Medical Plan: Discussed with the patient the results of the work up done and options of treatment including Lysteda, BCP's, Mirena IUD, endometrial ablation and hysterectomy. All pros, cons, risks and benefits if each option was discussed with the patient and the patient decided to think about it and get back to us. All questions answered the patient verbalized understanding. (2) Uterine myoma: Code(s): D25.9 - Leiomyoma of uterus, unspecified Category: Medical Plan: Discussed with the patient the findings on pelvic ultrasound & the risk of myosarcoma; in addition reviewed with the patient that malignancy and pre malignancy cannot be ruled out without hysterectomy for pathological evaluation ; furthermore, explained to the patient the limitation of pelvic ultrasound and endometrial biopsy in the setting. Discussed with the patient the options of treatment including expectant management versus hysterectomy; the pros and cons, risks benefits of each approach were discussed with the patient including the fact that in cases of myosarcoma, surgical treatment can lead to early diagnosis and positively affects the prognosis; after further discussion, the patient decided to proceed with expectant management. Will repeat pelvic ultrasound periodically. Instructions given to patient to call in case any of the following occurs: pressure symptoms, abnormal uterine bleeding, pelvic pain; and to schedule a few months pelvic ultrasound (order placed) and a follow-up appointment . All questions answered, the patient verbalized understanding and agreed with the plan . (3) Complex cyst of both ovaries: Code(s): N83.291 - Other ovarian cyst, right side; N83.292 - Other ovarian cyst, left side Category: Medical Plan: The patient was counseled regarding options of treat regarding complex ovarian cyst, decided to proceed with expectant management, has an pelvic ultrasound scheduled in few weeks and a follow-up appointment afterwards. I spent a total of 20 minutes reviewing the chart, talking to the patient via video and documenting in the medical record. Coding Level of Care Code Tele Est Pt Level 3 (66868) Diagnoses Abnormal uterine bleeding (AUB) N93.9 Uterine myoma D25.9 Complex cyst of both ovaries N83.291; N83.292
--- OUTSIDE RECORDS SUMMARY | 2025-05-15 16:01 | XMS_ITS | Encounter Summary ---
Author Organization [employer] Address [address] [place] [address] Care Team Providers Care Cytologist Name Role Phone Gwen Reyna MD Primary Care Pro vider Reason for Visit * Reason Comments Med Refill Encounter Details Date Type Department Care Team ([facility] st Contact Info) Description 02/23/2024 Refill [facility] [address] [place] [phone] Gwen Reyna MD [address] [place] [address] Social History Tobacco Use Types Packs/Day Years [...] the request was an automatic request from [facility]. Please can you check with pt if taking naproxen chronically, not recommend to pt to take this med chronically w risk of kidney damage , HTN, GI bleed documented in this encounter Plan of Treatment Upcoming Encounters Date Type Department Care Team (Late st Contact Info) Description 05/22/2025 9:00 AM EDT Office Visit [facility] [address] [place], [place] [phone] Paulo Gomez DDS [address] [place], [place] [phone] documented as of this encounter Visit Diagnoses Not on filedocumented in this encounter Additional Health Concerns Assessment Noted Time PHQ-9 Depression Total Score: 0 02/04/20 11:52 AM EDT documented as of this encounter Care Teams Cytologist Relationship Specialty Start Date End Date Gwen Reyna MD [address] [place] [id number] PCP - General Internal Medicine 03/15/23 documented as of this encounter
--- OUTSIDE RECORDS SUMMARY | 2025-05-15 16:01 | XMS_ITS | Encounter Summary ---
Author Organization [employer] Address [address] [place] [address] [address] [place] [address] Care Team Providers Care Instructional Specialist Name Role Phone Gwen Reyna MD Primary Care Pro vider Reason for Visit * Reason Onset Date Comments Nurse Triage 12/21/2023 Encounter Details Date Type Department Care Team ([facility] st Contact Info) Description 12/21/2023 Telephone [facility] [address] [place], [place] [phone] Gwen Reyna MD [address] [place] [address] Nurse Triage Social History Tobacco Use Types [...] seen. Pt is advised to come to [facility] today for provider to see [...] pain now The caller accepted this outcome Telugu speaker documented in this encounter Plan of Treatment Upcoming Encounters Date Type Department Care Team (Late st Contact Info) Description 05/22/2025 9:00 AM EDT Office Visit [facility] [address] [place], [place] [phone] Paulo Gomez DDS [address] [place], [place] [phone] documented as of this encounter Visit Diagnoses Not on filedocumented in this encounter Additional Health Concerns Assessment Noted Time PHQ-9 Depression Total Score: 1 05/03/20 23 3:59 PM EDT documented as of this encounter Care Teams Instructional Specialist Relationship Specialty Start Date End Date Gwen Reyna MD [address] [place], [place] [phone] PCP - General Internal Medicine 03/15/23 documented as of this encounter
--- OUTSIDE RECORDS SUMMARY | 2025-05-15 16:01 | XMS_ITS | Encounter Summary ---
Author Organization [employer] Address [address] [place] [address] [place] [address] Care Team Providers Care Employee Benefits Director Name Role Phone Gwen Reyna MD Primary Care Pro vider Reason for Visit * Reason Onset Date Comments Med Refill 01/03/2025 Encounter Details Date Type Department Care Team ([facility] st Contact Info) Description 01/03/2025 Refill [facility] [address] [place] [address] Gwen Reyna MD [address] [place] [address] Social History Tobacco Use Types Packs/Day Years [...] as of this encounter Plan of Treatment Upcoming Encounters Date Type Department Care Team (Late st Contact Info) Description 05/22/2025 9:00 AM EDT Office Visit [facility] [address] [place] [address] Paulo Gomez DDS [address] [place] [address] documented as of this encounter Visit Diagnoses Not on filedocumented in this encounter Additional Health Concerns Assessment Noted Time PHQ-9 Depression Total Score: 0 02/04/20 24 11:52 AM EDT documented as of this encounter Care Teams Employee Benefits Director Relationship Specialty Start Date End Date Gwen Reyna MD [address] [place] [address] PCP - General Internal Medicine 03/15/23 documented as of this encounter
--- OUTSIDE RECORDS SUMMARY | 2025-05-15 16:02 | XMS_ITS | Encounter Summary ---
Author Organization [employer] Address [address] [place] [address] Care Team Providers Care Safety Scientist Name Role Phone Gwen Reyna MD Primary Care Pro vider Encounter Details Date Type Department Care Team (Latest Contact Info) Description 05/15/2025 Travel Social History Tobacco Use Types Packs/Day Years Used Date Smoking Tobacco: Never Passive Smoke Exposure: Never Smokeless Tobacco: Never Alcohol Use Standard Drinks/Week Comments Never 0 (1 standard drink = 0.6 oz pur e alcohol) Depression Answer Date Recorded Patient Health Questionnaire-9 Score 0 02/08/2025 Patient Health Questionnaire-9 Score 0 02/08/2025 Last PHQ-9: Questionnaire Data Not on file 0 02/08/2025 Housing Stability Answer Date Recorded What is your housing situation today? I have dickson godfrey 01/31/[address] you li ve. Do you have problems with any of the following? None of the above 01/31/2025 Food Insecurity Answer Date Recorded Within the past 12 months, y ou worried that your food would run out before you got money to buy more: Never True 01/31/2025 Within the past 12 months,th e food you bought just didn't last and you didn't have enough money to get more: Never True Transportation Answer Date Recorded In the past 12 months, has l ack of transportation kept you from medical appts, meetings, work or from getting things needed for daily living? No 01/31/2025 Utilities Answer Date Recorded In the past 12 months, has t he electric, gas, oil or water company threatened to shut off services in your home? No 01/31/2025 Depression Answer Date Recorded Patient Health Questionnaire-2 Score 0 02/08/2025 Internet Access Answer Date Recorded Internet Access Q1 Yes 01/31/2025 Internet Access Q2 Not on file 01/31/2025 Comments No Sex and Gender Information Value Date Recorded Sex Assigned at Female 07/13/2022 10:30 AM EDT Legal Sex Female 10:30 AM EDT Gender Identity Female 11/27/2022 3:33 PM EDT Sexual Orientation Straight 07/13/2022 10 :30 AM EDT documented as of this encounter Plan of Treatment Upcoming Encounters Date Type Department Care Team (Late st Contact Info) Description 05/22/2025 9:00 AM EDT Office Visit [facility] [address] [place], [place] [phone] Paulo Gomez DDS [address] [place], [place] [phone] documented as of this encounter Visit Diagnoses Not on filedocumented in this encounter Additional Health Concerns Assessment Noted Time PHQ-9 Depression Total Score: 0 02/09/20 25 9:19 AM EDT documented as of this encounter Care Teams Safety Scientist Relationship Specialty Start Date End Date Gwen Reyna MD [address] [place] [address] PCP - General Internal Medicine 03/15/23 documented as of this encounter
--- OUTSIDE RECORDS SUMMARY | 2025-05-15 16:02 | XMS_ITS | Encounter Summary ---
Author Organization [employer] Address [address] [facility] [address] [place] [address] Care Team Providers Care Hole Digger Name Role Phone Gwen Reyna MD Primary Care Pro vider Reason for Visit * Reason Onset Date Comments uanble to run or post [employer] insurace dental for emerge 04/05/2025 Encounter Details Date Type Department Care Team (Late st Contact Info) Description 04/05/2025 Telephone [facility] [address] [place] [address] Paulo Gomez DDS [address] [place], [place] [phone] uanble to run or post [employer] insurace dental for emerge Social History Tobacco Use Types Packs/Day Years [...] encounter Miscellaneous Notes * Telephone Encounter - Taylor Higgins - 04/05/2025 10:19 AM EDT Unable to run or post BCBS on PAR side. posted. documented in this encounter Plan of Treatment Upcoming Encounters Date Type Department Care Team (Late st Contact Info) Description 05/22/2025 9:00 AM EDT Office Visit [facility] [address] [place] [address] Paulo Gomez DDS [address] [place] [address] documented as of this encounter Visit Diagnoses Not on filedocumented in this encounter Additional Health Concerns Assessment Noted Time PHQ-9 Depression Total Score: 0 02/09/20 25 9:19 AM EDT documented as of this encounter Care Teams Hole Digger Relationship Specialty Start Date End Date Gwen Reyna MD [address] [place] [address] PCP - General Internal Medicine 03/15/23 documented as of this encounter
--- OUTSIDE RECORDS SUMMARY | 2025-05-15 16:02 | XMS_ITS | Encounter Summary ---
Author Organization [employer] Address [address] [place] [address] [place] [address] Care Team Providers Care Route Sales Representative Name Role Phone Gwen Reyna MD Primary Care Pro vider Reason for Visit * Reason Onset Date Comments Med Refill 05/11/2025 Encounter Details Date Type Department Care Team ([facility] st Contact Info) Description 05/11/2025 Refill [facility] [address] [place] [address] Gwen Reyna MD [address] [place] [address] Social History Tobacco Use Types Packs/Day Years [...] 05/22/2025 9:00 AM EDT Office Visit [facility] [address] [place], [place] [phone] Paulo Gomez DDS [address] [place], [place] [phone] documented as of this encounter Visit Diagnoses Not on filedocumented in this encounter Additional Health Concerns Assessment Noted Time PHQ-9 Depression Total Score: 0 02/09/20 25 9:19 AM EDT documented as of this encounter Care Teams Route Sales Representative Relationship Specialty Start Date End Date Gwen Reyna MD [address] [place] [address] PCP - General Internal Medicine 03/15/23 documented as of this encounter
--- OUTSIDE RECORDS SUMMARY | 2025-05-15 16:02 | XMS_ITS | Encounter Summary ---
Author Organization [email or web address] Address [address] [place] [address] [address] [place] [address] Care Team Providers Care Manager Strategic Development Name Role Phone Gwen Reyna MD Primary Care Pro vider Reason for Visit * Reason Onset Date Comments Prior Authorization 05/11/2025 Encounter Details Date Type Department Care Team ([facility] st Contact Info) Description 05/11/2025 Telephone [facility] [address] [place] [address] Gwen Reyna MD [address] [place] [address] Prior Authorization Social History Tobacco Use Types Packs/Day Years [...] encounter Miscellaneous Notes * Telephone Encounter - Roopa Strickland - 05/11/2025 10:20 AM EDT Images from the original note were not included. Telephone Encounter Signed Encounter Date: 05/10/2025 Signed PA initiated on Covermymeds for Zepbound. Approval/denial pending. Ocampo: [id number] * Telephone Encounter - Sonya Kellogg - 05/11/2025 9:21 AM EDT Tc from pt stating a PA is needed for Tirzepatide-Weight Management (Zepbound) 7.5 MG/0.5ML solution auto-injector - Contact pt at [phone] documented in this encounter Plan of Treatment Upcoming Encounters Date Type Department Care Team (Late st Contact Info) Description 05/22/2025 9:00 AM EDT Office Visit [facility] [address] [place], [place] [phone] Paulo Gomez DDS [address] [place], [place] [phone] documented as of this encounter Visit Diagnoses Not on filedocumented in this encounter Additional Health Concerns Assessment Noted Time PHQ-9 Depression Total Score: 0 02/09/20 25 9:19 AM EDT documented as of this encounter Care Teams Manager Strategic Development Relationship Specialty Start Date End Date Gwen Reyna MD [address] [place], [place] [phone] PCP - General Internal Medicine 03/15/23 documented as of this encounter
--- OUTSIDE RECORDS SUMMARY | 2025-05-15 16:02 | XMS_ITS | Encounter Summary ---
Author Organization [employer] Address [address] [place] [address] 7 [place] [address] Care Team Providers Care Storm Sash Maker Name Role Phone Gwen Reyna MD Primary Care Pro vider Reason for Visit * Reason Comments Med Change Request Encounter Details Date Type Department Care Team ([facility] Contact Info) Description 03/03/2025 Refill [facility] MEDICINE [address] [place] [address] Gwen Reyna MD [address] [place] [address] Obesity (BMI 35.0-39.9 without comorbidity); Mild persistent asthma without complication Social History Tobacco Use Types Packs/Day Years [...] your housing situation today? I have dickson bekah 01/31/[address] you li [...] Description 05/22/2025 9:00 AM EDT Office Visit [facility] ADULT DENTAL [address] [place] [address] Paulo Gomez DDS [address] [place] [address] documented as of this encounter Visit Diagnoses Diagnosis Obesity (BMI 35.0-39.9 without comorbidity) Mild persistent asthma without complication documented in this encounter Additional Health Concerns Assessment Noted Time PHQ-9 Depression Total Score: 0 02/09/20 25 9:19 AM EDT documented as of this encounter Care Teams Storm Sash Maker Relationship Specialty Start Date End Date Gwen Reyna MD [address] [place] [address] PCP - General Internal Medicine 03/15/23 documented as of this encounter
--- OUTSIDE RECORDS SUMMARY | 2025-05-15 16:02 | XMS_ITS | Encounter Summary ---
Author Organization [employer] Address [address] [place] [address] 7 [place] [address] Care Team Providers Care Hogshead Inspector Name Role Phone Gwen Reyna MD Primary Care Pro vider Reason for Visit * Reason Comments Med Refill Encounter Details Date Type Department Care Team ([facility] st Contact Info) Description 05/09/2025 Refill [facility] MEDICINE [address] [place] [address] Gwen Reyna MD [address] [place] [address] Social History Tobacco Use Types Packs/Day Years [...] 9:00 AM EDT Office Visit [facility] ADULT DENTAL [address] [place], [place] [id number] Paulo Gomez DDS [address] [place] [address] documented as of this encounter Visit Diagnoses Not on filedocumented in this encounter Additional Health Concerns Assessment Noted Time PHQ-9 Depression Total Score: 0 02/09/20 25 9:19 AM EDT documented as of this encounter Care Teams Hogshead Inspector Relationship Specialty Start Date End Date Gwen Reyna MD [address] [place] [address] PCP - General Internal Medicine 03/15/23 documented as of this encounter
--- OUTSIDE RECORDS SUMMARY | 2025-05-15 16:02 | XMS_ITS | Encounter Summary ---
Author Organization [employer] Address [address] [place] [address] Care Team Providers Care Architectural Project Captain Name Role Phone Gwen Reyna MD Primary Care Pro vider Encounter Details Date Type Department Care Team (Late st Contact Info) Description 01/07/2023 Orders Only [facility] [address] [place] [address] Alan Austin MD [address] [place] [address] Abnormal uterine bleeding (Primary Dx) Social History [...] Description 05/22/2025 9:00 AM EDT Office Visit [facility] ADULT DENTAL [address] [place] [address] Paulo Gomez DDS [address] [place] [address] Scheduled Orders Name Type Priority Associated Diagnoses [...] tract documented in this encounter Care Teams Architectural Project Captain Relationship Specialty Start Date End Date Gwen Reyna MD [address] [place] [address] PCP - General Internal Medicine 03/15/23 documented as of this encounter
--- OUTSIDE RECORDS SUMMARY | 2025-05-15 16:02 | XMS_ITS | Encounter Summary ---
Author Organization [employer] Address [address] [place] [address] Care Team Providers Care Detail Assembler Name Role Phone Gwen Reyna MD Primary Care Pro vider Reason for Visit * Reason Onset Date Comments Med Refill 01/15/2025 Encounter Details Date Type Department Care Team (Late st Contact Info) Description 01/15/2025 Refill [facility] MEDICINE [address] [place] [address] Tash Her DO [address] [place] [address] Social History Tobacco Use Types Packs/Day Years [...] Patient Health Questionnaire-2 Score 0 02/04/2024 Comments No Sex and Gender Information Value [...] Description 05/22/2025 9:00 AM EDT Office Visit [facility] ADULT DENTAL [address] [place] [address] Paulo Gomez DDS [address] [place] [address] documented as of this encounter Visit Diagnoses Not on filedocumented in this encounter Additional Health Concerns Assessment Noted Time PHQ-9 Depression Total Score: 0 02/04/20 24 11:52 AM EDT documented as of this encounter Care Teams Detail Assembler Relationship Specialty Start Date End Date Gwen Reyna MD [address] [place] [address] PCP - General Internal Medicine 03/15/23 documented as of this encounter
--- OUTSIDE RECORDS SUMMARY | 2025-05-15 16:02 | XMS_ITS | Clinical Summary ---
Author Organization [employer] Address [address] [place] [address] Care Team Providers Care Health It Specialist Name Role Phone Gwen Reyna MD Primary Care Pro vider Allergies No known active allergies Medications albuterol 108 (90 Base) MCG/ACT inhaler Inhale 2 puffs every 4 (four) hours if needed for wheezing or shortness of breath. 18 g 2 3 Active Levonorgestrel (Mirena, 52 MG,) 20 MCG/DAY intrauterine device by Intrauterine route. Active fluticasone (Flovent) 110 MCG/ACT inhalerIndicatio ns:Mild persistent asthma without complication Inhale 1 puff in the morning and at bedtime. Rinse mouth with water after use to reduce aftertaste and incidence of candidiasis. Do not swallow. 12 g 2 4 Active Additional Information Patient not taking.Reported on 04/13/2025 triamcinolone (Kenalog) 0.1 % creamIndications :Atopic dermatitis, unspecified type Apply topically Once per day. With cerave 80 g 11 4 Active Additional Information Patient not taking.Reported on 04/05/2025 montelukast (Singulair) 10 MG tablet TAKE 1 TABLET BY MOUTH EVERY DAY 90 tablet 3 5 Active cetirizine (ZyrTEC) 10 MG tablet Take 1 tablet (10 mg) by mouth in the morning. 90 tablet 3 5 026 Active Tirzepatide-Weig ht Management (Zepbound) 7.5 MG/0.5ML solution auto-injector Inject 0.5 mL (7.5 mg) under the skin 1 (one) time per week. Increase dose monthly 2 mL Active ketoconazole (NIZOral) 2 % shampoo Apply topically 2 (two) times a week. 120 mL Active Active Problems Problem Noted Date Diagnosed Date Breech presentation 04/05/2025 History of 2 sections 04/05/2025 IUD (intrauterine device) in place 04/05/2025 Seasonal allergies 04/05/2025 Acute nonintractable headache 10/06/2024 Assessment & Plan (10/06/2024 12:12 PM EST): No STEVENSON red flags Presumably related to presence of tender cysts on scalp Sent tylenol to pharmacy for pain control Scalp lesion 03/17/2024 Lymphadenopathy, cervical 10/19/2023 Left ovarian cyst 05/04/2023 Assessment & Plan (05/04/2023 9:59 AM EDT): -pelvic US 01/07/2023-referred by MEAT STOCK CLERK: there is a stable complex left ovarian cyst with calcification of 1.3x0.9x1.1cm ,endometrial strip is 20 mm -with active bleeding during the exam ,no masses no polyps seen. -continue to monitor ovarian cyst with her MEAT STOCK CLERK Health care maintenance 02/02/2023 Assessment & Plan (05/04/2023 9:57 AM EDT): - from records -pap smear 03/2021 Neg/HPV neg -per pt had pap smear 12/2022 w MEAT STOCK CLERK ( [facility])-normal per pt -not able to get that record -contraception :IUD for menorrhagia and , states has vasectomy -vaccines: s/p covid 19 vaccine x 4-per pt got bivalent dose-pt will bring record.s/p tdap in 2021 , s/P p20 x asthma . HPV x1 in 2011---per pt was told by her MEAT STOCK CLERK that had already 3 doses of HPV-requested to [place] to get record-not able to obtain ,hepB immune Assessment & Plan (03/12/2023 9:55 PM EDT): -pap smear 12/2022 w MEAT STOCK CLERK ( [facility])-normal per pt -contraception :none, states has vasectomy -vaccines: s/p covid 19 vaccine x 4-per pt got bivalent dose-pt will bring record.s/p tdap in 2021 , s/P p20 x asthma . HPV x1 in 2011---per pt was told by her MEAT STOCK CLERK that had already 3 doses of HPV-requested to [place] to get record,hepB immune Assessment & Plan (02/02/2023 1:17 PM EDT): -pap smear 12/2022 w MEAT STOCK CLERK ( [facility])-normal per pt -contraception : states has vasectomy [...] x1 in 2011---pt will check w her MEAT STOCK CLERK if received any more HPV vaccine w them or if plan to vaccinate if not and if pt interested will start vaccination Obesity (BMI 35.0-39.9 without comorbidity) 01/12 Assessment & Plan (05/04/2023 9:52 AM EDT): BMI 36.4 -Advised pt to improve diet and exercise,discussed healthy life style -referred to floor service worker spring -will monitor weight in next 6 months -if no improvement w diet and exercise will discuss w pt about possible medical options vs bariatric surgery referral Assessment & Plan (03/12/2023 9:49 PM EDT): BMI 36.4 -Advised pt to improve diet and exercise,discussed healthy life style -discussed floor service worker spring referral -Apt x 03/2023 Assessment & Plan (02/02/2023 1:07 PM EDT): BMI 36.4 -Advised pt to improve diet and exercise,discussed healthy life style -discussed floor service worker spring referral -referred today Elevated blood pressure reading 02/02/2023 Assessment & Plan (05/04/2023 12:58 PM EDT): Pt here w normal BP ,at home has some elevated BP readings some days normal and has seen as high 170s ? EKG here 11/2022 Normal Echo 04/28/2023 : normal ,EF > 70% Doppler Renal US 04/19/2023: hemodynamically significant right renal artery stenosis -pt f w school nurse -per pt was told to have episodic elevated BP and on eval found to have right renal artery stenosis For which has apt on 05/06/2023 with vascular specialist referred by cards. -referred to floor service worker spring -already -low salt diet -continue care with school nurse and now vascular Assessment & Plan (03/12/2023 [...] machine or cuff are ok -referred to floor service worker spring -has apt x 03/2023 -low salt diet [...] med as low dose HDCTZ -referred to floor service worker spring today -low salt diet -monitor here in 5 weeks Pre-diabetes 01/13/2023 Assessment & Plan (05/04/2023 9:51 AM EDT): 12/2022 Hb1AC 5.7 -Advised pt to improve diet and exercise,discussed healthy life style -discussed floor service worker spring referral -already referred -will repeat hb1AC in 12 months at annual exam Assessment & Plan (03/12/2023 9:49 PM EDT): 12/2022 Hb1AC 5.7 -Advised pt to improve diet and exercise,discussed healthy life style -discussed floor service worker spring referral -apt x 03/2023 -will repeat hb1AC in 12 months at annual exam Assessment & Plan (02/02/2023 1:07 PM EDT): 12/2022 Hb1AC 5.7 -Advised pt to improve diet and exercise,discussed healthy life style -discussed floor service worker spring referral -referred today -will repeat hb1AC in 12 months at annual exam Mild intermittent asthma 01/05/2023 Assessment & Plan [...] 10/08/2022 Gingivitis due to dental plaque 10/08/2022 Gastroesophageal reflux disease without esophagi tis 10/18/2019 Iron deficiency anemia 02/16/2018 Assessment & Plan (05/04/2023 10:02 AM EDT): 04/2023 Hb 8.8<---10.2, htco 32--,12/2022 platelets elevated at 556, MCV low at 70 Reports hx of menorrhagia -last 4-5 days -using 7 pads a day Already f w MEAT STOCK CLERK S/p IUD placed with no improvement on heavy bleeding. -pelvic US 01/07/2023: there is a stable complex left ovarian cyst with calcification of 1.3x0.9x1.1cm ,endometrial strip is 20 mm -with active bleeding during the exam ,no masses no polyps seen. -continue care w MEAT STOCK CLERK -has apt tomorrow -continue iron TID and vit C -has apt to start care with supervisor aluminum boat assembly in 1 week ( 05/14/2023) -will need [...] 7 pads a day Already f w MEAT STOCK CLERK,denies melenas, hematuria Reports had aprox 5 y ago EGD and colonoscopy per pt told to be normal -continue care w MEAT STOCK CLERK -referred x pelvic US -states done recently -Told to have an ovarian cyst-requested today to [facility] to get report -per pt not rec x oral contraceptives x bleeding to avoid risk to increase BP but offered IUD but refused-pt will f up w MEAT STOCK CLERK next month -continue iron TID and vit [...] 7 pads a day Already f w MEAT STOCK CLERK -continue care w MEAT STOCK CLERK -referred x pelvic US -states done recently -will bring record at her next apt here -needs to f results 1st w MEAT STOCK CLERK -continue iron BID and vit C started 4 weeks ago -ordered today CBC,iron panel to have them done in 4 weeks -1 week prior next apt w me Adenomyosis 08/26/2017 Spastic bladder 08/26/2017 Anxiety and depression 04/13/2013 Resolved Problems Problem Noted Date Diagnosed Date Resolved Date Pilar cyst of scalp 10/06/2024 04/13/20 25 Assessment & Plan (10/06/2024 12:11 PM EST): 3 cysts present on scalp and hair line, they are tender and firm, they are increasing in size over past 3 weeks. Pt not having any systemic symptoms and proximal lymph nodes are not enlarged or tender. Suspicion for pilar vs sebaceous cyst Sent referral for general surgery for extraction and biopsy Left breast lump 03/17/2024 04/13/2025 Dark urine 05/04/2023 06/15/2023 Assessment & Plan [...] Encounters Date Type Department Care Team Description 05/15/2025 Travel 05/11/2025 Refill [facility] [address] [place] [address] Gwen Reyna MD 05/11/2025 Telephone [facility] [address] [place] [address] Gwen Reyna MD Prior Authorization 05/10/2025 Refill [facility] [address] [place] [address] Gwen Reyna MD 05/09/2025 Refill [facility] [address] [place] [address] Gwen Reyna MD 05/04/2025 Orders Only GENERIC EXTERNAL DATA DEPARTMENT Provider, Generic External Data 05/01/2025 Orders Only GENERIC EXTERNAL DATA DEPARTMENT Provider, Generic External Data 04/13/2025 11:30 AM EDT Office Visit [facility] [address] [place], [place] [address] [place] [address] Gwen Reyna MD Scalp lesion (Primary Dx); Obesity (BMI 35.0-39.9 without comorbidity); Pre-diabetes; Left ovarian cyst; Health care maintenance; Anxiety and depression 04/13/2025 Travel 04/12/2025 Telephone [facility] [address] [place] [phone] Gwen Reyna MD chart prep 04/11/2025 Orders Only GENERIC EXTERNAL DATA DEPARTMENT Provider, Generic External Data 04/09/2025 Refill [facility] [address] [place] [phone] Gwen Reyna MD Atopic dermatitis, unspecified type 04/05/2025 1:00 PM EDT Office Visit [facility] [address] [place] [phone] Paulo Gomez DDS 04/05/2025 Telephone [facility] [address] [place] [phone] Paulo Gomez DDS uanble to run or post BCBS of [facility] dental for emerge 03/13/2025 Telephone [facility] [address] [place] [phone] Gwen Reyna MD 03/13/2025 Telephone [facility] [address] [place] [phone] Gwen Reyna MD 03/13/2025 Refill [facility] [address] [place] [address] Steven Sheppard MD Atopic dermatitis, unspecified type 03/03/2025 Refill [facility] [address] [place] [phone] Gwen Reyna MD Obesity (BMI 35.0-39.9 without comorbidity); Mild persistent asthma without complication 03/02/2025 Orders Only [facility] [address] [place] [address] Gwen Reyna MD Obesity (BMI 35.0-39.9 without comorbidity) (Primary Dx); Mild persistent asthma without complication; Pre-diabetes 03/02/2025 Refill [facility] [address] [place] [address] Gwen Reyna MD Obesity (BMI 35.0-39.9 without comorbidity) 02/19/2025 Telephone [facility] [address] [place] [address] Gwen Reyna MD Prior Authorization (Zepbound); fyi from Last 3 Months Immunizations Immunization Administration Dates Next Due HPV, Quadrivalent 07/28/2012 [...] Sign Reading Time Taken Comments Blood Pressure 110/84 04/13/2025 11:36 AM EDT Pulse 67 04/13/2025 11:36 AM EDT Temperature 36.9 C (98.5 F) 04/13/2025 11:36 AM EDT Respiratory Rate 16 04/13/2025 11:36 AM EDT Oxygen Saturation 99% 04/13/2025 11:36 AM EDT Inhaled Oxygen Concentration - - Weight 102 kg (225 lb 6.4 oz) 04/13/2025 11:36 A M EDT Height 170.2 cm (5' 7 ) 04/13/2025 11:36 AM EDT Body Mass Index 35.3 04/13/2025 11:36 AM EDT Plan of Treatment Upcoming Encounters Date Type Department Care Team (Late st Contact Info) Description 05/22/2025 9:00 AM EDT Office Visit [facility] [address] [place] [address] Paulo Gomez DDS [address] [place] [address] Health Maintenance Due Date Last Done Comments Family Planning (PISQ) 11/13/2003 Hepatitis B Vaccines (1 of 3 - 19+ 3-dose series) 11/13/2007 Pap Smear 2009 HPV Vaccines (2 - 3-dose series) 08/25/2012 07/28/2012 Cervical Cancer Screening 2018 HPV/Cotest 2018 Dental Oral Exam 03/12/2023 09/10/2022 Dental Prophylaxis 04/08/2023 10/08/2022 COVID-19 Vaccine ( season) 2025 11/28/2021, 01/14/2021, 12/23/2020, Additional history exists Influenza Vaccine (#1) 2025 , 05/29/2022, 07/30/2021, Additional history exists Dental X-Ray: Full Mouth 09/11/2025 09/10/2022 Alcohol/Substance Use Screening 02/08/2026 02/08/2025 Depression Screening 02/08/2026 02/08/2025, 02/09/20 Disability Screening 02/08/2026 02/08/2025 SDOH Screening 02/08/2026 02/08/2025 Dental X-Ray: Bitewings 04/06/2026 04/05/20, 10/14/2022, 09/10/2022 Tobacco Screening 04/13/2026 04/13/2025 Lipid Panel 04/11/2030 04/11/2025, 07/0 11/2023, 03/04/2023 DTaP/Tdap/Td Vaccines (2 - Td or Tdap) 10/27/2031 10/27/2021 Zoster Vaccines (1 of 2) 2038 RSV Patients and Patients Aged 60 years or older (1 - 1-dose 75+ series) 11/13/2063 Pneumococcal Vaccine: Pediatrics (0 to 5 Years) and At-Risk Patients (6 to 49) Years Completed 02/02/2023 HIV Screening Completed 04/11/2025, 07/0 11/2023, 03/04/2023 Hepatitis C Screening Completed 04/11/2025 , 03/15/2024, 03/04/2023 HIB Vaccines Aged Out No longer eligi ble based on patient's age to complete this topic Hepatitis A Vaccines Aged Out No long er eligible based on patient's age to complete this topic IPV Vaccines Aged Out No longer eligi ble based on patient's age to complete this topic Meningococcal B Vaccine Aged Out No l onger eligible based on patient's age to complete [...] Procedure Name Priority Date/Time Associated Diagnosis Comments CBC Routine 05/04/2025 10:32 AM EDT HEMATOXYLIN AND EOSIN STAIN Routine 05/01/2025 9:41 AM EDT US PELVIS TRANSVAGINAL Routine 8:15 AM EDT CONFIRMATORY SYPHILIS PROFILE Routine 04/11/2025 10:47 AM EDT CHLAMYDIA/TRICHOMONAS/ NEISSERIA GONORRHOEAE, PCR, URINE Routine 04/11/2025 10:47 AM EDT COMPREHENSIVE METABOLIC PANEL Routine 04/11/2025 10:47 AM EDT CBC WITH AUTO DIFFERENTIAL Routine 04/11/2025 10:47 AM EDT VITAMIN D,25-OH,TOTAL,IA Routine 04/11/2025 10:47 AM EDT Annual physical exam TSH W/REFLEX TO FT4 Routine 04/11/2025 1 0:47 AM EDT Annual physical exam SYPHILIS SCREEN Routine 04/11/2025 10:47 AM EDT Annual physical exam LIPID PANEL, STANDARD Routine 04/11/2025 10:47 AM EDT Annual physical exam HIV 1/2 ANTIGEN/ANTIBODY, FOURTH GENERATION W/RFL Routine 04/11/2025 10:47 AM EDT Annual physical exam HEPATITIS C AB W/REFL TO HCV RNA, QN, PCR Routine 04/11/2025 10:47 AM EDT Annual physical exam HEPATITIS B SURFACE ANTIGEN, EIA Routine 04/11/2025 10:47 AM EDT Annual physical exam HEMOGLOBIN A1C Routine 04/11/2025 10:47 AM EDT Annual physical exam CASE PRESENTATION, DETAILED AND EXTENSIVE TREATMENT PLANNING Routine 04/05/2025 1:00 PM EDT BITEWING - SINGLE RADIOGRAPHIC IMAGE Routine 04/05/2025 1:00 PM EDT INTRAORAL - PERIAPICAL FIRST RADIOGRAPHIC IMAGE Routine 04/05/2025 1:00 PM EDT PALLIATIVE (EMERGENCY) TREATMENT OF DENTAL PAIN - MINOR PROCEDURE Routine 04/05/2025 1:00 PM EDT Full PROPHYLAXIS - ADULT Routine 10/08/2022 8:00 AM EST INTRAORAL - COMPLETE SERIES OF RADIOGRAPHIC IMAGES Routine 09/10/2022 3:00 PM EST COMPREHENSIVE ORAL EVALUATION - NEW OR ESTABLISHED PATIENT Routine 09/10/2022 3:00 PM EST from Last 3 Months or Most Recently Relevant to Health Maintenance Results * CBC (05/04/2025 10:32 AM EDT) White Blood Count 7.0 4.8 - 10.8 X10*3/uL [facility] Red Blood Count 4.88 4.20 - 5.50 X10*6/uL [facility] Hemoglobin 13.7 12.0 - 16.0 g/dl [facility] Hematocrit 39.8 37.0 - 47.0 % [facility] Mean Corpuscular Volume 81.6 80.0 - 98.0 fL [facility] Mean Corpuscular Hemoglobin 28.1 27.0 - 33.0 pg [facility] Mean Corpuscular HGB Conc 34.4 31.0 - 35.0 g/dl [facility] Red Cell Distribution Width 13.7 11.0 - 16.0 % [facility] Platelet Count 301 160 - 400 X10*3/uL [facility] Mean Platelet Volume 9.5 9.4 - 12.3 fL [facility] NRBC Pct Auto 0.0 0.0 - 0.2 /100WBC [facility] NRBC Abs Auto 0.000 0.0 - 0.012 X10*3/uL [facility] 05/04/2025 10:3 2 AM EDT 05/04/2025 10:32 AM EDT us Generic External Data Provider LAB BLOOD ORDERAB LES Final Result [facility] [address] [place] [phone] * Hematoxylin and Eosin Stain (05/01/2025 9:41 AM EDT) 05/01/2025 9:41 AM EDT 05/02/2025 6:30 AM EDT Scooter [facility] - 05/03/2025 12:16 PM EDT ----- ------- Name: Noe Todd Age/Sex: 34/F : 1990 Unit#: [id number] Attend Dr: Jakob Clarke MD Re05/01/25 Status: DEP REF Location: HO.LNP Disch: ----- ------- SPEC : [id number] RECD: 05/02/25 STATUS: THADDEUS MAK NUM: [id number] HIMANSHU: 05/01/[address] [facility] [address]: Jakob Clarke MD ENTERED: 05/02/25 SP TYPE: Surgical OTHR DR: Gwen Reyna MD ORDERED: HE Stain/2, Gross Micro L4 Diagnosis Endometrium, biopsy: Benign endometrium with chronic endometritis, focal breakdown, atrophic glands and decidual stromal change consistent with progestin effect; no atypia or carcinoma. Clinical History AUB Microscopic Description Microscopic sections reviewed. Material Received EMB Gross Description Received in formalin labeled EMB is a 1.8 x 1.5 x 0.5 cm aggregate of multiple irregular and tubular cast fragments of congested and hemorrhagic maroon-brown tissue, mucus and blood, submitted in toto in a cassette labeled A. CEDS IHC S/NG Disclaimer NOTE: Unless otherwise stated, all tissue is formalin-fixed and paraffin-embedded. Some or all of the immunohistochemical tests reported herein may have been developed and their performance characteristics determined by [facility]. They have not been cleared or approved by the U.S. Food and Drug Administration (FDA). However, the FDA has determined that such clearance or approval is not necessary. This laboratory is certified under the Clinical Laboratory Improvement Amendments of 1988 (CLIA) as qualified to perform high complexity clinical laboratory testing. Copies To: Gwen Reyna MD [address] [place] [phone] CONTINUED ON NEXT PAGE ----- ------- Name: Noe Todd Age/Sex: 34/F : 1990 Unit#: [id number] Attend Dr: Jakob Clarke MD Re05/01/25 Status: DEP REF Location: TORIP Disch: ----- ------- SPEC : [id number] RECD: 05/02/25 STATUS: THADDEUS MAK NUM: [id number] HIMANSHU: 05/01/[address] [facility] [address]: Jakob Clarke MD ENTERED: 05/02/25 SP TYPE: Surgical OTHR DR: Gwen Reyna MD ORDERED: LUIZA Bird/2, Gross Micro L4 Copies To: (Continued) Jakob Clarke MD [facility] [address] [place] [address] Drive [address] [place] [address] ----- ------- Signed (signature on file) Wendy Eduardo 05/03/25 1216 ----- ------- END OF REPORT us Generic External Data Provider LAB BLOOD ORDERAB LES Final Result [facility] [address] [place] [address] [phone] * US Pelvis Transvaginal (04/27/2025 8:15 AM EDT) Anatomical Region Laterality Modality Pelvis Ultrasound 04/27/2025 8:15 AM EDT Narrative 04/27/2025 8:17 AM EDT [facility] [address] [place] [address] [place] [address] Ultrasound Report Signed Patient: Noe Todd MR#: [id number] : 1990 Acct:[id number] Age/Sex: 34 / F ADM Date: 04/26/25 Loc: HO.HMGCX Attending Dr: Jakob Clarke MD Ordering Physician: Jakob Clarke MD Date of Service: 04/26/25 Procedure(s): US pelvic and transvaginal Accession Number(s): [id number] cc: Gwen Reyna MD; Jakob Clarke MD CLINICAL HISTORY: N93.9 - Abnormal uterine and vaginal bleeding, unspecified US pelvis transabdominal and transvaginal with color Doppler Comparison: MR - MR PELVIS WO/W CON - 11/01/24 11:53 EST US/MD/SR - US PELVIC AND TRANSVAGINAL - 09/04/24 11:32 EST Findings: Transabdominal scanning performed for overall anatomy. Transvaginal scanning performed for additional detail. LMP: 04/12/2025 Anteverted uterus, normal size and echotexture, measuring 8.2 x 4.4 cm. Posterior fundal fibroid at 1.6 x 1.3 x 1.1 cm incidental nabothian cysts Endometrium contains an IUD. The right ovary measures, 3.0 x 2.0 x 2.5 cm. 4 mm probable incidental calcification right ovary and a 6 mm involuting corpus luteum. 5 mm dominant follicle.Normal color Doppler The left ovary measures, 5.4 x 2.7 x 4.3 cm. Probable hemorrhagic cyst measuring 3.2 x 2.5 x 2.7 cmnormal color Doppler No adnexal masses or fluid collections. No free fluid Impression: 1. Uterus contains an IUDwithin the endometrial cavity. Intramural fundal fibroid. 2. Probable hemorrhagic cyst left ovary follow-up ultrasound in 6 or 12 weeks time. 3. Probable incidental calcification right ovary with follicular activity and probable corpus luteum. This document has been electronically signed by: Edi Durham MD on 04/27/2025 08:15:53 Dictated By: Edi Durham MD Signed By: <Electronically signed by Edi Durham MD in OV> 04/27/25815 DD/ 4 TD/TT: 04/27/25814 Animal Technician: Procedure Note Donotuseinterpreter, Image - 04/27/2025 [facility] [place] [address] Ultrasound Report Signed Patient: Ericka Todd#: [id number] : 1990Acct:[id number] Age/Sex: 34 / FADM Date: 04/26/25 Loc: HO.HMGCX Attending Dr: Jakob Clarke MD Ordering Physician: Jakob Clarke MD Date of Service: 04/26/25 Procedure(s): US pelvic and transvaginal Accession Number(s): [id number] cc: Gwen Reyna MD; Jakob Clarke MD CLINICAL HISTORY: N93.9 - Abnormal uterine and vaginal bleeding,unspecified US pelvis transabdominal and transvaginal with color Doppler Comparison: MR - MR PELVIS WO/W CON - 11/01/24 11:53 EST US/MD/SR - US PELVIC AND TRANSVAGINAL - 09/04/24 11:32 EST Findings: Transabdominal scanning performed for overall anatomy. Transvaginal scanning performed for additional detail. LMP: 04/12/2025 Anteverted uterus, normal size and echotexture, measuring 8.2 x 4.4 cm. Posterior fundal fibroid at 1.6 x 1.3 x 1.1 cm incidental nabothian cysts Endometrium contains an IUD. The right ovary measures, 3.0 x 2.0 x 2.5 cm. 4 mm probable incidental calcification right ovary and a 6 mm involuting corpus luteum. 5 mm dominant follicle.Normal color Doppler The left ovary measures, 5.4 x 2.7 x 4.3 cm. Probable hemorrhagic cyst measuring 3.2 x 2.5 x 2.7 cmnormal color Doppler No adnexal masses or fluid collections. No free fluid Impression: 1. Uterus contains an IUDwithin the endometrial cavity. Intramural fundal fibroid. 2. Probable hemorrhagic cyst left ovary follow-up ultrasound in 6 or 12 weeks time. 3. Probable incidental calcification right ovary with follicular activity and probable corpus luteum. This document has been electronically signed by: Edi Durham MD on 04/27/2025 08:15:53 Dictated By: Edi Durham MD Signed By: <Electronically signed by Edi Durham MD in OV> 04/27/25815 DD/ 4 TD/TT: 04/27/25814 Animal Technician: [facility] External Provider IMG US PROCEDURES Final Result * Chlamydia/Trichomonas/Neisseria gonorrhoeae, PCR, Urine (04/11/2025 10:47 AM EDT) CT PCR, Urine NOT DETECTED Not Detect. [facility] Comment:A not detected test result does not exclude the possibilityof infection because test results can be affected byimproper specimen collection, concurrent antibiotic therapy,or the number of organisms in the specimen which may bebelow the sensitivity of the test. As with many diagnostictests, results from the Xpert CT/NG assay should beinterpreted in conjunction with other laboratory andclinical data available to the clinician.The Xpert CT/NG assay should not be used for the evaluationof suspected sexual abuse or for other medico-legalindications. Additional testing is recommended in anycircumstance when false positive or false negative resultscould lead to adverse medical, social or psychologicalconsequences. NG PCR, Urine NOT DETECTED Not Detect. [facility] Comment:A not detected test result does not exclude the possibilityof infection because test results can be affected byimproper specimen collection, concurrent antibiotic therapy,or the number of organisms in the specimen which may bebelow the sensitivity of the test. As with many diagnostictests, results from the Xpert CT/NG assay should beinterpreted in conjunction with other laboratory andclinical data available to the clinician.The Xpert CT/NG assay should not be used for the evaluationof suspected sexual abuse or for other medico-legalindications. Additional testing is recommended in anycircumstance when false positive or false negative resultscould lead to adverse medical, social or psychologicalconsequences. 04/11/2025 10:4 7 AM EDT 04/11/2025 1:06 PM EDT Gwen Mcclain MD LAB URINE ORDERAB LES Final Result Performing Organization Address [facility] Co de Phone Number [facility] [address] [place] [phone] * Confirmatory Syphilis Profile (04/11/2025 10:47 AM EDT) Rapid Plasma Reagin, Quant Non-React nicolasa Nonreactive [facility] Treponema pallidum Antibody, Particle Agglutination Non-React nicolasa Nonreactive [facility] Comment:Testing performed at : [address] [address] 04/11/2025 10:4 7 AM EDT 04/12/2025 8:07 AM EDT Gwen Mcclain MD LAB BLOOD ORDERAB LES Final Result Performing Organization Address [facility] de Phone Number [facility] [address] [place] [phone] * (ABNORMAL) Syphilis Screen (04/11/2025 10:47 AM EDT) Syphilis Screen Reactive( A) Nonreactive [facility] Comment:Reactive specimens a re [facility] tests. Blood 04/11/2025 10:4 7 AM EDT 04/11/2025 1:19 PM EDT Gwen Mcclain MD LAB BLOOD ORDERAB LES Final Result [facility] [address] [place] [address] [phone] * Vitamin D, 25-Hydroxy, Total, Immunoassay (04/11/2025 10:47 AM EDT) Vitamin D 25-OH Total 43.1 >30 ng/mL [facility] Comment: Health Based Reference Values*< 20 ng/mL Ncsbhqnqk41-50 ng/mL Insufficient> 30 ng/mL Sufficient*Huy HERNANDEZ. N Engl J Med. 2007;357:266-280There is no well-established upper level of normal vitamin Dlevels. Some laboratories use 50 ng/mL as an upper limit ofnormal. However, toxicity is patient-dependent and may occurat any level. Careful correlation with the patient'spresentation is necessary and, if there is concern forvitamin D toxicity, treatment should be consideredirrespective of the serum level.Care must be taken in interpreting Vitamin D results fromdifferent laboratories and methodologies. Published datademonstrated that results from patients undergoinghemodialysis may show a negative bias when tested withvarious automated 25-OH vitamin D assays when compared toLC-MS/MS.When testing samples from patients whose predominant form ofVitamin D is Vitamin D2, such as patients receiving VitaminD2 supplementation, results that are subtherapeutic shouldbe confirmed with another method such as LC-MS/MS. Blood Venous blood specimen / Unknown 04/11/2025 10:47 AM EDT 04/11/2025 1:19 PM EDT us Gwen Mcclain MD LAB BLOOD ORDERAB LES Final Result [facility] [address] [place] [address] [phone] * TSH with Reflex to Free T4 (04/11/2025 10:47 AM EDT) TSH reflex Free T4 1.00 0.32 - 4.0 uIU/mL [facility] Blood 04/11/2025 10:4 7 AM EDT 04/11/2025 1:19 PM EDT us Gwen Mcclain MD LAB BLOOD ORDERAB LES Final Result [facility] [address] [place] [phone] [phone] * CBC auto differential (04/11/2025 10:47 AM EDT) White Blood Count 5.6 4.8 - 10.8 X10*3/uL [facility] Red Blood Count 4.74 4.20 - 5.50 X10*6/uL [facility] Hemoglobin 13.3 12.0 - 16.0 g/dl [facility] Hematocrit 39.2 37.0 - 47.0 % [facility] Mean Corpuscular Volume 82.7 80.0 - 98.0 fL [facility] Mean Corpuscular Hemoglobin 28.1 27.0 - 33.0 pg [facility] Mean Corpuscular HGB Conc 33.9 31.0 - 35.0 g/dl [facility] Red Cell Distribution Width 13.6 11.0 - 16.0 % [facility] Platelet Count 318 160 - 400 X10*3/uL [facility] Mean Platelet Volume 10.1 9.4 - 12.3 fL [facility] Neutrophils Percent Auto 68.6 45 - 73 % [facility] Imm Gran Pct Auto 0.2 0.0 - 0.4 % [facility] Lymphocytes Percent Auto 23.3 20 - 40 % [facility] Monocytes Percent Auto 5.0 2 - 11 % [facility] Eosinophils Percent Auto 2.5 0 - 4 % [facility] Basophils Percent Auto 0.4 0 - 2 % [facility] NRBC Pct Auto 0.0 0.0 - 0.2 /100WBC [facility] Neutrophils Absolute Auto 3.9 2.0 - 8.3 x10*3/uL [facility] Imm Gran Abs Auto 0.01 0.00 - 0.03 X10*3/uL [facility] Lymphocytes Absolute Auto 1.3 1.2 - 4.9 X10*3/uL [facility] Monocytes Absolute Auto 0.3 0.1 - 1.2 X10*3/uL [facility] Eosinophils Absolute Auto 0.1 0.0 - 0.4 X10*3/uL [facility] Basophils Absolute Auto 0.0 0.0 - 0.2 X10*3/uL [facility] NRBC Abs Auto 0.000 0.0 - 0.012 X10*3/uL [facility] 04/11/2025 10:4 7 AM EDT 04/11/2025 1:19 PM EDT us Generic External Data Provider LAB BLOOD ORDERAB LES Final Result Performing Organization Address [facility]/ZIP Co de Phone Number [facility] [address] [place] [phone] * Hepatitis C Antibody with Reflex to HCV, RNA, Quantitative, Real-Time PCR (04/11/2025 10:47 AM EDT) Hepatitis C Antibody Nonreactive Nonreactive [facility] Comment:Antibodies to HCV no t detected; does not exclude early acuteHCV infection. Blood Venous blood specimen / Unknown 04/11/2025 10:47 AM EDT 04/11/2025 1:09 PM EDT us Gwen Mcclain MD LAB BLOOD ORDERAB LES Final Result Performing Organization Address City/[facility]/ZIP Co de Phone Number [facility] [address] [place] [phone] * Hepatitis B surface antigen, EIA (04/11/2025 10:47 AM EDT) Hepatitis B Surface Ag Negative Negative [facility] Blood Venous blood specimen / Unknown 04/11/2025 10:47 AM EDT 04/11/2025 1:09 PM EDT us Gwen Mcclain MD LAB BLOOD ORDERAB LES Final Result Performing Organization Address [facility] Co de Phone Number [facility] [address] [place] [phone] * HIV-1/2 Antigen and Antibodies, Fourth Generation, with Reflexes (04/11/2025 10:47 AM EDT) HIV AB/AG Nonreactive Nonreactive [facility] Comment:HIV-1 p24 Ag and/or HIV-1/HIV-2 Ab not detected.A test result that is nonreactive does not exclude thepossibility of exposure to or infection with HIV-1 and/orHIV-2. Nonreactive results in this assay for individualswith prior exposure to HIV-1 and/or HIV-2 may be due toantigen and antibody levels that are below the limit ofdetection of this assay.The [employer] HIV Ag/Ab Combo assay result andsupplemental assay results should be interpreted inconjunction with the patient's clinical presentation,history and other laboratory results. If the results areinconsistent with clinical evidence, additional testing issuggested to confirm the result. Blood Venous blood specimen / Unknown 04/11/2025 10:47 AM EDT 04/11/2025 1:09 PM EDT us Gwen Mcclain MD LAB BLOOD ORDERAB LES Final Result Performing Organization Address City/[facility]/ZIP Co de Phone Number [facility] [address] [place] [phone] * Hemoglobin A1c (04/11/2025 10:47 AM EDT) Hemoglobin A1c 5.3 <6.0 % [facility] Comment:Hemoglobin A1C Refer ence Range Adults: 4.8 - 6.0 % Non diabetic: < 6.0 % Goal: < 7.0 %Additional Action Suggested: > 8.0 %Note: Hemoglobin A1c results are invalid for patients with abnormal amounts of HbF. Blood transfusions may impact the HbA1c concentration in the patient sample. Estimated Average Glucose 105 mg/dL [facility] Comment:eAG = Estimated ave rage glucose which is %A1C expressed asaverage glucose, using the formula of the J0H-VekfpnjZehywti Glucose study (ADAG), Diabetes Care, Vol.31,#8,Apr. 2007 Blood Venous blood specimen / Unknown 04/11/2025 10:47 AM EDT 04/11/2025 1:19 PM EDT us Gwen Mcclain MD LAB BLOOD ORDERAB LES Final Result [facility] [address] [place] [phone] * (ABNORMAL) Lipid Panel, Standard (04/11/2025 10:47 AM EDT) Triglycerides 58 <150 mg/dL [facility] Comment:Desirable Triglyceri de: less than 150 mg/dLBorderline High Triglyceride 150-199 mg/dLHigh Triglyceride: 200-499 mg/dLVery High Triglyceride: greater than or equal to 5OO mg/dL Cholesterol 167 <200 mg/dL [facility] Comment:Desirable Cholestero l: less than 200 mg/dLBorderline High Cholesterol: 200-239 mg/dLHigh Cholesterol: greater than 239 mg/dL LDL Cholesterol Calculated 110(H) <100 mg/dL [facility] Comment:Desirable LDL: less than 100 mg/dLNear Optimal/Above Optimal LDL: 110- 129 mg/dLBorderline High LDL: 130-159 mg/dLHigh LDL: 160-189 mg/dLVery High LDL: greater than or equal to 190 mg/dL HDL Cholesterol 46 >40 mg/dL [facility] Comment:Desirable HDL: great er than 40 mg/dL Note: This HDL assay may give artificially low results in patients with liver disease. Blood Venous blood specimen / Unknown 04/11/2025 10:47 AM EDT 04/11/2025 1:19 PM EDT us Gwen Mcclain MD LAB BLOOD ORDERAB LES Final Result Performing Organization Address City/[facility]/ZIP Co de Phone Number [facility] [address] [place] [phone] * Comprehensive Metabolic Panel (04/11/2025 10:47 AM EDT) Sodium 140 135 - 145 mmol/L [facility] Potassium 4.0 3.3 - 5.1 mmol/L [facility] Chloride 108 96 - 108 mmol/L [facility] Carbon Dioxide 24 22 - 29 mmol/L [facility] Anion Gap 12 12 - 20 [facility] Urea Nitrogen (BUN) 11 9 - 16 mg/dL [facility] Creatinine, Serum 0.62 0.5 - 1.4 mg/dL [facility] Estimated Glomerular Filt Rate >60 [facility] Comment:Chronic Kidney Disea se: Estimated GFR < 60 mL/min/1.69i5Sekngn Kidney Disease: Estimated GFR < 15 mL/min/1.73m2 Glucose 83 60 - 115 mg/dL [facility] Calcium 9.4 8.4 - 10.2 mg/dL [facility] Bilirubin, Total 0.3 0.0 - 1.0 mg/dL [facility] Aspartate Amino Transferase 20 5 - 31 U/L [facility] Alanine Aminotransferase 19 0 - 31 U/L [facility] Total Protein 8.0 6.5 - 8.0 g/dL [facility] Albumin Level 4.9 3.5 - 5.0 g/dL [facility] Alkaline Phosphatase 46 39 - 117 U/L [facility] 04/11/2025 10:4 7 AM EDT 04/11/2025 1:19 PM EDT us Generic External Data Provider LAB BLOOD ORDERAB LES Final Result Performing Organization Address City/[facility]/ZIP Co de Phone Number [facility] [address] [place] [phone] from Last 3 Months Insurance [facility] HMO [facility] STANDARD DENTAL-[facility] MEDICAID STAND ADULT Care Teams Health It Specialist Relationship Specialty Start Date End Date Gwen Reyna MD [address] [place] [address] [phone] PCP - General Internal Medicine 03/15/23
--- OUTSIDE RECORDS SUMMARY | 2025-05-15 16:02 | XMS_ITS | Encounter Summary ---
Author Organization [employer] Address [address] [place] [address] Care Team Providers Care Airplane Mechanic Name Role Phone Gwen Reyna MD Primary Care Pro vider Encounter Details Date Type Department Care Team ([facility] st Contact Info) Description 10/28/2023 Orders Only [facility] [address] [place] [address] ProviderDaquan MD Social History Tobacco Use Types [...] 05/22/2025 9:00 AM EDT Office Visit [facility] [address] [place], [place] [phone] Paulo Gomez DDS [address] [place], [place] [phone] documented as of this encounter Procedures Procedure Name Priority Date/Time Associated Diagnosis Comments CT ABD/PELVIS W/ IV + ORAL CONTRAST Routine 10/12/2023 1:[address] ABD/PELVIS W/ IV CONTRAST ONLY Routine 08/29/2023 1:06 PM EST documented in this encounter Results * CT ABD/PELVIS W/ IV + ORAL CONTRAST (10/12/2023 1:03 PM EST) Anatomical Region Laterality Modality Body, Pelvis, Abdomen Computed T omography Historical Provider MD SHARP CT PROCEDURES Final R esult * CT ABD/PELVIS W/ IV CONTRAST ONLY (08/29/2023 1:06 PM EST) Anatomical Region Laterality Modality Body, Pelvis, Abdomen Computed T omography Historical Provider MD SHARP CT PROCEDURES Final R esult documented in this encounter Visit Diagnoses Not on filedocumented in this encounter Additional Health Concerns Assessment Noted Time PHQ-9 Depression Total Score: 1 05/03/20 23 3:59 PM EDT documented as of this encounter Care Teams Airplane Mechanic Relationship Specialty Start Date End Date Gwen Reyna MD [address] [place] [address] PCP - General Internal Medicine 03/15/23 documented as of this encounter
--- OUTSIDE RECORDS SUMMARY | 2025-05-15 16:02 | XMS_ITS | Encounter Summary ---
Author Organization [employer] Address [address] [place] [address] [address] [place] [address] Care Team Providers Care Outreach And Education Social Worker Name Role Phone Gwen Reyna MD Primary Care Pro vider Reason for Visit * Reason Onset Date Comments Med Refill 05/10/2025 Encounter Details Date Type Department Care Team ([facility] st Contact Info) Description 05/10/2025 Refill [facility] [address] [place] [address] Gwen Reyna MD [address] [place] [address] Social History Tobacco Use Types Packs/Day Years [...] Telephone Encounter - Roopa Strickland - 05/11/2025 8:23 AM EDT LOKESH initiated on Covermymeds for [employer]. Approval/denial pending. Ocampo: [id number] documented in this encounter Plan of Treatment Upcoming Encounters Date Type Department Care Team (Late st Contact Info) Description 05/22/2025 9:00 AM EDT Office Visit [facility] [address] [place] [address] Paulo Gomez DDS [address] [place] [address] documented as of this encounter Visit Diagnoses Not on filedocumented in this encounter Additional Health Concerns Assessment Noted Time PHQ-9 Depression Total Score: 0 02/09/20 25 9:19 AM EDT documented as of this encounter Care Teams Outreach And Education Social Worker Relationship Specialty Start Date End Date Gwen Reyna MD [address] [place] [address] PCP - General Internal Medicine 03/15/23 documented as of this encounter
--- OUTSIDE RECORDS SUMMARY | 2025-05-15 16:02 | XMS_ITS | Encounter Summary ---
Author Organization [employer] Address [address] [place] [address] 7 [place] [address] Care Team Providers Care Crossing Watchman Name Role Phone Gwen Reyna MD Primary Care Pro vider Reason for Visit * Reason Comments Med Refill Encounter Details Date Type Department Care Team ([facility] st Contact Info) Description 04/09/2025 Refill [facility] [address] [place] [address] Gwen Reyna MD [address] [place] [address] Atopic dermatitis, unspecified type Social History Tobacco Use Types Packs/Day Years [...] [facility] [address] [place] [address] Paulo Gomez DDS [address] [place], [place] [phone] documented as of this encounter Visit Diagnoses Diagnosis Atopic dermatitis, unspecified type documented in this encounter Additional Health Concerns Assessment Noted Time PHQ-9 Depression Total Score: 0 02/09/20 25 9:19 AM EDT documented as of this encounter Care Teams Crossing Watchman Relationship Specialty Start Date End Date Gwen Reyna MD [address] [place] [address] PCP - General Internal Medicine 03/15/23 documented as of this encounter
--- OUTSIDE RECORDS SUMMARY | 2025-05-15 16:02 | XMS_ITS | Encounter Summary ---
Author Organization [employer] Address [address] 7t [place] [address] Care Team Providers Care Director Professional Services Name Role Phone Gwen Reyna MD Primary Care Pro vider Encounter Details Date Type Department Care Team (Late st Contact Info) Description 09/18/2022 Abstract [facility] ADULT D[facility] [address] [place] [address] Stephenie Newby DDS [address] [place] [address] Social History Tobacco Use Types Packs/Day Years [...] 9:00 AM EDT Office Visit [facility] [address] [place] [address] Paulo Gomez DDS [address] [place], [place] [phone] documented as of this encounter Visit Diagnoses Not on filedocumented in this encounter Care Teams Director Professional Services Relationship Specialty Start Date End Date Gwen Reyna MD [address] [place], [place] [phone] PCP - General Internal Medicine 03/15/23 documented as of this encounter
== END 2025-05-15 15:07 | disposition home or self-care (01) ==
LOC: HO.HWS 14:49
PROVIDERS: PCP Student in an Organized Health Care Education/Training Program; Visit Provider Obstetrics & Gynecology
DX: N93.9 Abnormal uterine and vaginal bleeding, unspecified (principal); D25.9 Leiomyoma of uterus, unspecified; N83.291 Other ovarian cyst, right side; N83.292 Other ovarian cyst, left side
CPT/HCPCS: 99213

== ENCOUNTER 2025-08-06 10:12 | Outpatient (REF) | payer BC, MEDICAID, SELFPAY ==
--- NOTE | ~2025-08-06 | US_ITS ---
CLINICAL HISTORY: N83.299 - Other ovarian cyst, unspecified side US pelvis transabdominal and transvaginal with Doppler Comparison: US - US PELVIC AND TRANSVAGINAL - 04/26/25 14:10 EDT Findings: Transabdominal scanning performed for overall anatomy. Transvaginal scanning performed for additional detail. Anteverted uterus is 9.4 x 4.6 x 6.5 cm length. IUD present. Normal myometrium. No endometrial lesion, 4 mm thickness. Single nabothian cysts. Right ovary 3.6 x 1.5 x 2.6 cm. Heterogeneous hypoechoic nodule with posterior acoustic enhancement, 1.4 x 1.4 x 2.1 cm; probable corpus albicans Left ovary 3.2 x 2.2 x 2.7 cm. Irregular hypoechoic focus with posterior acoustic shadowing, 1.1 x 0.8 x 1 cm; probable calcification, stable. Normal color Doppler with arterial/venous spectral tracing of both ovaries. No free fluid. IMPRESSION: 1. Normal pelvic ultrasound with Doppler. IUD present. No evidence of ovarian torsion. This document has been electronically signed by: Dex Espino MD on 08/06/2025 17:45:27
--- OUTSIDE RECORDS SUMMARY | 2025-08-06 12:25 | XMS_ITS | Encounter Summary ---
Author Organization [employer] Address [address] [facility] 7t [place] [address] Care Team Providers Care Mechanical Product Design Engineer Name Role Phone Gwen Reyna MD Primary Care Pro vider Reason for Visit * Reason Comments Med Refill Encounter Details Date Type Department Care Team ([facility] st Contact Info) Description 02/23/2024 Refill [facility] [address] [place] [address] [phone] Gwen Reyna MD [address] [place] [address] Social History Tobacco Use Types Packs/Day Years [...] the request was an automatic request from [facility]. Please can you check with pt if taking naproxen chronically, not recommend to pt to take this med chronically w risk of kidney damage , HTN, GI bleed documented in this encounter Plan of Treatment Upcoming Encounters Date Type Department Care Team (Late st Contact Info) Description 08/17/2025 11:15 AM EST Office Visit [facility] [address] [place] [phone] Gwen Reyna MD [address] [place] [address] 08/22/2025 9:30 AM EST Office Visit [facility] [address] [place] [phone] Paulo Gomez DDS [address] [place] [address] documented as of this encounter Visit Diagnoses Not on filedocumented in this encounter Additional Health Concerns Assessment Noted Time PHQ-9 Depression Total Score: 0 02/04/20 24 11:52 AM EDT documented as of this encounter Care Teams Mechanical Product Design Engineer Relationship Specialty Start Date End Date Gwen Reyna MD [address] [place] [address] PCP - General Internal Medicine 03/15/23 documented as of this encounter
--- OUTSIDE RECORDS SUMMARY | 2025-08-06 12:25 | XMS_ITS | Encounter Summary ---
Author Organization [employer] Address [address] [place] [address] 7 [place] [address] Care Team Providers Care Liquefaction And Regasification Helper Name Role Phone Gwen Reyna MD Primary Care Pro vider Reason for Visit * Reason Onset Date Comments Med Refill 05/16/2025 Encounter Details Date Type Department Care Team (Late st Contact Info) Description 05/16/2025 Refill [facility] [address] [place] [address] Gwen Reyna MD [address] [place] [address] Social History Tobacco Use Types Packs/Day Years [...] Description 08/17/2025 11:15 AM EST Office Visit [facility] [address] [place] [address] Gwen Reyna MD [address] [place] [address] 08/22/2025 9:30 AM EST Office Visit [facility] ADULT DENTAL [address] [place] [address] Paulo Gomez DDS [address] [place] [address] documented as of this encounter Visit Diagnoses Not on filedocumented in this encounter Additional Health Concerns Assessment Noted Time PHQ-9 Depression Total Score: 0 02/09/20 25 9:19 AM EDT documented as of this encounter Care Teams Liquefaction And Regasification Helper Relationship Specialty Start Date End Date Gwen Reyna MD [address] [place] [phone] PCP - General Internal Medicine 03/15/23 documented as of this encounter
--- OUTSIDE RECORDS SUMMARY | 2025-08-06 12:26 | XMS_ITS | Encounter Summary ---
Author Organization [employer] Address [address] [place] [address] 7 [place] [address] Care Team Providers Care Commissary Worker Name Role Phone Gwen Reyna MD Primary Care Pro vider Reason for Visit * Reason Onset Date Comments Med Refill 06/19/2025 Encounter Details Date Type Department Care Team (Late st Contact Info) Description 06/19/2025 Refill [facility] [address] [place] [address] Gwen Reyna MD [address] [place] [address] Social History Tobacco Use Types Packs/Day Years [...] Description 08/17/2025 11:15 AM EST Office Visit [facility] [address] [place] [address] Gwen Reyna MD [address] [place] [address] 08/22/2025 9:30 AM EST Office Visit [facility] [address] [place] [phone] Paulo Gomez DDS [address] [place] [address] documented as of this encounter Visit Diagnoses Not on filedocumented in this encounter Additional Health Concerns Assessment Noted Time PHQ-9 Depression Total Score: 0 02/09/20 25 9:19 AM EDT documented as of this encounter Care Teams Commissary Worker Relationship Specialty Start Date End Date Gwen Reyna MD [address] [place] [phone] PCP - General Internal Medicine 03/15/23 documented as of this encounter
--- OUTSIDE RECORDS SUMMARY | 2025-08-06 12:26 | XMS_ITS | Encounter Summary ---
Author Organization [employer] Address [address] [place] [address] 7 [place] [address] Care Team Providers Care Logistics Planner Name Role Phone Gwen Reyna MD Primary Care Pro vider Reason for Visit * Reason Onset Date Comments Nurse Triage 12/21/2023 Encounter Details Date Type Department Care Team ([facility] st Contact Info) Description 12/21/2023 Telephone [facility] [address] [place], [place] [phone] Gwen Reyna MD [address] [place] [address] Nurse Triage Social History Tobacco Use Types [...] seen. Pt is advised to come to [facility] today for provider to see and [...] pain now The caller accepted this outcome French speaker documented in this encounter Plan of Treatment Upcoming Encounters Date Type Department Care Team (Late st Contact Info) Description 08/17/2025 11:15 AM EST Office Visit [facility] [address] [place] [address] Gwen Reyna MD [address] [place] [address] 08/22/2025 9:30 AM EST Office Visit [facility] [address] [place] [address] Paulo Gomez DDS [address] [place] [address] documented as of this encounter Visit Diagnoses Not on filedocumented in this encounter Additional Health Concerns Assessment Noted Time PHQ-9 Depression Total Score: 1 05/03/20 23 3:59 PM EDT documented as of this encounter Care Teams Logistics Planner Relationship Specialty Start Date End Date Gwen Reyna MD [address] [place] [address] [phone] PCP - General Internal Medicine 03/15/23 documented as of this encounter
--- OUTSIDE RECORDS SUMMARY | 2025-08-06 12:26 | XMS_ITS | Encounter Summary ---
Author Organization [employer] Address [address] [place] [address] 7 [place] [address] Care Team Providers Care Chain Splitter Name Role Phone Gwen Reyna MD Primary Care Pro vider Reason for Visit * Reason Onset Date Comments Med Refill 05/11/2025 Encounter Details Date Type Department Care Team (Late st Contact Info) Description 05/11/2025 Refill [facility] MED[facility]INE [address] [place] [address] Gwen Reyna MD [address] [place] [address] Social History Tobacco Use Types Packs/Day Years [...] Description 08/17/2025 11:15 AM EST Office Visit [facility] MED[facility]INE [address] [place] [address] Gwen Reyna MD [address] [place] [address] 08/22/2025 9:30 AM EST Office Visit [facility] ADULT DENTAL [address] [place] [phone] Paulo Gomez DDS [address] [place] [address] documented as of this encounter Visit Diagnoses Not on filedocumented in this encounter Additional Health Concerns Assessment Noted Time PHQ-9 Depression Total Score: 0 02/09/20 25 9:19 AM EDT documented as of this encounter Care Teams Chain Splitter Relationship Specialty Start Date End Date Gwen Reyna MD [address] [place] [phone] PCP - General Internal Medicine 03/15/23 documented as of this encounter
--- OUTSIDE RECORDS SUMMARY | 2025-08-06 12:26 | XMS_ITS | Encounter Summary ---
Author Organization [employer] Address [address] 7[address] [place] [address] Care Team Providers Care Senior Telecommunications Technician Name Role Phone Gwen Reyna MD Primary Care Pro vider Reason for Visit * Reason Onset Date Comments Med Refill 01/15/2025 Encounter Details Date Type Department Care Team (Late st Contact Info) Description 01/15/2025 Refill [facility] MEDICINE [address] [place], [place] [phone] Tash Her DO [address] [place] [address] Social History Tobacco Use Types Packs/Day Years [...] Description 08/17/2025 11:15 AM EST Office Visit [facility] MED[facility]INE [address] [place] [phone] Gwen Reyna MD [address] [place] [address] 08/22/2025 9:30 AM EST Office Visit [facility] ADULT DENTAL [address] [place] [address] Paulo Gomez DDS [address] [place] [address] documented as of this encounter Visit Diagnoses Not on filedocumented in this encounter Additional Health Concerns Assessment Noted Time PHQ-9 Depression Total Score: 0 02/04/20 24 11:52 AM EDT documented as of this encounter Care Teams Senior Telecommunications Technician Relationship Specialty Start Date End Date Gwen Reyna MD [address] [place] [phone] PCP - General Internal Medicine 03/15/23 documented as of this encounter
--- OUTSIDE RECORDS SUMMARY | 2025-08-06 12:26 | XMS_ITS | Encounter Summary ---
Author Organization [employer] Address [address] [place] [address] 7 [place] [address] Care Team Providers Care High School English Teacher Name Role Phone Gwen Reyna MD Primary Care Pro vider Reason for Visit * Reason Onset Date Comments Med Refill 05/10/2025 Encounter Details Date Type Department Care Team (Late st Contact Info) Description 05/10/2025 Refill [facility] [address] [place] [address] Gwen Reyna MD [address] [place] [address] Social History Tobacco Use Types Packs/Day Years [...] Roopa Strickland - 05/11/2025 8:23 AM EDT PA initiated on Covermymeds for Zepbound. Approval/denial pending. Ocampo: [id number] documented in this encounter Plan of Treatment Upcoming Encounters Date Type Department Care Team (Late st Contact Info) Description 08/17/2025 11:15 AM EST Office Visit [facility] [address] [place] [address] Gwen Reyna MD [address] [place] [phone] 08/22/2025 9:30 AM EST Office Visit [facility] ADULT DENTAL [address] [place] [address] Paulo Gomez DDS [address] [place] [phone] documented as of this encounter Visit Diagnoses Not on filedocumented in this encounter Additional Health Concerns Assessment Noted Time PHQ-9 Depression Total Score: 0 02/09/20 25 9:19 AM EDT documented as of this encounter Care Teams High School English Teacher Relationship Specialty Start Date End Date Gwen Reyna MD [address] [place] [phone] PCP - General Internal Medicine 03/15/23 documented as of this encounter
--- OUTSIDE RECORDS SUMMARY | 2025-08-06 12:26 | XMS_ITS | Clinical Summary ---
Author Organization [employer] Address [address] 7t [place] [address] Care Team Providers Care Metal Treater Name Role Phone Gwen Reyna MD Primary Care Pro vider Allergies No known active allergies Medications albuterol 108 (90 Base) MCG/ACT inhaler Inhale 2 puffs every 4 (four) hours if needed for wheezing or shortness of breath. 18 g 2 05/03/20 23 Active Additional Information Patient not taking.Reported on 05/25/2025 Levonorgestrel (Mirena, 52 MG,) 20 MCG/DAY intrauterine device by Intrauterine route. Active fluticasone (Flovent) 110 MCG/ACT inhalerIndicatio ns:Mild persistent asthma without complication Inhale 1 puff in the morning and at bedtime. Rinse mouth with water after use to reduce aftertaste and incidence of candidiasis. Do not swallow. 12 g 2 03/17/20 24 Active Additional Information Patient not taking.Reported on 04/13/2025 triamcinolone (Kenalog) 0.1 % creamIndications :Atopic dermatitis, unspecified type Apply topically Once per day. With cerave 80 g 11 07/14/20 24 Active Additional Information Patient not taking.Reported on 04/05/2025 montelukast (Singulair) 10 MG tablet TAKE 1 TABLET BY MOUTH EVERY DAY 90 tablet 3 01/16/20 25 Active cetirizine (ZyrTEC) 10 MG tablet Take 1 tablet (10 mg) by mouth in the morning. 90 tablet 3 01/16/20 25 026 Active ketoconazole (NIZOral) 2 % shampoo Apply topically 2 (two) times a week. 120 mL 04/16/20 Active Additional Information Patient not taking.Reported on 05/25/2025 Tirzepatide-Weig ht Management (Zepbound) 12.5 MG/0.5ML solution auto-injector Inject 0.5 mL (12.5 mg) as directed 1 (one) time per week. INJECT ONE PEN (=12.5 MG) SUBCUTANEOUSLY ONCE A WEEK 2 mL 07/13/20 Active Tirzepatide-Weig ht Management 10 MG/0.5ML solution auto-injector Inject 0.5 mL (10 mg) under the skin 1 (one) time per week. 2 mL 06/19/20 25 025 Discontin ued(Other ) Active Problems Problem Noted Date Diagnosed Date 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 2017 classification 05/25/2025 Acute gingival inflammation 05/25/2025 Gingival bleeding 05/25/2025 Missing teeth, acquired 05/25/2025 Clenching of teeth 05/25/2025 Breech presentation 04/05/2025 History of 2 sections [...] 9:59 AM EDT): -pelvic US 01/07/2023-referred by UPPER MARKER: there is a stable complex left ovarian cyst with calcification of 1.3x0.9x1.1cm ,endometrial strip is 20 mm -with active bleeding during the exam ,no masses no polyps seen. -continue to monitor ovarian cyst with her UPPER MARKER Health care maintenance 02/02/2023 Assessment & Plan (05/04/2023 9:57 AM EDT): - from records -pap smear 03/2021 Neg/HPV neg -per pt had pap smear 12/2022 w UPPER MARKER ( [facility])-normal per pt -not able to get that record -contraception :IUD for menorrhagia and , states has vasectomy -vaccines: s/p covid 19 vaccine x 4-per pt got bivalent dose-pt will bring record.s/p tdap in 2021 , s/P p20 x asthma . HPV x1 in 2011---per pt was told by her UPPER MARKER that had already 3 doses of HPV-requested to [place] to get record-not able to obtain ,hepB immune Assessment & Plan (03/12/2023 9:55 PM EDT): -pap smear 12/2022 w UPPER MARKER ( [facility])-normal per pt -contraception :none, states has vasectomy -vaccines: s/p covid 19 vaccine x 4-per pt got bivalent dose-pt will bring record.s/p tdap in 2021 , s/P p20 x asthma . HPV x1 in 2011---per pt was told by her UPPER MARKER that had already 3 doses of HPV-requested to [place] to get record,hepB immune Assessment & Plan (02/02/2023 1:17 PM EDT): -pap smear 12/2022 w UPPER MARKER ( [facility])-normal per pt -contraception : states [...] x1 in 2011---pt will check w her UPPER MARKER if received any more HPV vaccine w them or if plan to vaccinate if not and if pt interested will start vaccination Obesity (BMI 35.0-39.9 without comorbidity) 01/12 Assessment & Plan (05/04/2023 9:52 AM EDT): BMI 36.4 -Advised pt to improve diet and exercise,discussed healthy life style -referred to maintenance technician 3rd shift -will monitor weight in next 6 months -if no improvement w diet and exercise will discuss w pt about possible medical options vs bariatric surgery referral Assessment & Plan (03/12/2023 9:49 PM EDT): BMI 36.4 -Advised pt to improve diet and exercise,discussed healthy life style -discussed maintenance technician 3rd shift referral -Apt x 03/2023 Assessment & Plan (02/02/2023 1:07 PM EDT): BMI 36.4 -Advised pt to improve diet and exercise,discussed healthy life style -discussed maintenance technician 3rd shift referral -referred today Elevated blood pressure reading 02/02/2023 Assessment & Plan (05/04/2023 12:58 PM EDT): Pt here w normal BP ,at home has some elevated BP readings some days normal and has seen as high 170s ? EKG here 11/2022 Normal Echo 04/28/2023 : normal ,EF > 70% Doppler Renal US 04/19/2023: hemodynamically significant right renal artery stenosis -pt f w marine electrician apprentice -per pt was told to have episodic elevated BP and on eval found to have right renal artery stenosis For which has apt on 05/06/2023 with vascular specialist referred by cards. -referred to maintenance technician 3rd shift -already -low salt diet -continue care with marine electrician apprentice and now vascular Assessment & Plan (03/12/2023 [...] machine or cuff are ok -referred to maintenance technician 3rd shift -has apt x 03/2023 -low salt diet [...] med as low dose HDCTZ -referred to maintenance technician 3rd shift today -low salt diet -monitor here in 5 weeks Pre-diabetes 01/13/2023 Assessment & Plan (05/04/2023 9:51 AM EDT): 12/2022 Hb1AC 5.7 -Advised pt to improve diet and exercise,discussed healthy life style -discussed maintenance technician 3rd shift referral -already referred -will repeat hb1AC in 12 months at annual exam Assessment & Plan (03/12/2023 9:49 PM EDT): 12/2022 Hb1AC 5.7 -Advised pt to improve diet and exercise,discussed healthy life style -discussed maintenance technician 3rd shift referral -apt x 03/2023 -will repeat hb1AC in 12 months at annual exam Assessment & Plan (02/02/2023 1:07 PM EDT): 12/2022 Hb1AC 5.7 -Advised pt to improve diet and exercise,discussed healthy life style -discussed maintenance technician 3rd shift referral -referred today -will repeat hb1AC in [...] 7 pads a day Already f w UPPER MARKER S/p IUD placed with no improvement on heavy bleeding. -pelvic US 01/07/2023: there is a stable complex left ovarian cyst with calcification of 1.3x0.9x1.1cm ,endometrial strip is 20 mm -with active bleeding during the exam ,no masses no polyps seen. -continue care w UPPER MARKER -has apt tomorrow -continue iron TID and vit C -has apt to start care with project portfolio analyst in 1 week ( 05/14/2023) -will need [...] 7 pads a day Already f w UPPER MARKER,denies melenas, hematuria Reports had aprox 5 y ago EGD and colonoscopy per pt told to be normal -continue care w UPPER MARKER -referred x pelvic US -states done recently -Told to have an ovarian cyst-requested today to [facility] to get report -per pt not rec x oral contraceptives x bleeding to avoid risk to increase BP but offered IUD but refused-pt will f up w UPPER MARKER next month -continue iron TID and vit [...] 7 pads a day Already f w UPPER MARKER -continue care w UPPER MARKER -referred x pelvic US -states done recently -will bring record at her next apt here -needs to f results 1st w UPPER MARKER -continue iron BID and vit C started [...] Encounters Date Type Department Care Team Description 07/13/2025 Refill [facility] MEDICINE [address] [place] [address] Gwen Reyna MD 06/22/2025 11:00 AM EDT Office Visit [facility] ADULT DENTAL [address] [facility] [place] [address] Paulo Gomez DDS 06/19/2025 Orders Only [facility] [address] [facility] [place] [address] Gwen Reyna MD 06/19/2025 Refill [facility] [address] [facility] [place] [address] Gwen Reyna MD 06/19/2025 Refill [facility] [address] [facility] [place] [address] Gwen Reyna MD 06/18/2025 Refill [facility] [address] [facility] [place] [address] Gwen Reyna MD 06/04/2025 Telephone [facility] [address] [facility] [place] [address] Gwen Reyna MD 05/25/2025 9:00 AM EDT Office Visit [facility] ADULT DENTAL [address] [facility] [place] [address] Kat Rojo 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 2017 classification; Acute gingival inflammation; Gingival bleeding; Dental calculus; Missing teeth, acquired; Clenching of teeth 05/25/2025 Telephone [facility] [address] [place] [address] Gwen Reyna MD dec recall 05/25/2025 Travel 05/22/2025 9:00 AM EDT Office Visit [facility] ADULT DENTAL [address] [place] [address] Paulo Gomez DDS 05/16/2025 Refill [facility] [address] [facility] [place] [address] Gwen Reyna MD 05/15/2025 Travel 05/11/2025 Refill [facility] [address] [place] [address] Gwen Reyna MD 05/11/2025 Telephone [facility] [address] [place] [address] Gwen Reyna MD Prior Authorization 05/10/2025 Refill [facility] [address] [place] [address] Gwen Reyna MD 05/09/2025 Refill [facility] MED[facility] [address] [place] [address] Gwen Reyna MD from Last 3 Months Immunizations Immunization Administration [...] Sign Reading Time Taken Comments Blood Pressure 126/78 05/25/2025 9:14 AM EDT Pulse 67 04/13/2025 11:36 AM [...] Description 08/17/2025 11:15 AM EST Office Visit [facility] MEDICINE [address] [place] [address] Gwen Reyna MD [address] [place] [address] 08/22/2025 9:30 AM EST Office Visit [facility] ADULT DENTAL [address] [place] [phone] Paulo Gomez DDS [address] [place] [address] Health Maintenance Due Date Last Done Comments Family Planning (PISQ) 11/13/2003 Hepatitis B Vaccines (1 of 3 - 19+ 3-dose series) 11/13/2007 Pap Smear 2009 HPV Vaccines (2 - 3-dose series) 08/25/2012 07/28/2012 Cervical Cancer Screening 2018 HPV/Cotest 2018 COVID-19 Vaccine (2024- season) 2025 11/28/2021, 01/14/2021, 12/23/2020, Additional history exists Influenza Vaccine (#1) 2025 , 05/29/2022, 07/30/2021, Additional history exists Dental X-Ray: Full Mouth 09/11/2025 09/10/2022 Dental Prophylaxis 11/23/2025 05/25/2025, 10/08/2022 Dental Oral Exam 12/22/2025 06/22/2025, 09/10/2022 Alcohol/Substance Use Screening 02/08/2026 02/08/2025 Depression Screening 02/08/2026 02/08/2025, 02/09/20 Disability Screening 02/08/2026 02/08/2025 SDOH Screening 02/08/2026 02/08/2025 Dental X-Ray: Bitewings 05/26/2026 05/25/20 25, 04/05/2025, 10/14/2022, Additional history exists Tobacco Screening 06/22/2026 06/22/2025 Lipid Panel 04/11/2030 04/11/2025, 07/0 11/2023, 03/04/2023 [...] Procedure Name Priority Date/Time Associated Diagnosis Comments COMPREHENSIVE PERIODONTAL EVALUATION - NEW OR ESTABLISHED PATIENT Routine 06/22/2025 11:00 AM EDT CASE PRESENTATION, DETAILED AND EXTENSIVE TREATMENT PLANNING Routine 06/22/2025 11:00 AM EDT PERIODIC ORAL EVALUATION - ESTABLISHED PATIENT Routine 06/22/2025 11:00 AM EDT CASE PRESENTATION, DETAILED AND EXTENSIVE TREATMENT PLANNING Routine 05/25/2025 9:00 AM EDT 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 2017 classification Acute gingival inflammation Gingival bleeding Dental calculus Missing teeth, acquired Clenching of teeth PROPHYLAXIS - ADULT Routine 05/25/2025 9 :00 AM EDT 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 2017 classification Acute gingival inflammation Gingival bleeding Dental calculus INTRAORAL - PERIAPICAL EACH ADDITIONAL RADIOGRAPHIC IMAGE Routine 05/25/2025 9:00 AM EDT 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 2017 classification Dental calculus Missing teeth, acquired INTRAORAL - PERIAPICAL FIRST RADIOGRAPHIC IMAGE Routine 05/25/2025 9:00 AM EDT 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 2017 classification Dental calculus Missing teeth, acquired BITEWINGS - 4 RADIOGRAPHIC IMAGES Routine 05/25/2025 9:00 AM EDT 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 2017 classification Dental calculus Missing teeth, acquired ORAL HYGIENE INSTRUCTIONS Routine 05/25/2025 9:00 AM EDT 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 2017 classification Acute gingival inflammation Gingival bleeding Dental calculus Missing teeth, acquired Clenching of teeth INTRAORAL - PERIAPICAL EACH ADDITIONAL RADIOGRAPHIC IMAGE Routine 05/25/2025 9:00 AM EDT 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 2017 classification Dental calculus Missing teeth, acquired CASE PRESENTATION, DETAILED AND EXTENSIVE TREATMENT PLANNING Routine 05/22/2025 9:00 AM EDT 5 MOD RESIN-BASED COMPOSITE - 3 SURF, POSTERIOR Routine 05/22/2025 9:00 AM EDT HEPATITIS C AB W/REFL TO HCV RNA, QN, PCR Routine 04/11/2025 10:47 AM EDT Annual physical exam HIV 1/2 ANTIGEN/ANTIBODY, FOURTH GENERATION W/RFL Routine 04/11/2025 10:47 AM EDT Annual physical exam LIPID PANEL, STANDARD Routine 04/11/2025 10:47 AM EDT Annual physical exam INTRAORAL - COMPLETE SERIES OF RADIOGRAPHIC IMAGES Routine 09/10/2022 3:00 PM EST from Last 3 Months or Most Recently Relevant to Health Maintenance Results * Hepatitis C Antibody with Reflex to HCV, RNA, Quantitative, Real-Time PCR (04/11/2025 10:47 AM EDT) Hepatitis C Antibody Nonreactive Nonreactive [facility] Comment:Antibodies to HCV no t detected; does not exclude early acuteHCV infection. Blood Venous blood specimen / Unknown 04/11/2025 10:47 AM EDT 04/11/2025 1:09 PM EDT us Gwen Mcclain MD LAB BLOOD ORDERAB LES Final Result [facility] [address] [place] [address] [phone] * HIV-1/2 Antigen and Antibodies, Fourth Generation, with Reflexes (04/11/2025 10:47 AM EDT) HIV AB/AG Nonreactive Nonreactive [facility] Comment:HIV-1 p24 Ag and/or HIV-1/HIV-2 Ab not detected.A test result that is nonreactive does not exclude thepossibility of exposure to or infection with HIV-1 and/orHIV-2. Nonreactive results in this assay for individualswith prior exposure to HIV-1 and/or HIV-2 may be due toantigen and antibody levels that are below the limit ofdetection of this assay.The [employer] HIV Ag/Ab Combo assay result andsupplemental assay results should be interpreted inconjunction with the patient's clinical presentation,history and other laboratory results. If the results areinconsistent with clinical evidence, additional testing issuggested to confirm the result. Blood Venous blood specimen / Unknown 04/11/2025 10:47 AM EDT 04/11/2025 1:09 PM EDT us Gwen Mcclain MD LAB BLOOD ORDERAB LES Final Result [facility] [address] [place] [phone] * (ABNORMAL) Lipid Panel, Standard (04/11/2025 10:47 AM EDT) Triglycerides 58 <150 mg/dL [facility] Comment:Desirable Triglyceri de: less than 150 mg/dLBorderline High Triglyceride 150-199 mg/dLHigh Triglyceride: 200-499 mg/dLVery High Triglyceride: greater than or equal to 5OO mg/dL Cholesterol 167 <200 mg/dL [facility] Comment:Desirable Cholestero l: less than 200 mg/dLBorderline High Cholesterol: 200-239 mg/dLHigh Cholesterol: greater than 239 mg/dL LDL Cholesterol Calculated 110(H) <100 mg/dL [facility] Comment:Desirable LDL: less than 100 mg/dLNear Optimal/Above Optimal LDL: 110- 129 mg/dLBorderline High LDL: 130-159 mg/dLHigh LDL: 160-189 mg/dLVery High LDL: greater than or equal to 190 mg/dL HDL Cholesterol 46 >40 mg/dL [facility] Comment:Desirable HDL: great er than 40 mg/dL Note: This HDL assay may give artificially low results in patients with liver disease. Blood Venous blood specimen / Unknown 04/11/2025 10:47 AM EDT 04/11/2025 1:19 PM EDT Gwen Mcclain MD LAB BLOOD ORDERAB LES Final Result [facility] [address] [place] [address] [phone] from Last 3 Months or Most Recently Relevant to Health Maintenance Insurance [facility] HMO [facility] STANDARD DENTAL-[facility] MEDICAID STAND ADULT Care Teams Metal Treater Relationship Specialty Start Date End Date Gwen Reyna MD [address] [place] [phone] PCP - General Internal Medicine 03/15/23
--- OUTSIDE RECORDS SUMMARY | 2025-08-06 12:26 | XMS_ITS | Encounter Summary ---
Author Organization [employer] Address [address] [place] [address] 7 [place] [address] Care Team Providers Care Recyclable Materials Sorter Name Role Phone Gwen Reyna MD Primary Care Pro vider Reason for Visit * Reason Onset Date Comments Med Refill 01/03/2025 Encounter Details Date Type Department Care Team (Late st Contact Info) Description 01/03/2025 Refill [facility] MEDICINE [address] [place] [address] Gwen Reyna MD [address] [place] [address] Social History Tobacco Use Types Packs/Day Years [...] Description 08/17/2025 11:15 AM EST Office Visit [facility] MEDICINE [address] [place] [address] Gwen Reyna MD [address] [place] [address] 08/22/2025 9:30 AM EST Office Visit [facility] ADULT DENTAL [address] [place] [address] Paulo Gomez DDS [address] [place] [address] documented as of this encounter Visit Diagnoses Not on filedocumented in this encounter Additional Health Concerns Assessment Noted Time PHQ-9 Depression Total Score: 0 02/04/20 24 11:52 AM EDT documented as of this encounter Care Teams Recyclable Materials Sorter Relationship Specialty Start Date End Date Gwen Reyna MD [address] [place] [phone] PCP - General Internal Medicine 03/15/23 documented as of this encounter
--- OUTSIDE RECORDS SUMMARY | 2025-08-06 12:26 | XMS_ITS | Encounter Summary ---
Author Organization [employer] Address [address] [place] [address] 7 [place] [address] Care Team Providers Care Driller Machine Name Role Phone Gwen Reyna MD Primary Care Pro vider Reason for Visit * Reason Onset Date Comments Med Refill 06/18/2025 Encounter Details Date Type Department Care Team (Late st Contact Info) Description 06/18/2025 Refill [facility] MEDICINE [address] [place] [address] Gwen Reyna MD [address] [place] [address] Social History Tobacco Use Types Packs/Day Years [...] Description 08/17/2025 11:15 AM EST Office Visit [facility] MEDICINE [address] [place] [address] Gwen Reyna MD [address] [place] [address] 08/22/2025 9:30 AM EST Office Visit [facility] ADULT DENTAL [address] [place] [address] Paulo Gomez DDS [address] [place] [address] documented as of this encounter Visit Diagnoses Not on filedocumented in this encounter Additional Health Concerns Assessment Noted Time PHQ-9 Depression Total Score: 0 02/09/20 25 9:19 AM EDT documented as of this encounter Care Teams Driller Machine Relationship Specialty Start Date End Date Gwen Reyna MD [address] [place] [address] PCP - General Internal Medicine 03/15/23 documented as of this encounter
--- OUTSIDE RECORDS SUMMARY | 2025-08-06 12:26 | XMS_ITS | Encounter Summary ---
Author Organization [employer] Address [address] [place] [address] 7 [place] [address] Care Team Providers Care Directory Carrier Name Role Phone Gwen Reyna MD Primary Care Pro vider Reason for Visit * Reason Comments Med Refill Encounter Details Date Type Department Care Team ([facility] st Contact Info) Description 05/09/2025 Refill [facility] MEDICINE [address] [place], [place] [phone] Gwen Reyna MD 230 [place] [address] Social History Tobacco Use Types Packs/Day Years [...] Description 08/17/2025 11:15 AM EST Office Visit [facility] MEDICINE [address] [place] [address] Gwen Reyna MD [address] [place] [address] 08/22/2025 9:30 AM EST Office Visit [facility] ADULT DENTAL [address] [place] [address] Paulo Gomez DDS [address] [place] [address] documented as of this encounter Visit Diagnoses Not on filedocumented in this encounter Additional Health Concerns Assessment Noted Time PHQ-9 Depression Total Score: 0 02/09/20 25 9:19 AM EDT documented as of this encounter Care Teams Directory Carrier Relationship Specialty Start Date End Date Gwen Reyna MD [address] [place] [address] PCP - General Internal Medicine 03/15/23 documented as of this encounter
--- OUTSIDE RECORDS SUMMARY | 2025-08-06 12:26 | XMS_ITS | Encounter Summary ---
Author Organization [employer] Address [address] [place] [address] 7 [place] [address] Care Team Providers Care Ambulance Attendant Name Role Phone Gwen Reyna MD Primary Care Pro vider Encounter Details Date Type Department Care Team (Late Contact Info) Description 09/18/2022 Abstract [facility] ADULT DENTAL [address] [place], [place] [phone] Stephenie Nebwy DDS [address] [place], [place] [phone] Social History Tobacco Use Types Packs/Day Years [...] Encounters Date Type Department Care Team (Late Contact Info) Description 08/17/2025 11:15 AM EST Office Visit [facility] MEDICINE [address] [place] [address] Gwen Reyna MD 230 [place], [place] [phone] 08/22/2025 9:30 AM EST Office Visit [facility] ADULT DENTAL [address] [place], [place] [phone] Paulo Gomez DDS [address] [place] [address] documented as of this encounter Visit Diagnoses Not on filedocumented in this encounter Care Teams Ambulance Attendant Relationship Specialty Start Date End Date Gwen Reyna MD [address] [place] [address] PCP - General Internal Medicine 03/15/23 documented as of this encounter
--- OUTSIDE RECORDS SUMMARY | 2025-08-06 12:27 | XMS_ITS | Encounter Summary ---
Author Organization [employer] Address [address] [place] [address] 7 [place] [address] Care Team Providers Care Production Control Supervisor Name Role Phone Gwen Reyna MD Primary Care Pro vider Reason for Visit * Reason Comments Med Refill Encounter Details Date Type Department Care Team ([facility] st Contact Info) Description 04/09/2025 Refill [facility] MEDICINE 230 [place], [place] [phone] Gwen Reyna MD 230 [place] [address] Atopic dermatitis, unspecified type Social History Tobacco [...] Description 08/17/2025 11:15 AM EST Office Visit [facility] MEDICINE [address] [place] [address] Gwen Reyna MD [address] [place] [address] 08/22/2025 9:30 AM EST Office Visit [facility] ADULT DENTAL 230 [place] [address] Paulo Gomez DDS [address] [place] [address] documented as of this encounter Visit Diagnoses Diagnosis Atopic dermatitis, unspecified type documented in this encounter Additional Health Concerns Assessment Noted Time PHQ-9 Depression Total Score: 0 02/09/20 25 9:19 AM EDT documented as of this encounter Care Teams Production Control Supervisor Relationship Specialty Start Date End Date Gwen Reyna MD [address] [place] [address] PCP - General Internal Medicine 03/15/23 documented as of this encounter
--- OUTSIDE RECORDS SUMMARY | 2025-08-06 12:27 | XMS_ITS | Encounter Summary ---
Author Organization [employer] Address [address] [place] [address] 7 [place] [address] Care Team Providers Care Repairer Veneer Sheet Name Role Phone Gwen Reyna MD Primary Care Pro vider Reason for Visit * Reason Comments Med Change Request Encounter Details Date Type Department Care Team ([facility] Contact Info) Description 03/03/2025 Refill [facility] MEDICINE [address] [place], [place] [phone] Gwen Reyna MD 230 [place] [address] Obesity (BMI 35.0-39.9 without comorbidity); Mild persistent [...] Description 08/17/2025 11:15 AM EST Office Visit [facility] MEDICINE [address] [place] [address] Gwen Reyna MD [address] [place] [address] 08/22/2025 9:30 AM EST Office Visit [facility] ADULT DENTAL [address] [place] [address] Paulo Gomez DDS [address] [place] [address] documented as of this encounter Visit Diagnoses Diagnosis Obesity (BMI 35.0-39.9 without comorbidity) Mild persistent asthma without complication documented in this encounter Additional Health Concerns Assessment Noted Time PHQ-9 Depression Total Score: 0 02/09/20 25 9:19 AM EDT documented as of this encounter Care Teams Repairer Veneer Sheet Relationship Specialty Start Date End Date Gwen Reyna MD [address] [place] [phone] PCP - General Internal Medicine 03/15/23 documented as of this encounter
--- OUTSIDE RECORDS SUMMARY | 2025-08-06 12:27 | XMS_ITS | Encounter Summary ---
Author Organization [employer] Address [address] [place] [address] 7t [place] [address] Care Team Providers Care Hydrographer Name Role Phone Gwen Reyna MD Primary Care Pro vider Encounter Details Date Type Department Care Team (Late st Contact Info) Description 01/07/2023 Orders Only [facility] [address] [place] [address] [phone] Alan Austin MD [address] [place] [address] [phone] Abnormal uterine bleeding (Primary Dx) Social History [...] 08/17/2025 11:15 AM EST Office Visit [facility] MEDICINE [address] [place] [address] [phone] Gwen Reyna MD 230 [place] [address] 08/22/2025 9:30 AM EST Office Visit [facility] ADULT DENTAL [address] [place], [place] [phone] Paulo Gomez, DDS [address] [place], [place] [phone] Scheduled Orders Name Type Priority Associated Diagnoses [...] tract documented in this encounter Care Teams Hydrographer Relationship Specialty Start Date End Date Gwen Reyna MD 230 [place], [place] [phone] PCP - General Internal Medicine 03/15/23 documented as of this encounter
--- OUTSIDE RECORDS SUMMARY | 2025-08-06 12:27 | XMS_ITS | Encounter Summary ---
Author Organization [employer] Address [address] 7t [place] [address] Care Team Providers Care Fire Equipment Inspector Name Role Phone Gwen Reyna MD Primary Care Pro vider Encounter Details Date Type Department Care Team (Late st Contact Info) Description 10/28/2023 Orders Only [facility] MEDICINE [address] [place] [address] ProviderDaquan MD Social History Tobacco Use Types [...] Description 08/17/2025 11:15 AM EST Office Visit [facility] MEDICINE [address] [place] [address] Gwen Reyna MD 230 [place] [address] 08/22/2025 9:30 AM EST Office Visit [facility] ADULT DENTAL [address] [place] [address] Paulo Gomez DDS [address] [place] [address] documented as of this encounter Procedures Procedure [...] documented as of this encounter Care Teams Fire Equipment Inspector Relationship Specialty Start Date End Date Gwen Reyna MD [address] [place] [address] PCP - General Internal Medicine 03/15/23 documented as of this encounter
--- OUTSIDE RECORDS SUMMARY | 2025-08-06 12:27 | XMS_ITS | Encounter Summary ---
Author Organization [employer] Address [address] 7t [place] [address] Care Team Providers Care Suction Plate Carrier Cleaner Name Role Phone Gwen Reyna MD Primary Care Pro vider Reason for Visit * Reason Onset Date Comments uanble to run or post [place] of [place] insurace dental for emerge 04/05/2025 Encounter Details Date Type Department Care Team (Late st Contact Info) Description 04/05/2025 Telephone [facility] ADULT DENTAL [address] [place] [address] Paulo Gomez DDS [address] [place] [address] uanble to run or post BCBS of [...] 11:15 AM EST Office Visit [facility] MEDICINE [address] [place] [address] Gwen Reyna MD [address] [place] [address] 08/22/2025 9:30 AM EST Office Visit [facility] ADULT DENTAL [address] [place] [address] Paulo Gomez DDS [address] [place] [address] documented as of this encounter Visit Diagnoses Not on filedocumented in this encounter Additional Health Concerns Assessment Noted Time PHQ-9 Depression Total Score: 0 02/09/20 25 9:19 AM EDT documented as of this encounter Care Teams Suction Plate Carrier Cleaner Relationship Specialty Start Date End Date Gwen Reyna MD [address] [place] [address] PCP - General Internal Medicine 03/15/23 documented as of this encounter
== END 2025-08-06 10:13 | disposition home or self-care (01) ==
LOC: HO.US 10:12
PROVIDERS: PCP Student in an Organized Health Care Education/Training Program; Visit Provider Obstetrics & Gynecology
DX: N83.299 Other ovarian cyst, unspecified side (principal)
CPT/HCPCS: 76830; 76856

== ENCOUNTER → 2025-08-06 10:15 | Outpatient (BNV) | payer BC, MEDICAID, SELFPAY | PROVIDERS: PCP Student in an Organized Health Care Education/Training Program; Visit Provider Radiology Diagnostic Radiology | DX: N83.291 Other ovarian cyst, right side (principal); N83.292 Other ovarian cyst, left side | CPT/HCPCS: 76830; 76856 ==

== ENCOUNTER 2025-08-16 08:32 | Outpatient (AMB) | payer BC, MEDICAID, SELFPAY ==
--- NOTE | 2025-08-16 08:33 | A.OFFVIS_ITS ---
Intake Visit Reasons: ultrasound results Allergies No Known Allergies Allergy (Verified 05/04/25 11:21) HPI Comments Details: The patient scheduled a telehealth visit to follow-up regarding abnormality seen on pelvic ultrasound in 05/07, recent follow-up pelvic ultrasound showed the following: Anteverted uterus is 9.4 x 4.6 x 6.5 cm length. IUD present. Normal myometrium. No endometrial lesion, 4 mm thickness. Single nabothian cysts. Right ovary 3.6 x 1.5 x 2.6 cm. Heterogeneous hypoechoic nodule with posterior acoustic enhancement, 1.4 x 1.4 x 2.1 cm; probable corpus albicans Left ovary 3.2 x 2.2 x 2.7 cm. Irregular hypoechoic focus with posterior acoustic shadowing, 1.1 x 0.8 x 1 cm; probable calcification, stable. Normal color Doppler with arterial/venous spectral tracing of both ovaries. No free fluid. IMPRESSION: 1. Normal pelvic ultrasound with Doppler. IUD present. No evidence of ovarian torsion.. [facility] Medical History Well woman exam Scalp mass False positive syphilis serology Size of fetus inconsistent with dates in second trimester Encounter for screening for malformation using ultrasound Supervision of normal in second trimester Hx of spontaneous , currently test positive Asthma Seasonal allergies Surgical History History of esophagogastroduodenoscopy (EGD) H/O colonoscopy Previous section complicating Hx of section Family History Maternal Aunt Breast CA Father Diabetes mellitus Mother Diabetes mellitus HTN (hypertension) Maternal Grandfather Colon cancer Paternal Grandmother Stomach cancer Social History Household Members: Spouse and Children Both parents involved: Yes Caregiver staying overnight: No Housing: House Are you a primary college and career counselor to a significant other at home: No Do you presently have visiting nurse or other home services: No 75 years or older and lives alone: No Alcohol intake: never Patient Tobacco Use Status: Never used Tobacco service: No Current occupational status: unemployed Gender identity: Female Female Reproductive History Menstrual Age of Menarche: 10 Review of Systems Const All systems reviewed & are unremarkable except as noted in HPI and below Reports as per HPI and Reports no additional complaints GI Reports no additional complaints Reports no additional complaints Telehealth Telehealth Telehealth Platform: [employer] Location of provider rendering services: practice address Location of patient: address on file Patient Identification confirmed using: Name, : Yes Telehealth method: video Patient verbally consented to treatment: Yes Patient verbally consented to billing insurance company: Yes Patient informed of any privacy concerns related to visit: Yes Minutes spent on Phone/Video with Pt.: 2 Assessment & Plan Assessment & Plan (1) Ovarian cyst, complex: Code(s): N83.299 - Other ovarian cyst, unspecified side Category: Medical Plan: Discussed with the patient the finding on pelvic ultrasound. All questions answered, the patient verbalized understanding I spent a total of 20 minutes reviewing the chart, talking to the patient via video and documenting in the medical record. Coding Level of Care Code Tele Est Pt Level 3 (64216) Diagnoses Ovarian cyst, complex N83.299
--- OUTSIDE RECORDS SUMMARY | 2025-08-16 09:09 | XMS_ITS | Encounter Summary ---
Author Organization [email or web address] Address [address] [place] [address] 7 [place] [address] Care Team Providers Care Litigation Paralegal Name Role Phone Gwen Reyna MD Primary Care Pro vider Reason for Visit * Reason Onset Date Comments Med Refill 06/19/2025 Encounter Details Date Type Department Care Team ([facility] st Contact Info) Description 06/19/2025 Refill [facility] MEDICINE 230 [place] [address] Gwen Reyna MD 230 [place] [address] Social History Tobacco Use Types Packs/Day Years [...] Description 08/17/2025 11:15 AM EST Office Visit [facility] MEDICINE [address] [place] [phone] Gwen Reyna MD [address] [place] [address] documented as of this encounter Visit Diagnoses Not on filedocumented in this encounter Additional Health Concerns Assessment Noted Time PHQ-9 Depression Total Score: 0 02/09/20 25 9:19 AM EDT documented as of this encounter Care Teams Litigation Paralegal Relationship Specialty Start Date End Date Gwen Reyna MD [address] [place] [address] PCP - General Internal Medicine 03/15/23 documented as of this encounter
--- OUTSIDE RECORDS SUMMARY | 2025-08-16 09:09 | XMS_ITS | Encounter Summary ---
Author Organization [employer] Address [address] [place] [address] 7 [place] [address] Care Team Providers Care Wine Bottle Inspector Name Role Phone Gwen Reyna MD Primary Care Pro vider Reason for Visit * Reason Onset Date Comments Nurse Triage 12/21/2023 Encounter Details Date Type Department Care Team ([facility] st Contact Info) Description 12/21/2023 Telephone [facility] MEDICINE 230 [place], [place] [phone] Gwen Reyna MD [address] [place] [address] Nurse Triage Social History Tobacco Use Types [...] seen. Pt is advised to come to [facility] today for provider to see and Pt [...] pain now The caller accepted this outcome Italian speaker documented in this encounter Plan of Treatment Upcoming Encounters Date Type Department Care Team (Late st Contact Info) Description 08/17/2025 11:15 AM EST Office Visit [facility] MEDICINE 230 [place], [place] [phone] Gwen Reyna MD [address] [place], [place] [phone] documented as of this encounter Visit Diagnoses Not on filedocumented in this encounter Additional Health Concerns Assessment Noted Time PHQ-9 Depression Total Score: 1 05/03/20 23 3:59 PM EDT documented as of this encounter Care Teams Wine Bottle Inspector Relationship Specialty Start Date End Date Gwen Reyna MD [address] [place] [address] [phone] PCP - General Internal Medicine 03/15/23 documented as of this encounter
--- OUTSIDE RECORDS SUMMARY | 2025-08-16 09:09 | XMS_ITS | Encounter Summary ---
Author Organization [employer] Address [address] [place] [address] 7 [place] [address] Care Team Providers Care Metal Spray Operator Name Role Phone Gwen Reyna MD Primary Care Pro vider Reason for Visit * Reason Onset Date Comments Med Refill 05/16/2025 Encounter Details Date Type Department Care Team ([facility] st Contact Info) Description 05/16/2025 Refill [facility] MEDICINE 230 [place] [address] Gwen Reyna MD 230 [place] [address] Social History Tobacco Use Types Packs/Day Years [...] Description 08/17/2025 11:15 AM EST Office Visit [facility] MEDICINE [address] [place] [address] Gwen Reyna MD [address] [place] [address] documented as of this encounter Visit Diagnoses Not on filedocumented in this encounter Additional Health Concerns Assessment Noted Time PHQ-9 Depression Total Score: 0 02/09/20 25 9:19 AM EDT documented as of this encounter Care Teams Metal Spray Operator Relationship Specialty Start Date End Date Gwen Reyna MD [address] [place] [address] PCP - General Internal Medicine 03/15/23 documented as of this encounter
--- OUTSIDE RECORDS SUMMARY | 2025-08-16 09:09 | XMS_ITS | Encounter Summary ---
Author Organization [employer] Address [address] [facility] 7t [place] [address] Care Team Providers Care Rougher For Cement Name Role Phone Gwen Reyna MD Primary Care Pro vider Reason for Visit * Reason Comments Med Refill Encounter Details Date Type Department Care Team ([facility] st Contact Info) Description 02/23/2024 Refill [facility] [address] [place] [address] [phone] Gwen Reyna MD 230 [place] [address] Social History Tobacco Use Types Packs/Day Years [...] the request was an automatic request from [facility]. Please can you check with pt if taking naproxen chronically, not recommend to pt to take this med chronically w risk of kidney damage , HTN, GI bleed documented in this encounter Plan of Treatment Upcoming Encounters Date Type Department Care Team (Late st Contact Info) Description 08/17/2025 11:15 AM EST Office Visit [facility] MEDICINE [address] [place] [address] Gwen Reyna MD 230 [place], [place] [phone] documented as of this encounter Visit Diagnoses Not on filedocumented in this encounter Additional Health Concerns Assessment Noted Time PHQ-9 Depression Total Score: 0 05/24/20 24 11:52 AM EDT documented as of this encounter Care Teams Rougher For Cement Relationship Specialty Start Date End Date Gwen Reyna MD [address] [place] [phone] PCP - General Internal Medicine 03/15/23 documented as of this encounter
--- OUTSIDE RECORDS SUMMARY | 2025-08-16 09:10 | XMS_ITS | Encounter Summary ---
Author Organization [employer] Address [address] 7t [place] [address] Care Team Providers Care Senior Clinical Study Manager Name Role Phone Gwen Reyna MD Primary Care Pro vider Encounter Details Date Type Department Care Team (Late st Contact Info) Description 01/07/2023 Orders Only [facility] [address] [place] [phone] Alan Austin MD [address] [place] [address] Abnormal uterine bleeding (Primary Dx) Social History [...] [facility] 230 [place] [address] Gwen Reyna MD [address] [place] [address] Scheduled Orders Name Type Priority Associated Diagnoses [...] tract documented in this encounter Care Teams Senior Clinical Study Manager Relationship Specialty Start Date End Date Gwen Reyna MD [address] [place] [address] PCP - General Internal Medicine 03/15/23 documented as of this encounter
--- OUTSIDE RECORDS SUMMARY | 2025-08-16 09:10 | XMS_ITS | Encounter Summary ---
Author Organization [employer] Address [address] [place] [address] 7 [place] [address] Care Team Providers Care Telephone Plant Power Operator Name Role Phone Gwen Reyna MD Primary Care Pro vider Reason for Visit * Reason Onset Date Comments Med Refill 08/11/2025 Encounter Details Date Type Department Care Team ([facility] st Contact Info) Description 08/11/2025 Refill [facility] MEDICINE 230 [place] [address] Gwen Reyna MD 230 [place] [address] Social History Tobacco Use Types Packs/Day Years [...] 11:15 AM EST Office Visit [facility] MEDICINE [address] [place] [address] Gwen Reyna MD [address] [place] [address] documented as of this encounter Visit Diagnoses Not on filedocumented in this encounter Additional Health Concerns Assessment Noted Time PHQ-9 Depression Total Score: 0 02/09/20 25 9:19 AM EDT documented as of this encounter Care Teams Telephone Plant Power Operator Relationship Specialty Start Date End Date Gwen Reyna MD [address] [place] [address] PCP - General Internal Medicine 03/15/23 documented as of this encounter
--- OUTSIDE RECORDS SUMMARY | 2025-08-16 09:10 | XMS_ITS | Encounter Summary ---
Author Organization [employer] Address [address] 7t [place] [address] Care Team Providers Care Poker Machine Attendant Name Role Phone Gwen Reyna MD Primary Care Pro vider Encounter Details Date Type Department Care Team ([facility] st Contact Info) Description 10/28/2023 Orders Only [facility] MEDICINE [address] [place] [address] ProviderDaquan MD Social History Tobacco Use Types [...] Description 08/17/2025 11:15 AM EST Office Visit [facility] MEDICINE [address] [place] [address] Gwen Reyna MD [address] [place], [place] [phone] documented as of this encounter Procedures Procedure [...] documented as of this encounter Care Teams Poker Machine Attendant Relationship Specialty Start Date End Date Gwen Reyna MD [address] [place] [address] [phone] PCP - General Internal Medicine 03/15/23 documented as of this encounter
--- OUTSIDE RECORDS SUMMARY | 2025-08-16 09:10 | XMS_ITS | Encounter Summary ---
Author Organization [employer] Address [address] [place] [address] 7 [place] [address] Care Team Providers Care Dye Weigher Name Role Phone Gwen Reyna MD Primary Care Pro vider Reason for Visit * Reason Onset Date Comments Med Refill 06/18/2025 Encounter Details Date Type Department Care Team ([facility] st Contact Info) Description 06/18/2025 Refill [facility] MEDICINE 230 [place] [address] Gwen Reyna MD [address] [place] [address] Social History Tobacco Use Types Packs/Day Years [...] [facility] [address] [place] [address] Gwen Reyna MD [address] [place] [phone] documented as of this encounter Visit Diagnoses Not on filedocumented in this encounter Additional Health Concerns Assessment Noted Time PHQ-9 Depression Total Score: 0 02/09/20 25 9:19 AM EDT documented as of this encounter Care Teams Dye Weigher Relationship Specialty Start Date End Date Gwen Reyna MD [address] [place] [phone] PCP - General Internal Medicine 03/15/23 documented as of this encounter
--- OUTSIDE RECORDS SUMMARY | 2025-08-16 09:10 | XMS_ITS | Encounter Summary ---
Author Organization [employer] Address [address] [facility] 7t [place] [address] Care Team Providers Care Cutter Operator Tile Name Role Phone Gwen Reyna MD Primary Care Pro vider Reason for Visit * Reason Onset Date Comments Med Refill 01/15/2025 Encounter Details Date Type Department Care Team (Late st Contact Info) Description 01/15/2025 Refill [facility] MEDICINE 230 [place] [address] Tash Her DO [address] [place] [address] Social History Tobacco Use Types Packs/Day Years [...] 08/17/2025 11:15 AM EST Office Visit [facility] MEDICINE [address] [place] [phone] Gwen Reyna MD [address] [place] [phone] documented as of this encounter Visit Diagnoses Not on filedocumented in this encounter Additional Health Concerns Assessment Noted Time PHQ-9 Depression Total Score: 0 02/04/20 24 11:52 AM EDT documented as of this encounter Care Teams Cutter Operator Tile Relationship Specialty Start Date End Date Gwen Reyna MD [address] [place] [phone] PCP - General Internal Medicine 03/15/23 documented as of this encounter
--- OUTSIDE RECORDS SUMMARY | 2025-08-16 09:10 | XMS_ITS | Encounter Summary ---
Author Organization [employer] Address [address] [place] [address] 7 [place] [address] Care Team Providers Care Print Decorator Name Role Phone Gwen Reyna MD Primary Care Pro vider Reason for Visit * Reason Onset Date Comments Med Refill 05/11/2025 Encounter Details Date Type Department Care Team ([facility] st Contact Info) Description 05/11/2025 Refill [facility] MEDICINE 230 [place] [address] Gwen Reyna MD 230 [place] [address] Social History Tobacco Use Types Packs/Day Years [...] Description 08/17/2025 11:15 AM EST Office Visit [facility] MEDICINE [address] [place] [phone] Gwen Reyna MD [address] [place] [phone] documented as of this encounter Visit Diagnoses Not on filedocumented in this encounter Additional Health Concerns Assessment Noted Time PHQ-9 Depression Total Score: 0 02/09/20 25 9:19 AM EDT documented as of this encounter Care Teams Print Decorator Relationship Specialty Start Date End Date Gwen Reyna MD [address] [place] [phone] PCP - General Internal Medicine 03/15/23 documented as of this encounter
--- OUTSIDE RECORDS SUMMARY | 2025-08-16 09:10 | XMS_ITS | Encounter Summary ---
Author Organization [employer] Address [address] [place] [address] 7 [place] [address] Care Team Providers Care Cardiology Tech Name Role Phone Gwen Reyna MD Primary Care Pro vider Reason for Visit * Reason Comments Med Refill Encounter Details Date Type Department Care Team ([facility] st Contact Info) Description 04/09/2025 Refill [facility] MEDICINE 230 [place] [address] Gwen Reyna MD 230 [place] [address] Atopic dermatitis, unspecified type Social History Tobacco [...] 08/17/2025 11:15 AM EST Office Visit [facility] MEDICINE [address] [place] [phone] Gwen Reyna MD [address] [place] [phone] documented as of this encounter Visit Diagnoses Diagnosis Atopic dermatitis, unspecified type documented in this encounter Additional Health Concerns Assessment Noted Time PHQ-9 Depression Total Score: 0 02/09/20 25 9:19 AM EDT documented as of this encounter Care Teams Cardiology Tech Relationship Specialty Start Date End Date Gwen Reyna MD [address] [place] [phone] PCP - General Internal Medicine 03/15/23 documented as of this encounter
--- OUTSIDE RECORDS SUMMARY | 2025-08-16 09:10 | XMS_ITS | Encounter Summary ---
Author Organization [employer] Address [address] [place] [address] 7 [place] [address] Care Team Providers Care Cable Tool Driller Name Role Phone Gwen Reyna MD Primary Care Pro vider Reason for Visit * Reason Comments Med Refill Encounter Details Date Type Department Care Team ([facility] st Contact Info) Description 05/09/2025 Refill [facility] MEDICINE 230 [place] [address] Gwen Reyna MD 230 [place] [address] Social History Tobacco Use Types Packs/Day Years [...] Description 08/17/2025 11:15 AM EST Office Visit [facility] MEDICINE 230 [place] [address] Gwen Reyna MD [address] [place] [phone] documented as of this encounter Visit Diagnoses Not on filedocumented in this encounter Additional Health Concerns Assessment Noted Time PHQ-9 Depression Total Score: 0 02/09/20 25 9:19 AM EDT documented as of this encounter Care Teams Cable Tool Driller Relationship Specialty Start Date End Date Gwen Reyna MD [address] [place] [phone] PCP - General Internal Medicine 03/15/23 documented as of this encounter
--- OUTSIDE RECORDS SUMMARY | 2025-08-16 09:10 | XMS_ITS | Encounter Summary ---
Author Organization [employer] Address [address] [facility] 7t [place] [address] Care Team Providers Care Apartment Coordinator Name Role Phone Gwen Reyna MD Primary Care Pro vider Reason for Visit * Reason Onset Date Comments uanble to run or post [employer] insurace dental for emerge 04/05/2025 Encounter Details Date Type Department Care Team (Late st Contact Info) Description 04/05/2025 Telephone [facility]ULT D[facility]AL [address] [place] [address] Paulo Gomez DDS [address] [place], [place] [phone] uanble to run or post BCBS of [...] Description 08/17/2025 11:15 AM EST Office Visit [facility] MEDICINE [address] [place] [address] Gwen Reyna MD [address] [place] [phone] documented as of this encounter Visit Diagnoses Not on filedocumented in this encounter Additional Health Concerns Assessment Noted Time PHQ-9 Depression Total Score: 0 02/09/20 9:19 AM EDT documented as of this encounter Care Teams Apartment Coordinator Relationship Specialty Start Date End Date Gwen Reyna MD [address] [place] [phone] PCP - General Internal Medicine 03/15/23 documented as of this encounter
--- OUTSIDE RECORDS SUMMARY | 2025-08-16 09:10 | XMS_ITS | Encounter Summary ---
Author Organization [employer] Address [address] [facility] 7t [place] [address] Care Team Providers Care Emulsification Operator Name Role Phone Gwen Reyna MD Primary Care Pro vider Encounter Details Date Type Department Care Team (Late Contact Info) Description 09/18/2022 Abstract [facility] ADULT DENTAL [address] [place] [address] Stephenie Newby DDS [address] [place] [address] Social History Tobacco Use Types Packs/Day Years [...] Description 08/17/2025 11:15 AM EST Office Visit [facility] MEDICINE 230 [place] [address] Gwen Reyna MD 230 [place] [address] documented as of this encounter Visit Diagnoses Not on filedocumented in this encounter Care Teams Emulsification Operator Relationship Specialty Start Date End Date Gwen Reyna MD [address] [place], [place] [phone] PCP - General Internal Medicine 03/15/23 documented as of this encounter
--- OUTSIDE RECORDS SUMMARY | 2025-08-16 09:10 | XMS_ITS | Encounter Summary ---
Author Organization [employer] Address [address] [place] [address] 7 [place] [address] Care Team Providers Care Dray Truck Driver Name Role Phone Gwen Reyna MD Primary Care Pro vider Reason for Visit * Reason Comments Med Change Request Encounter Details Date Type Department Care Team ([facility] Contact Info) Description 03/03/2025 Refill [facility] [address] [place] [address] Gwen Reyna MD [address] [place] [address] Obesity (BMI 35.0-39.9 without comorbidity); Mild persistent [...] Description 08/17/2025 11:15 AM EST Office Visit [facility] [address] [place] [phone] Gwen Reyna MD [address] [place] [phone] documented as of this encounter Visit Diagnoses Diagnosis Obesity (BMI 35.0-39.9 without comorbidity) Mild persistent asthma without complication documented in this encounter Additional Health Concerns Assessment Noted Time PHQ-9 Depression Total Score: 0 02/09/20 25 9:19 AM EDT documented as of this encounter Care Teams Dray Truck Driver Relationship Specialty Start Date End Date Gwen Reyna MD [address] [place] [phone] PCP - General Internal Medicine 03/15/23 documented as of this encounter
--- OUTSIDE RECORDS SUMMARY | 2025-08-16 09:10 | XMS_ITS | Encounter Summary ---
Author Organization [employer] Address [address] [place] [address] 7 [place] [address] Care Team Providers Care Alarm Service Technician Name Role Phone Gwen Reyna MD Primary Care Pro vider Reason for Visit * Reason Onset Date Comments Med Refill 05/10/2025 Encounter Details Date Type Department Care Team ([facility] st Contact Info) Description 05/10/2025 Refill [facility] MEDICINE 230 [place] [address] Gwen Reyna MD 230 [place] [address] Social History Tobacco Use Types Packs/Day Years [...] on Covermymeds for [employer]. Approval/denial pending. Ocampo: [id number] documented in this encounter Plan of Treatment Upcoming Encounters Date Type Department Care Team (Late st Contact Info) Description 08/17/2025 11:15 AM EST Office Visit [facility] MEDICINE [address] [place] [phone] Gwen Reyna MD [address] [place] [phone] documented as of this encounter Visit Diagnoses Not on filedocumented in this encounter Additional Health Concerns Assessment Noted Time PHQ-9 Depression Total Score: 0 02/09/20 25 9:19 AM EDT documented as of this encounter Care Teams Alarm Service Technician Relationship Specialty Start Date End Date Gwen Reyna MD [address] [place] [phone] PCP - General Internal Medicine 03/15/23 documented as of this encounter
--- OUTSIDE RECORDS SUMMARY | 2025-08-16 09:10 | XMS_ITS | Encounter Summary ---
Author Organization [employer] Address [address] [place] [address] 7 [place] [address] Care Team Providers Care Diversity Intern Name Role Phone Gwen Reyna MD Primary Care Pro vider Reason for Visit * Reason Onset Date Comments Med Refill 01/03/2025 Encounter Details Date Type Department Care Team ([facility] st Contact Info) Description 01/03/2025 Refill [facility] MEDICINE [address] [place] [address] Gwen Reyna MD [address] [place] [address] Social History Tobacco Use Types Packs/Day Years [...] Description 08/17/2025 11:15 AM EST Office Visit [facility] MEDICINE [address] [place] [address] Gwne Reyna MD [address] [place] [phone] documented as of this encounter Visit Diagnoses Not on filedocumented in this encounter Additional Health Concerns Assessment Noted Time PHQ-9 Depression Total Score: 0 02/04/20 24 11:52 AM EDT documented as of this encounter Care Teams Diversity Intern Relationship Specialty Start Date End Date Gwen Reyna MD [address] [place] [phone] PCP - General Internal Medicine 03/15/23 documented as of this encounter
--- OUTSIDE RECORDS SUMMARY | 2025-08-16 09:10 | XMS_ITS | Clinical Summary ---
Author Organization [employer] Address [address] [place] [address] Care Team Providers Care Supercharger Mechanic Name Role Phone Gwen Reyna MD [...] (two) times a week. 120 mL 04/16/20 25 Active Additional Information Patient not taking.Reported on 05/25/2025 Tirzepatide-Weig ht Management (Zepbound) 15 MG/0.5ML solution auto-injector Inject 0.5 mL (15 mg) under the skin every 7 (seven) days. 2 mL 08/13/20 25 Active Tirzepatide-Weig ht Management (Zepbound) 12.5 MG/0.5ML solution auto-injector Inject 0.5 mL (12.5 mg) as directed 1 (one) time per week. INJECT ONE PEN (=12.5 MG) SUBCUTANEOUSLY ONCE A WEEK 2 mL 07/13/20 25 025 Discontin ued(Other ) Active Problems [...] 9:59 AM EDT): -pelvic US 01/07/2023-referred by CARD GAME OPERATOR: there is a stable complex left ovarian cyst with calcification of 1.3x0.9x1.1cm ,endometrial strip is 20 mm -with active bleeding during the exam ,no masses no polyps seen. -continue to monitor ovarian cyst with her CARD GAME OPERATOR Health care maintenance 02/02/2023 Assessment & Plan (05/04/2023 9:57 AM EDT): - from records -pap smear 03/2021 Neg/HPV neg -per pt had pap smear 12/2022 w CARD GAME OPERATOR ( [facility])-normal per pt -not able to get that record -contraception :IUD for menorrhagia and , states has vasectomy -vaccines: s/p covid 19 vaccine x 4-per pt got bivalent dose-pt will bring record.s/p tdap in 2021 , s/P p20 x asthma . HPV x1 in 2011---per pt was told by her CARD GAME OPERATOR that had already 3 doses of HPV-requested to [place] to get record-not able to obtain ,hepB immune Assessment & Plan (03/12/2023 9:55 PM EDT): -pap smear 12/2022 w CARD GAME OPERATOR ( [facility])-normal per pt -contraception :none, states has vasectomy -vaccines: s/p covid 19 vaccine x 4-per pt got bivalent dose-pt will bring record.s/p tdap in 2021 , s/P p20 x asthma . HPV x1 in 2011---per pt was told by her CARD GAME OPERATOR that had already 3 doses of HPV-requested to [place] to get record,hepB immune Assessment & Plan (02/02/2023 1:17 PM EDT): -pap smear 12/2022 w CARD GAME OPERATOR ( [facility])-normal per pt -contraception : states has [...] x1 in 2011---pt will check w her CARD GAME OPERATOR if received any more HPV vaccine w them or if plan to vaccinate if not and if pt interested will start vaccination Obesity (BMI 35.0-39.9 without comorbidity) 01/12 Assessment & Plan (05/04/2023 9:52 AM EDT): BMI 36.4 -Advised pt to improve diet and exercise,discussed healthy life style -referred to percussion instructor -will monitor weight in next 6 months -if no improvement w diet and exercise will discuss w pt about possible medical options vs bariatric surgery referral Assessment & Plan (03/12/2023 9:49 PM EDT): BMI 36.4 -Advised pt to improve diet and exercise,discussed healthy life style -discussed percussion instructor referral -Apt x 03/2023 Assessment & Plan (02/02/2023 1:07 PM EDT): BMI 36.4 -Advised pt to improve diet and exercise,discussed healthy life style -discussed percussion instructor referral -referred today Elevated blood pressure reading 02/02/2023 Assessment & Plan (05/04/2023 12:58 PM EDT): Pt here w normal BP ,at home has some elevated BP readings some days normal and has seen as high 170s ? EKG here 11/2022 Normal Echo 04/28/2023 : normal ,EF > 70% Doppler Renal US 04/19/2023: hemodynamically significant right renal artery stenosis -pt f w scout executive -per pt was told to have episodic elevated BP and on eval found to have right renal artery stenosis For which has apt on 05/06/2023 with vascular specialist referred by cards. -referred to percussion instructor -already -low salt diet -continue care with scout executive and now vascular Assessment & Plan (03/12/2023 [...] machine or cuff are ok -referred to percussion instructor -has apt x 03/2023 -low salt diet [...] med as low dose HDCTZ -referred to percussion instructor today -low salt diet -monitor here in 5 weeks Pre-diabetes 01/13/2023 Assessment & Plan (05/04/2023 9:51 AM EDT): 12/2022 Hb1AC 5.7 -Advised pt to improve diet and exercise,discussed healthy life style -discussed percussion instructor referral -already referred -will repeat hb1AC in 12 months at annual exam Assessment & Plan (03/12/2023 9:49 PM EDT): 12/2022 Hb1AC 5.7 -Advised pt to improve diet and exercise,discussed healthy life style -discussed percussion instructor referral -apt x 03/2023 -will repeat hb1AC in 12 months at annual exam Assessment & Plan (02/02/2023 1:07 PM EDT): 12/2022 Hb1AC 5.7 -Advised pt to improve diet and exercise,discussed healthy life style -discussed percussion instructor referral -referred today -will repeat hb1AC in 12 months at annual exam Mild intermittent asthma 01/05/2023 Assessment & Plan (05/04/2023 9:46 AM EDT): Reports hx of asthma -now well controlled lately Since started on flovent -continue flovent BID -and advise to rinse mouth after use ,MELNIA prn Assessment & Plan (03/12/2023 9:46 PM [...] 7 pads a day Already f w CARD GAME OPERATOR S/p IUD placed with no improvement on heavy bleeding. -pelvic US 01/07/2023: there is a stable complex left ovarian cyst with calcification of 1.3x0.9x1.1cm ,endometrial strip is 20 mm -with active bleeding during the exam ,no masses no polyps seen. -continue care w CARD GAME OPERATOR -has apt tomorrow -continue iron TID and vit C -has apt to start care with care advocate in 1 week ( 05/14/2023) -will need [...] 7 pads a day Already f w CARD GAME OPERATOR,denies melenas, hematuria Reports had aprox 5 y ago EGD and colonoscopy per pt told to be normal -continue care w CARD GAME OPERATOR -referred x pelvic US -states done recently -Told to have an ovarian cyst-requested today to MELINDA to get report -per pt not rec x oral contraceptives x bleeding to avoid risk to increase BP but offered IUD but refused-pt will f up w CARD GAME OPERATOR next month -continue iron TID and [...] 7 pads a day Already f w CARD GAME OPERATOR -continue care w CARD GAME OPERATOR -referred x pelvic US -states done recently -will bring record at her next apt here -needs to f results 1st w CARD GAME OPERATOR -continue iron BID and vit C [...] Encounters Date Type Department Care Team Description 08/11/2025 Refill [facility] [address] [place] [address] Gwen Reyna MD 08/07/2025 Patient Outreach [facility] [address] [place] [address] Gwen Reyna MD Pre-visit Planning (SDOH screening was completed on 02/08/2025) 08/06/2025 Orders Only [facility] External Provider, [facility] 07/13/2025 Refill [facility] [address] [place] [address] Gwen Reyna MD 06/22/2025 11:00 AM EDT Office Visit [facility] [address] [place] [address] Paulo Gomez DDS 06/19/2025 Orders Only [facility] [address] [place] [address] Gwen Reyna MD 06/19/2025 Refill [facility] [address] [place] [address] Gwen Reyna MD 06/19/2025 Refill [facility] [address] [place] [address] Gwen Reyna MD 06/18/2025 Refill [facility] [address] [place] [address] Gwen Reyna MD 06/04/2025 Telephone [facility] [address] [place] [address] Gwen Reyna MD 05/25/2025 9:00 AM EDT Office Visit [facility] [address] [place] [address] Kat Rojo 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 2017 classification; Acute gingival inflammation; Gingival bleeding; Dental calculus; Missing teeth, acquired; Clenching of teeth 05/25/2025 Telephone [facility] [address] [place] [address] Gwen Reyna MD dec recall 05/25/2025 Travel 05/22/2025 9:00 AM EDT Office Visit [facility] [address] [place] [address] Paulo Gomez DDS from Last 3 Months Immunizations Immunization Administration [...] the past 12 months, has t he eCoast, gas, oil or water company threatened to [...] Description 08/17/2025 11:15 AM EST Office Visit [facility] [address] [place] [phone] Gwen Reyna MD [address] [place] [address] Health Maintenance Due Date Last Done Comments Family Planning (PISQ) 11/13/2003 Hepatitis B Vaccines (1 of 3 - 19+ 3-dose series) 11/13/2007 Pap Smear 2009 HPV Vaccines (2 - 3-dose series) 08/25/2012 07/28/2012 Cervical Cancer Screening 2018 HPV/Cotest 2018 COVID-19 Vaccine ( season) 2025 11/28/2021, 01/14/2021, 12/23/2020, Additional history exists Influenza Vaccine (#1) 2025 , 05/29/2022, 07/30/2021, Additional history exists Dental X-Ray: Full Mouth 09/11/2025 09/10/2022 Dental Prophylaxis 11/23/2025 05/25/2025, 10/08/2022 Dental Oral Exam 12/22/2025 06/22/2025, 09/10/2022 Alcohol/Substance Use Screening 02/08/2026 02/08/2025 Depression Screening 02/08/2026 02/08/2025, 02/09/20 Disability Screening 02/08/2026 02/08/2025 SDOH Screening 02/08/2026 02/08/2025 Dental X-Ray: Bitewings 05/26/2026 05/25/20, 04/05/2025, 10/14/2022, Additional history exists Tobacco Screening [...] Associated Diagnosis Comments US PELVIS TRANSVAGINAL Routine 08/06/2025 5:45 PM EST COMPREHENSIVE PERIODONTAL EVALUATION - NEW OR ESTABLISHED [...] Health Maintenance Results * US Pelvis Transvaginal (08/06/2025 5:45 PM EST) Anatomical Region Laterality Modality Pelvis Ultrasound 08/06/2025 5:45 PM EST Narrative 08/06/2025 5:46 PM EST [place] [id number] Ultrasound Report Signed Patient: Noe Luna MR#: [id number] : 1990 Acct:[id number] Age/Sex: 34 / F ADM Date: 08/06/25 Loc: HO.US Attending Dr: Jakob Clarke MD Ordering Physician: Jakob Clarke MD Date of Service: 08/06/25 Procedure(s): US pelvic and transvaginal Accession Number(s): [id number] cc: Gwen Reyna MD; Jakob Clarke MD Reason for Exam: N83.299 - Other ovarian cyst, unspecified side CLINICAL HISTORY: N83.299 - Other ovarian cyst, unspecified side US pelvis transabdominal and transvaginal with Doppler Comparison: US - US PELVIC AND TRANSVAGINAL - 04/26/25 14:10 EDT Findings: Transabdominal scanning performed for overall anatomy. Transvaginal scanning performed for additional detail. Anteverted uterus is 9.4 x 4.6 x 6.5 cm length. IUD present. Normal myometrium. No endometrial lesion, 4 mm thickness. Single nabothian cysts. Right ovary 3.6 x 1.5 x 2.6 cm. Heterogeneous hypoechoic nodule with posterior acoustic enhancement, 1.4 x 1.4 x 2.1 cm; probable corpus albicans Left ovary 3.2 x 2.2 x 2.7 cm. Irregular hypoechoic focus with posterior acoustic shadowing, 1.1 x 0.8 x 1 cm; probable calcification, stable. Normal color Doppler with arterial/venous spectral tracing of both ovaries. No free fluid. IMPRESSION: 1. Normal pelvic ultrasound with Doppler. IUD present. No evidence of ovarian torsion. This document has been electronically signed by: Dex Espino MD on 08/06/2025 17:45:27 Dictated By: Dex Espino MD Signed By: <Electronically signed by Dex Espino MD in OV> 08/06/251745 DD/ 44 TD/TT: 08/06/251744 Drafting Teacher: Procedure Note Donotuseinterpreter, Image - 08/06/2025 [place] [id number] Ultrasound Report Signed Patient: Ericka Luna#: [id number] : 1990Acct:[id number] Age/Sex: 34 / FADM Date: 08/06/25 Loc: HO.US Attending Dr: Jakob Clarke MD Ordering Physician: Jakob Calrke MD Date of Service: 08/06/25 Procedure(s): US pelvic and transvaginal Accession Number(s): [id number] cc: Gwen Reyna MD; Jakob Clarke MD Reason for Exam: N83.299 - Other ovarian cyst, unspecified side CLINICAL HISTORY: N83.299 - Other ovarian cyst, unspecified side US pelvis transabdominal and transvaginal with Doppler Comparison: US - US PELVIC AND TRANSVAGINAL - 04/26/25 14:10 EDT Findings: Transabdominal scanning performed for overall anatomy. Transvaginal scanning performed for additional detail. Anteverted uterus is 9.4 x 4.6 x 6.5 cm length. IUD present. Normal myometrium. No endometrial lesion, 4 mm thickness. Single nabothian cysts. Right ovary 3.6 x 1.5 x 2.6 cm. Heterogeneous hypoechoic nodule with posterior acoustic enhancement, 1.4 x 1.4 x 2.1 cm; probable corpus albicans Left ovary 3.2 x 2.2 x 2.7 cm. Irregular hypoechoic focus with posterior acoustic shadowing, 1.1 x 0.8 x 1 cm; probable calcification, stable. Normal color Doppler with arterial/venous spectral tracing of both ovaries. No free fluid. IMPRESSION: 1. Normal pelvic ultrasound with Doppler. IUD present. No evidence of ovarian torsion. This document has been electronically signed by: Dex Espino MD on 08/06/2025 17:45:27 Dictated By: Dex Espion MD Signed By: <Electronically signed by Dex Espino MD in OV> 08/06/251745 DD/ 44 TD/TT: 08/06/251744 Drafting Teacher: Result [facility] External Provider IMG US PROCEDURES Final Result * Hepatitis C Antibody with Reflex to HCV, RNA, Quantitative, Real-Time PCR (04/11/2025 10:47 AM EDT) Pathologist [facility] Hepatitis C Antibody Nonreactive Nonreactive [facility] Comment:Antibodies to HCV no t detected; does not exclude early acuteHCV infection. Blood Venous blood specimen / Unknown 04/11/2025 10:47 AM EDT 04/11/2025 1:09 PM EDT Gwen Mcclain MD LAB BLOOD ORDERAB LES Final Result [facility] [address] [place] [phone] * HIV-1/2 Antigen and Antibodies, Fourth Generation, with Reflexes (04/11/2025 10:47 AM EDT) HIV AB/AG Nonreactive Nonreactive [facility] Comment:HIV-1 p24 Ag and/or HIV-1/HIV-2 Ab not detected.A test result that is nonreactive does not exclude thepossibility of exposure to or infection with HIV-1 and/orHIV-2. Nonreactive results in this assay for individualswith prior exposure to HIV-1 and/or HIV-2 may be due toantigen and antibody levels that are below the limit ofdetection of this assay.The Common [employer]itan HIV Ag/Ab Combo assay result andsupplemental assay results should be interpreted inconjunction with the patient's clinical presentation,history and other laboratory results. If the results areinconsistent with clinical evidence, additional testing issuggested to confirm the result. Blood Venous blood specimen / Unknown 04/11/2025 10:47 AM EDT 04/11/2025 1:09 PM EDT us Gwen Mcclain MD LAB BLOOD ORDERAB LES Final Result [facility] [address] [place] [phone] * (ABNORMAL) Lipid Panel, Standard (04/11/2025 10:47 AM EDT) Triglycerides 58 <150 mg/dL [facility] Comment:Desirable Triglyceri de: less than 150 mg/dLBorderline High Triglyceride 150-199 mg/dLHigh Triglyceride: 200-499 mg/dLVery High Triglyceride: greater than or equal to 5OO mg/dL Cholesterol 167 <200 mg/dL [facility] Comment:Desirable Cholestero l: less than 200 mg/dLBorderline High Cholesterol: 200-239 mg/dLHigh Cholesterol: greater than 239 mg/dL LDL Cholesterol Calculated 110(H) <100 mg/dL [facility] Comment:Desirable LDL: less than 100 mg/dLNear Optimal/Above Optimal LDL: 110- 129 mg/dLBorderline High LDL: 130-159 mg/dLHigh LDL: 160-189 mg/dLVery High LDL: greater than or equal to 190 mg/dL HDL Cholesterol 46 >40 mg/dL [facility] Comment:Desirable HDL: great er than 40 mg/dL Note: This HDL assay may give artificially low results in patients with liver disease. Blood Venous blood specimen / Unknown 04/11/2025 10:47 AM EDT 04/11/2025 1:19 PM EDT Gwen Mcclain MD LAB BLOOD ORDERAB LES Final Result [facility] [address] [place] [phone] from Last 3 Months or Most Recently Relevant to Health Maintenance Insurance [facility] [employer] [facility] MEDICAID STAND ADULT Care Teams Supercharger Mechanic Relationship Specialty Start Date End Date Gwen Reyna MD [address] [place] [phone] PCP - General Internal Medicine 03/15/23
== END 2025-08-16 09:04 | disposition home or self-care (01) ==
LOC: HO.HWS 08:32
PROVIDERS: PCP Student in an Organized Health Care Education/Training Program; Visit Provider Obstetrics & Gynecology
DX: N83.299 Other ovarian cyst, unspecified side (principal)
CPT/HCPCS: 99213